=== PATIENT | male | born 1940 | race Caucasian/White ===

== ENCOUNTER → 2017-01-30 | Outpatient (CLI) | payer MEDICARE ==
--- NOTE | 2017-01-30 09:54 | RAD ---
EXAM: Renal/retroperitonal ultrasound HISTORY: Hematuria. COMPARISON: None. FINDINGS: Ultrasound of the kidneys, bladder and retroperitoneum was performed. The right kidney measures 10.9 cm. Cortical thickness and echogenicity are preserved. There is no hydronephrosis. The left kidney measures 10.5 cm. Cortical thickness and echogenicity are preserved. There is no hydronephrosis. The prostate is enlarged with a prominent median lobe that impresses on the bladder base. Separate from this, there is another solid mass more posteriorly that measures 3.2 x 2.8 x 3.0 cm. No clear internal flow is demonstrated. Diffuse hepatic steatosis is suspected. IMPRESSION: 1. A 3.2 cm mass in the bladder appears separate from a prominent prostatic medial lobe that also impresses on the bladder base. No internal flow is demonstrated, and this may be a urothelial malignancy or a clot/fungus ball. Cystoscopy could further evaluate. 2. Unremarkable examination of the kidneys. 3. Suspect diffuse hepatic steatosis.
== END | disposition home or self-care (01) ==
LOC: US 09:00
PROVIDERS: ATTEND Family Medicine
DX: R31.9 Hematuria, unspecified (principal)
CPT/HCPCS: 76770

== ENCOUNTER → 2017-03-09 | Outpatient (CLI) | payer MEDICARE ==
[~2017-03-09] MED LIST: ASPI-482 PO; IOHEXOL 300 MG/ML 75 ML VIAL IV ONE; LEVO125T5 PO; SIMV80TA3 PO
[2017-03-09 11:31] LABS: CALCIUM 9.7 mg/dL (8.5-10.1); GFR 72.8; POTASSIUM 4.5 mmol/L (3.5-5.1)
--- NOTE | 2017-03-09 17:01 | RAD ---
CT scan of the abdomen and pelvis without and with contrast (CT urogram protocol) 03/09/2017 Clinical history: Hematuria. Mass seen in urinary bladder on renal ultrasound. Technique: Unenhanced, contiguous, 2 mm axial sections were obtained through the abdomen and pelvis. After the intravenous administration of 75 cc of Omnipaque 300, contiguous, 2 mm axial sections were obtained through the abdomen. Delayed 2 mm axial sections were obtained through the abdomen and pelvis at 10 minutes. Findings: Comparison is made to patient's renal ultrasound dated 01/26/2017. Images through the lung bases demonstrate minimal dependent subsegmental atelectasis bilaterally. There is mild cardiomegaly. The unenhanced images through the abdomen and pelvis demonstrate no renal or ureteral calculus. A 1.3 cm low-attenuation lesion is seen involving the superior aspect of the right lobe of the liver. This likely represents a hepatic cyst. The spleen, pancreas and right adrenal gland are within normal limits. Slight nodularity the left adrenal gland is noted. No significant abnormality of either kidney is seen. There is no evidence of obstruction or dislocation of either collecting system. The majority of the ureters are opacified with contrast, left greater than right. No abnormality of either ureter is seen. Moderate atherosclerotic calcification of the abdominal aorta is seen. The abdominal aorta tapers normally. The gallbladder is well-distended. No free fluid or free air is seen within the abdomen. There is no evidence of bowel obstruction. No retroperitoneal lymphadenopathy is seen. The appendix is well visualized and is within normal limits. Images through the pelvis demonstrate the urinary bladder distended with contrast and urine. An exophytic mass is seen within the inferior posterior aspect of the urinary bladder which measures 3.7 cm in greatest diameter. A separate mass is seen extending anteriorly and superiorly from the left posterior aspect of the urinary bladder. This measures 4 cm in greatest diameter.. These correspond to the abnormalities seen on the patient's ultrasound. They are consistent most likely with bladder neoplasms (transitional cell carcinoma). No pelvic or inguinal lymphadenopathy is seen. No free fluid is noted. Degenerative changes are seen involving the lower thoracic and throughout the lumbar spine. Impression: Mass lesions consistent most likely with bladder neoplasms are seen within the urinary bladder as outlined above.
== END | disposition home or self-care (01) ==
LOC: CT 11:29
PROVIDERS: ATTEND Urology
DX: Z12.5 Encounter for screening for malignant neoplasm of prostate (principal); N32.9 Bladder disorder, unspecified; I25.10 Atherosclerotic heart disease of native coronary artery without angina pectoris; I51.7 Cardiomegaly; R31.9 Hematuria, unspecified
CPT/HCPCS: 36415; 74178; 80048; G0103; Q9967

== ENCOUNTER 2017-05-19 09:56 | Inpatient (IN) | payer BC, MEDICARE ==
[~2017-05-19] VITALS: Ht 172.7 cm; Wt 69.9 kg
[~2017-05-19 09:56] MED LIST changes: -IOHEXOL 300 MG/ML 75 ML VIAL IV ONE
--- NOTE | 2017-05-19 10:24 | PHYS DOC ---
Past Medical History Past Medical History: Cancer, Glaucoma, Hypothyroid, Other Additional Past Medical Histor: MS Past Surgical History: Cancer Surgery, Other Additional Past Surgical Histo: tumors removed from bladder Alcohol Use: None Drug Use: None Adult General Chief Complaint Chief Complaint: ALTERED MENTAL STATUS HPI HPI 76-year-old male whose son is here with him today presents the emergency department with generalized weakness over the past 3 or 4 days. The son has discussed with his mom which she has been noticing and is able to communicate her findings here today as well. Their report that he had bladder tumors removed about 2 weeks ago and recently had a Tineo taken out. Over the past 2 days she is generally weak in all extremities. No alleviating or exacerbating factors present. No associated fever present. Location generalized. Duration constant. No specific timing. The son also reports intermittent confusion as well. Review of systems is negative for cough chest pain abdominal pain nausea vomiting fevers or chills. Negative for neck stiffness. All other review of systems is negative unless otherwise noted in history of present illness. ED course: 76-year-old male presenting to the emergency department today with generalized fatigue and malaise. Patient had low-grade temperature here in the emergency department. Leukocytosis present on blood work. Suspicious for infection. Urine analysis moderately suggestive of urinary tract infection. Head CT negative. Otherwise workup showed CT the abdomen pelvis showed an acute compression fracture with retropulsion. my neuro exam showed 4 out of 5 strength in all extremities from generalized weakness without a focal neurologic deficit. I gave the patient IV antibiotics broad-spectrum and discussed the case with Dr. Blount and Dr. jorge MILLAN. The patient was then admitted to our hospital for further evaluation workup and care. Spinal precautions order placed along with head of bed flat. Review of Systems Review of Systems SEE ABOVE. Current Medications Current Medications Current Medications Medications (Trade) Dose Ordered Sig/Josi Start Time Stop Time Status Last Admin Dose Admin Sodium Chloride 500 ml @ 500 mls/hr 1X ONCE 05/19/17 10:30 05/19/17 11:29 DC 05/19/17 10:24 500 MLS/HR Allergies Allergies Allergies Coded Allergies Type Severity Reaction Last Updated Verified No Known Drug Allergies 03/09/17 No Physical Exam Physical Exam Constitutional: Well developed, well nourished, no acute distress, non-toxic appearance. [] HENT: Normocephalic, atraumatic, bilateral external ears normal, oropharynx moist, no oral exudates, nose normal. [] Eyes: PERRLA, EOMI, conjunctiva normal, no discharge. [] Neck: Normal range of motion, no tenderness, supple, no stridor. [] Cardiovascular:Heart rate regular rhythm, no murmur [] Lungs & Thorax: Bilateral breath sounds clear to auscultation [] Abdomen: Bowel sounds normal, soft, no tenderness, no masses, no pulsatile masses. [] Skin: Warm, dry, no erythema, no rash. [] Back: No tenderness, no CVA tenderness. [] Extremities: No tenderness, no cyanosis, no clubbing, ROM intact, no edema. [] Neurologic: Alert and oriented to person and year, but not location. Cranial nerves: Extraocular movements intact, eyebrows noah bilaterally smile symmetric, uvula elevation, shoulder shrug intact, tongue protrusion normal DTRs: 2+ Sensation: equal and normal in all extremities Strength: 5/5 in upper and lower extremities bilaterally Psychologic: Affect normal, judgement normal, mood normal. [] Current Patient Data Vital Signs Vital Signs Date Time Temp Pulse Resp B/P (MAP) Pulse Ox O2 Delivery O2 Flow Rate FiO2 05/19/17 12:30 88 19 91/57 (68) 94 05/19/17 09:56 100.1 Room Air 100.1 Lab Values Laboratory Tests Test 05/19/17 10:30 05/19/17 10:45 White Blood Count 15.7 x10^3/uL (4.0-11.0) H Red Blood Count 3.59 x10^6/uL (4.30-5.70) L Hemoglobin 10.8 g/dL (13.0-17.5) L Hematocrit 32.9 % (39.0-53.0) L Mean Corpuscular Volume 92 fL (79-100) Mean Corpuscular Hemoglobin 30 pg (25-35) Mean Corpuscular Hemoglobin Concent 33 g/dL (31-37) Red Cell Distribution Width 14.5 % (11.5-14.5) Platelet Count 275 x10^3/uL (140-400) Neutrophils (%) (Auto) 83 % (31-73) H Lymphocytes (%) (Auto) 6 % (24-48) L Monocytes (%) (Auto) 9 % (0-9) Eosinophils (%) (Auto) 0 % (0-3) Basophils (%) (Auto) 1 % (0-3) Neutrophils # (Auto) 13.0 x10^3uL (1.8-7.7) H Lymphocytes # (Auto) 1.0 x10^3/uL (1.0-4.8) Monocytes # (Auto) 1.5 x10^3/uL (0.0-1.1) H Eosinophils # (Auto) 0.0 x10^3/uL (0.0-0.7) Basophils # (Auto) 0.2 x10^3/uL (0.0-0.2) Segmented Neutrophils % 82 % (35-66) H Band Neutrophils % 2 % (0-9) Lymphocytes % 8 % (24-48) L Atypical Lymphocytes % (Manual) 1 % (0-0) H Monocytes % 5 % (0-10) Eosinophils % 2 % (0-5) Platelet Estimate Adequate (ADEQUATE) Sodium Level 140 mmol/L (136-145) Potassium Level 3.7 mmol/L (3.5-5.1) Chloride Level 104 mmol/L (98-107) Carbon Dioxide Level 29 mmol/L (21-32) Anion Gap 7 (6-14) Blood Urea Nitrogen 49 mg/dL (8-26) H Creatinine 1.7 mg/dL (0.7-1.3) H Estimated GFR (Cockcroft-Gault) 39.5 Glucose Level 168 mg/dL (70-99) H Lactic Acid Level 1.5 mmol/L (0.4-2.0) Calcium Level 8.9 mg/dL (8.5-10.1) Total Bilirubin 0.3 mg/dL (0.2-1.0) Direct Bilirubin 0.1 mg/dL (0.0-0.2) Aspartate Amino Transferase (AST) 126 U/L (15-37) H Alanine Aminotransferase (ALT) 100 U/L (16-63) H Alkaline Phosphatase 99 U/L (46-116) Troponin I Quantitative < 0.017 ng/mL (0.000-0.055) ZS-Xuo-M-Type Natriuretic Peptide 548 pg/mL (0-449) H Total Protein 6.6 g/dL (6.4-8.2) Albumin 1.9 g/dL (3.4-5.0) L Lipase 85 U/L (73-393) Urine Collection Type Unknown Urine Color Yellow Urine Clarity Cloudy Urine pH 6.0 Urine Specific [place] 1.015 Urine Protein 100 mg/dL (NEG-TRACE) Urine Glucose (UA) Negative mg/dL (NEG) Urine Ketones (Stick) Negative mg/dL (NEG) Urine Blood Moderate (NEG) Urine Nitrite Negative (NEG) Urine Bilirubin Negative (NEG) Urine Urobilinogen Dipstick 0.2 mg/dL (0.2 mg/dL) Urine Leukocyte Esterase Large (NEG) Urine RBC 3-5 /HPF (0-2) Urine WBC >40 /HPF (0-4) Urine Amorphous Sediment Present /HPF Urine Bacteria 0 /HPF (0-FEW) Laboratory Tests 05/19/17 10:30 Laboratory Tests 05/19/17 10:30 EKG EKG [] Radiology/Procedures Radiology/Procedures [] Course & Med Decision Making Course & Med Decision Making Pertinent Labs and Imaging studies reviewed. (See chart for details) [] Dragon Disclaimer Dragon Disclaimer This electronic medical record was generated, in whole or in part, using a voice recognition dictation system. Departure Departure Impression: Primary Impression: Confusion Additional Impressions: Weakness generalized Malaise and fatigue Lumbar compression fracture Disposition: 09 ADMITTED INPATIENT Admitting Physician: Deuce Ghotra Condition: GUARDED Referrals: BELLA KERR MD (PCP) Problem Qualifiers KIM FIELD MD May 19, 2017 10:24
[2017-05-19] MEDS ORDERED: IV NORMAL SALINE 500ML BAG 500 ML IV ONE (10:30)
[2017-05-19 10:48] LABS: BASO # 0.2 x10^3/uL (0.0-0.2); BASO % 1 % (0-3); EOS % 0 % (0-3); HEMATOCRIT 32.9 % (39.0-53.0); HEMOGLOBIN 10.8 g/dL (13.0-17.5); LYMPH % 6 % (24-48); MEAN CORPUSCULAR HEMOGLOBIN 30 pg (25-35); MEAN CORPUSCULAR HGB CONC 33 g/dL (31-37); MEAN CORPUSCULAR VOLUME 92 fL (79-100); MONO % 9 % (0-9); NEUT % 83 % (31-73); PLATELET COUNT 275 x10^3/uL (140-400); RED BLOOD COUNT 3.59 x10^6/uL (4.30-5.70); RED CELL DISTRIBUTION WIDTH 14.5 % (11.5-14.5); WHITE BLOOD COUNT 15.7 x10^3/uL (4.0-11.0)
--- NOTE | 2017-05-19 10:51 | RAD ---
AP PORTABLE CHEST Clinical Indication: fatigue. Altered mental status. Comparison: None. Findings: The cardiomediastinal silhouette is normal. Lungs are clear. There is no pneumothorax. No pleural effusion is appreciated. There is no acute bone abnormality. IMPRESSION: No acute cardiopulmonary process.
[2017-05-19 10:55] LABS: CALCIUM 8.9 mg/dL (8.5-10.1); CREATININE 1.7 mg/dL (0.7-1.3); GFR 39.5; POTASSIUM 3.7 mmol/L (3.5-5.1)
--- NOTE | 2017-05-19 10:55 | EKG ---
[facility] [address] [place] [address] Test Date: 2017-05-19 Test Time: 10:34:31 Pat Name: EVAN AMES Department: Room: Gender: M [employer] Faculty Liaison: : 1940 Requested By: KIM FILED Order Number: [id number] Reading MD: Measurements Intervals [place] Rate: 94 P: 47 [place]: 136 QRS: -57 QRSD: 116 T: 69 QT: 338 QTc: 428 Interpretive Statements SINUS RHYTHM ABNORMAL LEFT AXIS DEVIATION LEFT ANTERIOR FASCICULAR BLOCK QRS(T) CONTOUR ABNORMALITY CANNOT RULE OUT ANTEROSEPTAL MYOCARDIAL DAMAGE T ABNORMALITY IN HIGH LATERAL LEADS RI6.01 Unconfirmed report No previous ECG available for comparison
[2017-05-19 11:01] LABS: ALBUMIN 1.9 g/dL (3.4-5.0); DIRECT BILIRUBIN 0.1 mg/dL (0.0-0.2); TOTAL BILIRUBIN 0.3 mg/dL (0.2-1.0); TOTAL PROTEIN 6.6 g/dL (6.4-8.2)
--- NOTE | 2017-05-19 11:02 | RAD ---
PQRS Compliance Statement: One or more of the following individualized dose reduction techniques were utilized for this examination: 1. Automated exposure control 2. Adjustment of the mA and/or kV according to patient size 3. Use of iterative reconstruction technique CT HEAD WITHOUT CONTRAST History: generalized weakness . Comparison: None. Technique: Axial images are obtained of the head from the skull base through the vertex without IV contrast. Findings: No mass-effect, midline shift, hemorrhage or obvious acute infarction is identified. Basilar cisterns are patent. The ventricles and sulci are prominent, consistent with age-related cerebral atrophy. There is periventricular white matter hypoattenuation. This is a nonspecific finding but is commonly due to chronic small vessel ischemic disease in a patient of this age. Bone windows demonstrate no acute calvarial abnormality. Atherosclerotic calcification distal right vertebral artery. The visualized paranasal sinuses appear clear. Maxillary sinuses syncopal image. Mastoid air cells are well aerated. IMPRESSION: 1. No acute intracranial abnormality. 2. Age-related cerebral atrophy and periventricular white matter changes of chronic small vessel ischemic disease.
[2017-05-19 11:16] LABS: BILIRUBIN,URINE NEGATIVE (NEG); GLUCOSE,URINE NEGATIVE (NEG); NITRITE,URINE NEGATIVE (NEG); PROTEIN,URINE 100 mg/dL (NEG-TRACE); UROBILINOGEN,URINE 0.2 mg/dL (0.2 mg/dL)
[2017-05-19 11:37] LABS: BACTERIA,URINE 0 /HPF (0-FEW); WBC,URINE >40 /HPF (0-4)
--- NOTE | 2017-05-19 12:00 | ACF ---
Admission Forms Criteria MENTAL STATUS CHANGE Clinical Indications for Inpatient Care (Place 'X' for any and all applicable criteria): Ongoing inpatient care may be needed for 1 or more of the following(1)(2)(3)(5)( 6): [X]I. Suspected serious etiology (eg, medical disorder, [employer] event) of altered mental status [ ]II. Danger to self or others not manageable at lower level of care [ ]III. Grave disability (eg, inability to perform self care necessary at lower level of care) [ ]IV. Agitation or inappropriate behavior interfering with care for primary condition (eg, attempting to discontinue lines or drains prematurely, unable to cooperate with respiratory care) [ ]V. Delirium [A] [D][E] as described by 1 or more of the following(26): [ ]a) Delirium due to alcohol or sedative [F] withdrawal [ ]b) Delirium of uncertain etiology that has not responded to appropriate empiric treatment [ ]c) Delirium that prevents performance of a life-sustaining function (eg, feeding or hydrating oneself) [ ]. General contraindications and/or Inappropriate clinical situations for Observational Care in patients with Mental Status Change, when ANY ONE of the following is required: [ ]a) Prediction of prolongation of LOS based on ANY ONE of the following may be considered as a contraindication for observational care 2, 3, 4, 5, 6, 7, 8, 9, 10, 11 [ ]i) Age > 65 yrs. [ ]ii) Patient arriving by ambulance [ ]iii) Patient with high acuity [ ]iv) Patient requiring vital sign monitoring [ ]v) Patient on IV medication [ ]b) Systolic blood pressures greater than or equal to 180mmHg 3, 12 [ ]c) Patient with altered mental status including delirium and other alteration of consciousness, (3) [ ]d) Patient whose discharge disposition will be to a jail home or rehabilitation home should not be managed in Emergency Department Observation Unit. CMS rule requires 3 days hospital stay before such placement.3,13 [ ]e) Patient with failure to thrive due to broad array of etiologies 3,16,17 [ ]f) Inability to ambulate 3,14 Extended stay beyond goal length of stay for the primary condition may be needed until ALL of the following are present(3)(5): [ ]a) Underlying medical etiology of mental status change is absent, or has been established and adequately treated [ ]b) Danger to self or others is absent or manageable at lower level of care. [ ]c) Behavior crisis management, including physical or chemical restraints, is not required or available at lower level of car [ ]d) Substance or alcohol withdrawal is absent or manageable at lower level of care. [ ]e) Behavioral symptoms (eg, agitation, somnolence, inappropriate behavior) are absent, or are manageable at lower level of care. The original [facility] [employer] content created by [facility] has been revised. The portions of the content which have been revised are identified through the use of italic text or in bold, and [facility] has neither reviewed nor approved the modified material. All other unmodified content is copyright [facility]. Please see references footnoted in the original [facility] edition 2016 Admission Criteria Met?: Pending CALI TOMPKINS May 19, 2017 12:00
[2017-05-19 12:55] LABS: % EOS 2 % (0-5); PLT ESTIMATE ADEQUATE (ADEQUATE)
[2017-05-19] MEDS ORDERED: CONTRAST GIVEN MC PRN (13:00)
[2017-05-19] MEDS ORDERED: PIPERACILLIN/TAZOBACTAM 3.375 GM in IV NORMAL SALINE 50ML 50 ML IV ONE (13:00)
[2017-05-19] MEDS ORDERED: IOHEXOL 300 MG/ML 75 ML VIAL IV ONE (13:00)
[2017-05-19] MEDS ORDERED: PIP/TAZO PER PHARMACY MC PRN (13:00)
[2017-05-19] MEDS ORDERED: VANCOMYCIN 1.75 GM in IV NORMAL SALINE 500ML BAG 500 ML IV ONE (13:00)
[2017-05-19] MEDS ORDERED: ONDANSETRON PF 4 MG/2 ML VIAL. IV PRN (13:00)
[2017-05-19] MEDS: IV NORMAL SALINE 1000ML BAG 1,000 ML IV SCH ×2 (13:05→20:49)
--- NOTE | 2017-05-19 14:19 | RAD ---
PQRS Compliance Statement: One or more of the following individualized dose reduction techniques were utilized for this examination: 1. Automated exposure control 2. Adjustment of the mA and/or kV according to patient size 3. Use of iterative reconstruction technique CT CHEST ABDOMEN PELVIS WO Clinical Indication: leukocytosis and fatigue with pyuria Comparison: CT abdomen and pelvis with and without contrast, 03/09/2017. Technique: Helical CT imaging of the chest abdomen and pelvis is performed without IV or oral contrast. Findings: Evaluation of vascular structures, solid organs, and bowel is limited without oral and IV contrast. No adenopathy in the chest. Great vessels normal caliber. Coronary artery disease. Cardiac size normal, no pericardial effusion. No pleural effusion. Central airways are patent. There is mild atelectasis or scarring dependently in the bilateral lower lobes. No suspicious pulmonary nodule. No pleural abnormality. The liver, gallbladder, spleen, and pancreas are normal. Abdominal aorta is normal caliber. Adrenal glands normal. Right kidney is normal. There is left ureteral stent. There is moderate left perinephric fluid. No left hydronephrosis. No ureteral calculus is identified. Stomach unremarkable. There is no colon wall thickening. No dilated small bowel. Appendix is normal. No abdominal adenopathy or free fluid. No urinary bladder wall thickening. Bladder masses are no longer seen, correlate to interval history. Prostate size normal. No pelvic free fluid. There is acute compression fracture of the L4 vertebral body. There is retropulsion and there appears to be severe central canal stenosis. There is mild loss of height. L4 posterior elements are intact. There is old compression fracture of the L1 vertebral body. No compression fracture in the thoracic spine is identified. IMPRESSION: 1. Acute compression fracture of the L4 vertebral body, mild loss of height. There is retropulsion and severe central canal stenosis posterior to L4. 2. There is left ureteral stent. Moderate left perinephric fluid. Left pyelitis cannot be excluded. * Critical results called to Dr. Pedraza in the ED at 2:15 PM.
[2017-05-19 14:20] VITALS: BP 109/65
[2017-05-19 14:22] VITALS: BP 109/65
[2017-05-19] MEDS: VANCOMYCIN PER PHARMACY MC PRN (14:29)
[2017-05-19] MEDS: VANCOMYCIN 1.25 GM in IV NORMAL SALINE 250ML 250 ML IV SCH (15:31)
[2017-05-19 19:46] VITALS: BP 119/75
[2017-05-19 22:38] VITALS: BP 120/72
[2017-05-19] MEDS: MORPHINE SULFATE 2 MG/ML DISP.SYRIN. IV PRN (23:23)
[2017-05-19] MEDS: PIPERACILLIN/TAZOBACTAM 3.375 GM in IV NORMAL SALINE 50ML 50 ML IV SCH (23:26)
[2017-05-20 03:36] VITALS: BP 103/62
[2017-05-20] MEDS: ACETAMINOPHEN 325 MG TABLET. PO PRN ×2 (03:55→20:59)
[2017-05-20] MEDS: MORPHINE SULFATE 2 MG/ML DISP.SYRIN. IV PRN ×4 (04:09→14:29)
[2017-05-20 05:29] LABS: BASO # 0.1 x10^3/uL (0.0-0.2); BASO % 1 % (0-3); EOS % 0 % (0-3); HEMOGLOBIN 10.4 g/dL (13.0-17.5); LYMPH # 0.8 x10^3/uL (1.0-4.8); LYMPH % 7 % (24-48); MEAN CORPUSCULAR HEMOGLOBIN 30 pg (25-35); MEAN CORPUSCULAR HGB CONC 33 g/dL (31-37); MEAN CORPUSCULAR VOLUME 93 fL (79-100); MONO % 9 % (0-9); NEUT % 83 % (31-73); PLATELET COUNT 258 x10^3/uL (140-400); RED BLOOD COUNT 3.45 x10^6/uL (4.30-5.70); RED CELL DISTRIBUTION WIDTH 14.8 % (11.5-14.5); WHITE BLOOD COUNT 11.4 x10^3/uL (4.0-11.0)
[2017-05-20 05:51] LABS: CALCIUM 8.5 mg/dL (8.5-10.1); CREATININE 1.4 mg/dL (0.7-1.3); GFR 49.4; POTASSIUM 3.8 mmol/L (3.5-5.1)
[2017-05-20] MEDS: PIPERACILLIN/TAZOBACTAM 3.375 GM in IV NORMAL SALINE 50ML 50 ML IV SCH ×3 (06:27→17:44)
[2017-05-20] MEDS: IV NORMAL SALINE 1000ML BAG 1,000 ML IV SCH ×2 (06:29→15:00)
[2017-05-20 07:00] VITALS: BP 92/53
[2017-05-20] MEDS: LEVOTHYROXINE 125 MCG TABLET PO SCH (08:18)
--- NOTE | 2017-05-20 08:38 | HP ---
ADMIT DATE: 05/19/2017 CHIEF COMPLAINT: Weakness and mental status changes. HISTORY OF PRESENT ILLNESS AND HOSPITAL COURSE: This patient is a 76-year-old male with a known history of MS, came in to the hospital with what appeared to be acute delirium, but was in fact acute delirium on top of progressive dementia. He was found to have evidence of infection with leukocytosis as well as large leukocytes in urine. Therefore, he was started on IV antibiotics and admitted to the hospital. During evaluation, it was discovered that the patient had been having leg weakness and had several falls. We did CAT scan, confirmed a new L4 compression fracture with significant retropulsion. Therefore, Neurosurgery was consulted. The patient is unable to give adequate history due to delirium and apparently progressive dementia. Most of the information is obtained from chart and daughter is available in the room on my interview. She states that for several months he has been following and has had difficulty with his memory. He has gotten significantly worse since recent diagnosis of bladder tumor and bladder tumor procedure. The patient does have a stent in place verified by x-ray in the Emergency Room. The stent was present in the left ureter. The patient also has perinephric fluid and Urology will consult to evaluate for abscess as well as Infectious Disease. Due to significant changes and multiple medical issues, he was admitted to the medical bed for continued evaluation and IV antibiotics. PAST MEDICAL HISTORY: Significant for: 1. Recently diagnosed bladder tumor with procedure and stent placement. 2. Underlying multiple sclerosis with progressive weakness. 3. Newly diagnosed early-onset dementia, Alzheimer's type. 4. Hypothyroidism. 5. High cholesterol. FAMILY HISTORY: Noncontributory. SOCIAL HISTORY: The patient continues to smoke approximately a pack per day. He has used alcohol in the past, but is not drinking heavily at present. The patient is and has social support from his and daughter. ALLERGIES: The patient denies drug allergies. CURRENT MEDICATIONS: Listed on MRAD. In addition to current medications, the patient has recently been given Percocet for postsurgical pain. REVIEW OF SYSTEMS: Unable to be obtained from the patient, but during her hospitalization, the patient has had fever and according to daughter he has had significant pain from recent stent placement and urologic procedures. ASSESSMENT: 1. Metabolic encephalopathy. 2. Acute L4 compression fracture. 3. Multiple sclerosis. 4. Urinary tract infection. 5. Sepsis. 6. Underlying dementia. 7. Hypothyroidism. 8. Hyperlipidemia. PLAN: To proceed with Infectious Disease consultation, neurosurgical consultation as well as urologic consultation. Continue supportive care and IV antibiotics. KELLEN KEENE MD DR: CORY/jeanne JOB#: [id number] / [id number]
--- NOTE | 2017-05-20 09:27 | PDOC ---
PROGRESS NOTES Subjective Subjective Pt. with bladder tumors, s/p TURBT and left J-J stent by Dr. Griffin last month Objective Objective Vital Signs Date Time Temp Pulse Resp B/P (MAP) Pulse Ox O2 Delivery O2 Flow Rate FiO2 05/20/17 08:18 16 96 Room Air 05/20/17 07:00 98.3 62 92/53 (66) 98.3 Intake and Output 05/20/17 07:00 Intake Total 650 ml Output Total 0 ml Balance 650 ml Intake Oral 150 ml IV Total 500 ml Output Urine Total 0 ml # Voids 6 # Bowel Movements 2 Physical Exam Physical Exam Left nima-nephric fluid on CT Plan Plan of Care Recommend steinberg to obtain maximum drainage. Consider left PCN drainage neurology and med-onc consults F/U with Dr. Griffin in next 2-3 days Problems Medical Problems: (1) Confusion Status: Acute (2) Lumbar compression fracture Status: Acute (3) Malaise and fatigue Status: Acute (4) Weakness generalized Status: Acute Comment Review of Relevant I have reviewed the following items betsy (where applicable) has been applied. Labs Laboratory Tests Test 05/19/17 10:30 05/19/17 10:45 05/20/17 04:30 White Blood Count 15.7 x10^3/uL (4.0-11.0) 11.4 x10^3/uL (4.0-11.0) Red Blood Count 3.59 x10^6/uL (4.30-5.70) 3.45 x10^6/uL (4.30-5.70) Hemoglobin 10.8 g/dL (13.0-17.5) 10.4 g/dL (13.0-17.5) Hematocrit 32.9 % (39.0-53.0) 32.0 % (39.0-53.0) Mean Corpuscular Volume 92 fL (79-100) 93 fL (79-100) Mean Corpuscular Hemoglobin 30 pg (25-35) 30 pg (25-35) Mean Corpuscular Hemoglobin Concent 33 g/dL (31-37) 33 g/dL (31-37) Red Cell Distribution Width 14.5 % (11.5-14.5) 14.8 % (11.5-14.5) Platelet Count 275 x10^3/uL (140-400) 258 x10^3/uL (140-400) Neutrophils (%) (Auto) 83 % (31-73) 83 % (31-73) Lymphocytes (%) (Auto) 6 % (24-48) 7 % (24-48) Monocytes (%) (Auto) 9 % (0-9) 9 % (0-9) Eosinophils (%) (Auto) 0 % (0-3) 0 % (0-3) Basophils (%) (Auto) 1 % (0-3) 1 % (0-3) Neutrophils # (Auto) 13.0 x10^3uL (1.8-7.7) 9.5 x10^3uL (1.8-7.7) Lymphocytes # (Auto) 1.0 x10^3/uL (1.0-4.8) 0.8 x10^3/uL (1.0-4.8) Monocytes # (Auto) 1.5 x10^3/uL (0.0-1.1) 1.0 x10^3/uL (0.0-1.1) Eosinophils # (Auto) 0.0 x10^3/uL (0.0-0.7) 0.0 x10^3/uL (0.0-0.7) Basophils # (Auto) 0.2 x10^3/uL (0.0-0.2) 0.1 x10^3/uL (0.0-0.2) Segmented Neutrophils % 82 % (35-66) Band Neutrophils % 2 % (0-9) Lymphocytes % 8 % (24-48) Atypical Lymphocytes % (Manual) 1 % (0-0) Monocytes % 5 % (0-10) Eosinophils % 2 % (0-5) Platelet Estimate Adequate (ADEQUATE) Sodium Level 140 mmol/L (136-145) 144 mmol/L (136-145) Potassium Level 3.7 mmol/L (3.5-5.1) 3.8 mmol/L (3.5-5.1) Chloride Level 104 mmol/L (98-107) 106 mmol/L (98-107) Carbon Dioxide Level 29 mmol/L (21-32) 29 mmol/L (21-32) Anion Gap 7 (6-14) 9 (6-14) Blood Urea Nitrogen 49 mg/dL (8-26) 36 mg/dL (8-26) Creatinine 1.7 mg/dL (0.7-1.3) 1.4 mg/dL (0.7-1.3) Estimated GFR (Cockcroft-Gault) 39.5 49.4 Glucose Level 168 mg/dL (70-99) 77 mg/dL (70-99) Lactic Acid Level 1.5 mmol/L (0.4-2.0) Calcium Level 8.9 mg/dL (8.5-10.1) 8.5 mg/dL (8.5-10.1) Total Bilirubin 0.3 mg/dL (0.2-1.0) Direct Bilirubin 0.1 mg/dL (0.0-0.2) Aspartate Amino Transf (AST/SGOT) 126 U/L (15-37) Alanine Aminotransferase (ALT/SGPT) 100 U/L (16-63) Alkaline Phosphatase 99 U/L (46-116) Troponin I Quantitative < 0.017 ng/mL (0.000-0.055) GZ-Ona-L-Type Natriuretic Peptide 548 pg/mL (0-449) Total Protein 6.6 g/dL (6.4-8.2) Albumin 1.9 g/dL (3.4-5.0) Lipase 85 U/L (73-393) Urine Collection Type Unknown Urine Color Yellow Urine Clarity Cloudy Urine pH 6.0 Urine Specific [place] 1.015 Urine Protein 100 mg/dL (NEG-TRACE) Urine Glucose (UA) Negative mg/dL (NEG) Urine Ketones (Stick) Negative mg/dL (NEG) Urine Blood Moderate (NEG) Urine Nitrite Negative (NEG) Urine Bilirubin Negative (NEG) Urine Urobilinogen Dipstick 0.2 mg/dL (0.2 mg/dL) Urine Leukocyte Esterase Large (NEG) Urine RBC 3-5 /HPF (0-2) Urine WBC >40 /HPF (0-4) Urine Amorphous Sediment Present /HPF Urine Bacteria 0 /HPF (0-FEW) Laboratory Tests Test 05/19/17 10:30 05/19/17 10:45 05/20/17 04:30 White Blood Count 15.7 x10^3/uL (4.0-11.0) 11.4 x10^3/uL (4.0-11.0) Red Blood Count 3.59 x10^6/uL (4.30-5.70) 3.45 x10^6/uL (4.30-5.70) Hemoglobin 10.8 g/dL (13.0-17.5) 10.4 g/dL (13.0-17.5) Hematocrit 32.9 % (39.0-53.0) 32.0 % (39.0-53.0) Mean Corpuscular Volume 92 fL (79-100) 93 fL (79-100) Mean Corpuscular Hemoglobin 30 pg (25-35) 30 pg (25-35) Mean Corpuscular Hemoglobin Concent 33 g/dL (31-37) 33 g/dL (31-37) Red Cell Distribution Width 14.5 % (11.5-14.5) 14.8 % (11.5-14.5) Platelet Count 275 x10^3/uL (140-400) 258 x10^3/uL (140-400) Neutrophils (%) (Auto) 83 % (31-73) 83 % (31-73) Lymphocytes (%) (Auto) 6 % (24-48) 7 % (24-48) Monocytes (%) (Auto) 9 % (0-9) 9 % (0-9) Eosinophils (%) (Auto) 0 % (0-3) 0 % (0-3) Basophils (%) (Auto) 1 % (0-3) 1 % (0-3) Neutrophils # (Auto) 13.0 x10^3uL (1.8-7.7) 9.5 x10^3uL (1.8-7.7) Lymphocytes # (Auto) 1.0 x10^3/uL (1.0-4.8) 0.8 x10^3/uL (1.0-4.8) Monocytes # (Auto) 1.5 x10^3/uL (0.0-1.1) 1.0 x10^3/uL (0.0-1.1) Eosinophils # (Auto) 0.0 x10^3/uL (0.0-0.7) 0.0 x10^3/uL (0.0-0.7) Basophils # (Auto) 0.2 x10^3/uL (0.0-0.2) 0.1 x10^3/uL (0.0-0.2) Segmented Neutrophils % 82 % (35-66) Band Neutrophils % 2 % (0-9) Lymphocytes % 8 % (24-48) Atypical Lymphocytes % (Manual) 1 % (0-0) Monocytes % 5 % (0-10) Eosinophils % 2 % (0-5) Platelet Estimate Adequate (ADEQUATE) Sodium Level 140 mmol/L (136-145) 144 mmol/L (136-145) Potassium Level 3.7 mmol/L (3.5-5.1) 3.8 mmol/L (3.5-5.1) Chloride Level 104 mmol/L (98-107) 106 mmol/L (98-107) Carbon Dioxide Level 29 mmol/L (21-32) 29 mmol/L (21-32) Anion Gap 7 (6-14) 9 (6-14) Blood Urea Nitrogen 49 mg/dL (8-26) 36 mg/dL (8-26) Creatinine 1.7 mg/dL (0.7-1.3) 1.4 mg/dL (0.7-1.3) Estimated GFR (Cockcroft-Gault) 39.5 49.4 Glucose Level 168 mg/dL (70-99) 77 mg/dL (70-99) Lactic Acid Level 1.5 mmol/L (0.4-2.0) Calcium Level 8.9 mg/dL (8.5-10.1) 8.5 mg/dL (8.5-10.1) Total Bilirubin 0.3 mg/dL (0.2-1.0) Direct Bilirubin 0.1 mg/dL (0.0-0.2) Aspartate Amino Transf (AST/SGOT) 126 U/L (15-37) Alanine Aminotransferase (ALT/SGPT) 100 U/L (16-63) Alkaline Phosphatase 99 U/L (46-116) Troponin I Quantitative < 0.017 ng/mL (0.000-0.055) TK-Ubs-I-Type Natriuretic Peptide 548 pg/mL (0-449) Total Protein 6.6 g/dL (6.4-8.2) Albumin 1.9 g/dL (3.4-5.0) Lipase 85 U/L (73-393) Urine Collection Type Unknown Urine Color Yellow Urine Clarity Cloudy Urine pH 6.0 Urine Specific [place] 1.015 Urine Protein 100 mg/dL (NEG-TRACE) Urine Glucose (UA) Negative mg/dL (NEG) Urine Ketones (Stick) Negative mg/dL (NEG) Urine Blood Moderate (NEG) Urine Nitrite Negative (NEG) Urine Bilirubin Negative (NEG) Urine Urobilinogen Dipstick 0.2 mg/dL (0.2 mg/dL) Urine Leukocyte Esterase Large (NEG) Urine RBC 3-5 /HPF (0-2) Urine WBC >40 /HPF (0-4) Urine Amorphous Sediment Present /HPF Urine Bacteria 0 /HPF (0-FEW) Medications Current Medications Sodium Chloride 500 ml @ 500 mls/hr 1X ONCE IV Last administered on 10:24; Start 05/19/17 at 10:30; Stop 05/19/17 at 11:29; Status DC Iohexol (Omnipaque 300 Mg/ml) 50 ml 1X ONCE IV ; Start 05/19/17 at 13:00; Stop 05/19/17 at 13:01; Status DC Info (Do NOT chart on this entry -- for MONITORING) 1 each PRN DAILY PRN MC SEE COMMENTS; Start 05/19/17 at 13:00; Stop 05/21/17 at 12:59 Ondansetron HCl (Zofran) 4 mg PRN Q8HRS PRN IV NAUSEA/VOMITING; Start 05/19/17 at 13:00; Stop 05/20/17 at 12:59 Morphine Sulfate 2 mg PRN Q2HR PRN IV PAIN Last administered on 05/20/17 08:18 ; Start 05/19/17 at 13:00; Stop 05/20/17 at 12:59 Sodium Chloride 1,000 ml @ 125 mls/hr Q8H IV Last administered on 05/20/17 06 :29; Start 05/19/17 at 12:49; Stop 05/20/17 at 12:48 Vancomycin HCl (Vanco Per Pharmacy) 1 each PRN DAILY PRN MC SEE COMMENTS Last administered on 05/19/17 14:29; Start 05/19/17 at 13:00 Piperacillin Sod/ Tazobactam Sod (Zosyn Per Pharmacy) 1 each PRN DAILY PRN MC SEE COMMENTS; Start 05/19/17 at 13:00 Piperacillin Sod/ Tazobactam Sod 3.375 gm/Sodium Chloride 50 ml @ 100 mls/hr 1X ONCE IV Last administered on 05/19/17 16:13; Start 05/19/17 at 13:00; Stop 05/19/17 at 13:29; Status DC Vancomycin HCl 1.75 gm/Sodium Chloride 500 ml @ 250 mls/hr 1X ONCE IV Last administered on 05/19/17 13:06; Start 05/19/17 at 13:00; Stop 05/19/17 at 14:59 ; Status DC Vancomycin HCl 1.25 gm/Sodium Chloride 250 ml @ 167 mls/hr Q24H IV Last administered on 05/19/17 15:31; Start 05/20/17 at 13:00 Vancomycin HCl 1 each 1X ONCE MC ; Start 05/21/17 at 12:30; Stop 05/21/17 at 12 :31 Piperacillin Sod/ Tazobactam Sod 3.375 gm/Sodium Chloride 50 ml @ 100 mls/hr Q6HRS IV Last administered on 05/20/17 06:27; Start 05/19/17 at 23:00 Acetaminophen (Tylenol) 650 mg PRN Q6HRS PRN PO fever/MILD pain Last administered on 05/20/17 03:55; Start 05/20/17 at 04:00 Levothyroxine Sodium (Synthroid) 125 mcg DAILY07 PO Last administered on 08:18; Start 05/20/17 at 07:30 Simvastatin (Zocor) 80 mg QHS PO ; Start 05/20/17 at 21:00 Active Scripts Active Reported Aspir 81 (Aspirin) 81 Mg Tablet.dr 81 Mg PO Simvastatin 80 Mg Tablet 80 Mg PO DAILY Levothyroxine Sodium 125 Mcg Tablet 125 Mcg PO DAILYAC Vitals/I & O Vital Sign - Last 24 Hours 05/19/17 05/19/17 05/19/17 05/19/17 09:56 10:30 11:00 11:30 Temp 100.1 100.1 Pulse 98 96 94 86 Resp B/P (MAP) 106/61 (76) 101/63 (76) 103/56 (72) 107/56 (73) Pulse Ox 96 94 96 94 O2 Delivery Room Air 05/19/17 05/19/17 05/19/17 05/19/17 12:00 12:30 13:00 14:20 Temp 98.2 98.2 Pulse 92 88 88 81 Resp 21 19 23 24 B/P (MAP) 97/61 (73) 91/57 (68) 98/60 (73) 109/65 (80) Pulse Ox 94 94 95 97 O2 Delivery Room Air 05/19/17 05/19/17 05/19/17 05/19/17 14:22 15:44 19:46 20:00 Temp 98.2 99.6 98.2 99.6 Pulse 81 86 Resp 24 18 B/P (MAP) 109/65 (80) 119/75 (90) Pulse Ox 97 95 O2 Delivery Room Air Room Air Room Air Room Air 05/19/17 05/19/17 05/19/17 05/20/17 22:38 23:23 23:53 03:36 Temp 98.3 101.1 98.3 101.1 Pulse 84 97 Resp 18 18 20 18 B/P (MAP) 120/72 (88) 103/62 (76) Pulse Ox 95 95 94 O2 Delivery Room Air Room Air Room Air 05/20/17 05/20/17 05/20/17 05/20/17 04:09 04:39 07:00 08:00 Temp 98.3 98.3 Pulse 62 Resp 20 17 B/P (MAP) 92/53 (66) Pulse Ox 95 95 96 O2 Delivery Room Air Room Air Room Air Room Air 05/20/17 08:18 Resp 16 Pulse Ox 96 O2 Delivery Room Air Intake and Output 05/19/17 05/19/17 05/20/17 15:00 23:00 07:00 Intake Total 500 ml 150 ml Output Total 0 ml Balance 500 ml 0 ml 150 ml JOHN NAGY MD May 20, 2017 09:27
--- NOTE | 2017-05-20 10:05 | RAD ---
BILATERAL LOWER EXTREMITY VENOUS DOPPLER ULTRASOUND Clinical indication: Bilateral leg pain and immobility. Comparison: None. Technique: Real-time grayscale, color-flow, and Doppler spectral waveform analysis of the deep vein system of the lower extremities is performed. Findings: All visualized vein segments compress, augment, and demonstrate color flow normally. There is no evidence of thrombus. IMPRESSION: No evidence of deep vein thrombosis in the right or left lower extremity.
[2017-05-20 11:04] VITALS: BP 96/59
--- NOTE | 2017-05-20 11:35 | PDOC ---
Infectious Disease Note Vital Sign Vital Signs Vital Signs Date Time Temp Pulse Resp B/P (MAP) Pulse Ox O2 Delivery O2 Flow Rate FiO2 05/20/17 08:18 16 96 Room Air 05/20/17 07:00 98.3 62 92/53 (66) 98.3 Labs Lab Laboratory Tests Test 05/20/17 04:30 White Blood Count 11.4 x10^3/uL (4.0-11.0) Red Blood Count 3.45 x10^6/uL (4.30-5.70) Hemoglobin 10.4 g/dL (13.0-17.5) Hematocrit 32.0 % (39.0-53.0) Mean Corpuscular Volume 93 fL (79-100) Mean Corpuscular Hemoglobin 30 pg (25-35) Mean Corpuscular Hemoglobin Concent 33 g/dL (31-37) Red Cell Distribution Width 14.8 % (11.5-14.5) Platelet Count 258 x10^3/uL (140-400) Neutrophils (%) (Auto) 83 % (31-73) Lymphocytes (%) (Auto) 7 % (24-48) Monocytes (%) (Auto) 9 % (0-9) Eosinophils (%) (Auto) 0 % (0-3) Basophils (%) (Auto) 1 % (0-3) Neutrophils # (Auto) 9.5 x10^3uL (1.8-7.7) Lymphocytes # (Auto) 0.8 x10^3/uL (1.0-4.8) Monocytes # (Auto) 1.0 x10^3/uL (0.0-1.1) Eosinophils # (Auto) 0.0 x10^3/uL (0.0-0.7) Basophils # (Auto) 0.1 x10^3/uL (0.0-0.2) Sodium Level 144 mmol/L (136-145) Potassium Level 3.8 mmol/L (3.5-5.1) Chloride Level 106 mmol/L (98-107) Carbon Dioxide Level 29 mmol/L (21-32) Anion Gap 9 (6-14) Blood Urea Nitrogen 36 mg/dL (8-26) Creatinine 1.4 mg/dL (0.7-1.3) Estimated GFR (Cockcroft-Gault) 49.4 Glucose Level 77 mg/dL (70-99) Calcium Level 8.5 mg/dL (8.5-10.1) Objective Assessment Sepsis POA, 05/19 Left perinephritic fluid, ? pyelitis h/o bladder tumors s/p TURBT and J-J stent placement at [facility] a month ago. - 3 days of antibiotics post removal of Tineo about 2 weeks later. Acute encephalopathy - better already per CARLIE -better Transaminitis Acute compression fracture, L4 MS, 47 year history Plan Plan of Care vanc and Zosyn Monitor labs f/u cultures D/w Dr. Underwood D/w Thank you [id number] Attending Co-Sign Attending Co-Sign The patient was seen and interviewed as well as examined at the bedside. The chart was reviewed. The case was discussed. Agree with the plan of care. CLYDE MEZA APRN May 20, 2017 11:35 JESSICA HYMAN MD May 20, 2017 16:07
[2017-05-20] MEDS: VANCOMYCIN 1.25 GM in IV NORMAL SALINE 250ML 250 ML IV SCH (13:48)
--- NOTE | 2017-05-20 13:55 | PDOC ---
Provider Note Provider Note Med ONc noninvasive urothelial carcinoma Pt prefers observation see dictation [id number] LULU ZAYAS MD May 20, 2017 13:55
--- NOTE | 2017-05-20 13:59 | PDOC2 ---
NEUROLOGY CONSULT Date of Admission Date of Admission DATE: 05/20/17 TIME: 13:44 Reason for Consult Reason for Consult: IMPRESSION: Metabolic encephalopathy. Fever, 101.1 degree. Leukocytosis. Sepsis. Renal failure. Bladder tumor removal with left ureteral stent. Hypothyroidism Generalized weakness Elevated hepatic enzymes. MS? Acute L-4 compression fracture. Hypoalbuminemia. Dementia. RECOMMENDATIONS/PLAN: Brain MRI, no contrast due to renal failure. Suggest watch the dose of Statin due to elevated hepatic enzymes. Lab: see orders. Treat medical diseases. HISTORY OF THE PRESENT ILLNESS: 76-y-old male patient with multiple diseases had bladder mass that was surgically removed in about 2 weeks with left ureteral stent. He was admitted this time and has been having mental status changes, so neurology was called for consultation. PAST MEDICAL HISTORY: Please see above. PAST SURGERY HISTORY: Bladder mass removal about 2 weeks ago with left ureteral stent. ALLERGY: Reviewed. MEDICATIONS: Refer to [facility] FAMILY HISTORY: Non contributory. SOCIAL HISTORY: Denies current smoking, drinking, and illicit drug use. He drank alcohol in the past then quit. REVIEW OF SYSTEMS: Constitutional: No cachexia. Head: No traumatic brain or head injury. Skin: No edema, or rash. Ear: No infection. Eyes: No vision loss or color blindness. Nose: No bleeding or purulent discharges. Hearing: Hearing decrease. Neck: No injury. Cardiac: HLD. Pulmonary: No COPD. GI: No GI ulcer. Urinary/genital: Bladder mass. UTI. Endocrinologic: No cousin face, craniofacial dysmorphism, polydactyly. Skeletomuscular: Generalized weakness. Neurological: see HP. Psychiatric: Denies drug use/abuse. Otherwise, not [id number] review of systems. PHYSICAL EXAMINATION: General appearance is in subacute distress. HEENT: Normocephalic and nontraumatic. Eyes, nose, ears, and throat are unremarkable. Neck is supple. No lymphadenopathy. No crepitus. Cardiovascular: S1, S2, regular rate and rhythm. Pulmonary: Clear to auscultation bilaterally. Abdomen: Bowel sounds are positive. Extremities: No rash, lesions, or edema. No restriction of range of motion NEUROLOGICAL EXAMINATION: Awake. Not oriented to time, place but knows person. PERRL. EOMI. CN: no focal findings. Muscle tone: within normal. Muscle strength: 4 DTR: 1-2 Plantar reflex: Flexor response bilaterally Gait: not examined in bed. Sensory exam: no abnormal findings. No acute cerebellar signs elicited. F-T-N test not performed due to not follow commands. Current Medications Current Medications Current Medications Sodium Chloride 500 ml @ 500 mls/hr 1X ONCE IV Last administered on 10:24; Start 05/19/17 at 10:30; Stop 05/19/17 at 11:29; Status DC Iohexol (Omnipaque 300 Mg/ml) 50 ml 1X ONCE IV ; Start 05/19/17 at 13:00; Stop 05/19/17 at 13:01; Status DC Info (Do NOT chart on this entry -- for MONITORING) 1 each PRN DAILY PRN MC SEE COMMENTS; Start 05/19/17 at 13:00; Stop 05/21/17 at 12:59 Ondansetron HCl (Zofran) 4 mg PRN Q8HRS PRN IV NAUSEA/VOMITING; Start 05/19/17 at 13:00; Stop 05/20/17 at 12:59; Status DC Morphine Sulfate 2 mg PRN Q2HR PRN IV PAIN Last administered on 05/20/17 08:18 ; Start 05/19/17 at 13:00; Stop 05/20/17 at 12:59; Status DC Sodium Chloride 1,000 ml @ 125 mls/hr Q8H IV Last administered on 05/20/17 06 :29; Start 05/19/17 at 12:49; Stop 05/20/17 at 12:48; Status DC Vancomycin HCl (Vanco Per Pharmacy) 1 each PRN DAILY PRN MC SEE COMMENTS Last administered on 05/19/17 14:29; Start 05/19/17 at 13:00 Piperacillin Sod/ Tazobactam Sod (Zosyn Per Pharmacy) 1 each PRN DAILY PRN MC SEE COMMENTS; Start 05/19/17 at 13:00 Piperacillin Sod/ Tazobactam Sod 3.375 gm/Sodium Chloride 50 ml @ 100 mls/hr 1X ONCE IV Last administered on 05/19/17 16:13; Start 05/19/17 at 13:00; Stop 05/19/17 at 13:29; Status DC Vancomycin HCl 1.75 gm/Sodium Chloride 500 ml @ 250 mls/hr 1X ONCE IV Last administered on 05/19/17 13:06; Start 05/19/17 at 13:00; Stop 05/19/17 at 14:59 ; Status DC Vancomycin HCl 1.25 gm/Sodium Chloride 250 ml @ 167 mls/hr Q24H IV ; Start at 13:00 Vancomycin HCl 1 each 1X ONCE MC ; Start 05/21/17 at 12:30; Stop 05/21/17 at 12 :31 Piperacillin Sod/ Tazobactam Sod 3.375 gm/Sodium Chloride 50 ml @ 100 mls/hr Q6HRS IV Last administered on 05/20/17 11:31; Start 05/19/17 at 23:00 Acetaminophen (Tylenol) 650 mg PRN Q6HRS PRN PO fever/MILD pain Last administered on 05/20/17 03:55; Start 05/20/17 at 04:00 Levothyroxine Sodium (Synthroid) 125 mcg DAILY07 PO Last administered on 08:18; Start 05/20/17 at 07:30 Simvastatin (Zocor) 80 mg QHS PO ; Start 05/20/17 at 21:00 Active Scripts Active Reported Aspir 81 (Aspirin) 81 Mg Tablet. 81 Mg PO Simvastatin 80 Mg Tablet 80 Mg PO DAILY Levothyroxine Sodium 125 Mcg Tablet 125 Mcg PO DAILYAC Allergies Allergies: Coded Allergies: No Known Drug Allergies (Unverified , 03/09/17) UNKNOWN Vitals VITALS Vital Signs Date Time Temp Pulse Resp B/P (MAP) Pulse Ox O2 Delivery O2 Flow Rate FiO2 05/20/17 11:04 98.4 77 17 96/59 (71) 96 Room Air 98.4 Labs Labs Laboratory Tests Test 05/19/17 10:30 05/19/17 10:45 05/20/17 04:30 05/20/17 11:30 White Blood Count 15.7 x10^3/uL (4.0-11.0) 11.4 x10^3/uL (4.0-11.0) Red Blood Count 3.59 x10^6/uL (4.30-5.70) 3.45 x10^6/uL (4.30-5.70) Hemoglobin 10.8 g/dL (13.0-17.5) 10.4 g/dL (13.0-17.5) Hematocrit 32.9 % (39.0-53.0) 32.0 % (39.0-53.0) Mean Corpuscular Volume 92 fL (79-100) 93 fL (79-100) Mean Corpuscular Hemoglobin 30 pg (25-35) 30 pg (25-35) Mean Corpuscular Hemoglobin Concent 33 g/dL (31-37) 33 g/dL (31-37) Red Cell Distribution Width 14.5 % (11.5-14.5) 14.8 % (11.5-14.5) Platelet Count 275 x10^3/uL (140-400) 258 x10^3/uL (140-400) Neutrophils (%) (Auto) 83 % (31-73) 83 % (31-73) Lymphocytes (%) (Auto) 6 % (24-48) 7 % (24-48) Monocytes (%) (Auto) 9 % (0-9) 9 % (0-9) Eosinophils (%) (Auto) 0 % (0-3) 0 % (0-3) Basophils (%) (Auto) 1 % (0-3) 1 % (0-3) Neutrophils # (Auto) 13.0 x10^3uL (1.8-7.7) 9.5 x10^3uL (1.8-7.7) Lymphocytes # (Auto) 1.0 x10^3/uL (1.0-4.8) 0.8 x10^3/uL (1.0-4.8) Monocytes # (Auto) 1.5 x10^3/uL (0.0-1.1) 1.0 x10^3/uL (0.0-1.1) Eosinophils # (Auto) 0.0 x10^3/uL (0.0-0.7) 0.0 x10^3/uL (0.0-0.7) Basophils # (Auto) 0.2 x10^3/uL (0.0-0.2) 0.1 x10^3/uL (0.0-0.2) Segmented Neutrophils % 82 % (35-66) Band Neutrophils % 2 % (0-9) Lymphocytes % 8 % (24-48) Atypical Lymphocytes % (Manual) 1 % (0-0) Monocytes % 5 % (0-10) Eosinophils % 2 % (0-5) Platelet Estimate Adequate (ADEQUATE) Sodium Level 140 mmol/L (136-145) 144 mmol/L (136-145) Potassium Level 3.7 mmol/L (3.5-5.1) 3.8 mmol/L (3.5-5.1) Chloride Level 104 mmol/L (98-107) 106 mmol/L (98-107) Carbon Dioxide Level 29 mmol/L (21-32) 29 mmol/L (21-32) Anion Gap 7 (6-14) 9 (6-14) Blood Urea Nitrogen 49 mg/dL (8-26) 36 mg/dL (8-26) Creatinine 1.7 mg/dL (0.7-1.3) 1.4 mg/dL (0.7-1.3) Estimated GFR (Cockcroft-Gault) 39.5 49.4 Glucose Level 168 mg/dL (70-99) 77 mg/dL (70-99) Lactic Acid Level 1.5 mmol/L (0.4-2.0) Calcium Level 8.9 mg/dL (8.5-10.1) 8.5 mg/dL (8.5-10.1) Total Bilirubin 0.3 mg/dL (0.2-1.0) Direct Bilirubin 0.1 mg/dL (0.0-0.2) Aspartate Amino Transf (AST/SGOT) 126 U/L (15-37) Alanine Aminotransferase (ALT/SGPT) 100 U/L (16-63) Alkaline Phosphatase 99 U/L (46-116) Troponin I Quantitative < 0.017 ng/mL (0.000-0.055) NF-[id number]-Type Natriuretic Peptide 548 pg/mL (0-449) Total Protein 6.6 g/dL (6.4-8.2) Albumin 1.9 g/dL (3.4-5.0) Lipase 85 U/L (73-393) Urine Collection Type Unknown Urine Color Yellow Urine Clarity Cloudy Urine pH 6.0 Urine Specific [place] 1.015 Urine Protein 100 mg/dL (NEG-TRACE) Urine Glucose (UA) Negative mg/dL (NEG) Urine Ketones (Stick) Negative mg/dL (NEG) Urine Blood Moderate (NEG) Urine Nitrite Negative (NEG) Urine Bilirubin Negative (NEG) Urine Urobilinogen Dipstick 0.2 mg/dL (0.2 mg/dL) Urine Leukocyte Esterase Large (NEG) Urine RBC 3-5 /HPF (0-2) Urine WBC >40 /HPF (0-4) Urine Amorphous Sediment Present /HPF Urine Bacteria 0 /HPF (0-FEW) Creatine Kinase 74 U/L (39-308) Thyroid Stimulating Hormone (TSH) 6.348 uIU/mL (0.358-3.74) Laboratory Tests Test 05/20/17 04:30 05/20/17 11:30 White Blood Count 11.4 x10^3/uL (4.0-11.0) Red Blood Count 3.45 x10^6/uL (4.30-5.70) Hemoglobin 10.4 g/dL (13.0-17.5) Hematocrit 32.0 % (39.0-53.0) Mean Corpuscular Volume 93 fL (79-100) Mean Corpuscular Hemoglobin 30 pg (25-35) Mean Corpuscular Hemoglobin Concent 33 g/dL (31-37) Red Cell Distribution Width 14.8 % (11.5-14.5) Platelet Count 258 x10^3/uL (140-400) Neutrophils (%) (Auto) 83 % (31-73) Lymphocytes (%) (Auto) 7 % (24-48) Monocytes (%) (Auto) 9 % (0-9) Eosinophils (%) (Auto) 0 % (0-3) Basophils (%) (Auto) 1 % (0-3) Neutrophils # (Auto) 9.5 x10^3uL (1.8-7.7) Lymphocytes # (Auto) 0.8 x10^3/uL (1.0-4.8) Monocytes # (Auto) 1.0 x10^3/uL (0.0-1.1) Eosinophils # (Auto) 0.0 x10^3/uL (0.0-0.7) Basophils # (Auto) 0.1 x10^3/uL (0.0-0.2) Sodium Level 144 mmol/L (136-145) Potassium Level 3.8 mmol/L (3.5-5.1) Chloride Level 106 mmol/L (98-107) Carbon Dioxide Level 29 mmol/L (21-32) Anion Gap 9 (6-14) Blood Urea Nitrogen 36 mg/dL (8-26) Creatinine 1.4 mg/dL (0.7-1.3) Estimated GFR (Cockcroft-Gault) 49.4 Glucose Level 77 mg/dL (70-99) Calcium Level 8.5 mg/dL (8.5-10.1) Creatine Kinase 74 U/L (39-308) Thyroid Stimulating Hormone (TSH) 6.348 uIU/mL (0.358-3.74) JERILYN ADDISON MD May 20, 2017 13:59
[2017-05-20] MEDS: VANCOMYCIN PER PHARMACY MC PRN (14:42)
--- NOTE | 2017-05-20 15:05 | RAD ---
MRI BRAIN WITHOUT CONTRAST History: Mental status changes, weakness, right greater than left. Multiple sclerosis diagnosed age 29. Comparison: CT head without contrast, prior day Technique: Multiplanar multiples sequence images of the brain were obtained without contrast. Findings: There are moderate periventricular white matter foci of increased T2 FLAIR signal. Finding is compatible with patient's diagnosis of MS. There is no restricted diffusion. There is global cerebral atrophy. There is no mass effect, midline shift, or evidence of intraparenchymal hemorrhage. Normal vascular flow voids are maintained. The right vertebral artery is dominant. The orbital structures appear intact. The mastoid air cells appear clear. Mucosal thickening inferior right maxillary sinus. Minimal mucosal thickening in the anterior ethmoid sinuses. No air-fluid level is seen. IMPRESSION: 1. There is no acute intracranial abnormality. 2. Moderate periventricular white matter changes may be secondary to multiple sclerosis. Chronic small vessel ischemic disease may also contribute. 3. Global cerebral atrophy.
[2017-05-20 15:25] VITALS: BP 104/61
--- NOTE | 2017-05-20 15:33 | RAD ---
LUMBAR SPINE WO CONTRAST Clinical Indication: compression fx/ BACK PAIN - CHRONIC WORSENING Comparison: CT chest abdomen and pelvis, prior day. Technique: Routine multiplanar multiple pulse sequence images of the lumbar spine are obtained without IV contrast. Findings: There is motion artifact that significant degrades the axial T1 images. There is patchy marrow edema of the L4 vertebral body compatible with acute/subacute compression fracture. Fracture line is partially seen by MR. There is mild loss of height. No other acute compression fracture is seen. There is old compression fracture that is mild of the L1 vertebral body. There is mild marrow edema associated with small Schmorl's nodes at the superior endplate of L3 and inferior endplate of L1. Except of the L4 vertebral body there is normal T1 marrow signal. There are multiple small foci of presumed focal fatty marrow. Marrow signal of the posterior L4 vertebral body and posterior elements is normal. Mild disc desiccation in the lumbar spine. Disc spaces are relatively preserved. Conus medullaris is normal in signal intensity and appearance, terminates at the level of T12. T11/T12: Central canal is widely patent. Mild bilateral neural foraminal narrowing. T12/L1: Minimal posterior disc bulge. Moderate facet hypertrophy. Central canal is patent. No significant neural foraminal narrowing. L1/L2: No significant posterior disc bulge. Moderate facet hypertrophy and ligamentum flavum redundancy. No significant central canal stenosis. Neural foramina are patent. L2/L3: Broad-based posterior disc bulge and moderate facet upper at 50. Mild ligamentum flavum redundancy. Narrowing of right lateral recess. Minimal central canal stenosis. Mild bilateral neural foraminal narrowing. L3/L4: There is broad-based posterior disc bulge. Severe facet hypertrophy. Moderate ligamentum flavum redundancy. There is motion artifact on the axial images. Central canal stenosis is likely severe. No significant left and moderate right neural foraminal narrowing. L4: Central canal stenosis posterior to the L4 vertebral body appears to be moderate. There is minimal retropulsion. L4/L5: Broad-based posterior disc bulge. Severe facet hypertrophy and ligamentum flavum redundancy. Central canal stenosis is severe. No significant neural foraminal narrowing. L5/S1: Broad-based posterior disc bulge. Prominent epidural fat narrows the transverse diameter of the canal. Probably moderate stenosis. No high-grade neural foraminal narrowing. IMPRESSION: 1. Acute/subacute compression fracture of the L4 vertebral body. Mild loss of height. There is minimal retropulsion of the vertebral body, moderate central canal stenosis at L4. 2. Degenerative spondylosis is most advanced at L3/L4 and L4/L5 where there is severe central canal stenosis.
[2017-05-20 19:28] VITALS: BP 119/79
[2017-05-20] MEDS: SIMVASTATIN 40 MG TABLET. PO SCH (20:59)
[2017-05-20 22:43] VITALS: BP 95/57
[2017-05-21] MEDS: PIPERACILLIN/TAZOBACTAM 3.375 GM in IV NORMAL SALINE 50ML 50 ML IV SCH ×2 (00:10→05:29)
--- NOTE | 2017-05-21 01:20 | CONS ---
DATE OF CONSULTATION: 05/20/2017 LOCATION: The patient is in room 632. HISTORY OF PRESENT ILLNESS: The patient is a very pleasant 76-year-old white male with history of bladder tumor, status post TURBT and left ureteral stent placement by Dr. Griffin at Urology 1 month ago. The patient had a Tineo catheter approximately 2 weeks postoperatively and it was removed. The patient has been having problems at home with falling and debilitation. He had a CT scan on this admission, which shows a stent placed with no hydronephrosis, but there is some left perinephric fluid and/or inflammation. The patient's urine shows 3-5 red cells, greater than 40 white cells, 0 bacteria. Creatinine is 1.4. White count is 11.4. The patient's T-max was 101.1. The patient is currently afebrile. The patient voids into the Depends. He does have problems with altered mental status. PHYSICAL EXAMINATION: ABDOMEN: Soft and nontender. BACK: The patient has some back pain. Neurosurgery is consulted for back pain. GENITOURINARY: Testes are descended bilaterally. Phallus within normal limits. RECTAL: In the office of Urology by myself back in 02/2017 showed just some slight firmness in the right side as compared to the left side, but no discrete nodules, overall size 30 grams. ASSESSMENT: Bladder tumor, status post transurethral resection of bladder tumor, left ureteral stent placed with some left perinephric fluid and/or stranding. PLAN: I talked with the patient and his family concerning his situation and recommended that a Tineo catheter be placed to gravity drainage to allow maximum urinary drainage and then also consult Interventional Radiology to consider possible left percutaneous nephrostomy placement if the left perinephric fluid does not resolve with just Tineo catheter drainage. ID has already been consulted regarding antibiotic coverage as has Neurosurgery and also we will consult Neurology for the patient's altered mental status and Medical Oncology regarding his records from regarding his bladder tumors, and we will also recommend that the patient see Dr. Griffin or one of his Urology and Oncology partners at in the next several days, most likely in the hospital-hospital transfer. I certainly appreciate being allowed to participate in this patient's care. JOHN NAGY MD DR: MAT/jeanne JOB#: [id number] / [id number]
[2017-05-21 03:49] LABS: BASO # 0.1 x10^3/uL (0.0-0.2); BASO % 1 % (0-3); EOS % 3 % (0-3); HEMATOCRIT 28.7 % (39.0-53.0); HEMOGLOBIN 9.5 g/dL (13.0-17.5); LYMPH % 11 % (24-48); MEAN CORPUSCULAR HEMOGLOBIN 30 pg (25-35); MEAN CORPUSCULAR HGB CONC 33 g/dL (31-37); MEAN CORPUSCULAR VOLUME 91 fL (79-100); MONO % 9 % (0-9); NEUT % 77 % (31-73); PLATELET COUNT 232 x10^3/uL (140-400); RED BLOOD COUNT 3.16 x10^6/uL (4.30-5.70); RED CELL DISTRIBUTION WIDTH 14.7 % (11.5-14.5); WHITE BLOOD COUNT 9.4 x10^3/uL (4.0-11.0)
[2017-05-21 04:08] LABS: % SAT IRON 18 % (15-34); IRON,SERUM 26 ug/dL (65-175)
[2017-05-21] MEDS: LEVOTHYROXINE 125 MCG TABLET PO SCH (05:28)
[2017-05-21] MEDS: IV NORMAL SALINE 1000ML BAG 1,000 ML IV SCH (05:28)
[2017-05-21 07:49] VITALS: BP 108/62
[2017-05-21 08:06] LABS: ALBUMIN 1.6 g/dL (3.4-5.0); ALBUMIN/GLOBULIN RATIO 0.4 (1.0-1.7); CALCIUM 8.4 mg/dL (8.5-10.1); CREATININE 1.3 mg/dL (0.7-1.3); GFR 53.8; POTASSIUM 3.7 mmol/L (3.5-5.1); TOTAL BILIRUBIN 0.4 mg/dL (0.2-1.0); TOTAL PROTEIN 5.7 g/dL (6.4-8.2)
--- NOTE | 2017-05-21 08:11 | CONS ---
DATE OF CONSULTATION: 05/20/2017 CHIEF COMPLAINTS AT THE TIME OF ADMISSION: Weakness and mental status changes. HISTORY OF PRESENT ILLNESS: The patient is a pleasant 76-year-old man who has a long history of multiple sclerosis and was recently operated upon at [facility] for bladder tumors. He was in home and recovering and suffered a number of falls and then from that time forward became more confused and developed acute delirium. He has known dementia, which has been progressive. He was seen in the Emergency Room and found to have evidence of infection with leukocytosis as well as leukocytes in the urine and he was started on IV antibiotics. During his evaluation, on a CT of the abdomen and pelvis, an L4 compression fracture was seen. This was associated with significant stenosis on that study. Because of this, we were consulted. In speaking with his , he has been ambulatory with significant assistance using a walker for the last several days. PAST MEDICAL HISTORY: Includes: 1. Recently diagnosed bladder cancer, status post surgery and stent placement. 2. History of multiple sclerosis. 3. Newly diagnosed dementia. 4. Hypothyroidism. 5. Hypercholesterolemia. PERSONAL HISTORY: The patient smokes about 1 pack per day. He is and has excellent support from his and daughter. CURRENT MEDICATIONS: Reviewed the MRAD, they are noncontributory. ALLERGIES: There are no known allergies to drugs. REVIEW OF SYSTEMS: Twelve points was reviewed from speaking with the patient's , the chart and other than outlined above, noncontributory. PHYSICAL EXAMINATION: GENERAL: He is supine in bed, awake, answers d questions slowly, but appropriately. NEUROLOGIC: He will follow commands. On turning him to a side, he experienced excruciating pain in his lower back region. Motor testing in his lower extremities, I felt that hip flexors, quadriceps, lower extremity dorsi and plantar flexion were normal. He was intact to light touch in both of his lower extremities. There appeared to be normal range of motion of his lower extremities. HEENT: Normocephalic, atraumatic. NECK: Supple. CHEST: Respirations symmetric. HEART: Regular rate and rhythm. LABORATORY DATA: I reviewed the CT scan of the abdomen and pelvis and also compared this to his scan done about 3 months ago. The abdomen and pelvis on newer scan, there is a fracture of L4 with some retropulsion. There appeared to be on this scan, fairly severe stenosis associated with this. IMPRESSION: Compression fracture of L4 with retropulsion. The patient has severe lumbar spinal stenosis in this region on a CT scan. RECOMMENDATIONS: He should have an MRI of the lumbar spine to evaluate the fracture more fully. When I did compare these images to one done 3 months ago, I did not see the fracture therefore it is fairly acute. I have obtained for him a lumbar support brace. We will consulted Rehab Medicine. I appreciate asking us to see him. ANABELA ROCK MD DR: DOMO/jeanne JOB#: [id number] / [id number] CHRISTOPHER
--- NOTE | 2017-05-21 08:21 | PDOC ---
Provider Note Provider Note IR Note: Asked to consider drainage of small left perinephric fluid collection, identified at CT---thank you 76 YO male with bladder cancer, s/p left internal ureteral stent placement done at about [address] CAP done 05/19/17 revealed satisfactory position of the internal stent, no hydronephrosis, and a small left perinephric fluid collection. The perinephric fluid collection is of uncertain sterility, however patient is now afebrile with VSS and normal WBC. Patient now has urethral Tineo to gravity drainage. Case discussed with Dr Underwood. He plans repeat CT Wed 05/23. If fluid collection persists, then he may request IR drainage at that time. No indication for urgent intervention now. Thanks again. Call for questions. SARAN WILLIS MD May 21, 2017 08:21
--- NOTE | 2017-05-21 08:27 | PDOC ---
Infectious Disease Note Subjective Subjective Doing well. Hungry ROS ROS GEN: Denies fevers, chills, sweats HEENT: Denies blurred vision, sore throat CV: Denies chest pain RESP: Denies shortness of air, cough GI: Denies n/v/d NEURO: Denies confusion, dizziness MSK: Denies weakness Vital Sign Vital Signs Vital Signs Date Time Temp Pulse Resp B/P (MAP) Pulse Ox O2 Delivery O2 Flow Rate FiO2 05/21/17 07:49 98.3 83 17 108/62 (77) 95 Room Air 98.3 Physical Exam PHYSICAL EXAM GENERAL: NAD, Alert HEENT: PERRL, OC/OP -clear NECK: Supple, no JVD, no LN LUNGS: Clear HEART: S1S2, no gallop, no murmur ABD: Soft, NT, no organomegaly, no rebound. 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 x 3 SKIN: No rash IV: ok Labs Lab Laboratory Tests Test 05/20/17 11:30 05/21/17 03:02 05/21/17 07:05 Creatine Kinase 74 U/L (39-308) Thyroid Stimulating Hormone (TSH) 6.348 uIU/mL (0.358-3.74) White Blood Count 9.4 x10^3/uL (4.0-11.0) Red Blood Count 3.16 x10^6/uL (4.30-5.70) Hemoglobin 9.5 g/dL (13.0-17.5) Hematocrit 28.7 % (39.0-53.0) Mean Corpuscular Volume 91 fL (79-100) Mean Corpuscular Hemoglobin 30 pg (25-35) Mean Corpuscular Hemoglobin Concent 33 g/dL (31-37) Red Cell Distribution Width 14.7 % (11.5-14.5) Platelet Count 232 x10^3/uL (140-400) Neutrophils (%) (Auto) 77 % (31-73) Lymphocytes (%) (Auto) 11 % (24-48) Monocytes (%) (Auto) 9 % (0-9) Eosinophils (%) (Auto) 3 % (0-3) Basophils (%) (Auto) 1 % (0-3) Neutrophils # (Auto) 7.2 x10^3uL (1.8-7.7) Lymphocytes # (Auto) 1.0 x10^3/uL (1.0-4.8) Monocytes # (Auto) 0.8 x10^3/uL (0.0-1.1) Eosinophils # (Auto) 0.3 x10^3/uL (0.0-0.7) Basophils # (Auto) 0.1 x10^3/uL (0.0-0.2) Iron Level 26 ug/dL (65-175) Total Iron Binding Capacity 141 ug/dL (250-450) Iron Saturation 18 % (15-34) Ferritin 2399 ng/mL (26-388) Sodium Level 144 mmol/L (136-145) Potassium Level 3.7 mmol/L (3.5-5.1) Chloride Level 109 mmol/L (98-107) Carbon Dioxide Level 28 mmol/L (21-32) Anion Gap 7 (6-14) Blood Urea Nitrogen 23 mg/dL (8-26) Creatinine 1.3 mg/dL (0.7-1.3) Estimated GFR (Cockcroft-Gault) 53.8 BUN/Creatinine Ratio 18 (6-20) Glucose Level 86 mg/dL (70-99) Calcium Level 8.4 mg/dL (8.5-10.1) Total Bilirubin 0.4 mg/dL (0.2-1.0) Aspartate Amino Transf (AST/SGOT) 165 U/L (15-37) Alanine Aminotransferase (ALT/SGPT) 198 U/L (16-63) Alkaline Phosphatase 94 U/L (46-116) Total Protein 5.7 g/dL (6.4-8.2) Albumin 1.6 g/dL (3.4-5.0) Albumin/Globulin Ratio 0.4 (1.0-1.7) Objective Assessment Sepsis POA, 05/19 Left perinephritic fluid, ? pyelitis 05/19 + Staph aureus h/o bladder tumors s/p TURBT and J-J stent placement at [facility] a month ago. - 3 days of antibiotics post removal of Tineo about 2 weeks later. Acute encephalopathy - better already per CARLIE -better Transaminitis Acute compression fracture, L4 MS, 47 year history Plan Plan of Care Cont vanc D/c Zosyn Monitor labs f/u cultures - if MSSA will tailor abx Await IR procedure Likely needs Left stent removed D/w JESSICA HYMAN MD May 21, 2017 08:27
[2017-05-21] MEDS ORDERED: SENNOSIDES/DOCUSATE 8.6/50MG TABLET. PO PRN (09:00)
[2017-05-21] MEDS ORDERED: BISACODYL 5 MG TABLET.DR. PO PRN (09:00)
[2017-05-21] MEDS ORDERED: BISACODYL 10 MG SUPP.RECT. PR PRN (09:00)
--- NOTE | 2017-05-21 09:18 | PDOC ---
PROGRESS NOTES Assessment Problems Medical Problems: (1) Confusion Status: Acute (2) Lumbar compression fracture Status: Acute (3) Malaise and fatigue Status: Acute (4) Weakness generalized Status: Acute Metabolic encephalopathy. Acute L-4 compression fracture. Dementia. Plan Continue supportive care Medical treatment, compression fracture Discussed with Subjective No complaints, agrees that he is back to baseline. Objective Vital Signs Date Time Temp Pulse Resp B/P (MAP) Pulse Ox O2 Delivery O2 Flow Rate FiO2 05/21/17 08:00 Room Air 05/21/17 07:49 98.3 83 17 108/62 (77) 95 98.3 Intake and Output 05/21/17 07:00 Intake Total 2480 ml Balance 2480 ml Intake Oral 380 ml IV Total 1050 ml Other 1050 ml PHYSICAL EXAM Alert. Oriented to place and person, does not know date but says that he never keeps track of the date anyway. PERRL. EOMI. CN: no focal findings. Muscle tone: normal. Muscle strength: 4/5 DTR: 1+ Plantar reflex: Flexor Gait: not examined in bed. Sensory exam: no abnormal findings. No cerebellar signs elicited. Review of Relevant I have reviewed the following items betsy (where applicable) has been applied. Labs Laboratory Tests Test 05/19/17 10:30 05/19/17 10:45 05/20/17 04:30 05/20/17 11:30 White Blood Count 15.7 x10^3/uL (4.0-11.0) 11.4 x10^3/uL (4.0-11.0) Red Blood Count 3.59 x10^6/uL (4.30-5.70) 3.45 x10^6/uL (4.30-5.70) Hemoglobin 10.8 g/dL (13.0-17.5) 10.4 g/dL (13.0-17.5) Hematocrit 32.9 % (39.0-53.0) 32.0 % (39.0-53.0) Mean Corpuscular Volume 92 fL (79-100) 93 fL (79-100) Mean Corpuscular Hemoglobin 30 pg (25-35) 30 pg (25-35) Mean Corpuscular Hemoglobin Concent 33 g/dL (31-37) 33 g/dL (31-37) Red Cell Distribution Width 14.5 % (11.5-14.5) 14.8 % (11.5-14.5) Platelet Count 275 x10^3/uL (140-400) 258 x10^3/uL (140-400) Neutrophils (%) (Auto) 83 % (31-73) 83 % (31-73) Lymphocytes (%) (Auto) 6 % (24-48) 7 % (24-48) Monocytes (%) (Auto) 9 % (0-9) 9 % (0-9) Eosinophils (%) (Auto) 0 % (0-3) 0 % (0-3) Basophils (%) (Auto) 1 % (0-3) 1 % (0-3) Neutrophils # (Auto) 13.0 x10^3uL (1.8-7.7) 9.5 x10^3uL (1.8-7.7) Lymphocytes # (Auto) 1.0 x10^3/uL (1.0-4.8) 0.8 x10^3/uL (1.0-4.8) Monocytes # (Auto) 1.5 x10^3/uL (0.0-1.1) 1.0 x10^3/uL (0.0-1.1) Eosinophils # (Auto) 0.0 x10^3/uL (0.0-0.7) 0.0 x10^3/uL (0.0-0.7) Basophils # (Auto) 0.2 x10^3/uL (0.0-0.2) 0.1 x10^3/uL (0.0-0.2) Segmented Neutrophils % 82 % (35-66) Band Neutrophils % 2 % (0-9) Lymphocytes % 8 % (24-48) Atypical Lymphocytes % (Manual) 1 % (0-0) Monocytes % 5 % (0-10) Eosinophils % 2 % (0-5) Platelet Estimate Adequate (ADEQUATE) Sodium Level 140 mmol/L (136-145) 144 mmol/L (136-145) Potassium Level 3.7 mmol/L (3.5-5.1) 3.8 mmol/L (3.5-5.1) Chloride Level 104 mmol/L (98-107) 106 mmol/L (98-107) Carbon Dioxide Level 29 mmol/L (21-32) 29 mmol/L (21-32) Anion Gap 7 (6-14) 9 (6-14) Blood Urea Nitrogen 49 mg/dL (8-26) 36 mg/dL (8-26) Creatinine 1.7 mg/dL (0.7-1.3) 1.4 mg/dL (0.7-1.3) Estimated GFR (Cockcroft-Gault) 39.5 49.4 Glucose Level 168 mg/dL (70-99) 77 mg/dL (70-99) Lactic Acid Level 1.5 mmol/L (0.4-2.0) Calcium Level 8.9 mg/dL (8.5-10.1) 8.5 mg/dL (8.5-10.1) Total Bilirubin 0.3 mg/dL (0.2-1.0) Direct Bilirubin 0.1 mg/dL (0.0-0.2) Aspartate Amino Transf (AST/SGOT) 126 U/L (15-37) Alanine Aminotransferase (ALT/SGPT) 100 U/L (16-63) Alkaline Phosphatase 99 U/L (46-116) Troponin I Quantitative < 0.017 ng/mL (0.000-0.055) FJ-Eqz-D-Type Natriuretic Peptide 548 pg/mL (0-449) Total Protein 6.6 g/dL (6.4-8.2) Albumin 1.9 g/dL (3.4-5.0) Lipase 85 U/L (73-393) Urine Collection Type Unknown Urine Color Yellow Urine Clarity Cloudy Urine pH 6.0 Urine Specific [place] 1.015 Urine Protein 100 mg/dL (NEG-TRACE) Urine Glucose (UA) Negative mg/dL (NEG) Urine Ketones (Stick) Negative mg/dL (NEG) Urine Blood Moderate (NEG) Urine Nitrite Negative (NEG) Urine Bilirubin Negative (NEG) Urine Urobilinogen Dipstick 0.2 mg/dL (0.2 mg/dL) Urine Leukocyte Esterase Large (NEG) Urine RBC 3-5 /HPF (0-2) Urine WBC >40 /HPF (0-4) Urine Amorphous Sediment Present /HPF Urine Bacteria 0 /HPF (0-FEW) Creatine Kinase 74 U/L (39-308) Thyroid Stimulating Hormone (TSH) 6.348 uIU/mL (0.358-3.74) Test 05/21/17 03:02 05/21/17 07:05 White Blood Count 9.4 x10^3/uL (4.0-11.0) Red Blood Count 3.16 x10^6/uL (4.30-5.70) Hemoglobin 9.5 g/dL (13.0-17.5) Hematocrit 28.7 % (39.0-53.0) Mean Corpuscular Volume 91 fL (79-100) Mean Corpuscular Hemoglobin 30 pg (25-35) Mean Corpuscular Hemoglobin Concent 33 g/dL (31-37) Red Cell Distribution Width 14.7 % (11.5-14.5) Platelet Count 232 x10^3/uL (140-400) Neutrophils (%) (Auto) 77 % (31-73) Lymphocytes (%) (Auto) 11 % (24-48) Monocytes (%) (Auto) 9 % (0-9) Eosinophils (%) (Auto) 3 % (0-3) Basophils (%) (Auto) 1 % (0-3) Neutrophils # (Auto) 7.2 x10^3uL (1.8-7.7) Lymphocytes # (Auto) 1.0 x10^3/uL (1.0-4.8) Monocytes # (Auto) 0.8 x10^3/uL (0.0-1.1) Eosinophils # (Auto) 0.3 x10^3/uL (0.0-0.7) Basophils # (Auto) 0.1 x10^3/uL (0.0-0.2) Iron Level 26 ug/dL (65-175) Total Iron Binding Capacity 141 ug/dL (250-450) Iron Saturation 18 % (15-34) Ferritin 2399 ng/mL (26-388) Sodium Level 144 mmol/L (136-145) Potassium Level 3.7 mmol/L (3.5-5.1) Chloride Level 109 mmol/L (98-107) Carbon Dioxide Level 28 mmol/L (21-32) Anion Gap 7 (6-14) Blood Urea Nitrogen 23 mg/dL (8-26) Creatinine 1.3 mg/dL (0.7-1.3) Estimated GFR (Cockcroft-Gault) 53.8 BUN/Creatinine Ratio 18 (6-20) Glucose Level 86 mg/dL (70-99) Calcium Level 8.4 mg/dL (8.5-10.1) Total Bilirubin 0.4 mg/dL (0.2-1.0) Aspartate Amino Transf (AST/SGOT) 165 U/L (15-37) Alanine Aminotransferase (ALT/SGPT) 198 U/L (16-63) Alkaline Phosphatase 94 U/L (46-116) Total Protein 5.7 g/dL (6.4-8.2) Albumin 1.6 g/dL (3.4-5.0) Albumin/Globulin Ratio 0.4 (1.0-1.7) Laboratory Tests Test 05/20/17 11:30 05/21/17 03:02 05/21/17 07:05 Creatine Kinase 74 U/L (39-308) Thyroid Stimulating Hormone (TSH) 6.348 uIU/mL (0.358-3.74) White Blood Count 9.4 x10^3/uL (4.0-11.0) Red Blood Count 3.16 x10^6/uL (4.30-5.70) Hemoglobin 9.5 g/dL (13.0-17.5) Hematocrit 28.7 % (39.0-53.0) Mean Corpuscular Volume 91 fL (79-100) Mean Corpuscular Hemoglobin 30 pg (25-35) Mean Corpuscular Hemoglobin Concent 33 g/dL (31-37) Red Cell Distribution Width 14.7 % (11.5-14.5) Platelet Count 232 x10^3/uL (140-400) Neutrophils (%) (Auto) 77 % (31-73) Lymphocytes (%) (Auto) 11 % (24-48) Monocytes (%) (Auto) 9 % (0-9) Eosinophils (%) (Auto) 3 % (0-3) Basophils (%) (Auto) 1 % (0-3) Neutrophils # (Auto) 7.2 x10^3uL (1.8-7.7) Lymphocytes # (Auto) 1.0 x10^3/uL (1.0-4.8) Monocytes # (Auto) 0.8 x10^3/uL (0.0-1.1) Eosinophils # (Auto) 0.3 x10^3/uL (0.0-0.7) Basophils # (Auto) 0.1 x10^3/uL (0.0-0.2) Iron Level 26 ug/dL (65-175) Total Iron Binding Capacity 141 ug/dL (250-450) Iron Saturation 18 % (15-34) Ferritin 2399 ng/mL (26-388) Sodium Level 144 mmol/L (136-145) Potassium Level 3.7 mmol/L (3.5-5.1) Chloride Level 109 mmol/L (98-107) Carbon Dioxide Level 28 mmol/L (21-32) Anion Gap 7 (6-14) Blood Urea Nitrogen 23 mg/dL (8-26) Creatinine 1.3 mg/dL (0.7-1.3) Estimated GFR (Cockcroft-Gault) 53.8 BUN/Creatinine Ratio 18 (6-20) Glucose Level 86 mg/dL (70-99) Calcium Level 8.4 mg/dL (8.5-10.1) Total Bilirubin 0.4 mg/dL (0.2-1.0) Aspartate Amino Transf (AST/SGOT) 165 U/L (15-37) Alanine Aminotransferase (ALT/SGPT) 198 U/L (16-63) Alkaline Phosphatase 94 U/L (46-116) Total Protein 5.7 g/dL (6.4-8.2) Albumin 1.6 g/dL (3.4-5.0) Albumin/Globulin Ratio 0.4 (1.0-1.7) Microbiology 05/19/17 Blood Culture - Preliminary, Resulted NO GROWTH AFTER 1 DAY 05/19/17 Urine Culture - Preliminary, Resulted 05/19/17 Urine Culture Result 1 (BIENVENIDO) - Preliminary, Resulted Medications Current Medications Sodium Chloride 500 ml @ 500 mls/hr 1X ONCE IV Last administered on t 10:24; Start 05/19/17 at 10:30; Stop 05/19/17 at 11:29; Status DC Iohexol (Omnipaque 300 Mg/ml) 50 ml 1X ONCE IV ; Start 05/19/17 at 13:00; Stop 05/19/17 at 13:01; Status DC Info (Do NOT chart on this entry -- for MONITORING) 1 each PRN DAILY PRN MC SEE COMMENTS; Start 05/19/17 at 13:00; Stop 05/21/17 at 12:59 Ondansetron HCl (Zofran) 4 mg PRN Q8HRS PRN IV NAUSEA/VOMITING; Start 05/19/17 at 13:00; Stop 05/20/17 at 12:59; Status DC Morphine Sulfate 2 mg PRN Q2HR PRN IV PAIN Last administered on 05/20/17 08:18 ; Start 05/19/17 at 13:00; Stop 05/20/17 at 12:59; Status DC Sodium Chloride 1,000 ml @ 125 mls/hr Q8H IV Last administered on 05/20/17 06 :29; Start 05/19/17 at 12:49; Stop 05/20/17 at 12:48; Status DC Vancomycin HCl (Vanco Per Pharmacy) 1 each PRN DAILY PRN MC SEE COMMENTS Last administered on 05/20/17 14:42; Start 05/19/17 at 13:00 Piperacillin Sod/ Tazobactam Sod (Zosyn Per Pharmacy) 1 each PRN DAILY PRN MC SEE COMMENTS; Start 05/19/17 at 13:00; Stop 05/21/17 at 08:27; Status DC Piperacillin Sod/ Tazobactam Sod 3.375 gm/Sodium Chloride 50 ml @ 100 mls/hr 1X ONCE IV Last administered on 05/19/17 16:13; Start 05/19/17 at 13:00; Stop 05/19/17 at 13:29; Status DC Vancomycin HCl 1.75 gm/Sodium Chloride 500 ml @ 250 mls/hr 1X ONCE IV Last administered on 05/19/17 13:06; Start 05/19/17 at 13:00; Stop 05/19/17 at 14:59 ; Status DC Vancomycin HCl 1.25 gm/Sodium Chloride 250 ml @ 167 mls/hr Q24H IV Last administered on 05/20/17 13:48; Start 05/20/17 at 13:00 Vancomycin HCl 1 each 1X ONCE MC ; Start 05/21/17 at 12:30; Stop 05/21/17 at 12 :31 Piperacillin Sod/ Tazobactam Sod 3.375 gm/Sodium Chloride 50 ml @ 100 mls/hr Q6HRS IV Last administered on 05/21/17 05:29; Start 05/19/17 at 23:00; Stop at 08:27; Status DC Acetaminophen (Tylenol) 650 mg PRN Q6HRS PRN PO fever/MILD pain Last administered on 05/20/17 20:59; Start 05/20/17 at 04:00 Levothyroxine Sodium (Synthroid) 125 mcg DAILY07 PO Last administered on 05:28; Start 05/20/17 at 07:30 Simvastatin (Zocor) 80 mg QHS PO Last administered on 05/20/17 20:59; Start at 21:00 Morphine Sulfate 2 mg PRN Q2HR PRN IV PAIN Last administered on 05/20/17 14:29 ; Start 05/20/17 at 14:15 Sodium Chloride 1,000 ml @ 75 mls/hr [id number] IV Last administered on 05:28; Start 05/20/17 at 15:00 Bisacodyl (Dulcolax Tab) 10 mg PRN DAILY PRN PO CONSTIPATION; Start 05/21/17 at 09:00 Bisacodyl (Dulcolax Supp) 10 mg PRN DAILY PRN [place] CONSTIPATION; Start 05/21/17 at 09:00 Senna/Docusate Sodium (Senna Plus) 1 tab PRN BID PRN PO CONSTIPATION; Start at 09:00 Active Scripts Active Reported Aspir 81 (Aspirin) 81 Mg Tablet.dr 81 Mg PO Simvastatin 80 Mg Tablet 80 Mg PO DAILY Levothyroxine Sodium 125 Mcg Tablet 125 Mcg PO DAILYAC Vitals/I & O Vital Sign - Last 24 Hours 05/20/17 05/20/17 05/20/17 05/20/17 11:04 14:29 14:59 15:25 Temp 98.4 98.8 98.4 98.8 Pulse 77 78 Resp 17 16 16 17 B/P (MAP) 96/59 (71) 104/61 (75) Pulse Ox 96 96 95 95 O2 Delivery Room Air Room Air Room Air Room Air 05/20/17 05/20/17 05/20/17 05/21/17 19:28 20:00 22:43 07:49 Temp 101.3 98.3 98.3 101.3 98.3 98.3 Pulse 100 83 83 Resp 18 17 B/P (MAP) 119/79 (92) 95/57 (70) 108/62 (77) Pulse Ox 94 95 O2 Delivery Room Air Room Air Room Air 05/21/17 08:00 O2 Delivery Room Air Intake and Output 05/20/17 05/20/17 05/21/17 15:00 23:00 07:00 Intake Total 1050 ml 1430 ml Balance 1050 ml 1430 ml Images Brain MRI: Findings: There are moderate periventricular white matter foci of increased T2 FLAIR signal. Finding is compatible with patient's diagnosis of MS. There is no restricted diffusion. There is global cerebral atrophy. There is no mass effect, midline shift, or evidence of intraparenchymal hemorrhage. Normal vascular flow voids are maintained. The right vertebral artery is dominant. The orbital structures appear intact. The mastoid air cells appear clear. Mucosal thickening inferior right maxillary sinus. Minimal mucosal thickening in the anterior ethmoid sinuses. No air-fluid level is seen. IMPRESSION: 1. There is no acute intracranial abnormality. 2. Moderate periventricular white matter changes may be secondary to multiple sclerosis. Chronic small vessel ischemic disease may also contribute. 3. Global cerebral atrophy. Findings: There is motion artifact that significant degrades the axial T1 images. There is patchy marrow edema of the L4 vertebral body compatible with acute/subacute compression fracture. Fracture line is partially seen by MR. There is mild loss of height. No other acute compression fracture is seen. There is old compression fracture that is mild of the L1 vertebral body. There is mild marrow edema associated with small Schmorl's nodes at the superior endplate of L3 and inferior endplate of L1. Except of the L4 vertebral body there is normal T1 marrow signal. There are multiple small foci of presumed focal fatty marrow. Marrow signal of the posterior L4 vertebral body and posterior elements is normal. Mild disc desiccation in the lumbar spine. Disc spaces are relatively preserved. Conus medullaris is normal in signal intensity and appearance, terminates at the level of T12. T11/T12: Central canal is widely patent. Mild bilateral neural foraminal narrowing. T12/L1: Minimal posterior disc bulge. Moderate facet hypertrophy. Central canal is patent. No significant neural foraminal narrowing. L1/L2: No significant posterior disc bulge. Moderate facet hypertrophy and ligamentum flavum redundancy. No significant central canal stenosis. Neural foramina are patent. L2/L3: Broad-based posterior disc bulge and moderate facet upper at 50. Mild ligamentum flavum redundancy. Narrowing of right lateral recess. Minimal central canal stenosis. Mild bilateral neural foraminal narrowing. L3/L4: There is broad-based posterior disc bulge. Severe facet hypertrophy. Moderate ligamentum flavum redundancy. There is motion artifact on the axial images. Central canal stenosis is likely severe. No significant left and moderate right neural foraminal narrowing. L4: Central canal stenosis posterior to the L4 vertebral body appears to be moderate. There is minimal retropulsion. L4/L5: Broad-based posterior disc bulge. Severe facet hypertrophy and ligamentum flavum redundancy. Central canal stenosis is severe. No significant neural foraminal narrowing. L5/S1: Broad-based posterior disc bulge. Prominent epidural fat narrows the transverse diameter of the canal. Probably moderate stenosis. No high-grade neural foraminal narrowing. IMPRESSION: 1. Acute/subacute compression fracture of the L4 vertebral body. Mild loss of height. There is minimal retropulsion of the vertebral body, moderate central canal stenosis at L4. 2. Degenerative spondylosis is most advanced at L3/L4 and L4/L5 where there is severe central canal stenosis. JERARDO BUCKLEY MD May 21, 2017 09:18
[2017-05-21 09:28] LABS: FOLATE 5.67 ng/ml (3.2-20.0)
--- NOTE | 2017-05-21 10:34 | PDOC ---
PROGRESS NOTES Subjective Subjective Pt. feeling ok Objective Objective Vital Signs Date Time Temp Pulse Resp B/P (MAP) Pulse Ox O2 Delivery O2 Flow Rate FiO2 05/21/17 08:00 Room Air 05/21/17 07:49 98.3 83 17 108/62 (77) 95 98.3 Intake and Output 05/21/17 07:00 Intake Total 2480 ml Balance 2480 ml Intake Oral 380 ml IV Total 1050 ml Other 1050 ml Physical Exam Physical Exam steinberg in place urine yellow Plan Plan of Care F/U imaging of left kidney on 05/23 Problems Medical Problems: (1) Confusion Status: Acute (2) Lumbar compression fracture Status: Acute (3) Malaise and fatigue Status: Acute (4) Weakness generalized Status: Acute Comment Review of Relevant I have reviewed the following items betsy (where applicable) has been applied. Labs Laboratory Tests Test 05/19/17 10:45 05/20/17 04:30 05/20/17 11:30 05/21/17 03:02 Urine Collection Type Unknown Urine Color Yellow Urine Clarity Cloudy Urine pH 6.0 Urine Specific [place] 1.015 Urine Protein 100 mg/dL (NEG-TRACE) Urine Glucose (UA) Negative mg/dL (NEG) Urine Ketones (Stick) Negative mg/dL (NEG) Urine Blood Moderate (NEG) Urine Nitrite Negative (NEG) Urine Bilirubin Negative (NEG) Urine Urobilinogen Dipstick 0.2 mg/dL (0.2 mg/dL) Urine Leukocyte Esterase Large (NEG) Urine RBC 3-5 /HPF (0-2) Urine WBC >40 /HPF (0-4) Urine Amorphous Sediment Present /HPF Urine Bacteria 0 /HPF (0-FEW) White Blood Count 11.4 x10^3/uL (4.0-11.0) 9.4 x10^3/uL (4.0-11.0) Red Blood Count 3.45 x10^6/uL (4.30-5.70) 3.16 x10^6/uL (4.30-5.70) Hemoglobin 10.4 g/dL (13.0-17.5) 9.5 g/dL (13.0-17.5) Hematocrit 32.0 % (39.0-53.0) 28.7 % (39.0-53.0) Mean Corpuscular Volume 93 fL (79-100) 91 fL (79-100) Mean Corpuscular Hemoglobin 30 pg (25-35) 30 pg (25-35) Mean Corpuscular Hemoglobin Concent 33 g/dL (31-37) 33 g/dL (31-37) Red Cell Distribution Width 14.8 % (11.5-14.5) 14.7 % (11.5-14.5) Platelet Count 258 x10^3/uL (140-400) 232 x10^3/uL (140-400) Neutrophils (%) (Auto) 83 % (31-73) 77 % (31-73) Lymphocytes (%) (Auto) 7 % (24-48) 11 % (24-48) Monocytes (%) (Auto) 9 % (0-9) 9 % (0-9) Eosinophils (%) (Auto) 0 % (0-3) 3 % (0-3) Basophils (%) (Auto) 1 % (0-3) 1 % (0-3) Neutrophils # (Auto) 9.5 x10^3uL (1.8-7.7) 7.2 x10^3uL (1.8-7.7) Lymphocytes # (Auto) 0.8 x10^3/uL (1.0-4.8) 1.0 x10^3/uL (1.0-4.8) Monocytes # (Auto) 1.0 x10^3/uL (0.0-1.1) 0.8 x10^3/uL (0.0-1.1) Eosinophils # (Auto) 0.0 x10^3/uL (0.0-0.7) 0.3 x10^3/uL (0.0-0.7) Basophils # (Auto) 0.1 x10^3/uL (0.0-0.2) 0.1 x10^3/uL (0.0-0.2) Sodium Level 144 mmol/L (136-145) Potassium Level 3.8 mmol/L (3.5-5.1) Chloride Level 106 mmol/L (98-107) Carbon Dioxide Level 29 mmol/L (21-32) Anion Gap 9 (6-14) Blood Urea Nitrogen 36 mg/dL (8-26) Creatinine 1.4 mg/dL (0.7-1.3) Estimated GFR (Cockcroft-Gault) 49.4 Glucose Level 77 mg/dL (70-99) Calcium Level 8.5 mg/dL (8.5-10.1) Creatine Kinase 74 U/L (39-308) Vitamin B12 Level 473 pg/mL (247-911) 492 pg/mL (247-911) Thyroid Stimulating Hormone (TSH) 6.348 uIU/mL (0.358-3.74) Iron Level 26 ug/dL (65-175) Total Iron Binding Capacity 141 ug/dL (250-450) Iron Saturation 18 % (15-34) Ferritin 2399 ng/mL (26-388) Serum Folate 5.67 ng/ml (3.2-20.0) Test 05/21/17 07:05 Sodium Level 144 mmol/L (136-145) Potassium Level 3.7 mmol/L (3.5-5.1) Chloride Level 109 mmol/L (98-107) Carbon Dioxide Level 28 mmol/L (21-32) Anion Gap 7 (6-14) Blood Urea Nitrogen 23 mg/dL (8-26) Creatinine 1.3 mg/dL (0.7-1.3) Estimated GFR (Cockcroft-Gault) 53.8 BUN/Creatinine Ratio 18 (6-20) Glucose Level 86 mg/dL (70-99) Calcium Level 8.4 mg/dL (8.5-10.1) Total Bilirubin 0.4 mg/dL (0.2-1.0) Aspartate Amino Transf (AST/SGOT) 165 U/L (15-37) Alanine Aminotransferase (ALT/SGPT) 198 U/L (16-63) Alkaline Phosphatase 94 U/L (46-116) Total Protein 5.7 g/dL (6.4-8.2) Albumin 1.6 g/dL (3.4-5.0) Albumin/Globulin Ratio 0.4 (1.0-1.7) Laboratory Tests Test 05/20/17 11:30 05/21/17 03:02 05/21/17 07:05 Creatine Kinase 74 U/L (39-308) Vitamin B12 Level 473 pg/mL (247-911) 492 pg/mL (247-911) Thyroid Stimulating Hormone (TSH) 6.348 uIU/mL (0.358-3.74) White Blood Count 9.4 x10^3/uL (4.0-11.0) Red Blood Count 3.16 x10^6/uL (4.30-5.70) Hemoglobin 9.5 g/dL (13.0-17.5) Hematocrit 28.7 % (39.0-53.0) Mean Corpuscular Volume 91 fL (79-100) Mean Corpuscular Hemoglobin 30 pg (25-35) Mean Corpuscular Hemoglobin Concent 33 g/dL (31-37) Red Cell Distribution Width 14.7 % (11.5-14.5) Platelet Count 232 x10^3/uL (140-400) Neutrophils (%) (Auto) 77 % (31-73) Lymphocytes (%) (Auto) 11 % (24-48) Monocytes (%) (Auto) 9 % (0-9) Eosinophils (%) (Auto) 3 % (0-3) Basophils (%) (Auto) 1 % (0-3) Neutrophils # (Auto) 7.2 x10^3uL (1.8-7.7) Lymphocytes # (Auto) 1.0 x10^3/uL (1.0-4.8) Monocytes # (Auto) 0.8 x10^3/uL (0.0-1.1) Eosinophils # (Auto) 0.3 x10^3/uL (0.0-0.7) Basophils # (Auto) 0.1 x10^3/uL (0.0-0.2) Iron Level 26 ug/dL (65-175) Total Iron Binding Capacity 141 ug/dL (250-450) Iron Saturation 18 % (15-34) Ferritin 2399 ng/mL (26-388) Serum Folate 5.67 ng/ml (3.2-20.0) Sodium Level 144 mmol/L (136-145) Potassium Level 3.7 mmol/L (3.5-5.1) Chloride Level 109 mmol/L (98-107) Carbon Dioxide Level 28 mmol/L (21-32) Anion Gap 7 (6-14) Blood Urea Nitrogen 23 mg/dL (8-26) Creatinine 1.3 mg/dL (0.7-1.3) Estimated GFR (Cockcroft-Gault) 53.8 BUN/Creatinine Ratio 18 (6-20) Glucose Level 86 mg/dL (70-99) Calcium Level 8.4 mg/dL (8.5-10.1) Total Bilirubin 0.4 mg/dL (0.2-1.0) Aspartate Amino Transf (AST/SGOT) 165 U/L (15-37) Alanine Aminotransferase (ALT/SGPT) 198 U/L (16-63) Alkaline Phosphatase 94 U/L (46-116) Total Protein 5.7 g/dL (6.4-8.2) Albumin 1.6 g/dL (3.4-5.0) Albumin/Globulin Ratio 0.4 (1.0-1.7) Microbiology 05/19/17 Blood Culture - Preliminary, Resulted NO GROWTH AFTER 1 DAY 05/19/17 Urine Culture - Preliminary, Resulted 05/19/17 Urine Culture Result 1 (BIENVENIDO) - Preliminary, Resulted Medications Current Medications Sodium Chloride 500 ml @ 500 mls/hr 1X ONCE IV Last administered on 10:24; Start 05/19/17 at 10:30; Stop 05/19/17 at 11:29; Status DC Iohexol (Omnipaque 300 Mg/ml) 50 ml 1X ONCE IV ; Start 05/19/17 at 13:00; Stop 05/19/17 at 13:01; Status DC Info (Do NOT chart on this entry -- for MONITORING) 1 each PRN DAILY PRN MC SEE COMMENTS; Start 05/19/17 at 13:00; Stop 05/21/17 at 12:59 Ondansetron HCl (Zofran) 4 mg PRN Q8HRS PRN IV NAUSEA/VOMITING; Start 05/19/17 at 13:00; Stop 05/20/17 at 12:59; Status DC Morphine Sulfate 2 mg PRN Q2HR PRN IV PAIN Last administered on 05/20/17 08:18 ; Start 05/19/17 at 13:00; Stop 05/20/17 at 12:59; Status DC Sodium Chloride 1,000 ml @ 125 mls/hr Q8H IV Last administered on 05/20/17 06 :29; Start 05/19/17 at 12:49; Stop 05/20/17 at 12:48; Status DC Vancomycin HCl (Vanco Per Pharmacy) 1 each PRN DAILY PRN MC SEE COMMENTS Last administered on 05/20/17 14:42; Start 05/19/17 at 13:00 Piperacillin Sod/ Tazobactam Sod (Zosyn Per Pharmacy) 1 each PRN DAILY PRN MC SEE COMMENTS; Start 05/19/17 at 13:00; Stop 05/21/17 at 08:27; Status DC Piperacillin Sod/ Tazobactam Sod 3.375 gm/Sodium Chloride 50 ml @ 100 mls/hr 1X ONCE IV Last administered on 05/19/17 16:13; Start 05/19/17 at 13:00; Stop 05/19/17 at 13:29; Status DC Vancomycin HCl 1.75 gm/Sodium Chloride 500 ml @ 250 mls/hr 1X ONCE IV Last administered on 05/19/17 13:06; Start 05/19/17 at 13:00; Stop 05/19/17 at 14:59 ; Status DC Vancomycin HCl 1.25 gm/Sodium Chloride 250 ml @ 167 mls/hr Q24H IV Last administered on 05/20/17 13:48; Start 05/20/17 at 13:00 Vancomycin HCl 1 each 1X ONCE MC ; Start 05/21/17 at 12:30; Stop 05/21/17 at 12 :31 Piperacillin Sod/ Tazobactam Sod 3.375 gm/Sodium Chloride 50 ml @ 100 mls/hr Q6HRS IV Last administered on 05/21/17 05:29; Start 05/19/17 at 23:00; Stop at 08:27; Status DC Acetaminophen (Tylenol) 650 mg PRN Q6HRS PRN PO fever/MILD pain Last administered on 05/20/17 20:59; Start 05/20/17 at 04:00 Levothyroxine Sodium (Synthroid) 125 mcg DAILY07 PO Last administered on 05:28; Start 05/20/17 at 07:30 Simvastatin (Zocor) 80 mg QHS PO Last administered on 05/20/17 20:59; Start at 21:00 Morphine Sulfate 2 mg PRN Q2HR PRN IV PAIN Last administered on 05/20/17 14:29 ; Start 05/20/17 at 14:15 Sodium Chloride 1,000 ml @ 75 mls/hr [id number] IV Last administered on t 05:28; Start 05/20/17 at 15:00 Bisacodyl (Dulcolax Tab) 10 mg PRN DAILY PRN PO CONSTIPATION; Start 05/21/17 at 09:00 Bisacodyl (Dulcolax Supp) 10 mg PRN DAILY PRN [place] CONSTIPATION; Start 05/21/17 at 09:00 Senna/Docusate Sodium (Senna Plus) 1 tab PRN BID PRN PO CONSTIPATION; Start at 09:00 Active Scripts Active Reported Aspir 81 (Aspirin) 81 Mg Tablet.dr 81 Mg PO Simvastatin 80 Mg Tablet 80 Mg PO DAILY Levothyroxine Sodium 125 Mcg Tablet 125 Mcg PO DAILYAC Vitals/I & O Vital Sign - Last 24 Hours 05/20/17 05/20/17 05/20/17 05/20/17 11:04 14:29 14:59 15:25 Temp 98.4 98.8 98.4 98.8 Pulse 77 78 Resp 17 16 16 17 B/P (MAP) 96/59 (71) 104/61 (75) Pulse Ox 96 96 95 95 O2 Delivery Room Air Room Air Room Air Room Air 05/20/17 05/20/17 05/20/17 05/21/17 19:28 20:00 22:43 07:49 Temp 101.3 98.3 98.3 101.3 98.3 98.3 Pulse 100 83 83 Resp 18 17 B/P (MAP) 119/79 (92) 95/57 (70) 108/62 (77) Pulse Ox 94 95 O2 Delivery Room Air Room Air Room Air 05/21/17 08:00 O2 Delivery Room Air Intake and Output 05/20/17 05/20/17 05/21/17 15:00 23:00 07:00 Intake Total 1050 ml 1430 ml Balance 1050 ml 1430 ml JOHN NAGY MD May 21, 2017 10:34
[2017-05-21 10:45] VITALS: BP 100/58
--- NOTE | 2017-05-21 10:55 | PDOC ---
SUBJECTIVE Subjective Pt is accompanied by his this morning. States that he is feeling okay; not having any pain unless he tries to move around in the bed. Requesting if he can start eating now, currently on CLD. OBJECTIVE Vital Signs Vital Signs Date Time Temp Pulse Resp B/P (MAP) Pulse Ox O2 Delivery O2 Flow Rate FiO2 05/21/17 10:45 98.1 70 17 100/58 (72) 94 Room Air 98.1 05/21/17 08:00 Room Air 05/21/17 07:49 98.3 83 17 108/62 (77) 95 Room Air 98.3 05/20/17 22:43 98.3 83 95/57 (70) 98.3 05/20/17 20:00 Room Air 05/20/17 19:28 101.3 100 18 119/79 (92) 94 Room Air 101.3 05/20/17 15:25 98.8 78 17 104/61 (75) 95 Room Air 98.8 05/20/17 14:59 16 95 Room Air 05/20/17 14:29 16 96 Room Air 05/20/17 11:04 98.4 77 17 96/59 (71) 96 Room Air 98.4 I & O Intake and Output 05/21/17 06:59 Intake Total 2480 ml Balance 2480 ml Intake Oral 380 ml IV Total 1050 ml Other 1050 ml PHYSICAL EXAM Physical Exam GEN: NAD, AOx3, slower to speak HEENT: MMM, EOMI, no scleral icterus/injection Cardiac: RRR, no M/R/G Lungs: CTAB, regular breathing rate and effort Abd: non distended, NTTP Ext: no erythema/edema LE bilaterally ASSESSMENT/PLAN Assessment/Plan Pt is a 76yo CM admitted with weakness in LE and altered mental status found to be 2/2 UTI and L4 compression fracture 1)UTI- ID following. Was receiving Vancomycin and Zosyn, appears to only be getting Vancomycin currently. Urine cx +s saureus. WBC improved as has fevers. Tineo in place 2)Noninvasive urothelial carcinoma- s/p recent procedure, also with stent placement. Will need f/u with Dr. Griffin on discharge 3)L4 compression fracture- Nuerosurgery following, possible procedure this hospitalization 4)Acute on chronic anemia- likely worsened with frequent blood draws. No active bleeding. CTM 5)Transaminitis 6)PEM- severe. 7)Hypothyroidism- continue levothyroxine 125mcg. TSH mildly elevated this admission 8)HLD- continue Simvastatin 80mg Problems: COMMENT Lab Laboratory Tests Test 05/20/17 11:30 05/21/17 03:02 05/21/17 07:05 Creatine Kinase 74 U/L (39-308) Vitamin B12 Level 473 pg/mL (247-911) 492 pg/mL (247-911) Thyroid Stimulating Hormone (TSH) 6.348 uIU/mL (0.358-3.74) White Blood Count 9.4 x10^3/uL (4.0-11.0) Red Blood Count 3.16 x10^6/uL (4.30-5.70) Hemoglobin 9.5 g/dL (13.0-17.5) Hematocrit 28.7 % (39.0-53.0) Mean Corpuscular Volume 91 fL (79-100) Mean Corpuscular Hemoglobin 30 pg (25-35) Mean Corpuscular Hemoglobin Concent 33 g/dL (31-37) Red Cell Distribution Width 14.7 % (11.5-14.5) Platelet Count 232 x10^3/uL (140-400) Neutrophils (%) (Auto) 77 % (31-73) Lymphocytes (%) (Auto) 11 % (24-48) Monocytes (%) (Auto) 9 % (0-9) Eosinophils (%) (Auto) 3 % (0-3) Basophils (%) (Auto) 1 % (0-3) Neutrophils # (Auto) 7.2 x10^3uL (1.8-7.7) Lymphocytes # (Auto) 1.0 x10^3/uL (1.0-4.8) Monocytes # (Auto) 0.8 x10^3/uL (0.0-1.1) Eosinophils # (Auto) 0.3 x10^3/uL (0.0-0.7) Basophils # (Auto) 0.1 x10^3/uL (0.0-0.2) Iron Level 26 ug/dL (65-175) Total Iron Binding Capacity 141 ug/dL (250-450) Iron Saturation 18 % (15-34) Ferritin 2399 ng/mL (26-388) Serum Folate 5.67 ng/ml (3.2-20.0) Sodium Level 144 mmol/L (136-145) Potassium Level 3.7 mmol/L (3.5-5.1) Chloride Level 109 mmol/L (98-107) Carbon Dioxide Level 28 mmol/L (21-32) Anion Gap 7 (6-14) Blood Urea Nitrogen 23 mg/dL (8-26) Creatinine 1.3 mg/dL (0.7-1.3) Estimated GFR (Cockcroft-Gault) 53.8 BUN/Creatinine Ratio 18 (6-20) Glucose Level 86 mg/dL (70-99) Calcium Level 8.4 mg/dL (8.5-10.1) Total Bilirubin 0.4 mg/dL (0.2-1.0) Aspartate Amino Transf (AST/SGOT) 165 U/L (15-37) Alanine Aminotransferase (ALT/SGPT) 198 U/L (16-63) Alkaline Phosphatase 94 U/L (46-116) Total Protein 5.7 g/dL (6.4-8.2) Albumin 1.6 g/dL (3.4-5.0) Albumin/Globulin Ratio 0.4 (1.0-1.7) JEFFRY BACA MD May 21, 2017 10:55
--- NOTE | 2017-05-21 10:57 | PDOC ---
Provider Note Provider Note IR Note: IR asked to consider L4 vertebral augmentation---thank you. Mr friedman is 76 YO male with intractable LBP with movement, resulting from recent L4 compression fracture. MRI L-spine yesterday afternoon confirmed recent L4 fracture, with only mild retropulsion of fracture fragments, superimposed upon underlying congenital/ degenerative spinal stenosis. Case discussed with Dr Magaña----Despite underlying spinal stenosis, due to severe pain with movement, Dr Magaña and I both agree that L4 vertebral augmentation is indicated. This has been tentatively scheduled for tomorrow in IR, with MAC by anesthesia. SARAN WILLIS MD May 21, 2017 10:57
--- NOTE | 2017-05-21 12:30 | PDOC ---
PROGRESS NOTES Subjective Subjective c/c - f/u of Bladder Ca - noninvasive urothelial carcinoma ROS - no hematuria Objective Objective Vital Signs Date Time Temp Pulse Resp B/P (MAP) Pulse Ox O2 Delivery O2 Flow Rate FiO2 05/21/17 10:45 98.1 70 17 100/58 (72) 94 Room Air 98.1 Intake and Output 05/21/17 07:00 Intake Total 2480 ml Balance 2480 ml Intake Oral 380 ml IV Total 1050 ml Other 1050 ml Physical Exam Heart: Normal S1, Normal S2 General: Alert, Oriented X3 Lungs: Clear to auscultation Assessment Assessment Problems Medical Problems: (1) Confusion Status: Acute (2) Lumbar compression fracture Status: Acute (3) Malaise and fatigue Status: Acute (4) Weakness generalized Status: Acute 1. Bladder Ca - noninvasive urothelial carcinoma. Plan observation. 2. )UTI- ID following. 3.L4 compression fracture- Nuerosurgery following 4)Acute on chronic anemia- likely worsened with frequent blood draws. No active bleeding. Iron studies, B12, folate suggest anemia of chronic disease. Comment Review of Relevant I have reviewed the following items betsy (where applicable) has been applied. Labs Laboratory Tests Test 05/20/17 04:30 05/20/17 11:30 05/21/17 03:02 05/21/17 07:05 White Blood Count 11.4 x10^3/uL (4.0-11.0) 9.4 x10^3/uL (4.0-11.0) Red Blood Count 3.45 x10^6/uL (4.30-5.70) 3.16 x10^6/uL (4.30-5.70) Hemoglobin 10.4 g/dL (13.0-17.5) 9.5 g/dL (13.0-17.5) Hematocrit 32.0 % (39.0-53.0) 28.7 % (39.0-53.0) Mean Corpuscular Volume 93 fL (79-100) 91 fL (79-100) Mean Corpuscular Hemoglobin 30 pg (25-35) 30 pg (25-35) Mean Corpuscular Hemoglobin Concent 33 g/dL (31-37) 33 g/dL (31-37) Red Cell Distribution Width 14.8 % (11.5-14.5) 14.7 % (11.5-14.5) Platelet Count 258 x10^3/uL (140-400) 232 x10^3/uL (140-400) Neutrophils (%) (Auto) 83 % (31-73) 77 % (31-73) Lymphocytes (%) (Auto) 7 % (24-48) 11 % (24-48) Monocytes (%) (Auto) 9 % (0-9) 9 % (0-9) Eosinophils (%) (Auto) 0 % (0-3) 3 % (0-3) Basophils (%) (Auto) 1 % (0-3) 1 % (0-3) Neutrophils # (Auto) 9.5 x10^3uL (1.8-7.7) 7.2 x10^3uL (1.8-7.7) Lymphocytes # (Auto) 0.8 x10^3/uL (1.0-4.8) 1.0 x10^3/uL (1.0-4.8) Monocytes # (Auto) 1.0 x10^3/uL (0.0-1.1) 0.8 x10^3/uL (0.0-1.1) Eosinophils # (Auto) 0.0 x10^3/uL (0.0-0.7) 0.3 x10^3/uL (0.0-0.7) Basophils # (Auto) 0.1 x10^3/uL (0.0-0.2) 0.1 x10^3/uL (0.0-0.2) Sodium Level 144 mmol/L (136-145) 144 mmol/L (136-145) Potassium Level 3.8 mmol/L (3.5-5.1) 3.7 mmol/L (3.5-5.1) Chloride Level 106 mmol/L (98-107) 109 mmol/L (98-107) Carbon Dioxide Level 29 mmol/L (21-32) 28 mmol/L (21-32) Anion Gap 9 (6-14) 7 (6-14) Blood Urea Nitrogen 36 mg/dL (8-26) 23 mg/dL (8-26) Creatinine 1.4 mg/dL (0.7-1.3) 1.3 mg/dL (0.7-1.3) Estimated GFR (Cockcroft-Gault) 49.4 53.8 Glucose Level 77 mg/dL (70-99) 86 mg/dL (70-99) Calcium Level 8.5 mg/dL (8.5-10.1) 8.4 mg/dL (8.5-10.1) Creatine Kinase 74 U/L (39-308) Vitamin B12 Level 473 pg/mL (247-911) 492 pg/mL (247-911) Thyroid Stimulating Hormone (TSH) 6.348 uIU/mL (0.358-3.74) Iron Level 26 ug/dL (65-175) Total Iron Binding Capacity 141 ug/dL (250-450) Iron Saturation 18 % (15-34) Ferritin 2399 ng/mL (26-388) Serum Folate 5.67 ng/ml (3.2-20.0) BUN/Creatinine Ratio 18 (6-20) Total Bilirubin 0.4 mg/dL (0.2-1.0) Aspartate Amino Transf (AST/SGOT) 165 U/L (15-37) Alanine Aminotransferase (ALT/SGPT) 198 U/L (16-63) Alkaline Phosphatase 94 U/L (46-116) Total Protein 5.7 g/dL (6.4-8.2) Albumin 1.6 g/dL (3.4-5.0) Albumin/Globulin Ratio 0.4 (1.0-1.7) Laboratory Tests Test 05/21/17 03:02 05/21/17 07:05 White Blood Count 9.4 x10^3/uL (4.0-11.0) Red Blood Count 3.16 x10^6/uL (4.30-5.70) Hemoglobin 9.5 g/dL (13.0-17.5) Hematocrit 28.7 % (39.0-53.0) Mean Corpuscular Volume 91 fL (79-100) Mean Corpuscular Hemoglobin 30 pg (25-35) Mean Corpuscular Hemoglobin Concent 33 g/dL (31-37) Red Cell Distribution Width 14.7 % (11.5-14.5) Platelet Count 232 x10^3/uL (140-400) Neutrophils (%) (Auto) 77 % (31-73) Lymphocytes (%) (Auto) 11 % (24-48) Monocytes (%) (Auto) 9 % (0-9) Eosinophils (%) (Auto) 3 % (0-3) Basophils (%) (Auto) 1 % (0-3) Neutrophils # (Auto) 7.2 x10^3uL (1.8-7.7) Lymphocytes # (Auto) 1.0 x10^3/uL (1.0-4.8) Monocytes # (Auto) 0.8 x10^3/uL (0.0-1.1) Eosinophils # (Auto) 0.3 x10^3/uL (0.0-0.7) Basophils # (Auto) 0.1 x10^3/uL (0.0-0.2) Iron Level 26 ug/dL (65-175) Total Iron Binding Capacity 141 ug/dL (250-450) Iron Saturation 18 % (15-34) Ferritin 2399 ng/mL (26-388) Vitamin B12 Level 492 pg/mL (247-911) Serum Folate 5.67 ng/ml (3.2-20.0) Sodium Level 144 mmol/L (136-145) Potassium Level 3.7 mmol/L (3.5-5.1) Chloride Level 109 mmol/L (98-107) Carbon Dioxide Level 28 mmol/L (21-32) Anion Gap 7 (6-14) Blood Urea Nitrogen 23 mg/dL (8-26) Creatinine 1.3 mg/dL (0.7-1.3) Estimated GFR (Cockcroft-Gault) 53.8 BUN/Creatinine Ratio 18 (6-20) Glucose Level 86 mg/dL (70-99) Calcium Level 8.4 mg/dL (8.5-10.1) Total Bilirubin 0.4 mg/dL (0.2-1.0) Aspartate Amino Transf (AST/SGOT) 165 U/L (15-37) Alanine Aminotransferase (ALT/SGPT) 198 U/L (16-63) Alkaline Phosphatase 94 U/L (46-116) Total Protein 5.7 g/dL (6.4-8.2) Albumin 1.6 g/dL (3.4-5.0) Albumin/Globulin Ratio 0.4 (1.0-1.7) Microbiology 05/19/17 Blood Culture - Final, Complete 05/19/17 Urine Culture - Preliminary, Resulted 05/19/17 Urine Culture Result 1 (BIENVENIDO) - Preliminary, Resulted Medications Current Medications Sodium Chloride 500 ml @ 500 mls/hr 1X ONCE IV Last administered on 10:24; Start 05/19/17 at 10:30; Stop 05/19/17 at 11:29; Status DC Iohexol (Omnipaque 300 Mg/ml) 50 ml 1X ONCE IV ; Start 05/19/17 at 13:00; Stop 05/19/17 at 13:01; Status DC Info (Do NOT chart on this entry -- for MONITORING) 1 each PRN DAILY PRN MC SEE COMMENTS; Start 05/19/17 at 13:00; Stop 05/21/17 at 12:59 Ondansetron HCl (Zofran) 4 mg PRN Q8HRS PRN IV NAUSEA/VOMITING; Start 05/19/17 at 13:00; Stop 05/20/17 at 12:59; Status DC Morphine Sulfate 2 mg PRN Q2HR PRN IV PAIN Last administered on 05/20/17 08:18 ; Start 05/19/17 at 13:00; Stop 05/20/17 at 12:59; Status DC Sodium Chloride 1,000 ml @ 125 mls/hr Q8H IV Last administered on 05/20/17 06 :29; Start 05/19/17 at 12:49; Stop 05/20/17 at 12:48; Status DC Vancomycin HCl (Vanco Per Pharmacy) 1 each PRN DAILY PRN MC SEE COMMENTS Last administered on 05/20/17 14:42; Start 05/19/17 at 13:00 Piperacillin Sod/ Tazobactam Sod (Zosyn Per Pharmacy) 1 each PRN DAILY PRN MC SEE COMMENTS; Start 05/19/17 at 13:00; Stop 05/21/17 at 08:27; Status DC Piperacillin Sod/ Tazobactam Sod 3.375 gm/Sodium Chloride 50 ml @ 100 mls/hr 1X ONCE IV Last administered on 05/19/17 16:13; Start 05/19/17 at 13:00; Stop 05/19/17 at 13:29; Status DC Vancomycin HCl 1.75 gm/Sodium Chloride 500 ml @ 250 mls/hr 1X ONCE IV Last administered on 05/19/17 13:06; Start 05/19/17 at 13:00; Stop 05/19/17 at 14:59 ; Status DC Vancomycin HCl 1.25 gm/Sodium Chloride 250 ml @ 167 mls/hr Q24H IV Last administered on 05/20/17 13:48; Start 05/20/17 at 13:00 Vancomycin HCl 1 each 1X ONCE MC ; Start 05/21/17 at 12:30; Stop 05/21/17 at 12 :31 Piperacillin Sod/ Tazobactam Sod 3.375 gm/Sodium Chloride 50 ml @ 100 mls/hr Q6HRS IV Last administered on 05/21/17 05:29; Start 05/19/17 at 23:00; Stop at 08:27; Status DC Acetaminophen (Tylenol) 650 mg PRN Q6HRS PRN PO fever/MILD pain Last administered on 05/20/17 20:59; Start 05/20/17 at 04:00 Levothyroxine Sodium (Synthroid) 125 mcg DAILY07 PO Last administered on 05:28; Start 05/20/17 at 07:30 Simvastatin (Zocor) 80 mg QHS PO Last administered on 05/20/17 20:59; Start at 21:00 Morphine Sulfate 2 mg PRN Q2HR PRN IV PAIN Last administered on 05/20/17 14:29 ; Start 05/20/17 at 14:15 Sodium Chloride 1,000 ml @ 75 mls/hr [id number] IV Last administered on 05:28; Start 05/20/17 at 15:00; Stop 05/21/17 at 10:54; Status DC Bisacodyl (Dulcolax Tab) 10 mg PRN DAILY PRN PO CONSTIPATION; Start 05/21/17 at 09:00 Bisacodyl (Dulcolax Supp) 10 mg PRN DAILY PRN MO CONSTIPATION; Start 05/21/17 at 09:00 Senna/Docusate Sodium (Senna Plus) 1 tab PRN BID PRN PO CONSTIPATION; Start at 09:00 Active Scripts Active Reported Aspir 81 (Aspirin) 81 Mg Tablet.dr 81 Mg PO Simvastatin 80 Mg Tablet 80 Mg PO DAILY Levothyroxine Sodium 125 Mcg Tablet 125 Mcg PO DAILYAC Vitals/I & O Vital Sign - Last 24 Hours 05/20/17 05/20/17 05/20/17 05/20/17 14:29 14:59 15:25 19:28 Temp 98.8 101.3 98.8 101.3 Pulse 78 100 Resp 16 16 17 18 B/P (MAP) 104/61 (75) 119/79 (92) Pulse Ox 96 95 95 94 O2 Delivery Room Air Room Air Room Air Room Air 05/20/17 05/20/17 05/21/17 05/21/17 20:00 22:43 07:49 08:00 Temp 98.3 98.3 98.3 98.3 Pulse 83 83 Resp 17 B/P (MAP) 95/57 (70) 108/62 (77) Pulse Ox 95 O2 Delivery Room Air Room Air Room Air 05/21/17 10:45 Temp 98.1 98.1 Pulse 70 Resp 17 B/P (MAP) 100/58 (72) Pulse Ox 94 O2 Delivery Room Air Intake and Output 05/20/17 05/20/17 05/21/17 15:00 23:00 07:00 Intake Total 1050 ml 1430 ml Balance 1050 ml 1430 ml LULU ZAYAS MD May 21, 2017 12:30
[2017-05-21] MEDS: VANCOMYCIN PER PHARMACY MC PRN (13:20)
[2017-05-21] MEDS: VANCOMYCIN 1.5 GM in IV NORMAL SALINE 500ML BAG 500 ML IV SCH (14:36)
[2017-05-21 15:16] VITALS: BP 102/56
[2017-05-21 18:18] LABS: INR 1.2 (0.8-1.1); PROTHROMBIN TIME PATIENT 14.5 SEC (11.7-14.0)
[2017-05-21] MEDS: MORPHINE SULFATE 2 MG/ML DISP.SYRIN. IV PRN (18:20)
--- NOTE | 2017-05-21 18:39 | CONS ---
DATE OF CONSULTATION: 05/20/2017 REFERRING PHYSICIAN: Dr. Pedraza. REASON FOR CONSULTATION: Leukocytosis. HISTORY OF PRESENT ILLNESS: This patient is a 76-year-old male with a history of hematuria. Workup revealed mass/lesion in the bladder status post transurethral resection and left J-J stent placement by Dr. Griffin at [facility] last month. About 2 weeks later, the indwelling Tineo was removed and he completed a 3-day course of antibiotics. According to the patient's , he was doing fairly well until about 4-5 days ago, he stated to her he did not feel well. He has a 47-year history of multiple sclerosis and normally uses a cane with ambulation. However, he has been increasingly weak, had difficulty walking, has fallen several times or found on the floor. He has not been eating well. He has been increasingly confused and searching for words. His is not aware of fevers, chills or upset stomach though he had been complaining of back pain. On arrival to the ER, he had a fever and elevated white blood cell count of 15,700 and a lactic acid of 1.5. A chest/abdomen/pelvic CT scan revealed acute compression fracture at the L4 vertebral body as well as moderate left perinephric fluid, pyelitis not excluded and left ureter stent. No urinary bladder wall thickening or bladder mass is no longer seen. Urinalysis was positive for wbc's, leukocyte esterase and blood. Urine and blood cultures are pending. The patient was started on vancomycin and Zosyn in ER. ID has been asked to consult for further evaluation and antibiotic management. PAST MEDICAL HISTORY: Recent diagnosis of presumed bladder cancer, status post transurethral resection of bladder tumors last month. Multiple sclerosis diagnosed at the age of 29. Hyperlipidemia, hyperthyroidism, glaucoma, cataracts and newly diagnosed early onset dementia. SOCIAL HISTORY: The patient has been for 52 years. He lives at home. He is a smoker. No history of heavy alcohol use. ALLERGIES: No known drug allergies. MEDICATIONS: Vancomycin and Zosyn. Other medications are available and have been reviewed on the JAN. FAMILY HISTORY: Noncontributory. REVIEW OF SYSTEMS: Unobtainable as the patient does not engage in conversation. PHYSICAL EXAMINATION: GENERAL: male lying in bed in no apparent distress. VITAL SIGNS: Temperature is 98.3, T-max 101.1, blood pressure 92/53, heart rate 62, respiratory rate 16, pulse oximetry 96% on room air. Weight is 154 pounds. BMI 23. HEENT: Pupils equally round, normal conjunctivae. Oral cavity pink and dry. LUNGS: Clear to auscultation. HEART: Normal S1, S2. ABDOMEN: Mildly distended. Bowel sounds active, soft. No grimace or guarding to palpation. GENITOURINARY: He has Tineo in place. EXTREMITIES: No gross edema or cyanosis. SKIN: Without rash. Warm to touch. NEUROLOGIC: Alert. Recognizes his , follows simple commands. LABORATORY DATA: Today's WBC 11.4 from 15.7 on admission, hemoglobin 10.4, platelet count 258,000. Electrolytes unremarkable. Creatinine 1.4 from 1.7 on admission, BUN 36, glucose 77, lactic acid 1.5, total bilirubin 0.3, AST 126, ALT 100. Troponin less than 0.017. BNP 548, albumin 1.9. Urinalysis per HPI. Urine and blood cultures pending. Head CT shows no acute intracranial abnormalities; age-related cerebral atrophy and periventricular white matter changes of chronic small vessel ischemic disease. Chest x-ray, clear. Chest/abdomen/pelvis CT, per HPI. Lower extremity ultrasound, negative DVT. IMPRESSION: 1. Sepsis present on admission 05/19/2017. 2. Left perinephric fluid. Infectious process cannot be excluded. History of TURBT and J-J stent placement at [facility] one month ago. 3. Acute encephalopathy. 4. Acute kidney injury. 5. Acute compression fracture of L4. 6. Transaminitis. 7. Multiple sclerosis. PLAN: Continue the vancomycin and Zosyn. Monitor laboratory values. Await results of cultures. Supportive care. Case discussed with Dr. Underwood, Urology and patient's . Thank you, Dr. Pedraza for asking us to participate in this patient's care. Should you have further questions or concerns, please call. JESSICA HYMAN MD DR: GIULIANA/jeanne JOB#: [id number] / [id number]
[2017-05-21 19:00] VITALS: BP 113/63
--- NOTE | 2017-05-21 19:01 | CONS ---
DATE OF CONSULTATION: 05/20/2017 REQUESTING PHYSICIAN: Dr. Johnny Garcia. REASON FOR CONSULTATION: Superficial bladder cancer. HISTORY OF PRESENTING ILLNESS: The patient is a 76-year-old gentleman who has a history of multiple sclerosis, hypertension, hyperlipidemia, tobacco dependence and nephrolithiasis who presented to Urology in 01/2017 with complaints of hematuria. He had an ultrasound on 01/30/2017 that revealed a 3.2-cm mass in the bladder. He was evaluated by Dr. Underwood on 02/27/[address] scan of the abdomen and pelvis was performed on 03/09/2017. The CT scan revealed an exophytic mass seen within the inferior posterior aspect of the urinary bladder measuring 3.7 cm in greatest diameter. A separate mass is seen extending anteriorly and superiorly from the left posterior aspect of the urinary bladder measuring 4 cm in greatest diameter. He underwent a cystoscopy by Dr. Underwood on 03/12/2017 and two large papillary bladder tumors were seen involving the left posterolateral wall and the right hemitrigone. Cytology revealed atypical cells. The patient was then referred to Urology. The patient underwent transurethral resection of the bladder tumor on 04/19/[address] Griffin. This revealed noninvasive low-grade papillary urothelial carcinoma. Muscularis propria was present, but there was no evidence of muscle invasion. He was diagnosed with a TA low-grade urothelial carcinoma of the bladder. Dr. Griffin discussed with the patient regarding the options of observation versus intravesical immunotherapy with BCG. The patient and family decided to proceed with observation considering his comorbid conditions. He will follow up with Dr. Griffin once in 3 months. The patient was admitted to [facility] on 05/19/2017 for generalized weakness and mental status changes. He was started on IV antibiotics for urinary tract infection. The patient also had several falls and leg weakness. CT scan of the chest, abdomen and pelvis on 05/19/2017 revealed acute compression fracture of the L4 vertebral body and severe central canal stenosis posterior to L4. Left urinary stent was noted. He underwent ultrasound of the lower extremities that is negative for DVT. Neurosurgery was also consulted for acute compression fracture. PAST MEDICAL HISTORY: Multiple sclerosis, hypothyroidism, hypercholesterolemia, dementia, superficial bladder cancer as described above. FAMILY HISTORY: Multiple family members with malignancy in the family including leukemia. SOCIAL HISTORY: He has history of smoking [id number] at least. REVIEW OF SYSTEMS: A 12-point review of system was performed. Pertinent positives are mentioned in the history of presenting illness. Rest of the system review is negative. PHYSICAL EXAMINATION: GENERAL APPEARANCE: The patient is a 76-year-old gentleman who is in no acute cardiorespiratory distress. VITAL SIGNS: Blood pressure 96/59, temperature 98.4. HEENT: Atraumatic, normocephalic. Eyes: No icterus. NECK: Supple. CHEST: Bilaterally symmetrical. HEART: S1, S2 normal. ABDOMEN: Soft, distended. No hepatosplenomegaly. CENTRAL NERVOUS SYSTEM: He is alert, awake and oriented. LYMPHATICS: No lymphadenopathy. SKIN: No rashes. PSYCHOLOGIC: Mood and affect are appropriate. MUSCULOSKELETAL: No joint effusions. LABORATORY DATA: On 05/20/2017, WBC 11.4, hemoglobin 10.4, platelet count 258, creatinine 1.4. IMPRESSION AND PLAN: 1. Low-grade urothelial carcinoma of the urinary bladder Ta with no evidence of invasion to the muscularis propria diagnosed by transurethral resection of the bladder tumor on 04/19/2017. I appreciate consultation and evaluation and recommendations by Dr. Griffin. Observation versus intravesical immunotherapy with BCG was discussed with the patient. Family was also present. The patient and family chose to proceed with observation only considering the patient's overall poor general health status and multiple comorbidities. He will follow up with Dr. Griffin in 06/2017 for continued surveillance. I discussed in detail with the patient and family. There is no role for chemotherapy and radiation therapy. I agreed to proceed with continued observation. 2. Anemia. I suspect this is due to chronic disease. I will obtain iron studies, B12 and folic acid levels. 3. Leukocytosis due to urinary tract infection, improving. 4. Urinary tract infection, management per Dr. Johnny Garcia and Dr. Ghotra. LULU ZAYAS MD DR: TABATHA/jeanne JOB#: [id number] / [id number] Deuce Spence MD [facility]
[2017-05-21] MEDS ORDERED: IV RINGERS,LACTATED 1000ML 1,000 ML IV SCH (19:35)
[2017-05-21] MEDS ORDERED: MORPHINE SULFATE 4 MG/ML DISP.SYRIN. IV PRN (19:45)
[2017-05-21] MEDS ORDERED: PROCHLORPERAZINE 10 MG/2 ML VIAL. IV PRN (19:45)
[2017-05-21] MEDS ORDERED: diphenhydrAMINE 50 MG/ML VIAL IV PRN (19:45)
[2017-05-21] MEDS ORDERED: HYDROmorphone 2 MG/ML VIAL IV PRN (19:45)
[2017-05-21] MEDS ORDERED: fentaNYL PF VIAL 100 MCG/2 ML VIAL IV PRN (19:45)
[2017-05-21] MEDS ORDERED: MEPERIDINE PF 25 MG/ML VIAL. IV PRN (19:45)
[2017-05-21] MEDS: SIMVASTATIN 40 MG TABLET. PO SCH (20:05)
[2017-05-21 23:05] VITALS: BP 121/75
[2017-05-22] MEDS: MORPHINE SULFATE 2 MG/ML DISP.SYRIN. IV PRN ×2 (01:27→03:28)
[2017-05-22 03:05] VITALS: BP 113/65
--- NOTE | 2017-05-22 03:12 | CONS ---
DATE OF CONSULTATION: 05/21/2017 I saw him at the request of Dr. Magaña for rehab evaluation. 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 The patient with history of multiple sclerosis, also dementia, recently had surgery done at [facility] for bladder tumor including stenting. He was home recovering and suffered a number of falls and then from the time forward became more confused and developed acute delirium. The patient with known dementia, which has been progressive. In the Emergency Room, he was found with evidence of infection with leukocytosis as well as leukocytes in the urine and he was receiving IV antibiotics. During evaluation, CT of the abdomen and pelvis, L4 vertebral body compression fracture was detected with associated significant stenosis. The patient has been walking until about a month ago. Since then, he has been requiring more assistance. He lives with his in [place], [place] home, had 5 steps with railing to enter the house, no steps inside. He still smokes a pack of cigarettes per day. PAST MEDICAL HISTORY: Includes hypothyroidism and hypercholesterolemia. ALLERGIES: He is not known allergic to any medication. PHYSICAL EXAMINATION: Today revealed an elderly male. He is alert, oriented to place and person, follows commands appropriately, moves all 4 extremities voluntarily where he had 4+/5 grade muscle strength. Deep tendon reflexes are 1 to 2+ and symmetrical with absent ankle jerks and he had equal perception of touch and pinprick sensation bilaterally. He had some stiffness of both hips, especially left side. He had tenderness to palpation over lumbar spine area. Straight leg raising test is negative bilaterally. He requires help with trying to roll from side to side and he is having significant back pain with this effort. He had an indwelling Tineo catheter in place. His skin is intact. ASSESSMENT: Mobility and self-care limitation in a patient with a recent onset L4 vertebral body compression fracture, in a patient with known bladder carcinoma, status post transurethral resection of the bladder tumor, left ureteral stent placement with some left perinephric fluid and/or stranding, clinical evidence of peripheral neuropathy. The patient with progressive dementia and also history of hyperlipidemia, hypothyroidism, hypoalbuminemia, history of multiple sclerosis, dementia, recent metabolic encephalopathy, sepsis and renal failure. RECOMMENDATIONS: To ask physical therapy, occupational therapy, and Speech Pathology to see him and to ask Interventional Radiology to consider L4 kyphoplasty to get him up as tolerated, to start him on a bowel training program and to consider transfer to rehab unit at or [facility] or to a assisted care unit depending upon his participation in the therapy in the next few days. Right now, his back pain is too significant for him to participate in therapy. Dr. Magaña, I appreciate asking me to participate in the care of this interesting patient. I will be glad to follow him with you as needed for the rehabilitation. WILNER DUMONT MD DR: CHIQUITA/jeanne JOB#: [id number] / [id number]
[2017-05-22 05:46] LABS: CALCIUM 8.2 mg/dL (8.5-10.1); CREATININE 1.1 mg/dL (0.7-1.3); GFR 65.3; POTASSIUM 3.5 mmol/L (3.5-5.1)
[2017-05-22] MEDS: LEVOTHYROXINE 125 MCG TABLET PO SCH (06:23)
[2017-05-22 07:15] VITALS: BP 112/60
--- NOTE | 2017-05-22 07:32 | PDOC ---
SUBJECTIVE Subjective Per pt's , pt did not have much of an appetite yesterday. Comfortable as long as he is staying still; excruciating pain with movement. OBJECTIVE Vital Signs Vital Signs Date Time Temp Pulse Resp B/P (MAP) Pulse Ox O2 Delivery O2 Flow Rate FiO2 05/22/17 03:05 99.3 80 20 113/65 (81) 90 Room Air 99.3 05/21/17 23:05 99.7 84 20 121/75 (90) 93 Room Air 99.7 05/21/17 20:00 Room Air 05/21/17 19:00 99.0 84 20 113/63 (80) 94 Room Air 99.0 05/21/17 18:20 97 Room Air 05/21/17 15:16 98.1 71 17 102/56 (71) 97 Room Air 98.1 05/21/17 10:45 98.1 70 17 100/58 (72) 94 Room Air 98.1 05/21/17 08:00 Room Air 05/21/17 07:49 98.3 83 17 108/62 (77) 95 Room Air 98.3 I & O Intake and Output 05/22/17 07:00 Intake Total 2130 ml Output Total 1600 ml Balance 530 ml Intake Oral 600 ml IV Total 1530 ml Output Urine Total 1600 ml PHYSICAL EXAM Physical Exam GEN: NAD, AOx3, slower to speak HEENT: MMM, EOMI, no scleral icterus/injection Cardiac: RRR, no M/R/G Lungs: CTAB, regular breathing rate and effort Abd: non distended, NTTP Ext: no erythema/edema LE bilaterally ASSESSMENT/PLAN Assessment/Plan Pt is a 76yo CM admitted with weakness in LE and altered mental status found to be 2/2 UTI and L4 compression fracture 1)UTI- ID following. Was receiving Vancomycin and Zosyn, now deescalated to Vancomycin. Urine cx +s saureus, only resistant to PCN. WBC improved, mild low grade fevers. Tineo in place 2)Noninvasive urothelial carcinoma- s/p recent procedure, also with stent placement. Will need f/u with Dr. Griffin on discharge 3)L4 compression fracture- Nuerosurgery following, going for L4 vertebral augmentation later today. Dr. Meyers also following 4)Acute on chronic anemia- likely worsened with frequent blood draws. No active bleeding. CTM 5)Transaminitis 6)PEM- severe. 7)Hypothyroidism- continue levothyroxine 125mcg. TSH mildly elevated this admission 8)HLD- continue Simvastatin 80mg Problems: COMMENT Lab Laboratory Tests Test 05/21/17 12:30 05/21/17 18:00 05/22/17 03:18 Vancomycin Level Trough 9.9 mcg/mL (10.0-20.0) Vancomycin Last Dose Date 05/20/17 Vancomycin Last Dose Time 1300 Prothrombin Time 14.5 SEC (11.7-14.0) Prothromb Time International Ratio 1.2 (0.8-1.1) Sodium Level 144 mmol/L (136-145) Potassium Level 3.5 mmol/L (3.5-5.1) Chloride Level 108 mmol/L (98-107) Carbon Dioxide Level 29 mmol/L (21-32) Anion Gap 7 (6-14) Blood Urea Nitrogen 17 mg/dL (8-26) Creatinine 1.1 mg/dL (0.7-1.3) Estimated GFR (Cockcroft-Gault) 65.3 Glucose Level 86 mg/dL (70-99) Calcium Level 8.2 mg/dL (8.5-10.1) JEFFRY BACA MD May 22, 2017 07:32
[2017-05-22] MEDS: VANCOMYCIN 1.5 GM in IV NORMAL SALINE 500ML BAG 500 ML IV SCH (07:57)
--- NOTE | 2017-05-22 08:45 | PDOC ---
Infectious Disease Note Subjective Subjective Doing well. Hungry ROS ROS GEN: Denies fevers, chills, sweats HEENT: Denies blurred vision, sore throat CV: Denies chest pain RESP: Denies shortness of air, cough GI: Denies n/v/d NEURO: Denies confusion, dizziness MSK: Denies weakness, joint pain/swelling Vital Sign Vital Signs Vital Signs Date Time Temp Pulse Resp B/P (MAP) Pulse Ox O2 Delivery O2 Flow Rate FiO2 05/22/17 07:15 99.3 73 20 112/60 (77) 91 Room Air 99.3 Physical Exam PHYSICAL EXAM GENERAL: NAD, Alert HEENT: PERRL, OC/OP -clear NECK: Supple, no JVD, no LN LUNGS: Clear HEART: S1S2, no gallop, no murmur ABD: Soft, NT, no organomegaly, no rebound. 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 x 3 SKIN: No rash IV: ok Labs Lab Laboratory Tests Test 05/21/17 12:30 05/21/17 18:00 05/22/17 03:18 Vancomycin Level Trough 9.9 mcg/mL (10.0-20.0) Vancomycin Last Dose Date 05/20/17 Vancomycin Last Dose Time 1300 Prothrombin Time 14.5 SEC (11.7-14.0) Prothromb Time International Ratio 1.2 (0.8-1.1) Sodium Level 144 mmol/L (136-145) Potassium Level 3.5 mmol/L (3.5-5.1) Chloride Level 108 mmol/L (98-107) Carbon Dioxide Level 29 mmol/L (21-32) Anion Gap 7 (6-14) Blood Urea Nitrogen 17 mg/dL (8-26) Creatinine 1.1 mg/dL (0.7-1.3) Estimated GFR (Cockcroft-Gault) 65.3 Glucose Level 86 mg/dL (70-99) Calcium Level 8.2 mg/dL (8.5-10.1) Objective Assessment Sepsis POA, 05/19 Left perinephritic fluid, ? pyelitis 05/19 + MSSA h/o bladder tumors s/p TURBT and J-J stent placement at [facility] a month ago. - 3 days of antibiotics post removal of Tineo about 2 weeks later. Acute encephalopathy - better already per CARLIE -better Transaminitis Acute compression fracture, L4 MS, 47 year history Plan Plan of Care D/cont vanc Begin Cefazolin Monitor labs Await IR procedure to today for kyphoplasty CT repeat 05/23 Likely needs Left stent removed D/w JESSICA HYMAN MD May 22, 2017 08:45
--- NOTE | 2017-05-22 08:46 | PDOC ---
PROGRESS NOTES Subjective Subjective Pt. feeling well Objective Objective Vital Signs Date Time Temp Pulse Resp B/P (MAP) Pulse Ox O2 Delivery O2 Flow Rate FiO2 05/22/17 07:15 99.3 73 20 112/60 (77) 91 Room Air 99.3 Intake and Output 05/22/17 07:00 Intake Total 2130 ml Output Total 1600 ml Balance 530 ml Intake Oral 600 ml IV Total 1530 ml Output Urine Total 1600 ml Physical Exam Physical Exam steinberg in place urine yellow Plan Plan of Care Back procedure today reimage kidneys tomorrow and proceed accordingly Problems Medical Problems: (1) Confusion Status: Acute (2) Lumbar compression fracture Status: Acute (3) Malaise and fatigue Status: Acute (4) Weakness generalized Status: Acute Comment Review of Relevant I have reviewed the following items betsy (where applicable) has been applied. Labs Laboratory Tests Test 05/20/17 11:30 05/21/17 03:02 05/21/17 07:05 05/21/17 12:30 Creatine Kinase 74 U/L (39-308) Vitamin B12 Level 473 pg/mL (247-911) 492 pg/mL (247-911) Thyroid Stimulating Hormone (TSH) 6.348 uIU/mL (0.358-3.74) White Blood Count 9.4 x10^3/uL (4.0-11.0) Red Blood Count 3.16 x10^6/uL (4.30-5.70) Hemoglobin 9.5 g/dL (13.0-17.5) Hematocrit 28.7 % (39.0-53.0) Mean Corpuscular Volume 91 fL (79-100) Mean Corpuscular Hemoglobin 30 pg (25-35) Mean Corpuscular Hemoglobin Concent 33 g/dL (31-37) Red Cell Distribution Width 14.7 % (11.5-14.5) Platelet Count 232 x10^3/uL (140-400) Neutrophils (%) (Auto) 77 % (31-73) Lymphocytes (%) (Auto) 11 % (24-48) Monocytes (%) (Auto) 9 % (0-9) Eosinophils (%) (Auto) 3 % (0-3) Basophils (%) (Auto) 1 % (0-3) Neutrophils # (Auto) 7.2 x10^3uL (1.8-7.7) Lymphocytes # (Auto) 1.0 x10^3/uL (1.0-4.8) Monocytes # (Auto) 0.8 x10^3/uL (0.0-1.1) Eosinophils # (Auto) 0.3 x10^3/uL (0.0-0.7) Basophils # (Auto) 0.1 x10^3/uL (0.0-0.2) Iron Level 26 ug/dL (65-175) Total Iron Binding Capacity 141 ug/dL (250-450) Iron Saturation 18 % (15-34) Ferritin 2399 ng/mL (26-388) Serum Folate 5.67 ng/ml (3.2-20.0) Sodium Level 144 mmol/L (136-145) Potassium Level 3.7 mmol/L (3.5-5.1) Chloride Level 109 mmol/L (98-107) Carbon Dioxide Level 28 mmol/L (21-32) Anion Gap 7 (6-14) Blood Urea Nitrogen 23 mg/dL (8-26) Creatinine 1.3 mg/dL (0.7-1.3) Estimated GFR (Cockcroft-Gault) 53.8 BUN/Creatinine Ratio 18 (6-20) Glucose Level 86 mg/dL (70-99) Calcium Level 8.4 mg/dL (8.5-10.1) Total Bilirubin 0.4 mg/dL (0.2-1.0) Aspartate Amino Transf (AST/SGOT) 165 U/L (15-37) Alanine Aminotransferase (ALT/SGPT) 198 U/L (16-63) Alkaline Phosphatase 94 U/L (46-116) Total Protein 5.7 g/dL (6.4-8.2) Albumin 1.6 g/dL (3.4-5.0) Albumin/Globulin Ratio 0.4 (1.0-1.7) Vancomycin Level Trough 9.9 mcg/mL (10.0-20.0) Vancomycin Last Dose Date 05/20/17 Vancomycin Last Dose Time 1300 Test 05/21/17 18:00 05/22/17 03:18 Prothrombin Time 14.5 SEC (11.7-14.0) Prothromb Time International Ratio 1.2 (0.8-1.1) Sodium Level 144 mmol/L (136-145) Potassium Level 3.5 mmol/L (3.5-5.1) Chloride Level 108 mmol/L (98-107) Carbon Dioxide Level 29 mmol/L (21-32) Anion Gap 7 (6-14) Blood Urea Nitrogen 17 mg/dL (8-26) Creatinine 1.1 mg/dL (0.7-1.3) Estimated GFR (Cockcroft-Gault) 65.3 Glucose Level 86 mg/dL (70-99) Calcium Level 8.2 mg/dL (8.5-10.1) Laboratory Tests Test 05/21/17 12:30 05/21/17 18:00 05/22/17 03:18 Vancomycin Level Trough 9.9 mcg/mL (10.0-20.0) Vancomycin Last Dose Date 05/20/17 Vancomycin Last Dose Time 1300 Prothrombin Time 14.5 SEC (11.7-14.0) Prothromb Time International Ratio 1.2 (0.8-1.1) Sodium Level 144 mmol/L (136-145) Potassium Level 3.5 mmol/L (3.5-5.1) Chloride Level 108 mmol/L (98-107) Carbon Dioxide Level 29 mmol/L (21-32) Anion Gap 7 (6-14) Blood Urea Nitrogen 17 mg/dL (8-26) Creatinine 1.1 mg/dL (0.7-1.3) Estimated GFR (Cockcroft-Gault) 65.3 Glucose Level 86 mg/dL (70-99) Calcium Level 8.2 mg/dL (8.5-10.1) Microbiology 05/19/17 Blood Culture - Final, Complete 05/19/17 Urine Culture - Final, Complete 05/19/17 Urine Culture Result 1 (BIENVENIDO) - Final, Complete 05/19/17 Antimicrobic Susceptibility - Final, Complete Medications Current Medications Sodium Chloride 500 ml @ 500 mls/hr 1X ONCE IV Last administered on t 10:24; Start 05/19/17 at 10:30; Stop 05/19/17 at 11:29; Status DC Iohexol (Omnipaque 300 Mg/ml) 50 ml 1X ONCE IV ; Start 05/19/17 at 13:00; Stop 05/19/17 at 13:01; Status DC Info (Do NOT chart on this entry -- for MONITORING) 1 each PRN DAILY PRN MC SEE COMMENTS; Start 05/19/17 at 13:00; Stop 05/21/17 at 12:59; Status DC Ondansetron HCl (Zofran) 4 mg PRN Q8HRS PRN IV NAUSEA/VOMITING; Start 05/19/17 at 13:00; Stop 05/20/17 at 12:59; Status DC Morphine Sulfate 2 mg PRN Q2HR PRN IV PAIN Last administered on 05/20/17 08:18 ; Start 05/19/17 at 13:00; Stop 05/20/17 at 12:59; Status DC Sodium Chloride 1,000 ml @ 125 mls/hr Q8H IV Last administered on 05/20/17 06 :29; Start 05/19/17 at 12:49; Stop 05/20/17 at 12:48; Status DC Vancomycin HCl (Vanco Per Pharmacy) 1 each PRN DAILY PRN MC SEE COMMENTS Last administered on 05/21/17 13:20; Start 05/19/17 at 13:00; Stop 05/22/17 at 08:43 ; Status DC Piperacillin Sod/ Tazobactam Sod (Zosyn Per Pharmacy) 1 each PRN DAILY PRN MC SEE COMMENTS; Start 05/19/17 at 13:00; Stop 05/21/17 at 08:27; Status DC Piperacillin Sod/ Tazobactam Sod 3.375 gm/Sodium Chloride 50 ml @ 100 mls/hr 1X ONCE IV Last administered on 05/19/17 16:13; Start 05/19/17 at 13:00; Stop 05/19/17 at 13:29; Status DC Vancomycin HCl 1.75 gm/Sodium Chloride 500 ml @ 250 mls/hr 1X ONCE IV Last administered on 05/19/17 13:06; Start 05/19/17 at 13:00; Stop 05/19/17 at 14:59 ; Status DC Vancomycin HCl 1.25 gm/Sodium Chloride 250 ml @ 167 mls/hr Q24H IV Last administered on 05/20/17 13:48; Start 05/20/17 at 13:00; Stop 05/21/17 at 13:05 ; Status DC Vancomycin HCl 1 each 1X ONCE MC Last administered on 05/21/17 19:01; Start 05/21/17 at 12:30; Stop 05/21/17 at 12:31; Status DC Piperacillin Sod/ Tazobactam Sod 3.375 gm/Sodium Chloride 50 ml @ 100 mls/hr Q6HRS IV Last administered on 05/21/17 05:29; Start 05/19/17 at 23:00; Stop at 08:27; Status DC Acetaminophen (Tylenol) 650 mg PRN Q6HRS PRN PO fever/MILD pain Last administered on 05/20/17 20:59; Start 05/20/17 at 04:00 Levothyroxine Sodium (Synthroid) 125 mcg DAILY07 PO Last administered on 06:23; Start 05/20/17 at 07:30 Simvastatin (Zocor) 80 mg QHS PO Last administered on 05/21/17 20:05; Start at 21:00 Morphine Sulfate 2 mg PRN Q2HR PRN IV PAIN Last administered on 05/22/17 03:28 ; Start 05/20/17 at 14:15 Sodium Chloride 1,000 ml @ 75 mls/hr [id number] IV Last administered on 05:28; Start 05/20/17 at 15:00; Stop 05/21/17 at 10:54; Status DC Bisacodyl (Dulcolax Tab) 10 mg PRN DAILY PRN PO CONSTIPATION; Start 05/21/17 at 09:00 Bisacodyl (Dulcolax Supp) 10 mg PRN DAILY PRN VA CONSTIPATION; Start 05/21/17 at 09:00 Senna/Docusate Sodium (Senna Plus) 1 tab PRN BID PRN PO CONSTIPATION Last administered on 05/21/17 18:19; Start 05/21/17 at 09:00 Vancomycin HCl 1.5 gm/Sodium Chloride 500 ml @ 250 mls/hr Q18H IV Last administered on 05/22/17 07:57; Start 05/21/17 at 13:30; Stop 05/22/17 at 08:43 ; Status DC Vancomycin HCl 1 each 1X ONCE MC ; Start 05/23/17 at 01:00; Stop 05/23/17 at 01 :01 Ringer's Solution 1,000 ml @ 50 mls/hr Q20H IV ; Start 05/21/17 at 19:35; Stop 05/22/17 at 07:34; Status DC Fentanyl Citrate (Fentanyl 2ml Vial) 50 mcg PRN Q5MIN PRN IV Acute Pain; Start 05/21/17 at 19:45; Stop 05/22/17 at 19:44 Morphine Sulfate 4 mg PRN Q10MIN PRN IV Moderate Pain; Start 05/21/17 at 19:45 ; Stop 05/22/17 at 19:44 Hydromorphone HCl (Dilaudid) 0.4 mg PRN Q10MIN PRN IV Moderate to severe pain; Start 05/21/17 at 19:45; Stop 05/22/17 at 19:44 Meperidine HCl (Demerol) 12.5 mg PRN Q5MIN PRN IV SHIVERING; Start 05/21/17 at 19:45; Stop 05/22/17 at 19:44 Prochlorperazine Edisylate (Compazine) 5 mg PRN Q6HRS PRN IV Nausea/Vomiting, 1st Choice; Start 05/21/17 at 19:45; Stop 05/22/17 at 19:44 Diphenhydramine HCl (Benadryl) 12.5 mg PRN Q2HR PRN IV ITCHING; Start 05/21/17 at 19:45; Stop 05/22/17 at 19:44 Cefazolin Sodium 2 gm/Sodium Chloride 50 ml @ 100 mls/hr Q8HRS IV ; Start 05/22 at 08:45; Status UNV Active Scripts Active Reported Aspir 81 (Aspirin) 81 Mg Tablet.dr 81 Mg PO Simvastatin 80 Mg Tablet 80 Mg PO DAILY Levothyroxine Sodium 125 Mcg Tablet 125 Mcg PO DAILYAC Vitals/I & O Vital Sign - Last 24 Hours 05/21/17 05/21/17 05/21/17 05/21/17 10:45 15:16 18:20 19:00 Temp 98.1 98.1 99.0 98.1 98.1 99.0 Pulse 70 71 84 Resp 17 17 20 B/P (MAP) 100/58 (72) 102/56 (71) 113/63 (80) Pulse Ox 94 97 97 94 O2 Delivery Room Air Room Air Room Air Room Air 05/21/17 05/21/17 05/22/17 05/22/17 20:00 23:05 03:05 07:15 Temp 99.7 99.3 99.3 99.7 99.3 99.3 Pulse 84 80 73 Resp 20 20 20 B/P (MAP) 121/75 (90) 113/65 (81) 112/60 (77) Pulse Ox 93 90 91 O2 Delivery Room Air Room Air Room Air Room Air Intake and Output 05/21/17 05/21/17 05/22/17 15:00 23:00 07:00 Intake Total 50 ml 1780 ml 300 ml Output Total 850 ml 750 ml Balance 50 ml 930 ml -450 ml JOHN NAGY MD May 22, 2017 08:46
--- NOTE | 2017-05-22 10:01 | PDOC ---
PROGRESS NOTES Subjective Subjective He admits continued back pain with mobility. Objective Objective Vital Signs Date Time Temp Pulse Resp B/P (MAP) Pulse Ox O2 Delivery O2 Flow Rate FiO2 05/22/17 08:00 Room Air 05/22/17 07:15 99.3 73 20 112/60 (77) 91 99.3 Intake and Output 05/22/17 06:59 Intake Total 2130 ml Output Total 1600 ml Balance 530 ml Intake Oral 600 ml IV Total 1530 ml Output Urine Total 1600 ml Physical Exam Physical Exam He is supine in bed and is awake and talking and moves all 4 extremities to commands.He continues with tenderness to palpation over lumbar paraspinal muscles and sacroiliac joints and painfully limited lumbar spine ROM> Assessment Assessment Problems Medical Problems: (1) Confusion Status: Acute (2) Lumbar compression fracture Status: Acute (3) Malaise and fatigue Status: Acute (4) Weakness generalized Status: Acute Plan Plan of Care To see how he does move after kyphoplasty and then decide on transfer to rehab or SNF. Comment Review of Relevant I have reviewed the following items betsy (where applicable) has been applied. Labs Laboratory Tests Test 05/20/17 11:30 05/21/17 03:02 05/21/17 07:05 05/21/17 12:30 Creatine Kinase 74 U/L (39-308) Vitamin B12 Level 473 pg/mL (247-911) 492 pg/mL (247-911) Thyroid Stimulating Hormone (TSH) 6.348 uIU/mL (0.358-3.74) White Blood Count 9.4 x10^3/uL (4.0-11.0) Red Blood Count 3.16 x10^6/uL (4.30-5.70) Hemoglobin 9.5 g/dL (13.0-17.5) Hematocrit 28.7 % (39.0-53.0) Mean Corpuscular Volume 91 fL (79-100) Mean Corpuscular Hemoglobin 30 pg (25-35) Mean Corpuscular Hemoglobin Concent 33 g/dL (31-37) Red Cell Distribution Width 14.7 % (11.5-14.5) Platelet Count 232 x10^3/uL (140-400) Neutrophils (%) (Auto) 77 % (31-73) Lymphocytes (%) (Auto) 11 % (24-48) Monocytes (%) (Auto) 9 % (0-9) Eosinophils (%) (Auto) 3 % (0-3) Basophils (%) (Auto) 1 % (0-3) Neutrophils # (Auto) 7.2 x10^3uL (1.8-7.7) Lymphocytes # (Auto) 1.0 x10^3/uL (1.0-4.8) Monocytes # (Auto) 0.8 x10^3/uL (0.0-1.1) Eosinophils # (Auto) 0.3 x10^3/uL (0.0-0.7) Basophils # (Auto) 0.1 x10^3/uL (0.0-0.2) Iron Level 26 ug/dL (65-175) Total Iron Binding Capacity 141 ug/dL (250-450) Iron Saturation 18 % (15-34) Ferritin 2399 ng/mL (26-388) Serum Folate 5.67 ng/ml (3.2-20.0) Sodium Level 144 mmol/L (136-145) Potassium Level 3.7 mmol/L (3.5-5.1) Chloride Level 109 mmol/L (98-107) Carbon Dioxide Level 28 mmol/L (21-32) Anion Gap 7 (6-14) Blood Urea Nitrogen 23 mg/dL (8-26) Creatinine 1.3 mg/dL (0.7-1.3) Estimated GFR (Cockcroft-Gault) 53.8 BUN/Creatinine Ratio 18 (6-20) Glucose Level 86 mg/dL (70-99) Calcium Level 8.4 mg/dL (8.5-10.1) Total Bilirubin 0.4 mg/dL (0.2-1.0) Aspartate Amino Transf (AST/SGOT) 165 U/L (15-37) Alanine Aminotransferase (ALT/SGPT) 198 U/L (16-63) Alkaline Phosphatase 94 U/L (46-116) Total Protein 5.7 g/dL (6.4-8.2) Albumin 1.6 g/dL (3.4-5.0) Albumin/Globulin Ratio 0.4 (1.0-1.7) Vancomycin Level Trough 9.9 mcg/mL (10.0-20.0) Vancomycin Last Dose Date 05/20/17 Vancomycin Last Dose Time 1300 Test 05/21/17 18:00 05/22/17 03:18 Prothrombin Time 14.5 SEC (11.7-14.0) Prothromb Time International Ratio 1.2 (0.8-1.1) Sodium Level 144 mmol/L (136-145) Potassium Level 3.5 mmol/L (3.5-5.1) Chloride Level 108 mmol/L (98-107) Carbon Dioxide Level 29 mmol/L (21-32) Anion Gap 7 (6-14) Blood Urea Nitrogen 17 mg/dL (8-26) Creatinine 1.1 mg/dL (0.7-1.3) Estimated GFR (Cockcroft-Gault) 65.3 Glucose Level 86 mg/dL (70-99) Calcium Level 8.2 mg/dL (8.5-10.1) Laboratory Tests Test 05/21/17 12:30 05/21/17 18:00 05/22/17 03:18 Vancomycin Level Trough 9.9 mcg/mL (10.0-20.0) Vancomycin Last Dose Date 05/20/17 Vancomycin Last Dose Time 1300 Prothrombin Time 14.5 SEC (11.7-14.0) Prothromb Time International Ratio 1.2 (0.8-1.1) Sodium Level 144 mmol/L (136-145) Potassium Level 3.5 mmol/L (3.5-5.1) Chloride Level 108 mmol/L (98-107) Carbon Dioxide Level 29 mmol/L (21-32) Anion Gap 7 (6-14) Blood Urea Nitrogen 17 mg/dL (8-26) Creatinine 1.1 mg/dL (0.7-1.3) Estimated GFR (Cockcroft-Gault) 65.3 Glucose Level 86 mg/dL (70-99) Calcium Level 8.2 mg/dL (8.5-10.1) Microbiology 05/19/17 Blood Culture - Preliminary, Resulted 05/19/17 Blood Culture Result 1 (BIENVENIDO) - Preliminary, Resulted 05/19/17 Urine Culture - Final, Complete 05/19/17 Urine Culture Result 1 (BIENVENIDO) - Final, Complete 05/19/17 Antimicrobic Susceptibility - Final, Complete Medications Current Medications Sodium Chloride 500 ml @ 500 mls/hr 1X ONCE IV Last administered on t 10:24; Start 05/19/17 at 10:30; Stop 05/19/17 at 11:29; Status DC Iohexol (Omnipaque 300 Mg/ml) 50 ml 1X ONCE IV ; Start 05/19/17 at 13:00; Stop 05/19/17 at 13:01; Status DC Info (Do NOT chart on this entry -- for MONITORING) 1 each PRN DAILY PRN MC SEE COMMENTS; Start 05/19/17 at 13:00; Stop 05/21/17 at 12:59; Status DC Ondansetron HCl (Zofran) 4 mg PRN Q8HRS PRN IV NAUSEA/VOMITING; Start 05/19/17 at 13:00; Stop 05/20/17 at 12:59; Status DC Morphine Sulfate 2 mg PRN Q2HR PRN IV PAIN Last administered on 05/20/17 08:18 ; Start 05/19/17 at 13:00; Stop 05/20/17 at 12:59; Status DC Sodium Chloride 1,000 ml @ 125 mls/hr Q8H IV Last administered on 05/20/17 06 :29; Start 05/19/17 at 12:49; Stop 05/20/17 at 12:48; Status DC Vancomycin HCl (Vanco Per Pharmacy) 1 each PRN DAILY PRN MC SEE COMMENTS Last administered on 05/21/17 13:20; Start 05/19/17 at 13:00; Stop 05/22/17 at 08:43 ; Status DC Piperacillin Sod/ Tazobactam Sod (Zosyn Per Pharmacy) 1 each PRN DAILY PRN MC SEE COMMENTS; Start 05/19/17 at 13:00; Stop 05/21/17 at 08:27; Status DC Piperacillin Sod/ Tazobactam Sod 3.375 gm/Sodium Chloride 50 ml @ 100 mls/hr 1X ONCE IV Last administered on 05/19/17 16:13; Start 05/19/17 at 13:00; Stop 05/19/17 at 13:29; Status DC Vancomycin HCl 1.75 gm/Sodium Chloride 500 ml @ 250 mls/hr 1X ONCE IV Last administered on 05/19/17 13:06; Start 05/19/17 at 13:00; Stop 05/19/17 at 14:59 ; Status DC Vancomycin HCl 1.25 gm/Sodium Chloride 250 ml @ 167 mls/hr Q24H IV Last administered on 05/20/17 13:48; Start 05/20/17 at 13:00; Stop 05/21/17 at 13:05 ; Status DC Vancomycin HCl 1 each 1X ONCE MC Last administered on 05/21/17 19:01; Start 05/21/17 at 12:30; Stop 05/21/17 at 12:31; Status DC Piperacillin Sod/ Tazobactam Sod 3.375 gm/Sodium Chloride 50 ml @ 100 mls/hr Q6HRS IV Last administered on 05/21/17 05:29; Start 05/19/17 at 23:00; Stop at 08:27; Status DC Acetaminophen (Tylenol) 650 mg PRN Q6HRS PRN PO fever/MILD pain Last administered on 05/20/17 20:59; Start 05/20/17 at 04:00 Levothyroxine Sodium (Synthroid) 125 mcg DAILY07 PO Last administered on 06:23; Start 05/20/17 at 07:30 Simvastatin (Zocor) 80 mg QHS PO Last administered on 05/21/17 20:05; Start at 21:00 Morphine Sulfate 2 mg PRN Q2HR PRN IV PAIN Last administered on 05/22/17 03:28 ; Start 05/20/17 at 14:15 Sodium Chloride 1,000 ml @ 75 mls/hr [id number] IV Last administered on 05:28; Start 05/20/17 at 15:00; Stop 05/21/17 at 10:54; Status DC Bisacodyl (Dulcolax Tab) 10 mg PRN DAILY PRN PO CONSTIPATION; Start 05/21/17 at 09:00 Bisacodyl (Dulcolax Supp) 10 mg PRN DAILY PRN [place] CONSTIPATION; Start 05/21/17 at 09:00 Senna/Docusate Sodium (Senna Plus) 1 tab PRN BID PRN PO CONSTIPATION Last administered on 05/21/17 18:19; Start 05/21/17 at 09:00 Vancomycin HCl 1.5 gm/Sodium Chloride 500 ml @ 250 mls/hr Q18H IV Last administered on 6/27/17at 07:57; Start 05/21/17 at 13:30; Stop 05/22/17 at 08:43 ; Status DC Vancomycin HCl 1 each 1X ONCE MC ; Start 05/23/17 at 01:00; Stop 05/23/17 at 01 :01 Ringer's Solution 1,000 ml @ 50 mls/hr Q20H IV ; Start 05/21/17 at 19:35; Stop 05/22/17 at 07:34; Status DC Fentanyl Citrate (Fentanyl 2ml Vial) 50 mcg PRN Q5MIN PRN IV Acute Pain; Start 05/21/17 at 19:45; Stop 05/22/17 at 19:44 Morphine Sulfate 4 mg PRN Q10MIN PRN IV Moderate Pain; Start 05/21/17 at 19:45 ; Stop 05/22/17 at 19:44 Hydromorphone HCl (Dilaudid) 0.4 mg PRN Q10MIN PRN IV Moderate to severe pain; Start 05/21/17 at 19:45; Stop 05/22/17 at 19:44 Meperidine HCl (Demerol) 12.5 mg PRN Q5MIN PRN IV SHIVERING; Start 05/21/17 at 19:45; Stop 05/22/17 at 19:44 Prochlorperazine Edisylate (Compazine) 5 mg PRN Q6HRS PRN IV Nausea/Vomiting, 1st Choice; Start 05/21/17 at 19:45; Stop 05/22/17 at 19:44 Diphenhydramine HCl (Benadryl) 12.5 mg PRN Q2HR PRN IV ITCHING; Start 05/21/17 at 19:45; Stop 05/22/17 at 19:44 Cefazolin Sodium 2 gm/Sodium Chloride 50 ml @ 100 mls/hr Q8HRS IV ; Start 05/22 at 09:00; Stop 05/22/17 at 09:08; Status DC Cefazolin Sodium/ Dextrose 50 ml @ 100 mls/hr Q8HRS IV ; Start 05/22/17 at 09: 15 Cefazolin Sodium/ Dextrose 50 ml @ 100 mls/hr Q8HRS IV Last administered on 09:50; Start 05/22/17 at 09:45 Active Scripts Active Reported Aspir 81 (Aspirin) 81 Mg Tablet.dr 81 Mg PO Simvastatin 80 Mg Tablet 80 Mg PO DAILY Levothyroxine Sodium 125 Mcg Tablet 125 Mcg PO DAILYAC Vitals/I & O Vital Sign - Last 24 Hours 05/21/17 05/21/17 05/21/17 05/21/17 10:45 15:16 18:20 19:00 Temp 98.1 98.1 99.0 98.1 98.1 99.0 Pulse 70 71 84 Resp 17 17 20 B/P (MAP) 100/58 (72) 102/56 (71) 113/63 (80) Pulse Ox 94 97 97 94 O2 Delivery Room Air Room Air Room Air Room Air 05/21/17 05/21/17 05/22/17 05/22/17 20:00 23:05 03:05 07:15 Temp 99.7 99.3 99.3 99.7 99.3 99.3 Pulse 84 80 73 Resp 20 20 20 B/P (MAP) 121/75 (90) 113/65 (81) 112/60 (77) Pulse Ox 93 90 91 O2 Delivery Room Air Room Air Room Air Room Air 05/22/17 08:00 O2 Delivery Room Air Intake and Output 05/21/17 05/21/17 05/22/17 14:59 22:59 06:59 Intake Total 50 ml 800 ml 1280 ml Output Total 850 ml 750 ml Balance 50 ml -50 ml 530 ml WILNER DUMONT MD May 22, 2017 10:01
--- NOTE | 2017-05-22 10:33 | PDOC ---
PROGRESS NOTES Assessment Problems Medical Problems: (1) Confusion Status: Acute (2) Lumbar compression fracture Status: Acute (3) Malaise and fatigue Status: Acute (4) Weakness generalized Status: Acute Metabolic encephalopathy. Acute L-4 compression fracture. Dementia. Plan Continue supportive care Note plans for kyphoplasty Discussed with Subjective Complaints of back pain Objective Vital Signs Date Time Temp Pulse Resp B/P (MAP) Pulse Ox O2 Delivery O2 Flow Rate FiO2 05/22/17 08:00 Room Air 05/22/17 07:15 99.3 73 20 112/60 (77) 91 99.3 Intake and Output 05/22/17 07:00 Intake Total 2130 ml Output Total 1600 ml Balance 530 ml Intake Oral 600 ml IV Total 1530 ml Output Urine Total 1600 ml PHYSICAL EXAM Alert. Oriented to person, does not know location or date PERRL. EOMI. CN: no focal findings. Muscle tone: normal. Muscle strength: 4/5 DTR: 1+ Plantar reflex: Flexor Gait: not examined in bed. Sensory exam: no abnormal findings. No cerebellar signs elicited. Review of Relevant I have reviewed the following items betsy (where applicable) has been applied. Labs Laboratory Tests Test 05/20/17 11:30 05/21/17 03:02 05/21/17 07:05 05/21/17 12:30 Creatine Kinase 74 U/L (39-308) Vitamin B12 Level 473 pg/mL (247-911) 492 pg/mL (247-911) Thyroid Stimulating Hormone (TSH) 6.348 uIU/mL (0.358-3.74) White Blood Count 9.4 x10^3/uL (4.0-11.0) Red Blood Count 3.16 x10^6/uL (4.30-5.70) Hemoglobin 9.5 g/dL (13.0-17.5) Hematocrit 28.7 % (39.0-53.0) Mean Corpuscular Volume 91 fL (79-100) Mean Corpuscular Hemoglobin 30 pg (25-35) Mean Corpuscular Hemoglobin Concent 33 g/dL (31-37) Red Cell Distribution Width 14.7 % (11.5-14.5) Platelet Count 232 x10^3/uL (140-400) Neutrophils (%) (Auto) 77 % (31-73) Lymphocytes (%) (Auto) 11 % (24-48) Monocytes (%) (Auto) 9 % (0-9) Eosinophils (%) (Auto) 3 % (0-3) Basophils (%) (Auto) 1 % (0-3) Neutrophils # (Auto) 7.2 x10^3uL (1.8-7.7) Lymphocytes # (Auto) 1.0 x10^3/uL (1.0-4.8) Monocytes # (Auto) 0.8 x10^3/uL (0.0-1.1) Eosinophils # (Auto) 0.3 x10^3/uL (0.0-0.7) Basophils # (Auto) 0.1 x10^3/uL (0.0-0.2) Iron Level 26 ug/dL (65-175) Total Iron Binding Capacity 141 ug/dL (250-450) Iron Saturation 18 % (15-34) Ferritin 2399 ng/mL (26-388) Serum Folate 5.67 ng/ml (3.2-20.0) Sodium Level 144 mmol/L (136-145) Potassium Level 3.7 mmol/L (3.5-5.1) Chloride Level 109 mmol/L (98-107) Carbon Dioxide Level 28 mmol/L (21-32) Anion Gap 7 (6-14) Blood Urea Nitrogen 23 mg/dL (8-26) Creatinine 1.3 mg/dL (0.7-1.3) Estimated GFR (Cockcroft-Gault) 53.8 BUN/Creatinine Ratio 18 (6-20) Glucose Level 86 mg/dL (70-99) Calcium Level 8.4 mg/dL (8.5-10.1) Total Bilirubin 0.4 mg/dL (0.2-1.0) Aspartate Amino Transf (AST/SGOT) 165 U/L (15-37) Alanine Aminotransferase (ALT/SGPT) 198 U/L (16-63) Alkaline Phosphatase 94 U/L (46-116) Total Protein 5.7 g/dL (6.4-8.2) Albumin 1.6 g/dL (3.4-5.0) Albumin/Globulin Ratio 0.4 (1.0-1.7) Vancomycin Level Trough 9.9 mcg/mL (10.0-20.0) Vancomycin Last Dose Date 05/20/17 Vancomycin Last Dose Time 1300 Test 05/21/17 18:00 05/22/17 03:18 Prothrombin Time 14.5 SEC (11.7-14.0) Prothromb Time International Ratio 1.2 (0.8-1.1) Sodium Level 144 mmol/L (136-145) Potassium Level 3.5 mmol/L (3.5-5.1) Chloride Level 108 mmol/L (98-107) Carbon Dioxide Level 29 mmol/L (21-32) Anion Gap 7 (6-14) Blood Urea Nitrogen 17 mg/dL (8-26) Creatinine 1.1 mg/dL (0.7-1.3) Estimated GFR (Cockcroft-Gault) 65.3 Glucose Level 86 mg/dL (70-99) Calcium Level 8.2 mg/dL (8.5-10.1) Laboratory Tests Test 05/21/17 12:30 05/21/17 18:00 05/22/17 03:18 Vancomycin Level Trough 9.9 mcg/mL (10.0-20.0) Vancomycin Last Dose Date 05/20/17 Vancomycin Last Dose Time 1300 Prothrombin Time 14.5 SEC (11.7-14.0) Prothromb Time International Ratio 1.2 (0.8-1.1) Sodium Level 144 mmol/L (136-145) Potassium Level 3.5 mmol/L (3.5-5.1) Chloride Level 108 mmol/L (98-107) Carbon Dioxide Level 29 mmol/L (21-32) Anion Gap 7 (6-14) Blood Urea Nitrogen 17 mg/dL (8-26) Creatinine 1.1 mg/dL (0.7-1.3) Estimated GFR (Cockcroft-Gault) 65.3 Glucose Level 86 mg/dL (70-99) Calcium Level 8.2 mg/dL (8.5-10.1) Microbiology 05/19/17 Blood Culture - Preliminary, Resulted 05/19/17 Blood Culture Result 1 (BIENVENIDO) - Preliminary, Resulted 05/19/17 Urine Culture - Final, Complete 05/19/17 Urine Culture Result 1 (BIENVENIDO) - Final, Complete 05/19/17 Antimicrobic Susceptibility - Final, Complete Medications Current Medications Sodium Chloride 500 ml @ 500 mls/hr 1X ONCE IV Last administered on 10:24; Start 05/19/17 at 10:30; Stop 05/19/17 at 11:29; Status DC Iohexol (Omnipaque 300 Mg/ml) 50 ml 1X ONCE IV ; Start 05/19/17 at 13:00; Stop 05/19/17 at 13:01; Status DC Info (Do NOT chart on this entry -- for MONITORING) 1 each PRN DAILY PRN MC SEE COMMENTS; Start 05/19/17 at 13:00; Stop 05/21/17 at 12:59; Status DC Ondansetron HCl (Zofran) 4 mg PRN Q8HRS PRN IV NAUSEA/VOMITING; Start 05/19/17 at 13:00; Stop 05/20/17 at 12:59; Status DC Morphine Sulfate 2 mg PRN Q2HR PRN IV PAIN Last administered on 05/20/17 08:18 ; Start 05/19/17 at 13:00; Stop 05/20/17 at 12:59; Status DC Sodium Chloride 1,000 ml @ 125 mls/hr Q8H IV Last administered on 05/20/17 06 :29; Start 05/19/17 at 12:49; Stop 05/20/17 at 12:48; Status DC Vancomycin HCl (Vanco Per Pharmacy) 1 each PRN DAILY PRN MC SEE COMMENTS Last administered on 05/21/17 13:20; Start 05/19/17 at 13:00; Stop 05/22/17 at 08:43 ; Status DC Piperacillin Sod/ Tazobactam Sod (Zosyn Per Pharmacy) 1 each PRN DAILY PRN MC SEE COMMENTS; Start 05/19/17 at 13:00; Stop 05/21/17 at 08:27; Status DC Piperacillin Sod/ Tazobactam Sod 3.375 gm/Sodium Chloride 50 ml @ 100 mls/hr 1X ONCE IV Last administered on 05/19/17 16:13; Start 05/19/17 at 13:00; Stop 05/19/17 at 13:29; Status DC Vancomycin HCl 1.75 gm/Sodium Chloride 500 ml @ 250 mls/hr 1X ONCE IV Last administered on 05/19/17 13:06; Start 05/19/17 at 13:00; Stop 05/19/17 at 14:59 ; Status DC Vancomycin HCl 1.25 gm/Sodium Chloride 250 ml @ 167 mls/hr Q24H IV Last administered on 05/20/17 13:48; Start 05/20/17 at 13:00; Stop 05/21/17 at 13:05 ; Status DC Vancomycin HCl 1 each 1X ONCE MC Last administered on 05/21/17 19:01; Start 05/21/17 at 12:30; Stop 05/21/17 at 12:31; Status DC Piperacillin Sod/ Tazobactam Sod 3.375 gm/Sodium Chloride 50 ml @ 100 mls/hr Q6HRS IV Last administered on 05/21/17 05:29; Start 05/19/17 at 23:00; Stop at 08:27; Status DC Acetaminophen (Tylenol) 650 mg PRN Q6HRS PRN PO fever/MILD pain Last administered on 05/20/17 20:59; Start 05/20/17 at 04:00 Levothyroxine Sodium (Synthroid) 125 mcg DAILY07 PO Last administered on 06:23; Start 05/20/17 at 07:30 Simvastatin (Zocor) 80 mg QHS PO Last administered on 05/21/17 20:05; Start at 21:00 Morphine Sulfate 2 mg PRN Q2HR PRN IV PAIN Last administered on 05/22/17 03:28 ; Start 05/20/17 at 14:15 Sodium Chloride 1,000 ml @ 75 mls/hr [id number] IV Last administered on 05:28; Start 05/20/17 at 15:00; Stop 05/21/17 at 10:54; Status DC Bisacodyl (Dulcolax Tab) 10 mg PRN DAILY PRN PO CONSTIPATION; Start 05/21/17 at 09:00 Bisacodyl (Dulcolax Supp) 10 mg PRN DAILY PRN [place] CONSTIPATION; Start 05/21/17 at 09:00 Senna/Docusate Sodium (Senna Plus) 1 tab PRN BID PRN PO CONSTIPATION Last administered on 05/21/17 18:19; Start 05/21/17 at 09:00 Vancomycin HCl 1.5 gm/Sodium Chloride 500 ml @ 250 mls/hr Q18H IV Last administered on 05/22/17 07:57; Start 05/21/17 at 13:30; Stop 05/22/17 at 08:43 ; Status DC Vancomycin HCl 1 each 1X ONCE MC ; Start 05/23/17 at 01:00; Stop 05/23/17 at 01 :00; Status DC Ringer's Solution 1,000 ml @ 50 mls/hr Q20H IV ; Start 05/21/17 at 19:35; Stop 05/22/17 at 07:34; Status DC Fentanyl Citrate (Fentanyl 2ml Vial) 50 mcg PRN Q5MIN PRN IV Acute Pain; Start 05/21/17 at 19:45; Stop 05/22/17 at 19:44 Morphine Sulfate 4 mg PRN Q10MIN PRN IV Moderate Pain; Start 05/21/17 at 19:45 ; Stop 05/22/17 at 19:44 Hydromorphone HCl (Dilaudid) 0.4 mg PRN Q10MIN PRN IV Moderate to severe pain; Start 05/21/17 at 19:45; Stop 05/22/17 at 19:44 Meperidine HCl (Demerol) 12.5 mg PRN Q5MIN PRN IV SHIVERING; Start 05/21/17 at 19:45; Stop 05/22/17 at 19:44 Prochlorperazine Edisylate (Compazine) 5 mg PRN Q6HRS PRN IV Nausea/Vomiting, 1st Choice; Start 05/21/17 at 19:45; Stop 05/22/17 at 19:44 Diphenhydramine HCl (Benadryl) 12.5 mg PRN Q2HR PRN IV ITCHING; Start 05/21/17 at 19:45; Stop 05/22/17 at 19:44 Cefazolin Sodium 2 gm/Sodium Chloride 50 ml @ 100 mls/hr Q8HRS IV ; Start 05/22 at 09:00; Stop 05/22/17 at 09:08; Status DC Cefazolin Sodium/ Dextrose 50 ml @ 100 mls/hr Q8HRS IV ; Start 05/22/17 at 09: 15; Stop 05/22/17 at 10:20; Status DC Cefazolin Sodium/ Dextrose 50 ml @ 100 mls/hr Q8HRS IV Last administered on 6/ 27/17at 09:50; Start 05/22/17 at 09:45 Active Scripts Active Reported Aspir 81 (Aspirin) 81 Mg Tablet.dr 81 Mg PO Simvastatin 80 Mg Tablet 80 Mg PO DAILY Levothyroxine Sodium 125 Mcg Tablet 125 Mcg PO DAILYAC Vitals/I & O Vital Sign - Last 24 Hours 05/21/17 05/21/17 05/21/17 05/21/17 10:45 15:16 18:20 19:00 Temp 98.1 98.1 99.0 98.1 98.1 99.0 Pulse 70 71 84 Resp 17 17 20 B/P (MAP) 100/58 (72) 102/56 (71) 113/63 (80) Pulse Ox 94 97 97 94 O2 Delivery Room Air Room Air Room Air Room Air 05/21/17 05/21/17 05/22/17 05/22/17 20:00 23:05 03:05 07:15 Temp 99.7 99.3 99.3 99.7 99.3 99.3 Pulse 84 80 73 Resp 20 20 20 B/P (MAP) 121/75 (90) 113/65 (81) 112/60 (77) Pulse Ox 93 90 91 O2 Delivery Room Air Room Air Room Air Room Air 05/22/17 08:00 O2 Delivery Room Air Intake and Output 05/21/17 05/21/17 05/22/17 15:00 23:00 07:00 Intake Total 50 ml 1780 ml 300 ml Output Total 850 ml 750 ml Balance 50 ml 930 ml -450 ml JERARDO BUCKLEY MD May 22, 2017 10:33
[2017-05-22 11:05] VITALS: BP 103/53
[2017-05-22] MEDS ORDERED: ePHEDrine PF IN SALINE 50 MG/5 ML DISP.SYRIN IV ONE (12:00)
[2017-05-22] MEDS ORDERED: PROPOFOL 20 ML IV ONE (12:14)
[2017-05-22] MEDS ORDERED: PROPOFOL 50 ML IV ONE (12:14)
[2017-05-22] MEDS ORDERED: LIDOCAINE 1% / SOD BICARB 8.4% 20 ML VIAL. IJ ONE ×2 (13:09→14:45)
[2017-05-22] MEDS ORDERED: IOHEXOL 300 MG/ML 50 ML VIAL. ONE (13:09)
[2017-05-22] MEDS ORDERED: KETOROLAC TROMETHAMINE 30 MG/ML INJ. IV PRN (14:30)
--- NOTE | 2017-05-22 14:34 | PDOC ---
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 No apparent complication. Disposition Disposition From IR to PACU, then return to [phone] post recovery, if no problems. F/U with Dr Garcia and Dr Meyers. Full report to follow. SARAN WILLIS MD May 22, 2017 14:34
[2017-05-22] MEDS ORDERED: CONTRAST GIVEN MC PRN (14:45)
[2017-05-22] MEDS ORDERED: IOHEXOL 300 MG/ML 50 ML VIAL. INT CAT ONE (14:45)
[2017-05-22 15:30] VITALS: BP 115/63
[2017-05-22 19:05] VITALS: BP 114/78
[2017-05-22] MEDS: SIMVASTATIN 40 MG TABLET. PO SCH (20:18)
[2017-05-22 23:05] VITALS: BP 122/75
[2017-05-23 03:05] VITALS: BP 127/87
[2017-05-23 06:06] LABS: BASO # 0.1 x10^3/uL (0.0-0.2); BASO % 1 % (0-3); EOS % 3 % (0-3); HEMATOCRIT 26.1 % (39.0-53.0); HEMOGLOBIN 8.8 g/dL (13.0-17.5); LYMPH # 1.4 x10^3/uL (1.0-4.8); LYMPH % 14 % (24-48); MEAN CORPUSCULAR HEMOGLOBIN 30 pg (25-35); MEAN CORPUSCULAR HGB CONC 34 g/dL (31-37); MEAN CORPUSCULAR VOLUME 90 fL (79-100); MONO % 8 % (0-9); NEUT % 74 % (31-73); PLATELET COUNT 272 x10^3/uL (140-400); RED CELL DISTRIBUTION WIDTH 14.8 % (11.5-14.5); WHITE BLOOD COUNT 10.2 x10^3/uL (4.0-11.0)
[2017-05-23] MEDS: LEVOTHYROXINE 125 MCG TABLET PO SCH (06:09)
[2017-05-23 06:27] LABS: CREATININE 1.1 mg/dL (0.7-1.3); GFR 65.3; POTASSIUM 3.6 mmol/L (3.5-5.1)
--- NOTE | 2017-05-23 07:01 | RAD ---
Fluoro guided L4 kyphoplasty Indication: 76-year-old male with severe low back pain precipitated by a fall, resulting in osteoporotic L4 vertebral body compression. Fluoroscopy guided vertebral augmentation has been requested. Fluoro time: 14.1 minutes Kerma-Area Product: 66 Gycm2 Anesthesia: Mac anesthesia was provided by the department of anesthesiology. Antibiotic: A single dose of Ancef was administered within 1 hour of the procedure start time. Consent: The procedure was explained in its entirety to the patient and/or the patient's designated customer success representative by a member of the treatment team. This included a discussion of risks and benefits and commonly accepted alternatives to the procedure, as well as expected consequences of no treatment at all. Discussion of risks included, but was not limited to, those that are most frequent and those that are rare, but possibly severe or life-threatening, as well as the possibility of unforeseen complications. Sterility: All elements of maximal sterile barrier technique, hand hygiene, skin preparation, and, if ultrasound was used, sterile ultrasound technique were followed. Procedure: Informed was obtained from the patient. He was placed prone on the angiography table. Midline low back was prepped and draped in the usual sterile fashion, utilizing all elements of maximal sterile barrier technique, as described above. Mac anesthesia was provided by the department of anesthesiology. 1 gram Ancef was given IV, prophylactically. Using aseptic technique, local anesthesia, and direct fluoroscopic guidance a 10 gauge vertebral augmentation needle was successfully introduced into anterior midline of the L4 vertebral body, via unilateral right transpedicular approach. A 15 mm vertebral augmentation balloon was then coaxially introduced through the needle, and was gently inflated under fluoroscopic control, creating a pocket suitable to accept vertebral augmentation cement. The balloon was then deflated and removed. Contrast opacified polymethylmethacrylate was then very slowly and carefully introduced through the vertebral augmentation needle, using strict fluoroscopic control. There was resulting good filling of the L4 vertebral body, without significant extraosseous extravasation of opacified cement. The needle was then removed and a sterile dressing was applied. Patient tolerated the procedure well, without apparent complication. He was transported from the angiography suite to the postanesthesia care unit in stable condition. Impression: Successful, uneventful fluoro guided L4 kyphoplasty , performed via unilateral right transpedicular approach, as described.
[2017-05-23 07:30] VITALS: BP 124/70
--- NOTE | 2017-05-23 08:10 | PDOC ---
SUBJECTIVE Subjective Pt's not accompanying him this morning. He states that he is feeling a little better than yesterday and his pain has improved. OBJECTIVE Vital Signs Vital Signs Date Time Temp Pulse Resp B/P (MAP) Pulse Ox O2 Delivery O2 Flow Rate FiO2 05/23/17 07:30 98.2 66 18 124/70 (88) 95 Room Air 98.2 05/23/17 03:05 98.2 82 18 127/87 (100) 96 Room Air 98.2 05/23/17 00:02 Room Air 05/22/17 23:05 98.2 65 18 122/75 (91) 96 Room Air 98.2 05/22/17 20:00 Room Air 05/22/17 19:05 98.1 68 18 114/78 (90) 93 Room Air 98.1 05/22/17 15:30 97.5 67 18 115/63 (80) 94 Room Air 97.5 05/22/17 15:09 72 16 108/72 96 Room Air 05/22/17 14:55 60 16 114/65 92 Room Air 05/22/17 14:40 64 16 102/61 97 Nasal Cannula 2 05/22/17 14:25 98.3 61 16 111/68 93 Room Air 98.3 05/22/17 11:05 99.1 66 20 103/53 (70) 93 Room Air 99.1 I & O Intake and Output 05/23/17 07:00 Intake Total 1550 ml Output Total 1850 ml Balance -300 ml Intake Oral 1050 ml IV Total 500 ml Output Urine Total 1850 ml PHYSICAL EXAM Physical Exam GEN: NAD, AOx3, slower to speak HEENT: MMM, EOMI, no scleral icterus/injection Cardiac: RRR, no M/R/G Lungs: CTAB, regular breathing rate and effort Abd: non distended, NTTP Ext: no erythema/edema LE bilaterally ASSESSMENT/PLAN Assessment/Plan Pt is a 76yo CM admitted with weakness in LE and altered mental status found to be 2/2 UTI and L4 compression fracture 1)UTI- ID following. Was receiving Vancomycin and Zosyn, now currently on Cefazolin. Urine cx +s saureus, one blood culture +s. aureus, only resistant to PCN. WBC and fevers improved. Tineo in place 2)Noninvasive urothelial carcinoma- s/p recent procedure, also with stent placement. Will need f/u with Dr. Griffin on discharge 3)L4 compression fracture- Nuerosurgery following, s/p L4 kyphoplasty. Dr. Meyers also following 4)Acute on chronic anemia- decreased from yesterday, possibly from surgery. FOBT pending. CTM 5)Transaminitis 6)PEM- severe. 7)Hypothyroidism- continue levothyroxine 125mcg. TSH mildly elevated this admission 8)HLD- continue Simvastatin 80mg Problems: COMMENT Lab Laboratory Tests Test 05/23/17 05:05 White Blood Count 10.2 x10^3/uL (4.0-11.0) Red Blood Count 2.90 x10^6/uL (4.30-5.70) Hemoglobin 8.8 g/dL (13.0-17.5) Hematocrit 26.1 % (39.0-53.0) Mean Corpuscular Volume 90 fL (79-100) Mean Corpuscular Hemoglobin 30 pg (25-35) Mean Corpuscular Hemoglobin Concent 34 g/dL (31-37) Red Cell Distribution Width 14.8 % (11.5-14.5) Platelet Count 272 x10^3/uL (140-400) Neutrophils (%) (Auto) 74 % (31-73) Lymphocytes (%) (Auto) 14 % (24-48) Monocytes (%) (Auto) 8 % (0-9) Eosinophils (%) (Auto) 3 % (0-3) Basophils (%) (Auto) 1 % (0-3) Neutrophils # (Auto) 7.6 x10^3uL (1.8-7.7) Lymphocytes # (Auto) 1.4 x10^3/uL (1.0-4.8) Monocytes # (Auto) 0.8 x10^3/uL (0.0-1.1) Eosinophils # (Auto) 0.3 x10^3/uL (0.0-0.7) Basophils # (Auto) 0.1 x10^3/uL (0.0-0.2) Sodium Level 145 mmol/L (136-145) Potassium Level 3.6 mmol/L (3.5-5.1) Chloride Level 108 mmol/L (98-107) Carbon Dioxide Level 29 mmol/L (21-32) Anion Gap 8 (6-14) Blood Urea Nitrogen 24 mg/dL (8-26) Creatinine 1.1 mg/dL (0.7-1.3) Estimated GFR (Cockcroft-Gault) 65.3 Glucose Level 85 mg/dL (70-99) Calcium Level 8.0 mg/dL (8.5-10.1) JEFFRY BACA MD May 23, 2017 08:10
--- NOTE | 2017-05-23 08:28 | RAD ---
Indication: Follow-up kidney stent. Axial imaging through the abdomen and pelvis was performed without intravenous contrast. Comparison is made with recent CT from 05/19/2017. There has been some increase in bilateral pleural effusions, slightly larger on the left when compared with exam from 4 days earlier. There is some associated bibasilar atelectasis as well. The liver and gallbladder are unremarkable. The pancreas and spleen are unremarkable. No adrenal mass is detected. The right kidney is unremarkable. Left kidney again contains a nephroureteral stent. There is left renal enlargement and perinephric inflammatory stranding, similar to prior study. No definite intrarenal calculi or calculi along the course of the stent are seen. The bladder is decompressed. The aorta is calcified but nonaneurysmal. The small and large bowel loops are normal caliber. There is no ascites. There is a treated compression fracture with kyphoplasty at the L4 level. Impression: 1. Increase in bilateral pleural effusions with bibasilar infiltrates or atelectasis since exam 4 days earlier. 2. Status post L4 kyphoplasty. 3. Otherwise stable CT of the abdomen and pelvis when compared with exam 4 days earlier. PQRS Compliance Statement: One or more of the following individualized dose reduction techniques were utilized for this examination: 1. Automated exposure control 2. Adjustment of the mA and/or kV according to patient size 3. Use of iterative reconstruction technique
--- NOTE | 2017-05-23 09:28 | PDOC ---
PROGRESS NOTES Subjective Subjective No new complaints. Objective Objective Vital Signs Date Time Temp Pulse Resp B/P (MAP) Pulse Ox O2 Delivery O2 Flow Rate FiO2 05/23/17 07:30 98.2 66 18 124/70 (88) 95 Room Air 98.2 05/22/17 14:40 2 Intake and Output 05/23/17 07:00 Intake Total 1550 ml Output Total 1850 ml Balance -300 ml Intake Oral 1050 ml IV Total 500 ml Output Urine Total 1850 ml Physical Exam Physical Exam He requires maximal help with bed mobility,transfers and he walked slowly with wide based gait using roller walker with significant help and he leans backwards while transferring and coming to a standing position. Assessment Assessment Problems Medical Problems: (1) Confusion Status: Acute (2) Lumbar compression fracture Status: Acute (3) Malaise and fatigue Status: Acute (4) Weakness generalized Status: Acute Plan Plan of Care To SNF or rehab unit when medically stable. Comment Review of Relevant I have reviewed the following items betsy (where applicable) has been applied. Labs Laboratory Tests Test 05/21/17 12:30 05/21/17 18:00 05/22/17 03:18 05/23/17 05:05 Vancomycin Level Trough 9.9 mcg/mL (10.0-20.0) Vancomycin Last Dose Date 05/20/17 Vancomycin Last Dose Time 1300 Prothrombin Time 14.5 SEC (11.7-14.0) Prothromb Time International Ratio 1.2 (0.8-1.1) Sodium Level 144 mmol/L (136-145) 145 mmol/L (136-145) Potassium Level 3.5 mmol/L (3.5-5.1) 3.6 mmol/L (3.5-5.1) Chloride Level 108 mmol/L (98-107) 108 mmol/L (98-107) Carbon Dioxide Level 29 mmol/L (21-32) 29 mmol/L (21-32) Anion Gap 7 (6-14) 8 (6-14) Blood Urea Nitrogen 17 mg/dL (8-26) 24 mg/dL (8-26) Creatinine 1.1 mg/dL (0.7-1.3) 1.1 mg/dL (0.7-1.3) Estimated GFR (Cockcroft-Gault) 65.3 65.3 Glucose Level 86 mg/dL (70-99) 85 mg/dL (70-99) Calcium Level 8.2 mg/dL (8.5-10.1) 8.0 mg/dL (8.5-10.1) White Blood Count 10.2 x10^3/uL (4.0-11.0) Red Blood Count 2.90 x10^6/uL (4.30-5.70) Hemoglobin 8.8 g/dL (13.0-17.5) Hematocrit 26.1 % (39.0-53.0) Mean Corpuscular Volume 90 fL (79-100) Mean Corpuscular Hemoglobin 30 pg (25-35) Mean Corpuscular Hemoglobin Concent 34 g/dL (31-37) Red Cell Distribution Width 14.8 % (11.5-14.5) Platelet Count 272 x10^3/uL (140-400) Neutrophils (%) (Auto) 74 % (31-73) Lymphocytes (%) (Auto) 14 % (24-48) Monocytes (%) (Auto) 8 % (0-9) Eosinophils (%) (Auto) 3 % (0-3) Basophils (%) (Auto) 1 % (0-3) Neutrophils # (Auto) 7.6 x10^3uL (1.8-7.7) Lymphocytes # (Auto) 1.4 x10^3/uL (1.0-4.8) Monocytes # (Auto) 0.8 x10^3/uL (0.0-1.1) Eosinophils # (Auto) 0.3 x10^3/uL (0.0-0.7) Basophils # (Auto) 0.1 x10^3/uL (0.0-0.2) Laboratory Tests Test 05/23/17 05:05 White Blood Count 10.2 x10^3/uL (4.0-11.0) Red Blood Count 2.90 x10^6/uL (4.30-5.70) Hemoglobin 8.8 g/dL (13.0-17.5) Hematocrit 26.1 % (39.0-53.0) Mean Corpuscular Volume 90 fL (79-100) Mean Corpuscular Hemoglobin 30 pg (25-35) Mean Corpuscular Hemoglobin Concent 34 g/dL (31-37) Red Cell Distribution Width 14.8 % (11.5-14.5) Platelet Count 272 x10^3/uL (140-400) Neutrophils (%) (Auto) 74 % (31-73) Lymphocytes (%) (Auto) 14 % (24-48) Monocytes (%) (Auto) 8 % (0-9) Eosinophils (%) (Auto) 3 % (0-3) Basophils (%) (Auto) 1 % (0-3) Neutrophils # (Auto) 7.6 x10^3uL (1.8-7.7) Lymphocytes # (Auto) 1.4 x10^3/uL (1.0-4.8) Monocytes # (Auto) 0.8 x10^3/uL (0.0-1.1) Eosinophils # (Auto) 0.3 x10^3/uL (0.0-0.7) Basophils # (Auto) 0.1 x10^3/uL (0.0-0.2) Sodium Level 145 mmol/L (136-145) Potassium Level 3.6 mmol/L (3.5-5.1) Chloride Level 108 mmol/L (98-107) Carbon Dioxide Level 29 mmol/L (21-32) Anion Gap 8 (6-14) Blood Urea Nitrogen 24 mg/dL (8-26) Creatinine 1.1 mg/dL (0.7-1.3) Estimated GFR (Cockcroft-Gault) 65.3 Glucose Level 85 mg/dL (70-99) Calcium Level 8.0 mg/dL (8.5-10.1) Microbiology 05/19/17 Blood Culture - Final, Complete 05/19/17 Blood Culture Result 1 (BIENVENIDO) - Final, Complete 05/19/17 Antimicrobic Susceptibility - Final, Complete 05/19/17 Urine Culture - Final, Complete 05/19/17 Urine Culture Result 1 (BIENVENIDO) - Final, Complete 05/19/17 Antimicrobic Susceptibility - Final, Complete Medications Current Medications Sodium Chloride 500 ml @ 500 mls/hr 1X ONCE IV Last administered on t 10:24; Start 05/19/17 at 10:30; Stop 05/19/17 at 11:29; Status DC Iohexol (Omnipaque 300 Mg/ml) 50 ml 1X ONCE IV ; Start 05/19/17 at 13:00; Stop 05/19/17 at 13:01; Status DC Info (Do NOT chart on this entry -- for MONITORING) 1 each PRN DAILY PRN MC SEE COMMENTS; Start 05/19/17 at 13:00; Stop 05/21/17 at 12:59; Status DC Ondansetron HCl (Zofran) 4 mg PRN Q8HRS PRN IV NAUSEA/VOMITING; Start 05/19/17 at 13:00; Stop 05/20/17 at 12:59; Status DC Morphine Sulfate 2 mg PRN Q2HR PRN IV PAIN Last administered on 05/20/17 08:18 ; Start 05/19/17 at 13:00; Stop 05/20/17 at 12:59; Status DC Sodium Chloride 1,000 ml @ 125 mls/hr Q8H IV Last administered on 05/20/17 06 :29; Start 05/19/17 at 12:49; Stop 05/20/17 at 12:48; Status DC Vancomycin HCl (Vanco Per Pharmacy) 1 each PRN DAILY PRN MC SEE COMMENTS Last administered on 05/21/17 13:20; Start 05/19/17 at 13:00; Stop 05/22/17 at 08:43 ; Status DC Piperacillin Sod/ Tazobactam Sod (Zosyn Per Pharmacy) 1 each PRN DAILY PRN MC SEE COMMENTS; Start 05/19/17 at 13:00; Stop 05/21/17 at 08:27; Status DC Piperacillin Sod/ Tazobactam Sod 3.375 gm/Sodium Chloride 50 ml @ 100 mls/hr 1X ONCE IV Last administered on 05/19/17 16:13; Start 05/19/17 at 13:00; Stop 05/19/17 at 13:29; Status DC Vancomycin HCl 1.75 gm/Sodium Chloride 500 ml @ 250 mls/hr 1X ONCE IV Last administered on 05/19/17 13:06; Start 05/19/17 at 13:00; Stop 05/19/17 at 14:59 ; Status DC Vancomycin HCl 1.25 gm/Sodium Chloride 250 ml @ 167 mls/hr Q24H IV Last administered on 05/20/17 13:48; Start 05/20/17 at 13:00; Stop 05/21/17 at 13:05 ; Status DC Vancomycin HCl 1 each 1X ONCE MC Last administered on 05/21/17 19:01; Start 05/21/17 at 12:30; Stop 05/21/17 at 12:31; Status DC Piperacillin Sod/ Tazobactam Sod 3.375 gm/Sodium Chloride 50 ml @ 100 mls/hr Q6HRS IV Last administered on 05/21/17 05:29; Start 05/19/17 at 23:00; Stop at 08:27; Status DC Acetaminophen (Tylenol) 650 mg PRN Q6HRS PRN PO fever/MILD pain Last administered on 05/20/17 20:59; Start 05/20/17 at 04:00 Levothyroxine Sodium (Synthroid) 125 mcg DAILY07 PO Last administered on 06:09; Start 05/20/17 at 07:30 Simvastatin (Zocor) 80 mg QHS PO Last administered on 05/22/17 20:18; Start at 21:00 Morphine Sulfate 2 mg PRN Q2HR PRN IV PAIN Last administered on 05/22/17 03:28 ; Start 05/20/17 at 14:15 Sodium Chloride 1,000 ml @ 75 mls/hr [id number] IV Last administered on 05:28; Start 05/20/17 at 15:00; Stop 05/21/17 at 10:54; Status DC Bisacodyl (Dulcolax Tab) 10 mg PRN DAILY PRN PO CONSTIPATION; Start 05/21/17 at 09:00 Bisacodyl (Dulcolax Supp) 10 mg PRN DAILY PRN [place] CONSTIPATION; Start 05/21/17 at 09:00 Senna/Docusate Sodium (Senna Plus) 1 tab PRN BID PRN PO CONSTIPATION Last administered on 05/21/17 18:19; Start 05/21/17 at 09:00 Vancomycin HCl 1.5 gm/Sodium Chloride 500 ml @ 250 mls/hr Q18H IV Last administered on 05/22/17 07:57; Start 05/21/17 at 13:30; Stop 05/22/17 at 08:43 ; Status DC Vancomycin HCl 1 each 1X ONCE MC ; Start 05/23/17 at 01:00; Stop 05/23/17 at 01 :00; Status DC Ringer's Solution 1,000 ml @ 50 mls/hr Q20H IV ; Start 05/21/17 at 19:35; Stop 05/22/17 at 07:34; Status DC Fentanyl Citrate (Fentanyl 2ml Vial) 50 mcg PRN Q5MIN PRN IV Acute Pain; Start 05/21/17 at 19:45; Stop 05/22/17 at 19:44; Status DC Morphine Sulfate 4 mg PRN Q10MIN PRN IV Moderate Pain; Start 05/21/17 at 19:45 ; Stop 05/22/17 at 19:44; Status DC Hydromorphone HCl (Dilaudid) 0.4 mg PRN Q10MIN PRN IV Moderate to severe pain; Start 05/21/17 at 19:45; Stop 05/22/17 at 19:44; Status DC Meperidine HCl (Demerol) 12.5 mg PRN Q5MIN PRN IV SHIVERING; Start 05/21/17 at 19:45; Stop 05/22/17 at 19:44; Status DC Prochlorperazine Edisylate (Compazine) 5 mg PRN Q6HRS PRN IV Nausea/Vomiting, 1st Choice; Start 05/21/17 at 19:45; Stop 05/22/17 at 19:44; Status DC Diphenhydramine HCl (Benadryl) 12.5 mg PRN Q2HR PRN IV ITCHING; Start 05/21/17 at 19:45; Stop 05/22/17 at 19:44; Status DC Cefazolin Sodium 2 gm/Sodium Chloride 50 ml @ 100 mls/hr Q8HRS IV ; Start 05/22 at 09:00; Stop 05/22/17 at 09:08; Status DC Cefazolin Sodium/ Dextrose 50 ml @ 100 mls/hr Q8HRS IV ; Start 05/22/17 at 09: 15; Stop 05/22/17 at 10:20; Status DC Cefazolin Sodium/ Dextrose 50 ml @ 100 mls/hr Q8HRS IV Last administered on t 05:32; Start 05/22/17 at 09:45 Propofol 50 ml @ As Directed STK-MED ONCE IV ; Start 05/22/17 at 12:14; Stop at 12:15; Status DC Propofol 20 ml @ As Directed STK-MED ONCE IV ; Start 05/22/17 at 12:14; Stop at 12:15; Status DC Lidocaine/Sodium Bicarbonate (Buffered Lidocaine 1%) 20 ml STK-MED ONCE IJ ; Start 05/22/17 at 13:09; Stop 05/22/17 at 13:10; Status DC Iohexol (Omnipaque 300 Mg/ml) 50 ml STK-MED ONCE .ROUTE ; Start 05/22/17 at 13: 09; Stop 05/22/17 at 13:10; Status DC Cefazolin Sodium 50 ml @ As Directed STK-MED ONCE IV ; Start 05/22/17 at 13:29; Stop 05/22/17 at 13:30; Status DC Ketorolac Tromethamine (Toradol) 30 mg 1X PRN PRN IV MODERATE PAIN Last administered on 05/22/17 14:54; Start 05/22/17 at 14:30; Stop 05/27/17 at 14:29 Lidocaine/Sodium Bicarbonate (Buffered Lidocaine 1%) 3 ml 1X ONCE IJ Last administered on 05/22/17 14:33; Start 05/22/17 at 14:45; Stop 05/22/17 at 14:46 ; Status DC Iohexol (Omnipaque 300 Mg/ml) 10 ml 1X ONCE INT CAT Last administered on 14:33; Start 05/22/17 at 14:45; Stop 05/22/17 at 14:46; Status DC Info (Do NOT chart on this entry -- for MONITORING) 1 each PRN DAILY PRN MC SEE COMMENTS; Start 05/22/17 at 14:45; Stop 05/24/17 at 14:44 Active Scripts Active Reported Aspir 81 (Aspirin) 81 Mg Tablet.dr 81 Mg PO Simvastatin 80 Mg Tablet 80 Mg PO DAILY Levothyroxine Sodium 125 Mcg Tablet 125 Mcg PO DAILYAC Vitals/I & O Vital Sign - Last 24 Hours 05/22/17 05/22/17 05/22/17 05/22/17 11:05 14:25 14:40 14:55 Temp 99.1 98.3 99.1 98.3 Pulse 66 61 64 60 Resp 20 16 16 16 B/P (MAP) 103/53 (70) 111/68 102/61 114/65 Pulse Ox 93 93 97 92 O2 Delivery Room Air Room Air Nasal Cannula Room Air O2 Flow Rate 2 05/22/17 05/22/17 05/22/17 05/22/17 15:09 15:30 19:05 20:00 Temp 97.5 98.1 97.5 98.1 Pulse 72 67 68 Resp 18 18 B/P (MAP) 108/72 115/63 (80) 114/78 (90) Pulse Ox 96 94 93 O2 Delivery Room Air Room Air Room Air Room Air 05/22/17 05/23/17 05/23/17 05/23/17 23:05 00:02 03:05 07:30 Temp 98.2 98.2 98.2 98.2 98.2 98.2 Pulse 65 82 66 Resp 18 18 18 B/P (MAP) 122/75 (91) 127/87 (100) 124/70 (88) Pulse Ox 96 96 95 O2 Delivery Room Air Room Air Room Air Room Air Intake and Output 05/22/17 05/22/17 05/23/17 15:00 23:00 07:00 Intake Total 0 ml 1100 ml 450 ml Output Total 1000 ml 400 ml 450 ml Balance -1000 ml 700 ml 0 ml WILNER DUMONT MD May 23, 2017 09:28
--- NOTE | 2017-05-23 09:29 | PDOC ---
Infectious Disease Note Subjective Subjective Doing well. Hungry ROS ROS GEN: Denies fevers, chills, sweats HEENT: Denies blurred vision, sore throat CV: Denies chest pain RESP: Denies shortness of air, cough GI: Denies n/v/d NEURO: Denies confusion, dizziness MSK: Denies weakness, joint pain/swelling Vital Sign Vital Signs Vital Signs Date Time Temp Pulse Resp B/P (MAP) Pulse Ox O2 Delivery O2 Flow Rate FiO2 05/23/17 07:30 98.2 66 18 124/70 (88) 95 Room Air 98.2 05/22/17 14:40 2 Physical Exam PHYSICAL EXAM GENERAL: NAD, Alert, Ambulated to chair with help HEENT: PERRL, nml conj, OC/OP -cry NECK: Supple, no JVD, no LN LUNGS: Clear HEART: S1S2, no gallop, no murmur ABD: Soft, NT, no organomegaly, no rebound steinberg EXT: No edema, no cyanosis RE DYE HAND: Alert, oriented x 3, no focal neurologic deficit SKIN: No rash IV: ok Labs Lab Laboratory Tests Test 05/23/17 05:05 White Blood Count 10.2 x10^3/uL (4.0-11.0) Red Blood Count 2.90 x10^6/uL (4.30-5.70) Hemoglobin 8.8 g/dL (13.0-17.5) Hematocrit 26.1 % (39.0-53.0) Mean Corpuscular Volume 90 fL (79-100) Mean Corpuscular Hemoglobin 30 pg (25-35) Mean Corpuscular Hemoglobin Concent 34 g/dL (31-37) Red Cell Distribution Width 14.8 % (11.5-14.5) Platelet Count 272 x10^3/uL (140-400) Neutrophils (%) (Auto) 74 % (31-73) Lymphocytes (%) (Auto) 14 % (24-48) Monocytes (%) (Auto) 8 % (0-9) Eosinophils (%) (Auto) 3 % (0-3) Basophils (%) (Auto) 1 % (0-3) Neutrophils # (Auto) 7.6 x10^3uL (1.8-7.7) Lymphocytes # (Auto) 1.4 x10^3/uL (1.0-4.8) Monocytes # (Auto) 0.8 x10^3/uL (0.0-1.1) Eosinophils # (Auto) 0.3 x10^3/uL (0.0-0.7) Basophils # (Auto) 0.1 x10^3/uL (0.0-0.2) Sodium Level 145 mmol/L (136-145) Potassium Level 3.6 mmol/L (3.5-5.1) Chloride Level 108 mmol/L (98-107) Carbon Dioxide Level 29 mmol/L (21-32) Anion Gap 8 (6-14) Blood Urea Nitrogen 24 mg/dL (8-26) Creatinine 1.1 mg/dL (0.7-1.3) Estimated GFR (Cockcroft-Gault) 65.3 Glucose Level 85 mg/dL (70-99) Calcium Level 8.0 mg/dL (8.5-10.1) Objective Assessment MSSA Sepsis POA, 05/19 Left perinephritic fluid, ? pyelitis 05/[address] reviewed and stable h/o bladder tumors s/p TURBT and J-J stent placement at [facility] a month ago. - 3 days of antibiotics post removal of Steinberg about 2 weeks later. Acute encephalopathy - better already per CARLIE -better Transaminitis Acute compression fracture, L4 s/p Kyphoplasty 05/22 MS, 47 year history Plan Plan of Care Cont Cefazolin Repeat blood cults ECHO No PICC line until repeat cults from today neg for min 48 hours Monitor labs Likely needs Left stent removed D/w Dr. Meyers and [facility] JESSICA HYMAN MD May 23, 2017 09:29
[2017-05-23 10:50] VITALS: BP 194/115
--- NOTE | 2017-05-23 11:30 | PDOC ---
PROGRESS NOTES Subjective Subjective Pt. feeling better Objective Objective Vital Signs Date Time Temp Pulse Resp B/P (MAP) Pulse Ox O2 Delivery O2 Flow Rate FiO2 05/23/17 10:50 97.8 81 18 194/115 (141) 94 Room Air 97.8 05/23/17 08:00 2.0 Intake and Output 05/23/17 07:00 Intake Total 1550 ml Output Total 1850 ml Balance -300 ml Intake Oral 1050 ml IV Total 500 ml Output Urine Total 1850 ml Physical Exam Physical Exam steinberg in place urine clear yellow Less inflammation around left kidney now Plan Plan of Care Continue to treat staph infection in blood and urine Keep steinberg in place Follow up with Dr. Griffin in 7-10 days at urology Problems Medical Problems: (1) Confusion Status: Acute (2) Lumbar compression fracture Status: Acute (3) Malaise and fatigue Status: Acute (4) Weakness generalized Status: Acute Comment Review of Relevant I have reviewed the following items betsy (where applicable) has been applied. Labs Laboratory Tests Test 05/21/17 12:30 05/21/17 18:00 05/22/17 03:18 05/23/17 05:05 Vancomycin Level Trough 9.9 mcg/mL (10.0-20.0) Vancomycin Last Dose Date 05/20/17 Vancomycin Last Dose Time 1300 Prothrombin Time 14.5 SEC (11.7-14.0) Prothromb Time International Ratio 1.2 (0.8-1.1) Sodium Level 144 mmol/L (136-145) 145 mmol/L (136-145) Potassium Level 3.5 mmol/L (3.5-5.1) 3.6 mmol/L (3.5-5.1) Chloride Level 108 mmol/L (98-107) 108 mmol/L (98-107) Carbon Dioxide Level 29 mmol/L (21-32) 29 mmol/L (21-32) Anion Gap 7 (6-14) 8 (6-14) Blood Urea Nitrogen 17 mg/dL (8-26) 24 mg/dL (8-26) Creatinine 1.1 mg/dL (0.7-1.3) 1.1 mg/dL (0.7-1.3) Estimated GFR (Cockcroft-Gault) 65.3 65.3 Glucose Level 86 mg/dL (70-99) 85 mg/dL (70-99) Calcium Level 8.2 mg/dL (8.5-10.1) 8.0 mg/dL (8.5-10.1) White Blood Count 10.2 x10^3/uL (4.0-11.0) Red Blood Count 2.90 x10^6/uL (4.30-5.70) Hemoglobin 8.8 g/dL (13.0-17.5) Hematocrit 26.1 % (39.0-53.0) Mean Corpuscular Volume 90 fL (79-100) Mean Corpuscular Hemoglobin 30 pg (25-35) Mean Corpuscular Hemoglobin Concent 34 g/dL (31-37) Red Cell Distribution Width 14.8 % (11.5-14.5) Platelet Count 272 x10^3/uL (140-400) Neutrophils (%) (Auto) 74 % (31-73) Lymphocytes (%) (Auto) 14 % (24-48) Monocytes (%) (Auto) 8 % (0-9) Eosinophils (%) (Auto) 3 % (0-3) Basophils (%) (Auto) 1 % (0-3) Neutrophils # (Auto) 7.6 x10^3uL (1.8-7.7) Lymphocytes # (Auto) 1.4 x10^3/uL (1.0-4.8) Monocytes # (Auto) 0.8 x10^3/uL (0.0-1.1) Eosinophils # (Auto) 0.3 x10^3/uL (0.0-0.7) Basophils # (Auto) 0.1 x10^3/uL (0.0-0.2) Laboratory Tests Test 05/23/17 05:05 White Blood Count 10.2 x10^3/uL (4.0-11.0) Red Blood Count 2.90 x10^6/uL (4.30-5.70) Hemoglobin 8.8 g/dL (13.0-17.5) Hematocrit 26.1 % (39.0-53.0) Mean Corpuscular Volume 90 fL (79-100) Mean Corpuscular Hemoglobin 30 pg (25-35) Mean Corpuscular Hemoglobin Concent 34 g/dL (31-37) Red Cell Distribution Width 14.8 % (11.5-14.5) Platelet Count 272 x10^3/uL (140-400) Neutrophils (%) (Auto) 74 % (31-73) Lymphocytes (%) (Auto) 14 % (24-48) Monocytes (%) (Auto) 8 % (0-9) Eosinophils (%) (Auto) 3 % (0-3) Basophils (%) (Auto) 1 % (0-3) Neutrophils # (Auto) 7.6 x10^3uL (1.8-7.7) Lymphocytes # (Auto) 1.4 x10^3/uL (1.0-4.8) Monocytes # (Auto) 0.8 x10^3/uL (0.0-1.1) Eosinophils # (Auto) 0.3 x10^3/uL (0.0-0.7) Basophils # (Auto) 0.1 x10^3/uL (0.0-0.2) Sodium Level 145 mmol/L (136-145) Potassium Level 3.6 mmol/L (3.5-5.1) Chloride Level 108 mmol/L (98-107) Carbon Dioxide Level 29 mmol/L (21-32) Anion Gap 8 (6-14) Blood Urea Nitrogen 24 mg/dL (8-26) Creatinine 1.1 mg/dL (0.7-1.3) Estimated GFR (Cockcroft-Gault) 65.3 Glucose Level 85 mg/dL (70-99) Calcium Level 8.0 mg/dL (8.5-10.1) Microbiology 05/19/17 Blood Culture - Final, Complete 05/19/17 Blood Culture Result 1 (BIENVENIDO) - Final, Complete 05/19/17 Antimicrobic Susceptibility - Final, Complete 05/19/17 Urine Culture - Final, Complete 05/19/17 Urine Culture Result 1 (BIENVENIDO) - Final, Complete 05/19/17 Antimicrobic Susceptibility - Final, Complete Medications Current Medications Sodium Chloride 500 ml @ 500 mls/hr 1X ONCE IV Last administered on t 10:24; Start 05/19/17 at 10:30; Stop 05/19/17 at 11:29; Status DC Iohexol (Omnipaque 300 Mg/ml) 50 ml 1X ONCE IV ; Start 05/19/17 at 13:00; Stop 05/19/17 at 13:01; Status DC Info (Do NOT chart on this entry -- for MONITORING) 1 each PRN DAILY PRN MC SEE COMMENTS; Start 05/19/17 at 13:00; Stop 05/21/17 at 12:59; Status DC Ondansetron HCl (Zofran) 4 mg PRN Q8HRS PRN IV NAUSEA/VOMITING; Start 05/19/17 at 13:00; Stop 05/20/17 at 12:59; Status DC Morphine Sulfate 2 mg PRN Q2HR PRN IV PAIN Last administered on 05/20/17 08:18 ; Start 05/19/17 at 13:00; Stop 05/20/17 at 12:59; Status DC Sodium Chloride 1,000 ml @ 125 mls/hr Q8H IV Last administered on 05/20/17 06 :29; Start 05/19/17 at 12:49; Stop 05/20/17 at 12:48; Status DC Vancomycin HCl (Vanco Per Pharmacy) 1 each PRN DAILY PRN MC SEE COMMENTS Last administered on 05/21/17 13:20; Start 05/19/17 at 13:00; Stop 05/22/17 at 08:43 ; Status DC Piperacillin Sod/ Tazobactam Sod (Zosyn Per Pharmacy) 1 each PRN DAILY PRN MC SEE COMMENTS; Start 05/19/17 at 13:00; Stop 05/21/17 at 08:27; Status DC Piperacillin Sod/ Tazobactam Sod 3.375 gm/Sodium Chloride 50 ml @ 100 mls/hr 1X ONCE IV Last administered on 05/19/17 16:13; Start 05/19/17 at 13:00; Stop 05/19/17 at 13:29; Status DC Vancomycin HCl 1.75 gm/Sodium Chloride 500 ml @ 250 mls/hr 1X ONCE IV Last administered on 05/19/17 13:06; Start 05/19/17 at 13:00; Stop 05/19/17 at 14:59 ; Status DC Vancomycin HCl 1.25 gm/Sodium Chloride 250 ml @ 167 mls/hr Q24H IV Last administered on 05/20/17 13:48; Start 05/20/17 at 13:00; Stop 05/21/17 at 13:05 ; Status DC Vancomycin HCl 1 each 1X ONCE MC Last administered on 05/21/17 19:01; Start 05/21/17 at 12:30; Stop 05/21/17 at 12:31; Status DC Piperacillin Sod/ Tazobactam Sod 3.375 gm/Sodium Chloride 50 ml @ 100 mls/hr Q6HRS IV Last administered on 05/21/17 05:29; Start 05/19/17 at 23:00; Stop at 08:27; Status DC Acetaminophen (Tylenol) 650 mg PRN Q6HRS PRN PO fever/MILD pain Last administered on 05/20/17 20:59; Start 05/20/17 at 04:00 Levothyroxine Sodium (Synthroid) 125 mcg DAILY07 PO Last administered on 06:09; Start 05/20/17 at 07:30 Simvastatin (Zocor) 80 mg QHS PO Last administered on 05/22/17 20:18; Start at 21:00 Morphine Sulfate 2 mg PRN Q2HR PRN IV PAIN Last administered on 05/22/17 03:28 ; Start 05/20/17 at 14:15 Sodium Chloride 1,000 ml @ 75 mls/hr [id number] IV Last administered on 05:28; Start 05/20/17 at 15:00; Stop 05/21/17 at 10:54; Status DC Bisacodyl (Dulcolax Tab) 10 mg PRN DAILY PRN PO CONSTIPATION; Start 05/21/17 at 09:00 Bisacodyl (Dulcolax Supp) 10 mg PRN DAILY PRN [place] CONSTIPATION; Start 05/21/17 at 09:00 Senna/Docusate Sodium (Senna Plus) 1 tab PRN BID PRN PO CONSTIPATION Last administered on 05/21/17 18:19; Start 05/21/17 at 09:00 Vancomycin HCl 1.5 gm/Sodium Chloride 500 ml @ 250 mls/hr Q18H IV Last administered on 05/22/17 07:57; Start 05/21/17 at 13:30; Stop 05/22/17 at 08:43 ; Status DC Vancomycin HCl 1 each 1X ONCE MC ; Start 05/23/17 at 01:00; Stop 05/23/17 at 01 :00; Status DC Ringer's Solution 1,000 ml @ 50 mls/hr Q20H IV ; Start 05/21/17 at 19:35; Stop 05/22/17 at 07:34; Status DC Fentanyl Citrate (Fentanyl 2ml Vial) 50 mcg PRN Q5MIN PRN IV Acute Pain; Start 05/21/17 at 19:45; Stop 05/22/17 at 19:44; Status DC Morphine Sulfate 4 mg PRN Q10MIN PRN IV Moderate Pain; Start 05/21/17 at 19:45 ; Stop 05/22/17 at 19:44; Status DC Hydromorphone HCl (Dilaudid) 0.4 mg PRN Q10MIN PRN IV Moderate to severe pain; Start 05/21/17 at 19:45; Stop 05/22/17 at 19:44; Status DC Meperidine HCl (Demerol) 12.5 mg PRN Q5MIN PRN IV SHIVERING; Start 05/21/17 at 19:45; Stop 05/22/17 at 19:44; Status DC Prochlorperazine Edisylate (Compazine) 5 mg PRN Q6HRS PRN IV Nausea/Vomiting, 1st Choice; Start 05/21/17 at 19:45; Stop 05/22/17 at 19:44; Status DC Diphenhydramine HCl (Benadryl) 12.5 mg PRN Q2HR PRN IV ITCHING; Start 05/21/17 at 19:45; Stop 05/22/17 at 19:44; Status DC Cefazolin Sodium 2 gm/Sodium Chloride 50 ml @ 100 mls/hr Q8HRS IV ; Start 05/22 at 09:00; Stop 05/22/17 at 09:08; Status DC Cefazolin Sodium/ Dextrose 50 ml @ 100 mls/hr Q8HRS IV ; Start 05/22/17 at 09: 15; Stop 05/22/17 at 10:20; Status DC Cefazolin Sodium/ Dextrose 50 ml @ 100 mls/hr Q8HRS IV Last administered on t 05:32; Start 05/22/17 at 09:45 Propofol 50 ml @ As Directed STK-MED ONCE IV ; Start 05/22/17 at 12:14; Stop at 12:15; Status DC Propofol 20 ml @ As Directed STK-MED ONCE IV ; Start 05/22/17 at 12:14; Stop at 12:15; Status DC Lidocaine/Sodium Bicarbonate (Buffered Lidocaine 1%) 20 ml STK-MED ONCE IJ ; Start 05/22/17 at 13:09; Stop 05/22/17 at 13:10; Status DC Iohexol (Omnipaque 300 Mg/ml) 50 ml STK-MED ONCE .ROUTE ; Start 05/22/17 at 13: 09; Stop 05/22/17 at 13:10; Status DC Cefazolin Sodium 50 ml @ As Directed STK-MED ONCE IV ; Start 05/22/17 at 13:29; Stop 05/22/17 at 13:30; Status DC Ketorolac Tromethamine (Toradol) 30 mg 1X PRN PRN IV MODERATE PAIN Last administered on 05/22/17 14:54; Start 05/22/17 at 14:30; Stop 05/27/17 at 14:29 Lidocaine/Sodium Bicarbonate (Buffered Lidocaine 1%) 3 ml 1X ONCE IJ Last administered on 05/22/17 14:33; Start 05/22/17 at 14:45; Stop 05/22/17 at 14:46 ; Status DC Iohexol (Omnipaque 300 Mg/ml) 10 ml 1X ONCE INT CAT Last administered on 14:33; Start 05/22/17 at 14:45; Stop 05/22/17 at 14:46; Status DC Info (Do NOT chart on this entry -- for MONITORING) 1 each PRN DAILY PRN MC SEE COMMENTS; Start 05/22/17 at 14:45; Stop 05/24/17 at 14:44 Active Scripts Active Reported Aspir 81 (Aspirin) 81 Mg Tablet.dr 81 Mg PO Simvastatin 80 Mg Tablet 80 Mg PO DAILY Levothyroxine Sodium 125 Mcg Tablet 125 Mcg PO DAILYAC Vitals/I & O Vital Sign - Last 24 Hours 05/22/17 05/22/17 05/22/17 05/22/17 14:25 14:40 14:55 15:09 Temp 98.3 98.3 Pulse 61 64 60 72 Resp 16 16 16 16 B/P (MAP) 111/68 102/61 114/65 108/72 Pulse Ox 93 97 92 96 O2 Delivery Room Air Nasal Cannula Room Air Room Air O2 Flow Rate 2 05/22/17 05/22/17 05/22/17 05/22/17 15:30 19:05 20:00 23:05 Temp 97.5 98.1 98.2 97.5 98.1 98.2 Pulse 67 68 65 Resp 18 18 18 B/P (MAP) 115/63 (80) 114/78 (90) 122/75 (91) Pulse Ox 94 93 96 O2 Delivery Room Air Room Air Room Air Room Air 05/23/17 05/23/17 05/23/17 05/23/17 00:02 03:05 07:30 08:00 Temp 98.2 98.2 98.2 98.2 Pulse 82 66 Resp 18 18 B/P (MAP) 127/87 (100) 124/70 (88) Pulse Ox 96 95 O2 Delivery Room Air Room Air Room Air Room Air O2 Flow Rate 2.0 05/23/17 10:50 Temp 97.8 97.8 Pulse 81 Resp 18 B/P (MAP) 194/115 (141) Pulse Ox 94 O2 Delivery Room Air Intake and Output 05/22/17 05/22/17 05/23/17 15:00 23:00 07:00 Intake Total 0 ml 1100 ml 450 ml Output Total 1000 ml 400 ml 450 ml Balance -1000 ml 700 ml 0 ml JOHN NAGY MD May 23, 2017 11:30
--- NOTE | 2017-05-23 11:41 | PDOC ---
PROGRESS NOTES Assessment Problems Medical Problems: (1) Confusion Status: Acute (2) Lumbar compression fracture Status: Acute (3) Malaise and fatigue Status: Acute (4) Weakness generalized Status: Acute Metabolic encephalopathy. Acute L-4 compression fracture, S/P kyphoplasty. Plan SNU Subjective Back pain is better Objective Vital Signs Date Time Temp Pulse Resp B/P (MAP) Pulse Ox O2 Delivery O2 Flow Rate FiO2 05/23/17 10:50 97.8 81 18 194/115 (141) 94 Room Air 97.8 05/23/17 08:00 2.0 Intake and Output 05/23/17 07:00 Intake Total 1550 ml Output Total 1850 ml Balance -300 ml Intake Oral 1050 ml IV Total 500 ml Output Urine Total 1850 ml PHYSICAL EXAM Alert. Oriented to person, does not know location or date PERRL. EOMI. CN: no focal findings. Muscle tone: normal. Muscle strength: 4/5 DTR: 1+ Plantar reflex: Flexor Gait: not examined in bed. Sensory exam: no abnormal findings. No cerebellar signs elicited. Review of Relevant I have reviewed the following items betsy (where applicable) has been applied. Labs Laboratory Tests Test 05/21/17 12:30 05/21/17 18:00 05/22/17 03:18 05/23/17 05:05 Vancomycin Level Trough 9.9 mcg/mL (10.0-20.0) Vancomycin Last Dose Date 05/20/17 Vancomycin Last Dose Time 1300 Prothrombin Time 14.5 SEC (11.7-14.0) Prothromb Time International Ratio 1.2 (0.8-1.1) Sodium Level 144 mmol/L (136-145) 145 mmol/L (136-145) Potassium Level 3.5 mmol/L (3.5-5.1) 3.6 mmol/L (3.5-5.1) Chloride Level 108 mmol/L (98-107) 108 mmol/L (98-107) Carbon Dioxide Level 29 mmol/L (21-32) 29 mmol/L (21-32) Anion Gap 7 (6-14) 8 (6-14) Blood Urea Nitrogen 17 mg/dL (8-26) 24 mg/dL (8-26) Creatinine 1.1 mg/dL (0.7-1.3) 1.1 mg/dL (0.7-1.3) Estimated GFR (Cockcroft-Gault) 65.3 65.3 Glucose Level 86 mg/dL (70-99) 85 mg/dL (70-99) Calcium Level 8.2 mg/dL (8.5-10.1) 8.0 mg/dL (8.5-10.1) White Blood Count 10.2 x10^3/uL (4.0-11.0) Red Blood Count 2.90 x10^6/uL (4.30-5.70) Hemoglobin 8.8 g/dL (13.0-17.5) Hematocrit 26.1 % (39.0-53.0) Mean Corpuscular Volume 90 fL (79-100) Mean Corpuscular Hemoglobin 30 pg (25-35) Mean Corpuscular Hemoglobin Concent 34 g/dL (31-37) Red Cell Distribution Width 14.8 % (11.5-14.5) Platelet Count 272 x10^3/uL (140-400) Neutrophils (%) (Auto) 74 % (31-73) Lymphocytes (%) (Auto) 14 % (24-48) Monocytes (%) (Auto) 8 % (0-9) Eosinophils (%) (Auto) 3 % (0-3) Basophils (%) (Auto) 1 % (0-3) Neutrophils # (Auto) 7.6 x10^3uL (1.8-7.7) Lymphocytes # (Auto) 1.4 x10^3/uL (1.0-4.8) Monocytes # (Auto) 0.8 x10^3/uL (0.0-1.1) Eosinophils # (Auto) 0.3 x10^3/uL (0.0-0.7) Basophils # (Auto) 0.1 x10^3/uL (0.0-0.2) Laboratory Tests Test 05/23/17 05:05 White Blood Count 10.2 x10^3/uL (4.0-11.0) Red Blood Count 2.90 x10^6/uL (4.30-5.70) Hemoglobin 8.8 g/dL (13.0-17.5) Hematocrit 26.1 % (39.0-53.0) Mean Corpuscular Volume 90 fL (79-100) Mean Corpuscular Hemoglobin 30 pg (25-35) Mean Corpuscular Hemoglobin Concent 34 g/dL (31-37) Red Cell Distribution Width 14.8 % (11.5-14.5) Platelet Count 272 x10^3/uL (140-400) Neutrophils (%) (Auto) 74 % (31-73) Lymphocytes (%) (Auto) 14 % (24-48) Monocytes (%) (Auto) 8 % (0-9) Eosinophils (%) (Auto) 3 % (0-3) Basophils (%) (Auto) 1 % (0-3) Neutrophils # (Auto) 7.6 x10^3uL (1.8-7.7) Lymphocytes # (Auto) 1.4 x10^3/uL (1.0-4.8) Monocytes # (Auto) 0.8 x10^3/uL (0.0-1.1) Eosinophils # (Auto) 0.3 x10^3/uL (0.0-0.7) Basophils # (Auto) 0.1 x10^3/uL (0.0-0.2) Sodium Level 145 mmol/L (136-145) Potassium Level 3.6 mmol/L (3.5-5.1) Chloride Level 108 mmol/L (98-107) Carbon Dioxide Level 29 mmol/L (21-32) Anion Gap 8 (6-14) Blood Urea Nitrogen 24 mg/dL (8-26) Creatinine 1.1 mg/dL (0.7-1.3) Estimated GFR (Cockcroft-Gault) 65.3 Glucose Level 85 mg/dL (70-99) Calcium Level 8.0 mg/dL (8.5-10.1) Microbiology 05/19/17 Blood Culture - Final, Complete 05/19/17 Blood Culture Result 1 (BIENVENIDO) - Final, Complete 05/19/17 Antimicrobic Susceptibility - Final, Complete 05/19/17 Urine Culture - Final, Complete 05/19/17 Urine Culture Result 1 (BIENVENIDO) - Final, Complete 05/19/17 Antimicrobic Susceptibility - Final, Complete Medications Current Medications Sodium Chloride 500 ml @ 500 mls/hr 1X ONCE IV Last administered on t 10:24; Start 05/19/17 at 10:30; Stop 05/19/17 at 11:29; Status DC Iohexol (Omnipaque 300 Mg/ml) 50 ml 1X ONCE IV ; Start 05/19/17 at 13:00; Stop 05/19/17 at 13:01; Status DC Info (Do NOT chart on this entry -- for MONITORING) 1 each PRN DAILY PRN MC SEE COMMENTS; Start 05/19/17 at 13:00; Stop 05/21/17 at 12:59; Status DC Ondansetron HCl (Zofran) 4 mg PRN Q8HRS PRN IV NAUSEA/VOMITING; Start 05/19/17 at 13:00; Stop 05/20/17 at 12:59; Status DC Morphine Sulfate 2 mg PRN Q2HR PRN IV PAIN Last administered on 05/20/17 08:18 ; Start 05/19/17 at 13:00; Stop 05/20/17 at 12:59; Status DC Sodium Chloride 1,000 ml @ 125 mls/hr Q8H IV Last administered on 05/20/17 06 :29; Start 05/19/17 at 12:49; Stop 05/20/17 at 12:48; Status DC Vancomycin HCl (Vanco Per Pharmacy) 1 each PRN DAILY PRN MC SEE COMMENTS Last administered on 05/21/17 13:20; Start 05/19/17 at 13:00; Stop 05/22/17 at 08:43 ; Status DC Piperacillin Sod/ Tazobactam Sod (Zosyn Per Pharmacy) 1 each PRN DAILY PRN MC SEE COMMENTS; Start 05/19/17 at 13:00; Stop 05/21/17 at 08:27; Status DC Piperacillin Sod/ Tazobactam Sod 3.375 gm/Sodium Chloride 50 ml @ 100 mls/hr 1X ONCE IV Last administered on 05/19/17 16:13; Start 05/19/17 at 13:00; Stop 05/19/17 at 13:29; Status DC Vancomycin HCl 1.75 gm/Sodium Chloride 500 ml @ 250 mls/hr 1X ONCE IV Last administered on 05/19/17 13:06; Start 05/19/17 at 13:00; Stop 05/19/17 at 14:59 ; Status DC Vancomycin HCl 1.25 gm/Sodium Chloride 250 ml @ 167 mls/hr Q24H IV Last administered on 05/20/17 13:48; Start 05/20/17 at 13:00; Stop 05/21/17 at 13:05 ; Status DC Vancomycin HCl 1 each 1X ONCE MC Last administered on 05/21/17 19:01; Start 05/21/17 at 12:30; Stop 05/21/17 at 12:31; Status DC Piperacillin Sod/ Tazobactam Sod 3.375 gm/Sodium Chloride 50 ml @ 100 mls/hr Q6HRS IV Last administered on 05/21/17 05:29; Start 05/19/17 at 23:00; Stop at 08:27; Status DC Acetaminophen (Tylenol) 650 mg PRN Q6HRS PRN PO fever/MILD pain Last administered on 05/20/17 20:59; Start 05/20/17 at 04:00 Levothyroxine Sodium (Synthroid) 125 mcg DAILY07 PO Last administered on 06:09; Start 05/20/17 at 07:30 Simvastatin (Zocor) 80 mg QHS PO Last administered on 05/22/17 20:18; Start at 21:00 Morphine Sulfate 2 mg PRN Q2HR PRN IV PAIN Last administered on 05/22/17 03:28 ; Start 05/20/17 at 14:15 Sodium Chloride 1,000 ml @ 75 mls/hr [id number] IV Last administered on 05:28; Start 05/20/17 at 15:00; Stop 05/21/17 at 10:54; Status DC Bisacodyl (Dulcolax Tab) 10 mg PRN DAILY PRN PO CONSTIPATION; Start 05/21/17 at 09:00 Bisacodyl (Dulcolax Supp) 10 mg PRN DAILY PRN [place] CONSTIPATION; Start 05/21/17 at 09:00 Senna/Docusate Sodium (Senna Plus) 1 tab PRN BID PRN PO CONSTIPATION Last administered on 05/21/17 18:19; Start 05/21/17 at 09:00 Vancomycin HCl 1.5 gm/Sodium Chloride 500 ml @ 250 mls/hr Q18H IV Last administered on 05/22/17 07:57; Start 05/21/17 at 13:30; Stop 05/22/17 at 08:43 ; Status DC Vancomycin HCl 1 each 1X ONCE MC ; Start 05/23/17 at 01:00; Stop 05/23/17 at 01 :00; Status DC Ringer's Solution 1,000 ml @ 50 mls/hr Q20H IV ; Start 05/21/17 at 19:35; Stop 05/22/17 at 07:34; Status DC Fentanyl Citrate (Fentanyl 2ml Vial) 50 mcg PRN Q5MIN PRN IV Acute Pain; Start 05/21/17 at 19:45; Stop 05/22/17 at 19:44; Status DC Morphine Sulfate 4 mg PRN Q10MIN PRN IV Moderate Pain; Start 05/21/17 at 19:45 ; Stop 05/22/17 at 19:44; Status DC Hydromorphone HCl (Dilaudid) 0.4 mg PRN Q10MIN PRN IV Moderate to severe pain; Start 05/21/17 at 19:45; Stop 05/22/17 at 19:44; Status DC Meperidine HCl (Demerol) 12.5 mg PRN Q5MIN PRN IV SHIVERING; Start 05/21/17 at 19:45; Stop 05/22/17 at 19:44; Status DC Prochlorperazine Edisylate (Compazine) 5 mg PRN Q6HRS PRN IV Nausea/Vomiting, 1st Choice; Start 05/21/17 at 19:45; Stop 05/22/17 at 19:44; Status DC Diphenhydramine HCl (Benadryl) 12.5 mg PRN Q2HR PRN IV ITCHING; Start 05/21/17 at 19:45; Stop 05/22/17 at 19:44; Status DC Cefazolin Sodium 2 gm/Sodium Chloride 50 ml @ 100 mls/hr Q8HRS IV ; Start 05/22 at 09:00; Stop 05/22/17 at 09:08; Status DC Cefazolin Sodium/ Dextrose 50 ml @ 100 mls/hr Q8HRS IV ; Start 05/22/17 at 09: 15; Stop 05/22/17 at 10:20; Status DC Cefazolin Sodium/ Dextrose 50 ml @ 100 mls/hr Q8HRS IV Last administered on t 05:32; Start 05/22/17 at 09:45 Propofol 50 ml @ As Directed STK-MED ONCE IV ; Start 05/22/17 at 12:14; Stop at 12:15; Status DC Propofol 20 ml @ As Directed STK-MED ONCE IV ; Start 05/22/17 at 12:14; Stop at 12:15; Status DC Lidocaine/Sodium Bicarbonate (Buffered Lidocaine 1%) 20 ml STK-MED ONCE IJ ; Start 05/22/17 at 13:09; Stop 05/22/17 at 13:10; Status DC Iohexol (Omnipaque 300 Mg/ml) 50 ml STK-MED ONCE .ROUTE ; Start 05/22/17 at 13: 09; Stop 05/22/17 at 13:10; Status DC Cefazolin Sodium 50 ml @ As Directed STK-MED ONCE IV ; Start 05/22/17 at 13:29; Stop 05/22/17 at 13:30; Status DC Ketorolac Tromethamine (Toradol) 30 mg 1X PRN PRN IV MODERATE PAIN Last administered on 05/22/17 14:54; Start 05/22/17 at 14:30; Stop 05/27/17 at 14:29 Lidocaine/Sodium Bicarbonate (Buffered Lidocaine 1%) 3 ml 1X ONCE IJ Last administered on 05/22/17 14:33; Start 05/22/17 at 14:45; Stop 05/22/17 at 14:46 ; Status DC Iohexol (Omnipaque 300 Mg/ml) 10 ml 1X ONCE INT CAT Last administered on 14:33; Start 05/22/17 at 14:45; Stop 05/22/17 at 14:46; Status DC Info (Do NOT chart on this entry -- for MONITORING) 1 each PRN DAILY PRN MC SEE COMMENTS; Start 05/22/17 at 14:45; Stop 05/24/17 at 14:44 Active Scripts Active Reported Aspir 81 (Aspirin) 81 Mg Tablet.dr 81 Mg PO Simvastatin 80 Mg Tablet 80 Mg PO DAILY Levothyroxine Sodium 125 Mcg Tablet 125 Mcg PO DAILYAC Vitals/I & O Vital Sign - Last 24 Hours 05/22/17 05/22/17 05/22/17 05/22/17 14:25 14:40 14:55 15:09 Temp 98.3 98.3 Pulse 61 64 60 72 Resp 16 16 16 16 B/P (MAP) 111/68 102/61 114/65 108/72 Pulse Ox 93 97 92 96 O2 Delivery Room Air Nasal Cannula Room Air Room Air O2 Flow Rate 2 05/22/17 05/22/17 05/22/17 05/22/17 15:30 19:05 20:00 23:05 Temp 97.5 98.1 98.2 97.5 98.1 98.2 Pulse 67 68 65 Resp 18 18 18 B/P (MAP) 115/63 (80) 114/78 (90) 122/75 (91) Pulse Ox 94 93 96 O2 Delivery Room Air Room Air Room Air Room Air 05/23/17 05/23/17 05/23/17 05/23/17 00:02 03:05 07:30 08:00 Temp 98.2 98.2 98.2 98.2 Pulse 82 66 Resp 18 18 B/P (MAP) 127/87 (100) 124/70 (88) Pulse Ox 96 95 O2 Delivery Room Air Room Air Room Air Room Air O2 Flow Rate 2.0 05/23/17 10:50 Temp 97.8 97.8 Pulse 81 Resp 18 B/P (MAP) 194/115 (141) Pulse Ox 94 O2 Delivery Room Air Intake and Output 05/22/17 05/22/17 05/23/17 15:00 23:00 07:00 Intake Total 0 ml 1100 ml 450 ml Output Total 1000 ml 400 ml 450 ml Balance -1000 ml 700 ml 0 ml JERARDO BUCKLEY MD May 23, 2017 11:41
[2017-05-23 14:57] VITALS: BP 141/95
[2017-05-23 19:35] VITALS: BP 116/67
[2017-05-23] MEDS: SIMVASTATIN 40 MG TABLET. PO SCH (21:10)
--- NOTE | 2017-05-23 21:59 | CARD ---
APPROVED REPORT EXAM: Two-dimensional and M-mode echocardiogram with Doppler and color Doppler. Other Information Quality : GoodHR: 72bpm Rhythm : NSR INDICATION Sepsis 2D DIMENSIONS RVDd3.5 (2.9-3.5cm)Left Atrium(2D)2.8 (1.6-4.0cm) IVSd1.0 (0.7-1.1cm)Aortic Root(2D)3.6 (2.0-3.7cm) LVDd4.0 (3.9-5.9cm)LVOT Diameter2.4 (1.8-2.4cm) PWd0.8 (0.7-1.1cm)LVDs2.7 (2.5-4.0cm) FS (%) 30.9 %SV40.3 ml LVEF(%)59.1 (>50%) Aortic Valve AoV Peak Gerry.130.3cm/sAoV VTI26.1cm AO Peak GR.6.8mmHgLVOT Peak Gerry.115.9cm/s AO Mean GR.4mmHgAVA (VMAX)4.19cm2 Mitral Valve MV E Hmihmrex86.3cm/sMV E Peak Gr.3mmHg MV DECEL [id number] A Dhzcdtlx00.6cm/s MV E Mean Gr.1mmHgE/A Ratio1.2 MV A [id number] Tricuspid Valve TR P. Caaldorl645cf/sTR Peak Gr.25mmHg Pulmonary Vein S1 Wyicopos05.9cm/sD2 Xajkubnm86.9cm/s PVa [id number] LEFT VENTRICLE The left ventricle is normal size. There is normal left ventricular wall thickness. The left ventricu lar systolic function is normal. The Ejection Fraction is 55-60%. There is normal LV segmental wall m otion. The left ventricular diastolic function and filling is normal . RIGHT VENTRICLE The right ventricle is normal size. There is normal right ventricular wall thickness. The right ventr icular systolic function is normal. ATRIA The left atrium size is normal. The right atrium size is normal. The interatrial septum is intact wit h no evidence for an atrial septal defect or patent foramen ovale as noted on 2-D or Doppler imaging. AORTIC VALVE The aortic valve is mildly sclerotic. The aortic valve is trileaflet. Doppler and Color Flow revealed no significant aortic regurgitation. There is no significant aortic valvular stenosis. MITRAL VALVE The mitral valve leaflets are thickened. There is no evidence of mitral valve prolapse. There is no m itral valve stenosis. Doppler and Color Flow revealed no mitral valve regurgitation noted. TRICUSPID VALVE Doppler and Color Flow revealed no tricuspid valve regurgitation noted. The pulmonary artery systolic pressure is estimated at 28 mmHg. There is no pulmonary hypertension. PULMONIC VALVE The pulmonic valve is not well visualized. GREAT VESSELS The aortic root is mildly enlarged. The ascending aorta is normal in size. The pulmonary artery is no rmal. The IVC is normal in size and collapses >50% with inspiration. PERICARDIAL EFFUSION There is no evidence of significant pericardial effusion. Critical Notification Critical Value: No <Conclusion> The left ventricle is normal size. There is normal left ventricular wall thickness. The left ventricular systolic function is normal. The Ejection Fraction is 55-60%. The left ventricular diastolic function and filling is normal . There is no evidence of significant pericardial effusion. There is no mitral stenosis or regurgitation. The left atrium is of a normal size. There is no aortic stenosis or regurgitation. The right ventricle is of a normal size with normal systoloic function Doppler and Color Flow revealed no tricuspid valve regurgitation noted. The pulmonary artery systolic pressure is estimated at 28 mmHg. There is no pulmonary hypertension. The pulmonic valve is not well visualized. The pulmonic valve is not well visualized. No vegetations are seen on the valve leaflets
[2017-05-23 22:53] VITALS: BP 117/70
[2017-05-24 03:36] VITALS: BP 126/75
[2017-05-24] MEDS: LEVOTHYROXINE 125 MCG TABLET PO SCH (06:03)
[2017-05-24 06:41] LABS: HEMATOCRIT 24.9 % (39.0-53.0); HEMOGLOBIN 8.5 g/dL (13.0-17.5); RED BLOOD COUNT 2.84 x10^6/uL (4.30-5.70); RED CELL DISTRIBUTION WIDTH 14.7 % (11.5-14.5); WHITE BLOOD COUNT 11.6 x10^3/uL (4.0-11.0)
[2017-05-24 07:00] VITALS: BP 97/54
--- NOTE | 2017-05-24 08:16 | PDOC ---
SUBJECTIVE Subjective Pt slow to talk this morning; seems slightly more confused than yesterday. is not accompanying him this morning. Denies any pain. Doesn't have much of an appetite but would like to try and eat. OBJECTIVE Vital Signs Vital Signs Date Time Temp Pulse Resp B/P (MAP) Pulse Ox O2 Delivery O2 Flow Rate FiO2 05/24/17 07:00 98.3 73 20 97/54 (68) 96 Room Air 98.3 05/24/17 03:36 98.3 78 18 126/75 (92) 92 Room Air 98.3 05/23/17 22:53 98.4 63 18 117/70 (86) 94 Room Air 98.4 05/23/17 19:39 Room Air 05/23/17 19:35 98.4 65 18 116/67 (83) 96 Room Air 98.4 05/23/17 14:57 98.4 67 18 141/95 (110) 95 Room Air 98.4 05/23/17 10:50 97.8 81 18 194/115 (141) 94 Room Air 97.8 I & O Intake and Output 05/24/17 07:00 Intake Total 590 ml Output Total 1400 ml Balance -810 ml Intake Oral 540 ml IV Total 50 ml Output Urine Total 1400 ml PHYSICAL EXAM Physical Exam GEN: NAD, AOx3, slower to speak HEENT: MMM, EOMI, no scleral icterus/injection Cardiac: RRR, no M/R/G Lungs: CTAB, regular breathing rate and effort Abd: non distended, NTTP Ext: no erythema/edema LE bilaterally ASSESSMENT/PLAN Assessment/Plan Pt is a 76yo CM admitted with weakness in LE and altered mental status found to be 2/2 UTI and L4 compression fracture 1)Bacteremia 2/2 UTI- ID following. Blood cultures and urine cultures positive for S. aureus. Pt currently on Cefazolin. Fevers improved, WBC minimally elevated this morning. 2)Noninvasive urothelial carcinoma- s/p recent procedure, also with stent placement. Will need f/u with Dr. Griffin on discharge 3)L4 compression fracture- Nuerosurgery following, s/p L4 kyphoplasty. Dr. Meyers also following 4)Acute on chronic anemia- decreased from yesterday, possibly from surgery. FOBT pending, still worsening. CTM 5)Transaminitis 6)PEM- severe. 7)Hypothyroidism- continue levothyroxine 125mcg. TSH mildly elevated this admission 8)HLD- continue Simvastatin 80mg Problems: COMMENT Lab Laboratory Tests Test 05/24/17 05:25 White Blood Count 11.6 x10^3/uL (4.0-11.0) Red Blood Count 2.84 x10^6/uL (4.30-5.70) Hemoglobin 8.5 g/dL (13.0-17.5) Hematocrit 24.9 % (39.0-53.0) Mean Corpuscular Volume 88 fL (79-100) Mean Corpuscular Hemoglobin 30 pg (25-35) Mean Corpuscular Hemoglobin Concent 34 g/dL (31-37) Red Cell Distribution Width 14.7 % (11.5-14.5) Platelet Count 342 x10^3/uL (140-400) JEFFRY BACA MD May 24, 2017 08:16
--- NOTE | 2017-05-24 09:35 | PDOC ---
Infectious Disease Note Subjective Subjective Doing well. Hungry ROS ROS GEN: Denies fevers, chills, sweats HEENT: Denies blurred vision, sore throat CV: Denies chest pain RESP: Denies shortness of air, cough GI: Denies n/v/d NEURO: Denies confusion, dizziness MSK: Denies weakness, joint pain/swelling Vital Sign Vital Signs Vital Signs Date Time Temp Pulse Resp B/P (MAP) Pulse Ox O2 Delivery O2 Flow Rate FiO2 05/24/17 07:00 98.3 73 20 97/54 (68) 96 Room Air 98.3 05/23/17 08:00 2.0 Physical Exam PHYSICAL EXAM GENERAL: NAD, Alert, in bed HEENT: PERRL, OC/OP- clear NECK: Supple, no JVD, no LN LUNGS: Clear HEART: S1S2, no gallop, no murmur ABD: Soft, NT, no organomegaly, no rebound Tineo EXT: No edema, no cyanosis SHROUD LINE TIER: Alert, oriented x 3, no focal neurologic deficit SKIN: No rash IV: ok Labs Lab Laboratory Tests Test 05/24/17 05:25 White Blood Count 11.6 x10^3/uL (4.0-11.0) Red Blood Count 2.84 x10^6/uL (4.30-5.70) Hemoglobin 8.5 g/dL (13.0-17.5) Hematocrit 24.9 % (39.0-53.0) Mean Corpuscular Volume 88 fL (79-100) Mean Corpuscular Hemoglobin 30 pg (25-35) Mean Corpuscular Hemoglobin Concent 34 g/dL (31-37) Red Cell Distribution Width 14.7 % (11.5-14.5) Platelet Count 342 x10^3/uL (140-400) Objective Assessment MSSA Sepsis POA, 05/19. Repeat cults pending Left perinephritic fluid, ? pyelitis 05/19 + MSSA in urine. CT reviewed 05/23 and stable h/o bladder tumors s/p TURBT and J-J stent placement at [facility] a month ago. - 3 days of antibiotics post removal of Tineo about 2 weeks later. Acute encephalopathy - better already per CARLIE -better Transaminitis Acute compression fracture, L4 s/p Kyphoplasty 05/22 MS, 47 year history Plan Plan of Care Cont Cefazolin F/u Repeat blood cults F/u ECHO No PICC line until repeat cults from 05/23 neg for min 48 hours Monitor labs Likely needs Left stent removed. Reviewed Dr. Underwood's note - needs to go to JESSICA BARROS MD May 24, 2017 09:35
--- NOTE | 2017-05-24 09:36 | PDOC ---
PROGRESS NOTES Subjective Subjective He does not feel good. Objective Objective Vital Signs Date Time Temp Pulse Resp B/P (MAP) Pulse Ox O2 Delivery O2 Flow Rate FiO2 05/24/17 07:00 98.3 73 20 97/54 (68) 96 Room Air 98.3 05/23/17 08:00 2.0 Intake and Output 05/24/17 06:59 Intake Total 590 ml Output Total 1400 ml Balance -810 ml Intake Oral 540 ml IV Total 50 ml Output Urine Total 1400 ml Physical Exam Physical Exam He is awake and talking and denies any back pain and he did walk for 50' with physical therapy using roller walker yesterday. Assessment Assessment Problems Medical Problems: (1) Confusion Status: Acute (2) Lumbar compression fracture Status: Acute (3) Malaise and fatigue Status: Acute (4) Weakness generalized Status: Acute Plan Plan of Care Agree with plans for transfer to SNF when medically stable. Comment Review of Relevant I have reviewed the following items betsy (where applicable) has been applied. Labs Laboratory Tests Test 05/23/17 05:05 05/24/17 05:25 White Blood Count 10.2 x10^3/uL (4.0-11.0) 11.6 x10^3/uL (4.0-11.0) Red Blood Count 2.90 x10^6/uL (4.30-5.70) 2.84 x10^6/uL (4.30-5.70) Hemoglobin 8.8 g/dL (13.0-17.5) 8.5 g/dL (13.0-17.5) Hematocrit 26.1 % (39.0-53.0) 24.9 % (39.0-53.0) Mean Corpuscular Volume 90 fL (79-100) 88 fL (79-100) Mean Corpuscular Hemoglobin 30 pg (25-35) 30 pg (25-35) Mean Corpuscular Hemoglobin Concent 34 g/dL (31-37) 34 g/dL (31-37) Red Cell Distribution Width 14.8 % (11.5-14.5) 14.7 % (11.5-14.5) Platelet Count 272 x10^3/uL (140-400) 342 x10^3/uL (140-400) Neutrophils (%) (Auto) 74 % (31-73) Lymphocytes (%) (Auto) 14 % (24-48) Monocytes (%) (Auto) 8 % (0-9) Eosinophils (%) (Auto) 3 % (0-3) Basophils (%) (Auto) 1 % (0-3) Neutrophils # (Auto) 7.6 x10^3uL (1.8-7.7) Lymphocytes # (Auto) 1.4 x10^3/uL (1.0-4.8) Monocytes # (Auto) 0.8 x10^3/uL (0.0-1.1) Eosinophils # (Auto) 0.3 x10^3/uL (0.0-0.7) Basophils # (Auto) 0.1 x10^3/uL (0.0-0.2) Sodium Level 145 mmol/L (136-145) Potassium Level 3.6 mmol/L (3.5-5.1) Chloride Level 108 mmol/L (98-107) Carbon Dioxide Level 29 mmol/L (21-32) Anion Gap 8 (6-14) Blood Urea Nitrogen 24 mg/dL (8-26) Creatinine 1.1 mg/dL (0.7-1.3) Estimated GFR (Cockcroft-Gault) 65.3 Glucose Level 85 mg/dL (70-99) Calcium Level 8.0 mg/dL (8.5-10.1) Laboratory Tests Test 05/24/17 05:25 White Blood Count 11.6 x10^3/uL (4.0-11.0) Red Blood Count 2.84 x10^6/uL (4.30-5.70) Hemoglobin 8.5 g/dL (13.0-17.5) Hematocrit 24.9 % (39.0-53.0) Mean Corpuscular Volume 88 fL (79-100) Mean Corpuscular Hemoglobin 30 pg (25-35) Mean Corpuscular Hemoglobin Concent 34 g/dL (31-37) Red Cell Distribution Width 14.7 % (11.5-14.5) Platelet Count 342 x10^3/uL (140-400) Microbiology 05/19/17 Blood Culture - Final, Complete 05/19/17 Blood Culture Result 1 (BIENVENIDO) - Final, Complete 05/19/17 Antimicrobic Susceptibility - Final, Complete 05/19/17 Urine Culture - Final, Complete 05/19/17 Urine Culture Result 1 (BIENVENIDO) - Final, Complete 05/19/17 Antimicrobic Susceptibility - Final, Complete Medications Current Medications Sodium Chloride 500 ml @ 500 mls/hr 1X ONCE IV Last administered on 10:24; Start 05/19/17 at 10:30; Stop 05/19/17 at 11:29; Status DC Iohexol (Omnipaque 300 Mg/ml) 50 ml 1X ONCE IV ; Start 05/19/17 at 13:00; Stop 05/19/17 at 13:01; Status DC Info (Do NOT chart on this entry -- for MONITORING) 1 each PRN DAILY PRN MC SEE COMMENTS; Start 05/19/17 at 13:00; Stop 05/21/17 at 12:59; Status DC Ondansetron HCl (Zofran) 4 mg PRN Q8HRS PRN IV NAUSEA/VOMITING; Start 05/19/17 at 13:00; Stop 05/20/17 at 12:59; Status DC Morphine Sulfate 2 mg PRN Q2HR PRN IV PAIN Last administered on 05/20/17 08:18 ; Start 05/19/17 at 13:00; Stop 05/20/17 at 12:59; Status DC Sodium Chloride 1,000 ml @ 125 mls/hr Q8H IV Last administered on 05/20/17 06 :29; Start 05/19/17 at 12:49; Stop 05/20/17 at 12:48; Status DC Vancomycin HCl (Vanco Per Pharmacy) 1 each PRN DAILY PRN MC SEE COMMENTS Last administered on 05/21/17 13:20; Start 05/19/17 at 13:00; Stop 05/22/17 at 08:43 ; Status DC Piperacillin Sod/ Tazobactam Sod (Zosyn Per Pharmacy) 1 each PRN DAILY PRN MC SEE COMMENTS; Start 05/19/17 at 13:00; Stop 05/21/17 at 08:27; Status DC Piperacillin Sod/ Tazobactam Sod 3.375 gm/Sodium Chloride 50 ml @ 100 mls/hr 1X ONCE IV Last administered on 05/19/17 16:13; Start 05/19/17 at 13:00; Stop 05/19/17 at 13:29; Status DC Vancomycin HCl 1.75 gm/Sodium Chloride 500 ml @ 250 mls/hr 1X ONCE IV Last administered on 05/19/17 13:06; Start 05/19/17 at 13:00; Stop 05/19/17 at 14:59 ; Status DC Vancomycin HCl 1.25 gm/Sodium Chloride 250 ml @ 167 mls/hr Q24H IV Last administered on 05/20/17 13:48; Start 05/20/17 at 13:00; Stop 05/21/17 at 13:05 ; Status DC Vancomycin HCl 1 each 1X ONCE MC Last administered on 05/21/17 19:01; Start 05/21/17 at 12:30; Stop 05/21/17 at 12:31; Status DC Piperacillin Sod/ Tazobactam Sod 3.375 gm/Sodium Chloride 50 ml @ 100 mls/hr Q6HRS IV Last administered on 05/21/17 05:29; Start 05/19/17 at 23:00; Stop at 08:27; Status DC Acetaminophen (Tylenol) 650 mg PRN Q6HRS PRN PO fever/MILD pain Last administered on 05/20/17 20:59; Start 05/20/17 at 04:00 Levothyroxine Sodium (Synthroid) 125 mcg DAILY07 PO Last administered on 06:03; Start 05/20/17 at 07:30 Simvastatin (Zocor) 80 mg QHS PO Last administered on 05/23/17 21:10; Start at 21:00 Morphine Sulfate 2 mg PRN Q2HR PRN IV PAIN Last administered on 05/22/17 03:28 ; Start 05/20/17 at 14:15 Sodium Chloride 1,000 ml @ 75 mls/hr [id number] IV Last administered on 05:28; Start 05/20/17 at 15:00; Stop 05/21/17 at 10:54; Status DC Bisacodyl (Dulcolax Tab) 10 mg PRN DAILY PRN PO CONSTIPATION; Start 05/21/17 at 09:00 Bisacodyl (Dulcolax Supp) 10 mg PRN DAILY PRN PA CONSTIPATION; Start 05/21/17 at 09:00 Senna/Docusate Sodium (Senna Plus) 1 tab PRN BID PRN PO CONSTIPATION Last administered on 05/21/17 18:19; Start 05/21/17 at 09:00 Vancomycin HCl 1.5 gm/Sodium Chloride 500 ml @ 250 mls/hr Q18H IV Last administered on 05/22/17 07:57; Start 05/21/17 at 13:30; Stop 05/22/17 at 08:43 ; Status DC Vancomycin HCl 1 each 1X ONCE MC ; Start 05/23/17 at 01:00; Stop 05/23/17 at 01 :00; Status DC Ringer's Solution 1,000 ml @ 50 mls/hr Q20H IV ; Start 05/21/17 at 19:35; Stop 05/22/17 at 07:34; Status DC Fentanyl Citrate (Fentanyl 2ml Vial) 50 mcg PRN Q5MIN PRN IV Acute Pain; Start 05/21/17 at 19:45; Stop 05/22/17 at 19:44; Status DC Morphine Sulfate 4 mg PRN Q10MIN PRN IV Moderate Pain; Start 05/21/17 at 19:45 ; Stop 05/22/17 at 19:44; Status DC Hydromorphone HCl (Dilaudid) 0.4 mg PRN Q10MIN PRN IV Moderate to severe pain; Start 05/21/17 at 19:45; Stop 05/22/17 at 19:44; Status DC Meperidine HCl (Demerol) 12.5 mg PRN Q5MIN PRN IV SHIVERING; Start 05/21/17 at 19:45; Stop 05/22/17 at 19:44; Status DC Prochlorperazine Edisylate (Compazine) 5 mg PRN Q6HRS PRN IV Nausea/Vomiting, 1st Choice; Start 05/21/17 at 19:45; Stop 05/22/17 at 19:44; Status DC Diphenhydramine HCl (Benadryl) 12.5 mg PRN Q2HR PRN IV ITCHING; Start 05/21/17 at 19:45; Stop 05/22/17 at 19:44; Status DC Cefazolin Sodium 2 gm/Sodium Chloride 50 ml @ 100 mls/hr Q8HRS IV ; Start 05/22 at 09:00; Stop 05/22/17 at 09:08; Status DC Cefazolin Sodium/ Dextrose 50 ml @ 100 mls/hr Q8HRS IV ; Start 05/22/17 at 09: 15; Stop 05/22/17 at 10:20; Status DC Cefazolin Sodium/ Dextrose 50 ml @ 100 mls/hr Q8HRS IV Last administered on 06:03; Start 05/22/17 at 09:45 Propofol 50 ml @ As Directed STK-MED ONCE IV ; Start 05/22/17 at 12:14; Stop at 12:15; Status DC Propofol 20 ml @ As Directed STK-MED ONCE IV ; Start 05/22/17 at 12:14; Stop at 12:15; Status DC Lidocaine/Sodium Bicarbonate (Buffered Lidocaine 1%) 20 ml STK-MED ONCE IJ ; Start 05/22/17 at 13:09; Stop 05/22/17 at 13:10; Status DC Iohexol (Omnipaque 300 Mg/ml) 50 ml STK-MED ONCE .ROUTE ; Start 05/22/17 at 13: 09; Stop 05/22/17 at 13:10; Status DC Cefazolin Sodium 50 ml @ As Directed STK-MED ONCE IV ; Start 05/22/17 at 13:29; Stop 05/22/17 at 13:30; Status DC Ketorolac Tromethamine (Toradol) 30 mg 1X PRN PRN IV MODERATE PAIN Last administered on 05/22/17 14:54; Start 05/22/17 at 14:30; Stop 05/27/17 at 14:29 Lidocaine/Sodium Bicarbonate (Buffered Lidocaine 1%) 3 ml 1X ONCE IJ Last administered on 05/22/17 14:33; Start 05/22/17 at 14:45; Stop 05/22/17 at 14:46 ; Status DC Iohexol (Omnipaque 300 Mg/ml) 10 ml 1X ONCE INT CAT Last administered on 14:33; Start 05/22/17 at 14:45; Stop 05/22/17 at 14:46; Status DC Info (Do NOT chart on this entry -- for MONITORING) 1 each PRN DAILY PRN MC SEE COMMENTS; Start 05/22/17 at 14:45; Stop 05/24/17 at 14:44 Ephedrine Sulfate 50 mg STK-MED ONCE IV ; Start 05/22/17 at 12:00; Stop at 12:46; Status DC Active Scripts Active Reported Aspir 81 (Aspirin) 81 Mg Tablet. 81 Mg PO Simvastatin 80 Mg Tablet 80 Mg PO DAILY Levothyroxine Sodium 125 Mcg Tablet 125 Mcg PO DAILYAC Vitals/I & O Vital Sign - Last 24 Hours 05/23/17 05/23/17 05/23/17 05/23/17 10:50 14:57 19:35 19:39 Temp 97.8 98.4 98.4 97.8 98.4 98.4 Pulse 81 67 65 Resp 18 18 18 B/P (MAP) 194/115 (141) 141/95 (110) 116/67 (83) Pulse Ox 94 95 96 O2 Delivery Room Air Room Air Room Air Room Air 05/23/17 05/24/17 05/24/17 22:53 03:36 07:00 Temp 98.4 98.3 98.3 98.4 98.3 98.3 Pulse 63 78 73 Resp 18 18 20 B/P (MAP) 117/70 (86) 126/75 (92) 97/54 (68) Pulse Ox 94 92 96 O2 Delivery Room Air Room Air Room Air Intake and Output 05/23/17 05/23/17 05/24/17 14:59 22:59 06:59 Intake Total 50 ml 40 ml 500 ml Output Total 600 ml 800 ml Balance 50 ml -560 ml -300 ml WILNER DUMONT MD May 24, 2017 09:36
[2017-05-24 11:00] VITALS: BP 95/65
--- NOTE | 2017-05-24 14:35 | PDOC ---
PROGRESS NOTES Assessment Problems Medical Problems: (1) Confusion Status: Acute (2) Lumbar compression fracture Status: Acute (3) Malaise and fatigue Status: Acute (4) Weakness generalized Status: Acute Metabolic encephalopathy. Acute L-4 compression fracture, S/P kyphoplasty. Plan SNU Discussed with family F/U c neurology PRN Subjective back pain is better Objective Vital Signs Date Time Temp Pulse Resp B/P (MAP) Pulse Ox O2 Delivery O2 Flow Rate FiO2 05/24/17 11:00 98.3 62 18 95/65 (75) 96 Room Air 98.3 05/24/17 08:00 2.0 Intake and Output 05/24/17 07:00 Intake Total 590 ml Output Total 1400 ml Balance -810 ml Intake Oral 540 ml IV Total 50 ml Output Urine Total 1400 ml PHYSICAL EXAM Alert. Oriented to person, does not know location or date PERRL. EOMI. CN: no focal findings. Muscle tone: normal. Muscle strength: 4/5 DTR: 1+ Plantar reflex: Flexor Gait: not examined in bed. Sensory exam: no abnormal findings. No cerebellar signs elicited. Review of Relevant I have reviewed the following items betsy (where applicable) has been applied. Labs Laboratory Tests Test 05/23/17 05:05 05/24/17 05:25 White Blood Count 10.2 x10^3/uL (4.0-11.0) 11.6 x10^3/uL (4.0-11.0) Red Blood Count 2.90 x10^6/uL (4.30-5.70) 2.84 x10^6/uL (4.30-5.70) Hemoglobin 8.8 g/dL (13.0-17.5) 8.5 g/dL (13.0-17.5) Hematocrit 26.1 % (39.0-53.0) 24.9 % (39.0-53.0) Mean Corpuscular Volume 90 fL (79-100) 88 fL (79-100) Mean Corpuscular Hemoglobin 30 pg (25-35) 30 pg (25-35) Mean Corpuscular Hemoglobin Concent 34 g/dL (31-37) 34 g/dL (31-37) Red Cell Distribution Width 14.8 % (11.5-14.5) 14.7 % (11.5-14.5) Platelet Count 272 x10^3/uL (140-400) 342 x10^3/uL (140-400) Neutrophils (%) (Auto) 74 % (31-73) Lymphocytes (%) (Auto) 14 % (24-48) Monocytes (%) (Auto) 8 % (0-9) Eosinophils (%) (Auto) 3 % (0-3) Basophils (%) (Auto) 1 % (0-3) Neutrophils # (Auto) 7.6 x10^3uL (1.8-7.7) Lymphocytes # (Auto) 1.4 x10^3/uL (1.0-4.8) Monocytes # (Auto) 0.8 x10^3/uL (0.0-1.1) Eosinophils # (Auto) 0.3 x10^3/uL (0.0-0.7) Basophils # (Auto) 0.1 x10^3/uL (0.0-0.2) Sodium Level 145 mmol/L (136-145) Potassium Level 3.6 mmol/L (3.5-5.1) Chloride Level 108 mmol/L (98-107) Carbon Dioxide Level 29 mmol/L (21-32) Anion Gap 8 (6-14) Blood Urea Nitrogen 24 mg/dL (8-26) Creatinine 1.1 mg/dL (0.7-1.3) Estimated GFR (Cockcroft-Gault) 65.3 Glucose Level 85 mg/dL (70-99) Calcium Level 8.0 mg/dL (8.5-10.1) Laboratory Tests Test 05/24/17 05:25 White Blood Count 11.6 x10^3/uL (4.0-11.0) Red Blood Count 2.84 x10^6/uL (4.30-5.70) Hemoglobin 8.5 g/dL (13.0-17.5) Hematocrit 24.9 % (39.0-53.0) Mean Corpuscular Volume 88 fL (79-100) Mean Corpuscular Hemoglobin 30 pg (25-35) Mean Corpuscular Hemoglobin Concent 34 g/dL (31-37) Red Cell Distribution Width 14.7 % (11.5-14.5) Platelet Count 342 x10^3/uL (140-400) Microbiology 05/23/17 Blood Culture - Preliminary, Resulted NO GROWTH AFTER 1 DAY 05/19/17 Urine Culture - Final, Complete 05/19/17 Urine Culture Result 1 (BIENVENIDO) - Final, Complete 05/19/17 Antimicrobic Susceptibility - Final, Complete Medications Current Medications Sodium Chloride 500 ml @ 500 mls/hr 1X ONCE IV Last administered on 10:24; Start 05/19/17 at 10:30; Stop 05/19/17 at 11:29; Status DC Iohexol (Omnipaque 300 Mg/ml) 50 ml 1X ONCE IV ; Start 05/19/17 at 13:00; Stop 05/19/17 at 13:01; Status DC Info (Do NOT chart on this entry -- for MONITORING) 1 each PRN DAILY PRN MC SEE COMMENTS; Start 05/19/17 at 13:00; Stop 05/21/17 at 12:59; Status DC Ondansetron HCl (Zofran) 4 mg PRN Q8HRS PRN IV NAUSEA/VOMITING; Start 05/19/17 at 13:00; Stop 05/20/17 at 12:59; Status DC Morphine Sulfate 2 mg PRN Q2HR PRN IV PAIN Last administered on 05/20/17 08:18 ; Start 05/19/17 at 13:00; Stop 05/20/17 at 12:59; Status DC Sodium Chloride 1,000 ml @ 125 mls/hr Q8H IV Last administered on 05/20/17 06 :29; Start 05/19/17 at 12:49; Stop 05/20/17 at 12:48; Status DC Vancomycin HCl (Vanco Per Pharmacy) 1 each PRN DAILY PRN MC SEE COMMENTS Last administered on 05/21/17 13:20; Start 05/19/17 at 13:00; Stop 05/22/17 at 08:43 ; Status DC Piperacillin Sod/ Tazobactam Sod (Zosyn Per Pharmacy) 1 each PRN DAILY PRN MC SEE COMMENTS; Start 05/19/17 at 13:00; Stop 05/21/17 at 08:27; Status DC Piperacillin Sod/ Tazobactam Sod 3.375 gm/Sodium Chloride 50 ml @ 100 mls/hr 1X ONCE IV Last administered on 05/19/17 16:13; Start 05/19/17 at 13:00; Stop 05/19/17 at 13:29; Status DC Vancomycin HCl 1.75 gm/Sodium Chloride 500 ml @ 250 mls/hr 1X ONCE IV Last administered on 05/19/17 13:06; Start 05/19/17 at 13:00; Stop 05/19/17 at 14:59 ; Status DC Vancomycin HCl 1.25 gm/Sodium Chloride 250 ml @ 167 mls/hr Q24H IV Last administered on 05/20/17 13:48; Start 05/20/17 at 13:00; Stop 05/21/17 at 13:05 ; Status DC Vancomycin HCl 1 each 1X ONCE MC Last administered on 05/21/17 19:01; Start 05/21/17 at 12:30; Stop 05/21/17 at 12:31; Status DC Piperacillin Sod/ Tazobactam Sod 3.375 gm/Sodium Chloride 50 ml @ 100 mls/hr Q6HRS IV Last administered on 05/21/17 05:29; Start 05/19/17 at 23:00; Stop at 08:27; Status DC Acetaminophen (Tylenol) 650 mg PRN Q6HRS PRN PO fever/MILD pain Last administered on 05/20/17 20:59; Start 05/20/17 at 04:00 Levothyroxine Sodium (Synthroid) 125 mcg DAILY07 PO Last administered on 06:03; Start 05/20/17 at 07:30 Simvastatin (Zocor) 80 mg QHS PO Last administered on 05/23/17 21:10; Start at 21:00 Morphine Sulfate 2 mg PRN Q2HR PRN IV PAIN Last administered on 05/22/17 03:28 ; Start 05/20/17 at 14:15 Sodium Chloride 1,000 ml @ 75 mls/hr [id number] IV Last administered on 05:28; Start 05/20/17 at 15:00; Stop 05/21/17 at 10:54; Status DC Bisacodyl (Dulcolax Tab) 10 mg PRN DAILY PRN PO CONSTIPATION; Start 05/21/17 at 09:00 Bisacodyl (Dulcolax Supp) 10 mg PRN DAILY PRN [place] CONSTIPATION; Start 05/21/17 at 09:00 Senna/Docusate Sodium (Senna Plus) 1 tab PRN BID PRN PO CONSTIPATION Last administered on 05/21/17 18:19; Start 05/21/17 at 09:00 Vancomycin HCl 1.5 gm/Sodium Chloride 500 ml @ 250 mls/hr Q18H IV Last administered on 05/22/17 07:57; Start 05/21/17 at 13:30; Stop 05/22/17 at 08:43 ; Status DC Vancomycin HCl 1 each 1X ONCE MC ; Start 05/23/17 at 01:00; Stop 05/23/17 at 01 :00; Status DC Ringer's Solution 1,000 ml @ 50 mls/hr Q20H IV ; Start 05/21/17 at 19:35; Stop 05/22/17 at 07:34; Status DC Fentanyl Citrate (Fentanyl 2ml Vial) 50 mcg PRN Q5MIN PRN IV Acute Pain; Start 05/21/17 at 19:45; Stop 05/22/17 at 19:44; Status DC Morphine Sulfate 4 mg PRN Q10MIN PRN IV Moderate Pain; Start 05/21/17 at 19:45 ; Stop 05/22/17 at 19:44; Status DC Hydromorphone HCl (Dilaudid) 0.4 mg PRN Q10MIN PRN IV Moderate to severe pain; Start 05/21/17 at 19:45; Stop 05/22/17 at 19:44; Status DC Meperidine HCl (Demerol) 12.5 mg PRN Q5MIN PRN IV SHIVERING; Start 05/21/17 at 19:45; Stop 05/22/17 at 19:44; Status DC Prochlorperazine Edisylate (Compazine) 5 mg PRN Q6HRS PRN IV Nausea/Vomiting, 1st Choice; Start 05/21/17 at 19:45; Stop 05/22/17 at 19:44; Status DC Diphenhydramine HCl (Benadryl) 12.5 mg PRN Q2HR PRN IV ITCHING; Start 05/21/17 at 19:45; Stop 05/22/17 at 19:44; Status DC Cefazolin Sodium 2 gm/Sodium Chloride 50 ml @ 100 mls/hr Q8HRS IV ; Start 05/22 at 09:00; Stop 05/22/17 at 09:08; Status DC Cefazolin Sodium/ Dextrose 50 ml @ 100 mls/hr Q8HRS IV ; Start 05/22/17 at 09: 15; Stop 05/22/17 at 10:20; Status DC Cefazolin Sodium/ Dextrose 50 ml @ 100 mls/hr Q8HRS IV Last administered on 14:08; Start 05/22/17 at 09:45 Propofol 50 ml @ As Directed STK-MED ONCE IV ; Start 05/22/17 at 12:14; Stop at 12:15; Status DC Propofol 20 ml @ As Directed STK-MED ONCE IV ; Start 05/22/17 at 12:14; Stop at 12:15; Status DC Lidocaine/Sodium Bicarbonate (Buffered Lidocaine 1%) 20 ml STK-MED ONCE IJ ; Start 05/22/17 at 13:09; Stop 05/22/17 at 13:10; Status DC Iohexol (Omnipaque 300 Mg/ml) 50 ml STK-MED ONCE .ROUTE ; Start 05/22/17 at 13: 09; Stop 05/22/17 at 13:10; Status DC Cefazolin Sodium 50 ml @ As Directed STK-MED ONCE IV ; Start 05/22/17 at 13:29; Stop 05/22/17 at 13:30; Status DC Ketorolac Tromethamine (Toradol) 30 mg 1X PRN PRN IV MODERATE PAIN Last administered on 05/22/17 14:54; Start 05/22/17 at 14:30; Stop 05/27/17 at 14:29 Lidocaine/Sodium Bicarbonate (Buffered Lidocaine 1%) 3 ml 1X ONCE IJ Last administered on 05/22/17 14:33; Start 05/22/17 at 14:45; Stop 05/22/17 at 14:46 ; Status DC Iohexol (Omnipaque 300 Mg/ml) 10 ml 1X ONCE INT CAT Last administered on 14:33; Start 05/22/17 at 14:45; Stop 05/22/17 at 14:46; Status DC Info (Do NOT chart on this entry -- for MONITORING) 1 each PRN DAILY PRN MC SEE COMMENTS; Start 05/22/17 at 14:45; Stop 05/24/17 at 14:44 Ephedrine Sulfate 50 mg STK-MED ONCE IV ; Start 05/22/17 at 12:00; Stop at 12:46; Status DC Active Scripts Active Reported Aspir 81 (Aspirin) 81 Mg Tablet. 81 Mg PO Simvastatin 80 Mg Tablet 80 Mg PO DAILY Levothyroxine Sodium 125 Mcg Tablet 125 Mcg PO DAILYAC Vitals/I & O Vital Sign - Last 24 Hours 05/23/17 05/23/17 05/23/17 05/23/17 14:57 19:35 19:39 22:53 Temp 98.4 98.4 98.4 98.4 98.4 98.4 Pulse 67 65 63 Resp 18 18 18 B/P (MAP) 141/95 (110) 116/67 (83) 117/70 (86) Pulse Ox 95 96 94 O2 Delivery Room Air Room Air Room Air Room Air 05/24/17 05/24/17 05/24/17 05/24/17 03:36 07:00 08:00 11:00 Temp 98.3 98.3 98.3 98.3 98.3 98.3 Pulse 78 73 62 Resp 18 20 18 B/P (MAP) 126/75 (92) 97/54 (68) 95/65 (75) Pulse Ox 92 96 96 O2 Delivery Room Air Room Air Room Air Room Air O2 Flow Rate 2.0 Intake and Output 05/23/17 05/23/17 05/24/17 15:00 23:00 07:00 Intake Total 50 ml 40 ml 500 ml Output Total 600 ml 800 ml Balance 50 ml -560 ml -300 ml JERARDO BUCKLEY MD May 24, 2017 14:35
[2017-05-24 15:00] VITALS: BP 94/56
[2017-05-24 19:05] VITALS: BP 108/63
[2017-05-24] MEDS: SIMVASTATIN 40 MG TABLET. PO SCH (21:37)
[2017-05-24 23:05] VITALS: BP 116/57
[2017-05-25] VITALS (7 sets, daily range): BP systolic 91–109; BP diastolic 52–68
[2017-05-25 04:47] LABS: HEMATOCRIT 24.3 % (39.0-53.0); HEMOGLOBIN 8.2 g/dL (13.0-17.5); RED BLOOD COUNT 2.7 x10^6/uL (4.30-5.70); RED CELL DISTRIBUTION WIDTH 14.9 % (11.5-14.5); WHITE BLOOD COUNT 11.4 x10^3/uL (4.0-11.0)
[2017-05-25 05:12] LABS: ALBUMIN 1.7 g/dL (3.4-5.0); ALBUMIN/GLOBULIN RATIO 0.4 (1.0-1.7); CALCIUM 7.9 mg/dL (8.5-10.1); GFR 72.8; TOTAL BILIRUBIN 0.2 mg/dL (0.2-1.0)
[2017-05-25 05:14] LABS: POTASSIUM 2.7 mmol/L (3.5-5.1)
[2017-05-25] MEDS: LEVOTHYROXINE 125 MCG TABLET PO SCH (06:08)
--- NOTE | 2017-05-25 07:54 | PDOC ---
SUBJECTIVE Subjective Pt a little more communicative today. Still confused at times; still slow to talk. Will clarify if pt will be transferred to SNU or if we are going to try and transfer to [facility]. OBJECTIVE Vital Signs Vital Signs Date Time Temp Pulse Resp B/P (MAP) Pulse Ox O2 Delivery O2 Flow Rate FiO2 05/25/17 07:00 98.9 67 18 106/55 (72) 94 Room Air 98.9 05/25/17 02:33 97.7 75 16 109/59 (76) 94 Room Air 97.7 05/24/17 23:05 97.9 60 16 116/57 (76) 96 Room Air 97.9 05/24/17 20:00 Room Air 05/24/17 19:05 98.4 74 16 108/63 (78) 96 Room Air 98.4 05/24/17 15:00 98.1 90 18 94/56 (69) 95 Room Air 98.1 05/24/17 11:00 98.3 62 18 95/65 (75) 96 Room Air 98.3 05/24/17 08:00 Room Air 2.0 I & O Intake and Output 05/25/17 07:00 Intake Total 600 ml Output Total 200 ml Balance 400 ml Intake Oral 600 ml Output Urine Total 200 ml PHYSICAL EXAM Physical Exam GEN: NAD, AOx3, slower to speak HEENT: MMM, EOMI, no scleral icterus/injection Cardiac: RRR, no M/R/G Lungs: CTAB, regular breathing rate and effort Abd: non distended, NTTP Ext: no erythema/edema LE bilaterally ASSESSMENT/PLAN Assessment/Plan Pt is a 76yo CM admitted with weakness in LE and altered mental status found to be 2/2 UTI and L4 compression fracture 1)Bacteremia 2/2 UTI- ID following. Blood cultures and urine cultures positive for S. aureus. Pt currently on Cefazolin. Fevers improved, WBC minimally elevated this morning. Waiting for repeat blood cultures to be negative for 48 hours to get PICC placement 2)Noninvasive urothelial carcinoma- s/p recent procedure, also with stent placement. Will need f/u with Dr. Griffin on discharge 3)L4 compression fracture- Nuerosurgery following, s/p L4 kyphoplasty. Dr. Meyers also following 4)Acute on chronic anemia- decreased from yesterday, possibly from surgery. FOBT pending, still worsening. CTM 5)Transaminitis- improving 6)PEM- severe. 7)Hypothyroidism- continue levothyroxine 125mcg. TSH mildly elevated this admission 8)HLD- continue Simvastatin 80mg 9)Hypokalemia- K being replaced Problems: COMMENT Lab Laboratory Tests Test 05/25/17 03:26 White Blood Count 11.4 x10^3/uL (4.0-11.0) Red Blood Count 2.70 x10^6/uL (4.30-5.70) Hemoglobin 8.2 g/dL (13.0-17.5) Hematocrit 24.3 % (39.0-53.0) Mean Corpuscular Volume 90 fL (79-100) Mean Corpuscular Hemoglobin 31 pg (25-35) Mean Corpuscular Hemoglobin Concent 34 g/dL (31-37) Red Cell Distribution Width 14.9 % (11.5-14.5) Platelet Count 413 x10^3/uL (140-400) Sodium Level 145 mmol/L (136-145) Potassium Level 2.7 mmol/L (3.5-5.1) Chloride Level 107 mmol/L (98-107) Carbon Dioxide Level 30 mmol/L (21-32) Anion Gap 8 (6-14) Blood Urea Nitrogen 19 mg/dL (8-26) Creatinine 1.0 mg/dL (0.7-1.3) Estimated GFR (Cockcroft-Gault) 72.8 BUN/Creatinine Ratio 19 (6-20) Glucose Level 85 mg/dL (70-99) Calcium Level 7.9 mg/dL (8.5-10.1) Total Bilirubin 0.2 mg/dL (0.2-1.0) Aspartate Amino Transf (AST/SGOT) 65 U/L (15-37) Alanine Aminotransferase (ALT/SGPT) 77 U/L (16-63) Alkaline Phosphatase 114 U/L (46-116) Total Protein 6.0 g/dL (6.4-8.2) Albumin 1.7 g/dL (3.4-5.0) Albumin/Globulin Ratio 0.4 (1.0-1.7) JEFFRY BACA MD May 25, 2017 07:54
[2017-05-25] MEDS ORDERED: POTASSIUM CHLORIDE 20 MEQ TABLET.ER. PO ONE ×2 (08:00→17:00)
[2017-05-25] MEDS: POLYETHYLENE GLYCOL 3350 17 GM PACKET. PO SCH (08:39)
--- NOTE | 2017-05-25 09:21 | PDOC ---
PROGRESS NOTES Subjective Subjective he feels better. Objective Objective Vital Signs Date Time Temp Pulse Resp B/P (MAP) Pulse Ox O2 Delivery O2 Flow Rate FiO2 05/25/17 07:00 98.9 67 18 106/55 (72) 94 Room Air 98.9 05/24/17 08:00 2.0 Intake and Output 05/25/17 07:00 Intake Total 600 ml Output Total 200 ml Balance 400 ml Intake Oral 600 ml Output Urine Total 200 ml Physical Exam Physical Exam He is supine in bed and seems to be in no acute distress and he continues to require help with tranfers but walked for 80' with physical therapy with roller walker. Assessment Assessment Problems Medical Problems: (1) Confusion Status: Acute (2) Lumbar compression fracture Status: Acute (3) Malaise and fatigue Status: Acute (4) Weakness generalized Status: Acute Plan Plan of Care Agree with plans for transfer to [facility] or to SNF when medically stable. Comment Review of Relevant I have reviewed the following items betsy (where applicable) has been applied. Labs Laboratory Tests Test 05/24/17 05:25 05/25/17 03:26 White Blood Count 11.6 x10^3/uL (4.0-11.0) 11.4 x10^3/uL (4.0-11.0) Red Blood Count 2.84 x10^6/uL (4.30-5.70) 2.70 x10^6/uL (4.30-5.70) Hemoglobin 8.5 g/dL (13.0-17.5) 8.2 g/dL (13.0-17.5) Hematocrit 24.9 % (39.0-53.0) 24.3 % (39.0-53.0) Mean Corpuscular Volume 88 fL (79-100) 90 fL (79-100) Mean Corpuscular Hemoglobin 30 pg (25-35) 31 pg (25-35) Mean Corpuscular Hemoglobin Concent 34 g/dL (31-37) 34 g/dL (31-37) Red Cell Distribution Width 14.7 % (11.5-14.5) 14.9 % (11.5-14.5) Platelet Count 342 x10^3/uL (140-400) 413 x10^3/uL (140-400) Sodium Level 145 mmol/L (136-145) Potassium Level 2.7 mmol/L (3.5-5.1) Chloride Level 107 mmol/L (98-107) Carbon Dioxide Level 30 mmol/L (21-32) Anion Gap 8 (6-14) Blood Urea Nitrogen 19 mg/dL (8-26) Creatinine 1.0 mg/dL (0.7-1.3) Estimated GFR (Cockcroft-Gault) 72.8 BUN/Creatinine Ratio 19 (6-20) Glucose Level 85 mg/dL (70-99) Calcium Level 7.9 mg/dL (8.5-10.1) Total Bilirubin 0.2 mg/dL (0.2-1.0) Aspartate Amino Transf (AST/SGOT) 65 U/L (15-37) Alanine Aminotransferase (ALT/SGPT) 77 U/L (16-63) Alkaline Phosphatase 114 U/L (46-116) Total Protein 6.0 g/dL (6.4-8.2) Albumin 1.7 g/dL (3.4-5.0) Albumin/Globulin Ratio 0.4 (1.0-1.7) Laboratory Tests Test 05/25/17 03:26 White Blood Count 11.4 x10^3/uL (4.0-11.0) Red Blood Count 2.70 x10^6/uL (4.30-5.70) Hemoglobin 8.2 g/dL (13.0-17.5) Hematocrit 24.3 % (39.0-53.0) Mean Corpuscular Volume 90 fL (79-100) Mean Corpuscular Hemoglobin 31 pg (25-35) Mean Corpuscular Hemoglobin Concent 34 g/dL (31-37) Red Cell Distribution Width 14.9 % (11.5-14.5) Platelet Count 413 x10^3/uL (140-400) Sodium Level 145 mmol/L (136-145) Potassium Level 2.7 mmol/L (3.5-5.1) Chloride Level 107 mmol/L (98-107) Carbon Dioxide Level 30 mmol/L (21-32) Anion Gap 8 (6-14) Blood Urea Nitrogen 19 mg/dL (8-26) Creatinine 1.0 mg/dL (0.7-1.3) Estimated GFR (Cockcroft-Gault) 72.8 BUN/Creatinine Ratio 19 (6-20) Glucose Level 85 mg/dL (70-99) Calcium Level 7.9 mg/dL (8.5-10.1) Total Bilirubin 0.2 mg/dL (0.2-1.0) Aspartate Amino Transf (AST/SGOT) 65 U/L (15-37) Alanine Aminotransferase (ALT/SGPT) 77 U/L (16-63) Alkaline Phosphatase 114 U/L (46-116) Total Protein 6.0 g/dL (6.4-8.2) Albumin 1.7 g/dL (3.4-5.0) Albumin/Globulin Ratio 0.4 (1.0-1.7) Microbiology 05/23/17 Blood Culture - Preliminary, Resulted NO GROWTH AFTER 1 DAY 05/19/17 Urine Culture - Final, Complete 05/19/17 Urine Culture Result 1 (BIENVENIDO) - Final, Complete 05/19/17 Antimicrobic Susceptibility - Final, Complete Medications Current Medications Sodium Chloride 500 ml @ 500 mls/hr 1X ONCE IV Last administered on 10:24; Start 05/19/17 at 10:30; Stop 05/19/17 at 11:29; Status DC Iohexol (Omnipaque 300 Mg/ml) 50 ml 1X ONCE IV ; Start 05/19/17 at 13:00; Stop 05/19/17 at 13:01; Status DC Info (Do NOT chart on this entry -- for MONITORING) 1 each PRN DAILY PRN MC SEE COMMENTS; Start 05/19/17 at 13:00; Stop 05/21/17 at 12:59; Status DC Ondansetron HCl (Zofran) 4 mg PRN Q8HRS PRN IV NAUSEA/VOMITING; Start 05/19/17 at 13:00; Stop 05/20/17 at 12:59; Status DC Morphine Sulfate 2 mg PRN Q2HR PRN IV PAIN Last administered on 05/20/17 08:18 ; Start 05/19/17 at 13:00; Stop 05/20/17 at 12:59; Status DC Sodium Chloride 1,000 ml @ 125 mls/hr Q8H IV Last administered on 05/20/17 06 :29; Start 05/19/17 at 12:49; Stop 05/20/17 at 12:48; Status DC Vancomycin HCl (Vanco Per Pharmacy) 1 each PRN DAILY PRN MC SEE COMMENTS Last administered on 05/21/17 13:20; Start 05/19/17 at 13:00; Stop 05/22/17 at 08:43 ; Status DC Piperacillin Sod/ Tazobactam Sod (Zosyn Per Pharmacy) 1 each PRN DAILY PRN MC SEE COMMENTS; Start 05/19/17 at 13:00; Stop 05/21/17 at 08:27; Status DC Piperacillin Sod/ Tazobactam Sod 3.375 gm/Sodium Chloride 50 ml @ 100 mls/hr 1X ONCE IV Last administered on 05/19/17 16:13; Start 05/19/17 at 13:00; Stop 05/19/17 at 13:29; Status DC Vancomycin HCl 1.75 gm/Sodium Chloride 500 ml @ 250 mls/hr 1X ONCE IV Last administered on 05/19/17 13:06; Start 05/19/17 at 13:00; Stop 05/19/17 at 14:59 ; Status DC Vancomycin HCl 1.25 gm/Sodium Chloride 250 ml @ 167 mls/hr Q24H IV Last administered on 05/20/17 13:48; Start 05/20/17 at 13:00; Stop 05/21/17 at 13:05 ; Status DC Vancomycin HCl 1 each 1X ONCE MC Last administered on 05/21/17 19:01; Start 05/21/17 at 12:30; Stop 05/21/17 at 12:31; Status DC Piperacillin Sod/ Tazobactam Sod 3.375 gm/Sodium Chloride 50 ml @ 100 mls/hr Q6HRS IV Last administered on 05/21/17 05:29; Start 05/19/17 at 23:00; Stop at 08:27; Status DC Acetaminophen (Tylenol) 650 mg PRN Q6HRS PRN PO fever/MILD pain Last administered on 05/20/17 20:59; Start 05/20/17 at 04:00 Levothyroxine Sodium (Synthroid) 125 mcg DAILY07 PO Last administered on 06:08; Start 05/20/17 at 07:30 Simvastatin (Zocor) 80 mg QHS PO Last administered on 05/24/17 21:37; Start at 21:00 Morphine Sulfate 2 mg PRN Q2HR PRN IV PAIN Last administered on 05/22/17 03:28 ; Start 05/20/17 at 14:15 Sodium Chloride 1,000 ml @ 75 mls/hr [id number] IV Last administered on 05:28; Start 05/20/17 at 15:00; Stop 05/21/17 at 10:54; Status DC Bisacodyl (Dulcolax Tab) 10 mg PRN DAILY PRN PO CONSTIPATION; Start 05/21/17 at 09:00 Bisacodyl (Dulcolax Supp) 10 mg PRN DAILY PRN [place] CONSTIPATION; Start 05/21/17 at 09:00 Senna/Docusate Sodium (Senna Plus) 1 tab PRN BID PRN PO CONSTIPATION Last administered on 05/21/17 18:19; Start 05/21/17 at 09:00 Vancomycin HCl 1.5 gm/Sodium Chloride 500 ml @ 250 mls/hr Q18H IV Last administered on 05/22/17 07:57; Start 05/21/17 at 13:30; Stop 05/22/17 at 08:43 ; Status DC Vancomycin HCl 1 each 1X ONCE MC ; Start 05/23/17 at 01:00; Stop 05/23/17 at 01 :00; Status DC Ringer's Solution 1,000 ml @ 50 mls/hr Q20H IV ; Start 05/21/17 at 19:35; Stop 05/22/17 at 07:34; Status DC Fentanyl Citrate (Fentanyl 2ml Vial) 50 mcg PRN Q5MIN PRN IV Acute Pain; Start 05/21/17 at 19:45; Stop 05/22/17 at 19:44; Status DC Morphine Sulfate 4 mg PRN Q10MIN PRN IV Moderate Pain; Start 05/21/17 at 19:45 ; Stop 05/22/17 at 19:44; Status DC Hydromorphone HCl (Dilaudid) 0.4 mg PRN Q10MIN PRN IV Moderate to severe pain; Start 05/21/17 at 19:45; Stop 05/22/17 at 19:44; Status DC Meperidine HCl (Demerol) 12.5 mg PRN Q5MIN PRN IV SHIVERING; Start 05/21/17 at 19:45; Stop 05/22/17 at 19:44; Status DC Prochlorperazine Edisylate (Compazine) 5 mg PRN Q6HRS PRN IV Nausea/Vomiting, 1st Choice; Start 05/21/17 at 19:45; Stop 05/22/17 at 19:44; Status DC Diphenhydramine HCl (Benadryl) 12.5 mg PRN Q2HR PRN IV ITCHING; Start 05/21/17 at 19:45; Stop 05/22/17 at 19:44; Status DC Cefazolin Sodium 2 gm/Sodium Chloride 50 ml @ 100 mls/hr Q8HRS IV ; Start 05/22 at 09:00; Stop 05/22/17 at 09:08; Status DC Cefazolin Sodium/ Dextrose 50 ml @ 100 mls/hr Q8HRS IV ; Start 05/22/17 at 09: 15; Stop 05/22/17 at 10:20; Status DC Cefazolin Sodium/ Dextrose 50 ml @ 100 mls/hr Q8HRS IV Last administered on 06:12; Start 05/22/17 at 09:45 Propofol 50 ml @ As Directed STK-MED ONCE IV ; Start 05/22/17 at 12:14; Stop at 12:15; Status DC Propofol 20 ml @ As Directed STK-MED ONCE IV ; Start 05/22/17 at 12:14; Stop at 12:15; Status DC Lidocaine/Sodium Bicarbonate (Buffered Lidocaine 1%) 20 ml STK-MED ONCE IJ ; Start 05/22/17 at 13:09; Stop 05/22/17 at 13:10; Status DC Iohexol (Omnipaque 300 Mg/ml) 50 ml STK-MED ONCE .ROUTE ; Start 05/22/17 at 13: 09; Stop 05/22/17 at 13:10; Status DC Cefazolin Sodium 50 ml @ As Directed STK-MED ONCE IV ; Start 05/22/17 at 13:29; Stop 05/22/17 at 13:30; Status DC Ketorolac Tromethamine (Toradol) 30 mg 1X PRN PRN IV MODERATE PAIN Last administered on 05/22/17t 14:54; Start 05/22/17 at 14:30; Stop 05/27/17 at 14:29 Lidocaine/Sodium Bicarbonate (Buffered Lidocaine 1%) 3 ml 1X ONCE IJ Last administered on 05/22/17 14:33; Start 05/22/17 at 14:45; Stop 05/22/17 at 14:46 ; Status DC Iohexol (Omnipaque 300 Mg/ml) 10 ml 1X ONCE INT CAT Last administered on 14:33; Start 05/22/17 at 14:45; Stop 05/22/17 at 14:46; Status DC Info (Do NOT chart on this entry -- for MONITORING) 1 each PRN DAILY PRN MC SEE COMMENTS; Start 05/22/17 at 14:45; Stop 05/24/17 at 14:45; Status DC Ephedrine Sulfate 50 mg STK-MED ONCE IV ; Start 05/22/17 at 12:00; Stop at 12:46; Status DC Potassium Chloride (Klor-Con) 20 meq 1X ONCE PO Last administered on 08:39; Start 05/25/17 at 08:00; Stop 05/25/17 at 08:01; Status DC Potassium Chloride (Klor-Con) 20 meq 1X ONCE PO ; Start 05/25/17 at 17:00; Stop 05/25/17 at 17:01 Polyethylene Glycol (miraLAX PACKET) 17 gm DAILY PO Last administered on 08:39; Start 05/25/17 at 09:00 Active Scripts Active Reported Aspir 81 (Aspirin) 81 Mg Tablet.dr 81 Mg PO Simvastatin 80 Mg Tablet 80 Mg PO DAILY Levothyroxine Sodium 125 Mcg Tablet 125 Mcg PO DAILYAC Vitals/I & O Vital Sign - Last 24 Hours 05/24/17 05/24/17 05/24/17 05/24/17 11:00 15:00 19:05 20:00 Temp 98.3 98.1 98.4 98.3 98.1 98.4 Pulse 62 90 74 Resp 18 18 16 B/P (MAP) 95/65 (75) 94/56 (69) 108/63 (78) Pulse Ox 96 95 96 O2 Delivery Room Air Room Air Room Air Room Air 05/24/17 05/25/17 05/25/17 23:05 02:33 07:00 Temp 97.9 97.7 98.9 97.9 97.7 98.9 Pulse 60 75 67 Resp 16 16 18 B/P (MAP) 116/57 (76) 109/59 (76) 106/55 (72) Pulse Ox 96 94 94 O2 Delivery Room Air Room Air Room Air Intake and Output 05/24/17 05/24/17 05/25/17 15:00 23:00 07:00 Intake Total 200 ml 400 ml Output Total 200 ml Balance 200 ml 200 ml WILNER DUMONT MD May 25, 2017 09:21
--- NOTE | 2017-05-25 11:32 | PDOC ---
PROGRESS NOTES Assessment Problems Medical Problems: (1) Confusion Status: Acute (2) Lumbar compression fracture Status: Acute (3) Malaise and fatigue Status: Acute (4) Weakness generalized Status: Acute Metabolic encephalopathy. Prior dementia Acute L-4 compression fracture, S/P kyphoplasty. Bladder tumor and left ureteral stent, awaiting possible [facility], if he does not need to go to F/U c neurology PRN Subjective No complaints Objective Vital Signs Date Time Temp Pulse Resp B/P (MAP) Pulse Ox O2 Delivery O2 Flow Rate FiO2 05/25/17 11:00 98.4 79 18 91/52 (65) 95 Room Air 98.4 05/24/17 08:00 2.0 Intake and Output 05/25/17 07:00 Intake Total 600 ml Output Total 200 ml Balance 400 ml Intake Oral 600 ml Output Urine Total 200 ml PHYSICAL EXAM Alert. Oriented to person, does not know location or date PERRL. EOMI. CN: no focal findings. Muscle tone: normal. Muscle strength: 4/5 DTR: 1+ Plantar reflex: Flexor Gait: not examined in bed. Sensory exam: no abnormal findings. No cerebellar signs elicited. Review of Relevant I have reviewed the following items betsy (where applicable) has been applied. Labs Laboratory Tests Test 05/24/17 05:25 05/25/17 03:26 White Blood Count 11.6 x10^3/uL (4.0-11.0) 11.4 x10^3/uL (4.0-11.0) Red Blood Count 2.84 x10^6/uL (4.30-5.70) 2.70 x10^6/uL (4.30-5.70) Hemoglobin 8.5 g/dL (13.0-17.5) 8.2 g/dL (13.0-17.5) Hematocrit 24.9 % (39.0-53.0) 24.3 % (39.0-53.0) Mean Corpuscular Volume 88 fL (79-100) 90 fL (79-100) Mean Corpuscular Hemoglobin 30 pg (25-35) 31 pg (25-35) Mean Corpuscular Hemoglobin Concent 34 g/dL (31-37) 34 g/dL (31-37) Red Cell Distribution Width 14.7 % (11.5-14.5) 14.9 % (11.5-14.5) Platelet Count 342 x10^3/uL (140-400) 413 x10^3/uL (140-400) Sodium Level 145 mmol/L (136-145) Potassium Level 2.7 mmol/L (3.5-5.1) Chloride Level 107 mmol/L (98-107) Carbon Dioxide Level 30 mmol/L (21-32) Anion Gap 8 (6-14) Blood Urea Nitrogen 19 mg/dL (8-26) Creatinine 1.0 mg/dL (0.7-1.3) Estimated GFR (Cockcroft-Gault) 72.8 BUN/Creatinine Ratio 19 (6-20) Glucose Level 85 mg/dL (70-99) Calcium Level 7.9 mg/dL (8.5-10.1) Total Bilirubin 0.2 mg/dL (0.2-1.0) Aspartate Amino Transf (AST/SGOT) 65 U/L (15-37) Alanine Aminotransferase (ALT/SGPT) 77 U/L (16-63) Alkaline Phosphatase 114 U/L (46-116) Total Protein 6.0 g/dL (6.4-8.2) Albumin 1.7 g/dL (3.4-5.0) Albumin/Globulin Ratio 0.4 (1.0-1.7) Laboratory Tests Test 05/25/17 03:26 White Blood Count 11.4 x10^3/uL (4.0-11.0) Red Blood Count 2.70 x10^6/uL (4.30-5.70) Hemoglobin 8.2 g/dL (13.0-17.5) Hematocrit 24.3 % (39.0-53.0) Mean Corpuscular Volume 90 fL (79-100) Mean Corpuscular Hemoglobin 31 pg (25-35) Mean Corpuscular Hemoglobin Concent 34 g/dL (31-37) Red Cell Distribution Width 14.9 % (11.5-14.5) Platelet Count 413 x10^3/uL (140-400) Sodium Level 145 mmol/L (136-145) Potassium Level 2.7 mmol/L (3.5-5.1) Chloride Level 107 mmol/L (98-107) Carbon Dioxide Level 30 mmol/L (21-32) Anion Gap 8 (6-14) Blood Urea Nitrogen 19 mg/dL (8-26) Creatinine 1.0 mg/dL (0.7-1.3) Estimated GFR (Cockcroft-Gault) 72.8 BUN/Creatinine Ratio 19 (6-20) Glucose Level 85 mg/dL (70-99) Calcium Level 7.9 mg/dL (8.5-10.1) Total Bilirubin 0.2 mg/dL (0.2-1.0) Aspartate Amino Transf (AST/SGOT) 65 U/L (15-37) Alanine Aminotransferase (ALT/SGPT) 77 U/L (16-63) Alkaline Phosphatase 114 U/L (46-116) Total Protein 6.0 g/dL (6.4-8.2) Albumin 1.7 g/dL (3.4-5.0) Albumin/Globulin Ratio 0.4 (1.0-1.7) Microbiology 05/23/17 Blood Culture - Preliminary, Resulted NO GROWTH AFTER 2 DAYS 05/19/17 Urine Culture - Final, Complete 05/19/17 Urine Culture Result 1 (BIENVENIDO) - Final, Complete 05/19/17 Antimicrobic Susceptibility - Final, Complete Medications Current Medications Sodium Chloride 500 ml @ 500 mls/hr 1X ONCE IV Last administered on 10:24; Start 05/19/17 at 10:30; Stop 05/19/17 at 11:29; Status DC Iohexol (Omnipaque 300 Mg/ml) 50 ml 1X ONCE IV ; Start 05/19/17 at 13:00; Stop 05/19/17 at 13:01; Status DC Info (Do NOT chart on this entry -- for MONITORING) 1 each PRN DAILY PRN MC SEE COMMENTS; Start 05/19/17 at 13:00; Stop 05/21/17 at 12:59; Status DC Ondansetron HCl (Zofran) 4 mg PRN Q8HRS PRN IV NAUSEA/VOMITING; Start 05/19/17 at 13:00; Stop 05/20/17 at 12:59; Status DC Morphine Sulfate 2 mg PRN Q2HR PRN IV PAIN Last administered on 05/20/17 08:18 ; Start 05/19/17 at 13:00; Stop 05/20/17 at 12:59; Status DC Sodium Chloride 1,000 ml @ 125 mls/hr Q8H IV Last administered on 05/20/17 06 :29; Start 05/19/17 at 12:49; Stop 05/20/17 at 12:48; Status DC Vancomycin HCl (Vanco Per Pharmacy) 1 each PRN DAILY PRN MC SEE COMMENTS Last administered on 05/21/17 13:20; Start 05/19/17 at 13:00; Stop 05/22/17 at 08:43 ; Status DC Piperacillin Sod/ Tazobactam Sod (Zosyn Per Pharmacy) 1 each PRN DAILY PRN MC SEE COMMENTS; Start 05/19/17 at 13:00; Stop 05/21/17 at 08:27; Status DC Piperacillin Sod/ Tazobactam Sod 3.375 gm/Sodium Chloride 50 ml @ 100 mls/hr 1X ONCE IV Last administered on 05/19/17 16:13; Start 05/19/17 at 13:00; Stop 05/19/17 at 13:29; Status DC Vancomycin HCl 1.75 gm/Sodium Chloride 500 ml @ 250 mls/hr 1X ONCE IV Last administered on 05/19/17 13:06; Start 05/19/17 at 13:00; Stop 05/19/17 at 14:59 ; Status DC Vancomycin HCl 1.25 gm/Sodium Chloride 250 ml @ 167 mls/hr Q24H IV Last administered on 05/20/17 13:48; Start 05/20/17 at 13:00; Stop 05/21/17 at 13:05 ; Status DC Vancomycin HCl 1 each 1X ONCE MC Last administered on 05/21/17 19:01; Start 05/21/17 at 12:30; Stop 05/21/17 at 12:31; Status DC Piperacillin Sod/ Tazobactam Sod 3.375 gm/Sodium Chloride 50 ml @ 100 mls/hr Q6HRS IV Last administered on 05/21/17 05:29; Start 05/19/17 at 23:00; Stop at 08:27; Status DC Acetaminophen (Tylenol) 650 mg PRN Q6HRS PRN PO fever/MILD pain Last administered on 05/20/17 20:59; Start 05/20/17 at 04:00 Levothyroxine Sodium (Synthroid) 125 mcg DAILY07 PO Last administered on 06:08; Start 05/20/17 at 07:30 Simvastatin (Zocor) 80 mg QHS PO Last administered on 05/24/17 21:37; Start at 21:00 Morphine Sulfate 2 mg PRN Q2HR PRN IV PAIN Last administered on 05/22/17 03:28 ; Start 05/20/17 at 14:15 Sodium Chloride 1,000 ml @ 75 mls/hr [id number] IV Last administered on 05:28; Start 05/20/17 at 15:00; Stop 05/21/17 at 10:54; Status DC Bisacodyl (Dulcolax Tab) 10 mg PRN DAILY PRN PO CONSTIPATION; Start 05/21/17 at 09:00 Bisacodyl (Dulcolax Supp) 10 mg PRN DAILY PRN [place] CONSTIPATION; Start 05/21/17 at 09:00 Senna/Docusate Sodium (Senna Plus) 1 tab PRN BID PRN PO CONSTIPATION Last administered on 05/21/17 18:19; Start 05/21/17 at 09:00 Vancomycin HCl 1.5 gm/Sodium Chloride 500 ml @ 250 mls/hr Q18H IV Last administered on 05/22/17 07:57; Start 05/21/17 at 13:30; Stop 05/22/17 at 08:43 ; Status DC Vancomycin HCl 1 each 1X ONCE MC ; Start 05/23/17 at 01:00; Stop 05/23/17 at 01 :00; Status DC Ringer's Solution 1,000 ml @ 50 mls/hr Q20H IV ; Start 05/21/17 at 19:35; Stop 05/22/17 at 07:34; Status DC Fentanyl Citrate (Fentanyl 2ml Vial) 50 mcg PRN Q5MIN PRN IV Acute Pain; Start 05/21/17 at 19:45; Stop 05/22/17 at 19:44; Status DC Morphine Sulfate 4 mg PRN Q10MIN PRN IV Moderate Pain; Start 05/21/17 at 19:45 ; Stop 05/22/17 at 19:44; Status DC Hydromorphone HCl (Dilaudid) 0.4 mg PRN Q10MIN PRN IV Moderate to severe pain; Start 05/21/17 at 19:45; Stop 05/22/17 at 19:44; Status DC Meperidine HCl (Demerol) 12.5 mg PRN Q5MIN PRN IV SHIVERING; Start 05/21/17 at 19:45; Stop 05/22/17 at 19:44; Status DC Prochlorperazine Edisylate (Compazine) 5 mg PRN Q6HRS PRN IV Nausea/Vomiting, 1st Choice; Start 05/21/17 at 19:45; Stop 05/22/17 at 19:44; Status DC Diphenhydramine HCl (Benadryl) 12.5 mg PRN Q2HR PRN IV ITCHING; Start 05/21/17 at 19:45; Stop 05/22/17 at 19:44; Status DC Cefazolin Sodium 2 gm/Sodium Chloride 50 ml @ 100 mls/hr Q8HRS IV ; Start 05/22 at 09:00; Stop 05/22/17 at 09:08; Status DC Cefazolin Sodium/ Dextrose 50 ml @ 100 mls/hr Q8HRS IV ; Start 05/22/17 at 09: 15; Stop 05/22/17 at 10:20; Status DC Cefazolin Sodium/ Dextrose 50 ml @ 100 mls/hr Q8HRS IV Last administered on t 06:12; Start 05/22/17 at 09:45 Propofol 50 ml @ As Directed STK-MED ONCE IV ; Start 05/22/17 at 12:14; Stop at 12:15; Status DC Propofol 20 ml @ As Directed STK-MED ONCE IV ; Start 05/22/17 at 12:14; Stop at 12:15; Status DC Lidocaine/Sodium Bicarbonate (Buffered Lidocaine 1%) 20 ml STK-MED ONCE IJ ; Start 05/22/17 at 13:09; Stop 05/22/17 at 13:10; Status DC Iohexol (Omnipaque 300 Mg/ml) 50 ml STK-MED ONCE .ROUTE ; Start 05/22/17 at 13: 09; Stop 05/22/17 at 13:10; Status DC Cefazolin Sodium 50 ml @ As Directed STK-MED ONCE IV ; Start 05/22/17 at 13:29; Stop 05/22/17 at 13:30; Status DC Ketorolac Tromethamine (Toradol) 30 mg 1X PRN PRN IV MODERATE PAIN Last administered on 05/22/17 14:54; Start 05/22/17 at 14:30; Stop 05/27/17 at 14:29 Lidocaine/Sodium Bicarbonate (Buffered Lidocaine 1%) 3 ml 1X ONCE IJ Last administered on 05/22/17 14:33; Start 05/22/17 at 14:45; Stop 05/22/17 at 14:46 ; Status DC Iohexol (Omnipaque 300 Mg/ml) 10 ml 1X ONCE INT CAT Last administered on 14:33; Start 05/22/17 at 14:45; Stop 05/22/17 at 14:46; Status DC Info (Do NOT chart on this entry -- for MONITORING) 1 each PRN DAILY PRN MC SEE COMMENTS; Start 05/22/17 at 14:45; Stop 05/24/17 at 14:45; Status DC Ephedrine Sulfate 50 mg STK-MED ONCE IV ; Start 05/22/17 at 12:00; Stop at 12:46; Status DC Potassium Chloride (Klor-Con) 20 meq 1X ONCE PO Last administered on 08:39; Start 05/25/17 at 08:00; Stop 05/25/17 at 08:01; Status DC Potassium Chloride (Klor-Con) 20 meq 1X ONCE PO ; Start 05/25/17 at 17:00; Stop 05/25/17 at 17:01 Polyethylene Glycol (miraLAX PACKET) 17 gm DAILY PO Last administered on 08:39; Start 05/25/17 at 09:00 Active Scripts Active Reported Aspir 81 (Aspirin) 81 Mg Tablet.dr 81 Mg PO Simvastatin 80 Mg Tablet 80 Mg PO DAILY Levothyroxine Sodium 125 Mcg Tablet 125 Mcg PO DAILYAC Vitals/I & O Vital Sign - Last 24 Hours 05/24/17 05/24/17 05/24/17 05/24/17 15:00 19:05 20:00 23:05 Temp 98.1 98.4 97.9 98.1 98.4 97.9 Pulse 90 74 60 Resp 18 16 16 B/P (MAP) 94/56 (69) 108/63 (78) 116/57 (76) Pulse Ox 95 96 96 O2 Delivery Room Air Room Air Room Air Room Air 05/25/17 05/25/17 05/25/17 05/25/17 02:33 07:00 08:00 11:00 Temp 97.7 98.9 98.4 97.7 98.9 98.4 Pulse 75 67 79 Resp 16 18 18 B/P (MAP) 109/59 (76) 106/55 (72) 91/52 (65) Pulse Ox 94 94 95 O2 Delivery Room Air Room Air Room Air Room Air Intake and Output 05/24/17 05/24/17 05/25/17 15:00 23:00 07:00 Intake Total 200 ml 400 ml Output Total 200 ml Balance 200 ml 200 ml JERARDO BUCKLEY MD May 25, 2017 11:32
--- NOTE | 2017-05-25 12:16 | PDOC ---
Infectious Disease Note Subjective Subjective Feeling ok. No BM Denies bloating, cramps or nausea. ROS ROS GEN: Denies fevers, chills, sweats CV: Denies chest pain RESP: Denies shortness of air, cough Vital Sign Vital Signs Vital Signs Date Time Temp Pulse Resp B/P (MAP) Pulse Ox O2 Delivery O2 Flow Rate FiO2 05/25/17 11:00 98.4 79 18 91/52 (65) 95 Room Air 98.4 05/24/17 08:00 2.0 Physical Exam PHYSICAL EXAM GENERAL: Lying down, relaxed appearance, NAD HEENT: OC/OP dry LUNGS: Clear HEART: S1 and S2 ABD: Soft, NT EXT: No edema, no cyanosis SR. 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, slow verbal responds, follows commands SKIN: No rash IV: ok Labs Lab Laboratory Tests Test 05/25/17 03:26 White Blood Count 11.4 x10^3/uL (4.0-11.0) Red Blood Count 2.70 x10^6/uL (4.30-5.70) Hemoglobin 8.2 g/dL (13.0-17.5) Hematocrit 24.3 % (39.0-53.0) Mean Corpuscular Volume 90 fL (79-100) Mean Corpuscular Hemoglobin 31 pg (25-35) Mean Corpuscular Hemoglobin Concent 34 g/dL (31-37) Red Cell Distribution Width 14.9 % (11.5-14.5) Platelet Count 413 x10^3/uL (140-400) Sodium Level 145 mmol/L (136-145) Potassium Level 2.7 mmol/L (3.5-5.1) Chloride Level 107 mmol/L (98-107) Carbon Dioxide Level 30 mmol/L (21-32) Anion Gap 8 (6-14) Blood Urea Nitrogen 19 mg/dL (8-26) Creatinine 1.0 mg/dL (0.7-1.3) Estimated GFR (Cockcroft-Gault) 72.8 BUN/Creatinine Ratio 19 (6-20) Glucose Level 85 mg/dL (70-99) Calcium Level 7.9 mg/dL (8.5-10.1) Total Bilirubin 0.2 mg/dL (0.2-1.0) Aspartate Amino Transf (AST/SGOT) 65 U/L (15-37) Alanine Aminotransferase (ALT/SGPT) 77 U/L (16-63) Alkaline Phosphatase 114 U/L (46-116) Total Protein 6.0 g/dL (6.4-8.2) Albumin 1.7 g/dL (3.4-5.0) Albumin/Globulin Ratio 0.4 (1.0-1.7) Micro 05/23. Repeat BLOOD CULTURE Preliminary NO GROWTH AFTER 2 DAYS Objective Assessment MSSA Sepsis POA, 05/19. Repeat cults NGTD, 05/23 Left perinephritic fluid, ? pyelitis 05/19 + MSSA in urine. CT reviewed 05/23 and stable h/o bladder tumors s/p TURBT and J-J stent placement at [facility] a month ago. - 3 days of antibiotics post removal of Tineo about 2 weeks later. Acute encephalopathy - better already per [facility] -better Transaminitis Acute compression fracture, L4 s/p Kyphoplasty 05/22 MS, 47 year history Plan Plan of Care Continue Cefazolin Repeat blood cults NGTD, 05/23 ECHO pending Will need PICC for long-term antibiotics Monitor labs Likely needs Left stent removed. needs to go to . D/w Attending Co-Sign The patient was seen and interviewed as well as examined at the bedside. The chart was reviewed. The case was discussed. Agree with the plan of care. D/W , need stent removal at some point , does not need to go to for that need picc, then d/c to SNF on cefazolin ok, stent removal by dr Underwood or [facility] with next appointment CLYDE Elise APRN May 25, 2017 12:16 CELINA MIRZA MD May 25, 2017 14:42
[2017-05-25 17:03] LABS: NEG OBC FOB NEG; POS OBC FOB POS
[2017-05-25] MEDS: SIMVASTATIN 40 MG TABLET. PO SCH (21:01)
[2017-05-26 03:00] VITALS: BP 106/63
[2017-05-26 07:00] VITALS: BP 118/63
--- NOTE | 2017-05-26 07:20 | PDOC ---
PROGRESS NOTES Subjective Subjective He had no new complaints. Objective Objective Vital Signs Date Time Temp Pulse Resp B/P (MAP) Pulse Ox O2 Delivery O2 Flow Rate FiO2 05/26/17 03:00 98.3 64 18 106/63 (77) 95 Room Air 98.3 05/24/17 08:00 2.0 Intake and Output 05/26/17 07:00 Intake Total 350 ml Output Total 650 ml Balance -300 ml Intake Oral 350 ml Output Urine Total 650 ml Physical Exam Physical Exam He is supine in bed and seems comfortable.He had problems with hypokalemia and his Hb dropped from 10 to 8.2 in the last few days.Physical therapy did not get him up secondary to his hypokalemia. Assessment Assessment Problems Medical Problems: (1) Confusion Status: Acute (2) Lumbar compression fracture Status: Acute (3) Malaise and fatigue Status: Acute (4) Weakness generalized Status: Acute Plan Plan of Care To SNF when medically stable. Comment Review of Relevant I have reviewed the following items betsy (where applicable) has been applied. Labs Laboratory Tests Test 05/25/17 03:26 05/25/17 14:30 White Blood Count 11.4 x10^3/uL (4.0-11.0) Red Blood Count 2.70 x10^6/uL (4.30-5.70) Hemoglobin 8.2 g/dL (13.0-17.5) Hematocrit 24.3 % (39.0-53.0) Mean Corpuscular Volume 90 fL (79-100) Mean Corpuscular Hemoglobin 31 pg (25-35) Mean Corpuscular Hemoglobin Concent 34 g/dL (31-37) Red Cell Distribution Width 14.9 % (11.5-14.5) Platelet Count 413 x10^3/uL (140-400) Sodium Level 145 mmol/L (136-145) Potassium Level 2.7 mmol/L (3.5-5.1) Chloride Level 107 mmol/L (98-107) Carbon Dioxide Level 30 mmol/L (21-32) Anion Gap 8 (6-14) Blood Urea Nitrogen 19 mg/dL (8-26) Creatinine 1.0 mg/dL (0.7-1.3) Estimated GFR (Cockcroft-Gault) 72.8 BUN/Creatinine Ratio 19 (6-20) Glucose Level 85 mg/dL (70-99) Calcium Level 7.9 mg/dL (8.5-10.1) Total Bilirubin 0.2 mg/dL (0.2-1.0) Aspartate Amino Transf (AST/SGOT) 65 U/L (15-37) Alanine Aminotransferase (ALT/SGPT) 77 U/L (16-63) Alkaline Phosphatase 114 U/L (46-116) Total Protein 6.0 g/dL (6.4-8.2) Albumin 1.7 g/dL (3.4-5.0) Albumin/Globulin Ratio 0.4 (1.0-1.7) Stool Occult Blood Positive (NEG) Laboratory Tests Test 05/25/17 14:30 Stool Occult Blood Positive (NEG) Microbiology 05/23/17 Blood Culture - Preliminary, Resulted NO GROWTH AFTER 2 DAYS 05/19/17 Urine Culture - Final, Complete 05/19/17 Urine Culture Result 1 (BIENVENIDO) - Final, Complete 05/19/17 Antimicrobic Susceptibility - Final, Complete Medications Current Medications Sodium Chloride 500 ml @ 500 mls/hr 1X ONCE IV Last administered on 10:24; Start 05/19/17 at 10:30; Stop 05/19/17 at 11:29; Status DC Iohexol (Omnipaque 300 Mg/ml) 50 ml 1X ONCE IV ; Start 05/19/17 at 13:00; Stop 05/19/17 at 13:01; Status DC Info (Do NOT chart on this entry -- for MONITORING) 1 each PRN DAILY PRN MC SEE COMMENTS; Start 05/19/17 at 13:00; Stop 05/21/17 at 12:59; Status DC Ondansetron HCl (Zofran) 4 mg PRN Q8HRS PRN IV NAUSEA/VOMITING; Start 05/19/17 at 13:00; Stop 05/20/17 at 12:59; Status DC Morphine Sulfate 2 mg PRN Q2HR PRN IV PAIN Last administered on 05/20/17 08:18 ; Start 05/19/17 at 13:00; Stop 05/20/17 at 12:59; Status DC Sodium Chloride 1,000 ml @ 125 mls/hr Q8H IV Last administered on 05/20/17 06 :29; Start 05/19/17 at 12:49; Stop 05/20/17 at 12:48; Status DC Vancomycin HCl (Vanco Per Pharmacy) 1 each PRN DAILY PRN MC SEE COMMENTS Last administered on 05/21/17 13:20; Start 05/19/17 at 13:00; Stop 05/22/17 at 08:43 ; Status DC Piperacillin Sod/ Tazobactam Sod (Zosyn Per Pharmacy) 1 each PRN DAILY PRN MC SEE COMMENTS; Start 05/19/17 at 13:00; Stop 05/21/17 at 08:27; Status DC Piperacillin Sod/ Tazobactam Sod 3.375 gm/Sodium Chloride 50 ml @ 100 mls/hr 1X ONCE IV Last administered on 05/19/17 16:13; Start 05/19/17 at 13:00; Stop 05/19/17 at 13:29; Status DC Vancomycin HCl 1.75 gm/Sodium Chloride 500 ml @ 250 mls/hr 1X ONCE IV Last administered on 05/19/17 13:06; Start 05/19/17 at 13:00; Stop 05/19/17 at 14:59 ; Status DC Vancomycin HCl 1.25 gm/Sodium Chloride 250 ml @ 167 mls/hr Q24H IV Last administered on 05/20/17 13:48; Start 05/20/17 at 13:00; Stop 05/21/17 at 13:05 ; Status DC Vancomycin HCl 1 each 1X ONCE MC Last administered on 05/21/17 19:01; Start 05/21/17 at 12:30; Stop 05/21/17 at 12:31; Status DC Piperacillin Sod/ Tazobactam Sod 3.375 gm/Sodium Chloride 50 ml @ 100 mls/hr Q6HRS IV Last administered on 05/21/17 05:29; Start 05/19/17 at 23:00; Stop at 08:27; Status DC Acetaminophen (Tylenol) 650 mg PRN Q6HRS PRN PO fever/MILD pain Last administered on 05/20/17 20:59; Start 05/20/17 at 04:00 Levothyroxine Sodium (Synthroid) 125 mcg DAILY07 PO Last administered on 06:08; Start 05/20/17 at 07:30 Simvastatin (Zocor) 80 mg QHS PO Last administered on 05/25/17 21:01; Start at 21:00 Morphine Sulfate 2 mg PRN Q2HR PRN IV PAIN Last administered on 05/22/17 03:28 ; Start 05/20/17 at 14:15 Sodium Chloride 1,000 ml @ 75 mls/hr [id number] IV Last administered on 05:28; Start 05/20/17 at 15:00; Stop 05/21/17 at 10:54; Status DC Bisacodyl (Dulcolax Tab) 10 mg PRN DAILY PRN PO CONSTIPATION; Start 05/21/17 at 09:00 Bisacodyl (Dulcolax Supp) 10 mg PRN DAILY PRN [place] CONSTIPATION; Start 05/21/17 at 09:00 Senna/Docusate Sodium (Senna Plus) 1 tab PRN BID PRN PO CONSTIPATION Last administered on 05/21/17 18:19; Start 05/21/17 at 09:00 Vancomycin HCl 1.5 gm/Sodium Chloride 500 ml @ 250 mls/hr Q18H IV Last administered on 05/22/17 07:57; Start 05/21/17 at 13:30; Stop 05/22/17 at 08:43 ; Status DC Vancomycin HCl 1 each 1X ONCE MC ; Start 05/23/17 at 01:00; Stop 05/23/17 at 01 :00; Status DC Ringer's Solution 1,000 ml @ 50 mls/hr Q20H IV ; Start 05/21/17 at 19:35; Stop 05/22/17 at 07:34; Status DC Fentanyl Citrate (Fentanyl 2ml Vial) 50 mcg PRN Q5MIN PRN IV Acute Pain; Start 05/21/17 at 19:45; Stop 05/22/17 at 19:44; Status DC Morphine Sulfate 4 mg PRN Q10MIN PRN IV Moderate Pain; Start 05/21/17 at 19:45 ; Stop 05/22/17 at 19:44; Status DC Hydromorphone HCl (Dilaudid) 0.4 mg PRN Q10MIN PRN IV Moderate to severe pain; Start 05/21/17 at 19:45; Stop 05/22/17 at 19:44; Status DC Meperidine HCl (Demerol) 12.5 mg PRN Q5MIN PRN IV SHIVERING; Start 05/21/17 at 19:45; Stop 05/22/17 at 19:44; Status DC Prochlorperazine Edisylate (Compazine) 5 mg PRN Q6HRS PRN IV Nausea/Vomiting, 1st Choice; Start 05/21/17 at 19:45; Stop 05/22/17 at 19:44; Status DC Diphenhydramine HCl (Benadryl) 12.5 mg PRN Q2HR PRN IV ITCHING; Start 05/21/17 at 19:45; Stop 05/22/17 at 19:44; Status DC Cefazolin Sodium 2 gm/Sodium Chloride 50 ml @ 100 mls/hr Q8HRS IV ; Start 05/22 at 09:00; Stop 05/22/17 at 09:08; Status DC Cefazolin Sodium/ Dextrose 50 ml @ 100 mls/hr Q8HRS IV ; Start 05/22/17 at 09: 15; Stop 05/22/17 at 10:20; Status DC Cefazolin Sodium/ Dextrose 50 ml @ 100 mls/hr Q8HRS IV Last administered on t 21:02; Start 05/22/17 at 09:45 Propofol 50 ml @ As Directed STK-MED ONCE IV ; Start 05/22/17 at 12:14; Stop at 12:15; Status DC Propofol 20 ml @ As Directed STK-MED ONCE IV ; Start 05/22/17 at 12:14; Stop at 12:15; Status DC Lidocaine/Sodium Bicarbonate (Buffered Lidocaine 1%) 20 ml STK-MED ONCE IJ ; Start 05/22/17 at 13:09; Stop 05/22/17 at 13:10; Status DC Iohexol (Omnipaque 300 Mg/ml) 50 ml STK-MED ONCE .ROUTE ; Start 05/22/17 at 13: 09; Stop 05/22/17 at 13:10; Status DC Cefazolin Sodium 50 ml @ As Directed STK-MED ONCE IV ; Start 05/22/17 at 13:29; Stop 05/22/17 at 13:30; Status DC Ketorolac Tromethamine (Toradol) 30 mg 1X PRN PRN IV MODERATE PAIN Last administered on 05/22/17 14:54; Start 05/22/17 at 14:30; Stop 05/27/17 at 14:29 Lidocaine/Sodium Bicarbonate (Buffered Lidocaine 1%) 3 ml 1X ONCE IJ Last administered on 05/22/17 14:33; Start 05/22/17 at 14:45; Stop 05/22/17 at 14:46 ; Status DC Iohexol (Omnipaque 300 Mg/ml) 10 ml 1X ONCE INT CAT Last administered on 14:33; Start 05/22/17 at 14:45; Stop 05/22/17 at 14:46; Status DC Info (Do NOT chart on this entry -- for MONITORING) 1 each PRN DAILY PRN MC SEE COMMENTS; Start 05/22/17 at 14:45; Stop 05/24/17 at 14:45; Status DC Ephedrine Sulfate 50 mg STK-MED ONCE IV ; Start 05/22/17 at 12:00; Stop at 12:46; Status DC Potassium Chloride (Klor-Con) 20 meq 1X ONCE PO Last administered on 08:39; Start 05/25/17 at 08:00; Stop 05/25/17 at 08:01; Status DC Potassium Chloride (Klor-Con) 20 meq 1X ONCE PO Last administered on 17:51; Start 05/25/17 at 17:00; Stop 05/25/17 at 17:01; Status DC Polyethylene Glycol (miraLAX PACKET) 17 gm DAILY PO Last administered on 08:39; Start 05/25/17 at 09:00 Active Scripts Active Reported Aspir 81 (Aspirin) 81 Mg Tablet.dr 81 Mg PO Simvastatin 80 Mg Tablet 80 Mg PO DAILY Levothyroxine Sodium 125 Mcg Tablet 125 Mcg PO DAILYAC Vitals/I & O Vital Sign - Last 24 Hours 05/25/17 05/25/17 05/25/17 05/25/17 08:00 11:00 15:00 19:40 Temp 98.4 98.3 98.2 98.4 98.3 98.2 Pulse 79 55 64 Resp 18 18 18 B/P (MAP) 91/52 (65) 100/56 (71) 108/63 (78) Pulse Ox 95 96 98 O2 Delivery Room Air Room Air Room Air Room Air 05/25/17 05/25/17 05/26/17 20:00 23:09 03:00 Temp 98.4 98.3 98.4 98.3 Pulse 62 64 Resp 18 18 B/P (MAP) 107/59 (75) 106/63 (77) Pulse Ox 97 95 O2 Delivery Room Air Room Air Room Air Intake and Output 05/25/17 05/25/17 05/26/17 15:00 23:00 07:00 Intake Total 350 ml 0 ml Output Total 350 ml 300 ml Balance 0 ml -300 ml WILNER DUMONT MD May 26, 2017 07:20
[2017-05-26] MEDS: ACETAMINOPHEN 325 MG TABLET. PO PRN ×2 (07:57→16:39)
[2017-05-26] MEDS: LEVOTHYROXINE 125 MCG TABLET PO SCH (07:57)
[2017-05-26] MEDS: POLYETHYLENE GLYCOL 3350 17 GM PACKET. PO SCH (07:59)
[2017-05-26 10:18] LABS: HEMATOCRIT 24.8 % (39.0-53.0); HEMOGLOBIN 8.7 g/dL (13.0-17.5); RED BLOOD COUNT 2.8 x10^6/uL (4.30-5.70); RED CELL DISTRIBUTION WIDTH 14.7 % (11.5-14.5); WHITE BLOOD COUNT 10.9 x10^3/uL (4.0-11.0)
[2017-05-26 10:33] LABS: CALCIUM 8.3 mg/dL (8.5-10.1); GFR 72.8; POTASSIUM 3.7 mmol/L (3.5-5.1)
[2017-05-26 10:45] VITALS: BP 108/52
--- NOTE | 2017-05-26 11:17 | PDOC ---
SUBJECTIVE Subjective Pt getting PICC placed today. +FOBT OBJECTIVE Vital Signs Vital Signs Date Time Temp Pulse Resp B/P (MAP) Pulse Ox O2 Delivery O2 Flow Rate FiO2 05/26/17 10:45 98.0 66 18 108/52 (70) 96 Room Air 98.0 05/26/17 08:00 Room Air 05/26/17 07:00 98.0 62 18 118/63 (81) 94 Room Air 98.0 05/26/17 03:00 98.3 64 18 106/63 (77) 95 Room Air 98.3 05/25/17 23:09 98.4 62 18 107/59 (75) 97 Room Air 98.4 05/25/17 20:00 Room Air 05/25/17 19:40 98.2 64 18 108/63 (78) 98 Room Air 98.2 05/25/17 15:00 98.3 55 18 100/56 (71) 96 Room Air 98.3 I & O Intake and Output 05/26/17 06:59 Intake Total 350 ml Output Total 650 ml Balance -300 ml Intake Oral 350 ml Output Urine Total 650 ml PHYSICAL EXAM Physical Exam GEN: NAD, AOx3, slower to speak HEENT: MMM, EOMI, no scleral icterus/injection Cardiac: RRR, no M/R/G Lungs: CTAB, regular breathing rate and effort Abd: non distended, NTTP Ext: no erythema/edema LE bilaterally ASSESSMENT/PLAN Assessment/Plan Pt is a 76yo CM admitted with weakness in LE and altered mental status found to be 2/2 UTI and L4 compression fracture 1)Bacteremia 2/2 UTI- ID following. Blood cultures and urine cultures positive for S. aureus. Pt currently on Cefazolin. Fevers improved, WBC normal today. Repeat blood cultures negative for 48 hours+, PICC being placed today. 2)Noninvasive urothelial carcinoma- s/p recent procedure, also with stent placement. Will need f/u with Dr. Griffin on discharge 3)L4 compression fracture- Nuerosurgery following, s/p L4 kyphoplasty. Dr. Meyers also following 4)Acute on chronic anemia- Pt's Hb decreased from 10.8 on admission to 8.7. Stable since yesterday. +FOBT. Will have GI see prior to discharge. 5)Transaminitis- improving 6)PEM- severe. 7)Hypothyroidism- continue levothyroxine 125mcg. TSH mildly elevated this admission 8)HLD- continue Simvastatin 80mg 9)Hypokalemia- resolved Problems: COMMENT Lab Laboratory Tests Test 05/25/17 14:30 05/26/17 09:55 Stool Occult Blood Positive (NEG) White Blood Count 10.9 x10^3/uL (4.0-11.0) Red Blood Count 2.80 x10^6/uL (4.30-5.70) Hemoglobin 8.7 g/dL (13.0-17.5) Hematocrit 24.8 % (39.0-53.0) Mean Corpuscular Volume 89 fL (79-100) Mean Corpuscular Hemoglobin 31 pg (25-35) Mean Corpuscular Hemoglobin Concent 35 g/dL (31-37) Red Cell Distribution Width 14.7 % (11.5-14.5) Platelet Count 574 x10^3/uL (140-400) Sodium Level 144 mmol/L (136-145) Potassium Level 3.7 mmol/L (3.5-5.1) Chloride Level 108 mmol/L (98-107) Carbon Dioxide Level 31 mmol/L (21-32) Anion Gap 5 (6-14) Blood Urea Nitrogen 15 mg/dL (8-26) Creatinine 1.0 mg/dL (0.7-1.3) Estimated GFR (Cockcroft-Gault) 72.8 Glucose Level 103 mg/dL (70-99) Calcium Level 8.3 mg/dL (8.5-10.1) JEFFRY BACA MD May 26, 2017 11:17
--- NOTE | 2017-05-26 13:56 | PDOC2 ---
CONSULT - DR. NAVARRETE CHIEF COMPLAINT Chief Complaint anemia Problems: HPI HPI the patient is a 76-year-old gentleman who has a history of multiple sclerosis, hypertension, hyperlipidemia, tobacco dependence and nephrolithiasis admitted to [facility] on 2016 for generalized weakness and mental status changes. Hgb was 8.7 and iron studies with low iron and tibc with normal saturation and elevated ferritin. He was started on IV antibiotics for urinary tract infection. The patient also had several falls and leg weakness. CT scan of the chest, abdomen and pelvis on 05/19/2017 revealed acute compression fracture of the L4 vertebral body and severe central canal stenosis posterior to L4. Left urinary stent was noted. He underwent ultrasound of the lower extremities that is negative for DVT. The CT scan revealed an exophytic mass seen within the inferior posterior aspect of the urinary bladder measuring 3.7 cm in greatest diameter. A separate mass is seen extending anteriorly and superiorly from the left posterior aspect of the urinary bladder measuring 4 cm in greatest diameter. He underwent a cystoscopy by Dr. Underwood on 03/12/2017 and two large papillary bladder tumors were seen involving the left posterolateral wall and the right hemitrigone. Cytology revealed atypical cells. The patient was then referred to Urology. The patient underwent transurethral resection of the bladder tumor on 04/19/[address] Griffin. This revealed noninvasive low-grade papillary urothelial carcinoma. Muscularis propria was present, but there was no evidence of muscle invasion. He was diagnosed with a TA low-grade urothelial carcinoma of the bladder. PMH PMH PAST MEDICAL HISTORY: Multiple sclerosis, hypothyroidism, hypercholesterolemia, dementia, superficial bladder cancer as described above. FAMILY HISTORY: Multiple family members with malignancy in the family including leukemia. SOCIAL HISTORY: He has history of smoking [id number] at least. ROS ROS GEN: Denies fever or weight loss HEENT: No blurred vision or sore throat CV: Denies chest pain RESP: No shortness of breath or cough GI: As per HPI : No dysuria or hematuria M/S: No myalgias NEURO: No headache PSYCH: No depression Jay Vital Signs Date Time Temp Pulse Resp B/P (MAP) Pulse Ox O2 Delivery O2 Flow Rate FiO2 05/26/17 10:45 98.0 66 18 108/52 (70) 96 Room Air 98.0 Physical Exam GEN: NAD HEENT: OP clear CV: S1S2 without murmurs, rubs, or gallops RESP: CTAB without wheezing, rhonchi, or crackles ABD: NABS, SNT/ND EXT: No edema NEURO: AAO x 3 LABS Labs Laboratory Tests Test 05/25/17 14:30 05/26/17 09:55 Stool Occult Blood Positive (NEG) White Blood Count 10.9 x10^3/uL (4.0-11.0) Red Blood Count 2.80 x10^6/uL (4.30-5.70) Hemoglobin 8.7 g/dL (13.0-17.5) Hematocrit 24.8 % (39.0-53.0) Mean Corpuscular Volume 89 fL (79-100) Mean Corpuscular Hemoglobin 31 pg (25-35) Mean Corpuscular Hemoglobin Concent 35 g/dL (31-37) Red Cell Distribution Width 14.7 % (11.5-14.5) Platelet Count 574 x10^3/uL (140-400) Sodium Level 144 mmol/L (136-145) Potassium Level 3.7 mmol/L (3.5-5.1) Chloride Level 108 mmol/L (98-107) Carbon Dioxide Level 31 mmol/L (21-32) Anion Gap 5 (6-14) Blood Urea Nitrogen 15 mg/dL (8-26) Creatinine 1.0 mg/dL (0.7-1.3) Estimated GFR (Cockcroft-Gault) 72.8 Glucose Level 103 mg/dL (70-99) Calcium Level 8.3 mg/dL (8.5-10.1) IMAGING Imaging Indication: Follow-up kidney stent. Axial imaging through the abdomen and pelvis was performed without intravenous contrast. Comparison is made with recent CT from 05/19/2017. There has been some increase in bilateral pleural effusions, slightly larger on the left when compared with exam from 4 days earlier. There is some associated bibasilar atelectasis as well. The liver and gallbladder are unremarkable. The pancreas and spleen are unremarkable. No adrenal mass is detected. The right kidney is unremarkable. Left kidney again contains a nephroureteral stent. There is left renal enlargement and perinephric inflammatory stranding, similar to prior study. No definite intrarenal calculi or calculi along the course of the stent are seen. The bladder is decompressed. The aorta is calcified but nonaneurysmal. The small and large bowel loops are normal caliber. There is no ascites. There is a treated compression fracture with kyphoplasty at the L4 level. Impression: 1. Increase in bilateral pleural effusions with bibasilar infiltrates or atelectasis since exam 4 days earlier. 2. Status post L4 kyphoplasty. 3. Otherwise stable CT of the abdomen and pelvis when compared with exam 4 days earlier. ASSESSMENT & PLAN Assessment & Plan Anemia: Indices indicate chronic disease. Favor EGD/Colon given positive FOBT. Per patient and , colonoscopy 10 years ago negative. No FMH CRC and no prior EGD. He has been taking ASA 81 mg at home. Per nursing, patient slated to go to rehab today. I d/w . As long as they will bring him back for outpatient EGD/Colon with sena Bowers to proceed with transfer. agrees and expresses understanding PRIMITIVO NAVARRETE MD May 26, 2017 13:56
[2017-05-26 14:41] VITALS: BP 89/52
--- NOTE | 2017-05-26 14:43 | PDOC ---
Infectious Disease Note Subjective Subjective Feeling good ROS ROS GEN: Denies fevers, chills, sweats HEENT: Denies blurred vision, sore throat CV: Denies chest pain RESP: Denies shortness of air, cough GI: Denies n/v/d NEURO: Denies confusion, dizziness MSK: Denies weakness, joint pain/swelling Vital Sign Vital Signs Vital Signs Date Time Temp Pulse Resp B/P (MAP) Pulse Ox O2 Delivery O2 Flow Rate FiO2 05/26/17 10:45 98.0 66 18 108/52 (70) 96 Room Air 98.0 Physical Exam PHYSICAL EXAM GENERAL: NAD, Alert HEENT: PERRL, OC/OP NECK: Supple, no JVD, no LN LUNGS: Clear HEART: S1S2, no gallop, no murmur ABD: Soft, NT, no organomegaly, no rebound EXT: No edema, no cyanosis HOSPITAL WELLNESS COORDINATOR: Alert, oriented x 3, no focal neurologic deficit SKIN: No rash IV: ok Labs Lab Laboratory Tests Test 05/26/17 09:55 White Blood Count 10.9 x10^3/uL (4.0-11.0) Red Blood Count 2.80 x10^6/uL (4.30-5.70) Hemoglobin 8.7 g/dL (13.0-17.5) Hematocrit 24.8 % (39.0-53.0) Mean Corpuscular Volume 89 fL (79-100) Mean Corpuscular Hemoglobin 31 pg (25-35) Mean Corpuscular Hemoglobin Concent 35 g/dL (31-37) Red Cell Distribution Width 14.7 % (11.5-14.5) Platelet Count 574 x10^3/uL (140-400) Sodium Level 144 mmol/L (136-145) Potassium Level 3.7 mmol/L (3.5-5.1) Chloride Level 108 mmol/L (98-107) Carbon Dioxide Level 31 mmol/L (21-32) Anion Gap 5 (6-14) Blood Urea Nitrogen 15 mg/dL (8-26) Creatinine 1.0 mg/dL (0.7-1.3) Estimated GFR (Cockcroft-Gault) 72.8 Glucose Level 103 mg/dL (70-99) Calcium Level 8.3 mg/dL (8.5-10.1) Objective Assessment MSSA Sepsis POA, 6/24. Repeat cults NGTD, 05/23 Left perinephritic fluid, ? pyelitis 05/19 + MSSA in urine. CT reviewed 05/23 and stable h/o bladder tumors s/p TURBT and J-J stent placement at [facility] a month ago. - 3 days of antibiotics post removal of Tineo about 2 weeks later. Acute encephalopathy - better already per CARLIE -better Transaminitis Acute compression fracture, L4 s/p Kyphoplasty 05/22 MS, 47 year history Plan Plan of Care Continue Cefazolin Repeat blood cults NGTD, 05/23 ECHO pending Will need PICC for long-term antibiotics Monitor labs Likely needs Left stent removed. needs to go to [facility]. D/w f/u with us in 2 wks wkly cbc, bun/cr fax to [phone] CELINA MIRZA MD May 26, 2017 14:43
[2017-05-26 19:00] VITALS: BP 100/60
[2017-05-26] MEDS: SIMVASTATIN 40 MG TABLET. PO SCH (21:42)
[2017-05-26 23:00] VITALS: BP 114/63
[2017-05-27 03:00] VITALS: BP 104/64
[2017-05-27] MEDS: LEVOTHYROXINE 125 MCG TABLET PO SCH (05:55)
[2017-05-27 07:41] VITALS: BP 112/72
[2017-05-27] MEDS: POLYETHYLENE GLYCOL 3350 17 GM PACKET. PO SCH (09:00)
[2017-05-27 11:00] VITALS: BP 130/72
--- NOTE | 2017-05-27 11:10 | PDOC3 ---
Discharge Summary* Date of Admission: May 19, 2017 Date of Discharge: May 27, 2017 Admitting Diagnosis Problems Medical Problems: (1) Confusion Status: Acute (2) Lumbar compression fracture Status: Acute (3) Malaise and fatigue Status: Acute (4) Weakness generalized Status: Acute Problems: Final Diagnosis Altered mental status, Bacteremia 2/2 UTI, Dementia, Multiple Sclerosis, L4 Compression Fracture s/p kyphoplasty, Noninvasive urothelial carcinoma s/p transurethral resection of bladder tumor and stent placement, acute on chronic anemia with +FOBT, Transaminitis, PEM-severe, Hypothyroidism, HLD, Hypokalemia- resolved CONSULTS Urology Oncology Rehab Medicine Infectious Disease Neurosurgery GI Nuerology Procedures CT Head- age related changes CXR- WNL CT Chest/Abdomen/Pelvis- compression fracture of L4, with severe central canal stenosis. Left ureteral stent, moderate left perinephric fluid US LE- no DVTs Brain MRI- moderate periventricular white matter changes may be 2/2 multiple sclerosis MRI lumbar spine- acute/subacute compression fracture of L4 vertebral body. Degenerative spondylosis most advanced L3/L4 and L4/L5 where there is severe central canal stenosis L4 kyphoplasty Brief Hospital Course DISCHARGE PHYSICAL EXAM GEN: NAD, AOx3, slower to speak HEENT: MMM, EOMI, no scleral icterus/injection Cardiac: RRR, no M/R/G Lungs: CTAB, regular breathing rate and effort Abd: non distended, NTTP Ext: no erythema/edema LE bilaterally Pt is a 76yo CM admitted with weakness in LE and altered mental status found to be 2/2 UTI and L4 compression fracture 1)Bacteremia 2/2 UTI- ID following. Blood cultures and urine cultures positive for S. aureus. Pt currently on Cefazolin. Fevers improved, WBC normal today. Repeat blood cultures negative for 48 hours+, PICC placed yesterday. Will verify with ID duration of abx treatment. 2)Noninvasive urothelial carcinoma- s/p transurethral bladder tumor resection, also with stent placement. Will need f/u with Dr. Griffin on discharge 3)L4 compression fracture- Nuerosurgery following, s/p L4 kyphoplasty. Dr. Meyers also following 4)Acute on chronic anemia- Pt's Hb decreased from 10.8 on admission to 8.7. Stable since yesterday. +FOBT. GI has seen and cleared for f/u EGD/ colonoscopy outpatient 5)Transaminitis- improving 6)PEM- severe. 7)Hypothyroidism- continue levothyroxine 125mcg. TSH mildly elevated this admission 8)HLD- continue Simvastatin 80mg 9)Hypokalemia- resolved 10)Multiple Sclerosis 11)Dementia- will start Memantine and Donepezil per conversation with this morning. She is interested in getting patient started on treatment knowing that it won't cure his dementia, but will slow the progression Disposition/Orders: D/C to Another Facility CONDITION AT DISCHARGE: Improved, Stable Diet: Regular Scheduled Levothyroxine Sodium (Levothyroxine Sodium), 125 MCG PO DAILYAC, (Reported) Simvastatin (Simvastatin), 80 MG PO DAILY, (Reported) Miscellaneous Medications Aspirin (Aspir 81), 81 MG PO, (Reported) PCP Pt will need to f/u with Dr. Griffin regarding ureteral stent. Pt will need to f/ u with Infectious Disease in 2 weeks regarding IV antibiotic treatment. Pt will need to f/u with Dr. Velazquez for outpatient EGD/Colonoscopy Time Spent Total time spent with patient [] minutes for coordination of care, counseling, and education. JEFFRY BACA MD May 27, 2017 11:10
--- NOTE | 2017-05-27 11:13 | PDOC ---
Subjective: Subjective: No bleeding Objective: Vital Signs: Vital Signs Date Time Temp Pulse Resp B/P (MAP) Pulse Ox O2 Delivery O2 Flow Rate FiO2 05/27/17 07:51 Room Air 05/27/17 07:41 97.8 63 20 112/72 (85) 97 97.8 Labs: none today Physical Exam: Physical Exam: GEN: NAD HEENT: OP clear CV: S1S2 without murmurs, rubs, or gallops RESP: CTAB without wheezing, rhonchi, or crackles ABD: NABS, SNT/ND EXT: No edema NEURO: AAO x 3 Assessment & Plan: Assessment : Indices indicate chronic disease. Favor EGD/Colon given positive FOBT. Per patient and , colonoscopy 10 years ago negative. No FMH CRC and no prior EGD. He has been taking ASA 81 mg at home. Per nursing, patient slated to go to rehab today. I d/w . As long as they will bring him back for outpatient EGD/Colon with Dr Velazquez, okay to proceed with transfer. agrees and expresses understanding Plan: outpatient egd/colon okay for transfer Problems: PRIMITIVO NAVARRETE MD May 27, 2017 11:13
[2017-05-27] MEDS: MEMANTINE 5 MG TABLET. PO SCH (12:45)
[2017-05-27] MEDS: DONEPEZIL HCL 5 MG TABLET. PO SCH (12:45)
[2017-05-27] MEDS: ACETAMINOPHEN 325 MG TABLET. PO PRN (12:59)
--- NOTE | 2017-05-27 13:34 | PDOC ---
Infectious Disease Note Subjective Subjective Feeling good ROS ROS GEN: Denies fevers, chills, sweats HEENT: Denies blurred vision, sore throat CV: Denies chest pain RESP: Denies shortness of air, cough GI: Denies n/v/d NEURO: Denies confusion, dizziness MSK: Denies weakness, joint pain/swelling Vital Sign Vital Signs Vital Signs Date Time Temp Pulse Resp B/P (MAP) Pulse Ox O2 Delivery O2 Flow Rate FiO2 05/27/17 11:00 98.0 68 22 130/72 (91) 97 98.0 05/27/17 07:51 Room Air Physical Exam PHYSICAL EXAM GENERAL: NAD, Alert HEENT: PERRL, OC/OP NECK: Supple, no JVD, no LN LUNGS: Clear HEART: S1S2, no gallop, no murmur ABD: Soft, NT, no organomegaly, no rebound EXT: No edema, no cyanosis WHEEL PRESSER: Alert, oriented x 3, no focal neurologic deficit SKIN: No rash IV: ok Objective Assessment MSSA Sepsis POA, 05/19. Repeat cults NGTD, 05/23 Left perinephritic fluid, ? pyelitis 05/19 + MSSA in urine. CT reviewed 05/23 and stable h/o bladder tumors s/p TURBT and J-J stent placement at [facility] a month ago. - 3 days of antibiotics post removal of Tineo about 2 weeks later. Acute encephalopathy - better already per CARLIE -better Transaminitis Acute compression fracture, L4 s/p Kyphoplasty 05/22 MS, 47 year history Plan Plan of Care Continue Cefazolin Repeat blood cults NGTD, 05/23 ECHO pending Will need PICC for long-term antibiotics Monitor labs Likely needs Left stent removed. needs to go to [facility]. D/w f/u with us in 2 wks wkly cbc, bun/cr fax to [phone] CELINA MIRZA MD May 27, 2017 13:34
[2017-05-27 15:00] VITALS: BP 114/76
[2017-05-27 19:47] VITALS: BP 102/56
[2017-05-27] MEDS: SIMVASTATIN 40 MG TABLET. PO SCH (21:06)
[2017-05-27 23:49] VITALS: BP 123/72
[2017-05-28] MEDS: MORPHINE SULFATE 2 MG/ML DISP.SYRIN. IV PRN (01:20)
[2017-05-28 03:54] VITALS: BP 124/62
[2017-05-28] MEDS: LEVOTHYROXINE 125 MCG TABLET PO SCH (06:04)
[2017-05-28 07:00] VITALS: BP 114/59
--- NOTE | 2017-05-28 08:27 | PDOC ---
SUBJECTIVE Subjective Pt's discharge was delayed yesterday due to unavailability of space at [facility]. Pt will be discharged today. Pt has no new complaints. PE and assessment and plan unchanged. OBJECTIVE Vital Signs Vital Signs Date Time Temp Pulse Resp B/P (MAP) Pulse Ox O2 Delivery O2 Flow Rate FiO2 05/28/17 07:00 98.6 66 18 114/59 (77) 96 Room Air 98.6 05/28/17 03:54 98.7 65 16 124/62 (82) 95 Room Air 98.7 05/27/17 23:49 98.2 64 16 123/72 (89) 95 Room Air 98.2 05/27/17 20:00 Room Air 05/27/17 19:47 98.2 65 16 102/56 (71) 95 Room Air 98.2 05/27/17 15:00 98.0 68 22 114/76 (89) 98 Room Air 98.0 05/27/17 11:00 98.0 68 22 130/72 (91) 97 98.0 I & O Intake and Output 05/28/17 07:00 Intake Total 1110 ml Output Total 450 ml Balance 660 ml Intake Oral 1110 ml Output Urine Total 450 ml JEFFRY BACA MD May 28, 2017 08:27
[2017-05-28] MEDS: DONEPEZIL HCL 5 MG TABLET. PO SCH (08:45)
[2017-05-28] MEDS: MEMANTINE 5 MG TABLET. PO SCH (08:45)
[2017-05-28] MEDS: POLYETHYLENE GLYCOL 3350 17 GM PACKET. PO SCH (08:45)
--- NOTE | 2017-05-28 09:21 | PDOC ---
PROGRESS NOTES Subjective Subjective He had no new complaints. Objective Objective Vital Signs Date Time Temp Pulse Resp B/P (MAP) Pulse Ox O2 Delivery O2 Flow Rate FiO2 05/28/17 07:00 98.6 66 18 114/59 (77) 96 Room Air 98.6 05/24/17 08:00 2.0 Intake and Output 05/28/17 06:59 Intake Total 1110 ml Output Total 450 ml Balance 660 ml Intake Oral 1110 ml Output Urine Total 450 ml Physical Exam Physical Exam He is awake and talking and his at bedside. Assessment Assessment Problems Medical Problems: (1) Confusion Status: Acute (2) Lumbar compression fracture Status: Acute (3) Malaise and fatigue Status: Acute (4) Weakness generalized Status: Acute Plan Plan of Care To SNF for continued care later on today. Comment Review of Relevant I have reviewed the following items betsy (where applicable) has been applied. Labs Laboratory Tests Test 05/26/17 09:55 White Blood Count 10.9 x10^3/uL (4.0-11.0) Red Blood Count 2.80 x10^6/uL (4.30-5.70) Hemoglobin 8.7 g/dL (13.0-17.5) Hematocrit 24.8 % (39.0-53.0) Mean Corpuscular Volume 89 fL (79-100) Mean Corpuscular Hemoglobin 31 pg (25-35) Mean Corpuscular Hemoglobin Concent 35 g/dL (31-37) Red Cell Distribution Width 14.7 % (11.5-14.5) Platelet Count 574 x10^3/uL (140-400) Sodium Level 144 mmol/L (136-145) Potassium Level 3.7 mmol/L (3.5-5.1) Chloride Level 108 mmol/L (98-107) Carbon Dioxide Level 31 mmol/L (21-32) Anion Gap 5 (6-14) Blood Urea Nitrogen 15 mg/dL (8-26) Creatinine 1.0 mg/dL (0.7-1.3) Estimated GFR (Cockcroft-Gault) 72.8 Glucose Level 103 mg/dL (70-99) Calcium Level 8.3 mg/dL (8.5-10.1) Microbiology 05/23/17 Blood Culture - Preliminary, Resulted NO GROWTH AFTER 4 DAYS 05/19/17 Urine Culture - Final, Complete 05/19/17 Urine Culture Result 1 (BIENVENIDO) - Final, Complete 05/19/17 Antimicrobic Susceptibility - Final, Complete Medications Current Medications Sodium Chloride 500 ml @ 500 mls/hr 1X ONCE IV Last administered on 10:24; Start 05/19/17 at 10:30; Stop 05/19/17 at 11:29; Status DC Iohexol (Omnipaque 300 Mg/ml) 50 ml 1X ONCE IV ; Start 05/19/17 at 13:00; Stop 05/19/17 at 13:01; Status DC Info (Do NOT chart on this entry -- for MONITORING) 1 each PRN DAILY PRN MC SEE COMMENTS; Start 05/19/17 at 13:00; Stop 05/21/17 at 12:59; Status DC Ondansetron HCl (Zofran) 4 mg PRN Q8HRS PRN IV NAUSEA/VOMITING; Start 05/19/17 at 13:00; Stop 05/20/17 at 12:59; Status DC Morphine Sulfate 2 mg PRN Q2HR PRN IV PAIN Last administered on 05/20/17 08:18 ; Start 05/19/17 at 13:00; Stop 05/20/17 at 12:59; Status DC Sodium Chloride 1,000 ml @ 125 mls/hr Q8H IV Last administered on 05/20/17 06 :29; Start 05/19/17 at 12:49; Stop 05/20/17 at 12:48; Status DC Vancomycin HCl (Vanco Per Pharmacy) 1 each PRN DAILY PRN MC SEE COMMENTS Last administered on 05/21/17 13:20; Start 05/19/17 at 13:00; Stop 05/22/17 at 08:43 ; Status DC Piperacillin Sod/ Tazobactam Sod (Zosyn Per Pharmacy) 1 each PRN DAILY PRN MC SEE COMMENTS; Start 05/19/17 at 13:00; Stop 05/21/17 at 08:27; Status DC Piperacillin Sod/ Tazobactam Sod 3.375 gm/Sodium Chloride 50 ml @ 100 mls/hr 1X ONCE IV Last administered on 05/19/17 16:13; Start 05/19/17 at 13:00; Stop 05/19/17 at 13:29; Status DC Vancomycin HCl 1.75 gm/Sodium Chloride 500 ml @ 250 mls/hr 1X ONCE IV Last administered on 05/19/17 13:06; Start 05/19/17 at 13:00; Stop 05/19/17 at 14:59 ; Status DC Vancomycin HCl 1.25 gm/Sodium Chloride 250 ml @ 167 mls/hr Q24H IV Last administered on 05/20/17 13:48; Start 05/20/17 at 13:00; Stop 05/21/17 at 13:05 ; Status DC Vancomycin HCl 1 each 1X ONCE MC Last administered on 05/21/17 19:01; Start 05/21/17 at 12:30; Stop 05/21/17 at 12:31; Status DC Piperacillin Sod/ Tazobactam Sod 3.375 gm/Sodium Chloride 50 ml @ 100 mls/hr Q6HRS IV Last administered on 05/21/17 05:29; Start 05/19/17 at 23:00; Stop at 08:27; Status DC Acetaminophen (Tylenol) 650 mg PRN Q6HRS PRN PO fever/MILD pain Last administered on 05/27/17 12:59; Start 05/20/17 at 04:00 Levothyroxine Sodium (Synthroid) 125 mcg DAILY07 PO Last administered on 06:04; Start 05/20/17 at 07:30 Simvastatin (Zocor) 80 mg QHS PO Last administered on 05/27/17 21:06; Start at 21:00 Morphine Sulfate 2 mg PRN Q2HR PRN IV PAIN Last administered on 05/28/17 01:20 ; Start 05/20/17 at 14:15 Sodium Chloride 1,000 ml @ 75 mls/hr [id number] IV Last administered on 05:28; Start 05/20/17 at 15:00; Stop 05/21/17 at 10:54; Status DC Bisacodyl (Dulcolax Tab) 10 mg PRN DAILY PRN PO CONSTIPATION; Start 05/21/17 at 09:00 Bisacodyl (Dulcolax Supp) 10 mg PRN DAILY PRN [place] CONSTIPATION; Start 05/21/17 at 09:00 Senna/Docusate Sodium (Senna Plus) 1 tab PRN BID PRN PO CONSTIPATION Last administered on 05/21/17t 18:19; Start 05/21/17 at 09:00 Vancomycin HCl 1.5 gm/Sodium Chloride 500 ml @ 250 mls/hr Q18H IV Last administered on 05/22/17 07:57; Start 05/21/17 at 13:30; Stop 05/22/17 at 08:43 ; Status DC Vancomycin HCl 1 each 1X ONCE MC ; Start 05/23/17 at 01:00; Stop 05/23/17 at 01 :00; Status DC Ringer's Solution 1,000 ml @ 50 mls/hr Q20H IV ; Start 05/21/17 at 19:35; Stop 05/22/17 at 07:34; Status DC Fentanyl Citrate (Fentanyl 2ml Vial) 50 mcg PRN Q5MIN PRN IV Acute Pain; Start 05/21/17 at 19:45; Stop 05/22/17 at 19:44; Status DC Morphine Sulfate 4 mg PRN Q10MIN PRN IV Moderate Pain; Start 05/21/17 at 19:45 ; Stop 05/22/17 at 19:44; Status DC Hydromorphone HCl (Dilaudid) 0.4 mg PRN Q10MIN PRN IV Moderate to severe pain; Start 05/21/17 at 19:45; Stop 05/22/17 at 19:44; Status DC Meperidine HCl (Demerol) 12.5 mg PRN Q5MIN PRN IV SHIVERING; Start 05/21/17 at 19:45; Stop 05/22/17 at 19:44; Status DC Prochlorperazine Edisylate (Compazine) 5 mg PRN Q6HRS PRN IV Nausea/Vomiting, 1st Choice; Start 05/21/17 at 19:45; Stop 05/22/17 at 19:44; Status DC Diphenhydramine HCl (Benadryl) 12.5 mg PRN Q2HR PRN IV ITCHING; Start 05/21/17 at 19:45; Stop 05/22/17 at 19:44; Status DC Cefazolin Sodium 2 gm/Sodium Chloride 50 ml @ 100 mls/hr Q8HRS IV ; Start 05/22 at 09:00; Stop 05/22/17 at 09:08; Status DC Cefazolin Sodium/ Dextrose 50 ml @ 100 mls/hr Q8HRS IV ; Start 05/22/17 at 09: 15; Stop 05/22/17 at 10:20; Status DC Cefazolin Sodium/ Dextrose 50 ml @ 100 mls/hr Q8HRS IV Last administered on 06:05; Start 05/22/17 at 09:45 Propofol 50 ml @ As Directed STK-MED ONCE IV ; Start 05/22/17 at 12:14; Stop at 12:15; Status DC Propofol 20 ml @ As Directed STK-MED ONCE IV ; Start 05/22/17 at 12:14; Stop at 12:15; Status DC Lidocaine/Sodium Bicarbonate (Buffered Lidocaine 1%) 20 ml STK-MED ONCE IJ ; Start 05/22/17 at 13:09; Stop 05/22/17 at 13:10; Status DC Iohexol (Omnipaque 300 Mg/ml) 50 ml STK-MED ONCE .ROUTE ; Start 05/22/17 at 13: 09; Stop 05/22/17 at 13:10; Status DC Cefazolin Sodium 50 ml @ As Directed STK-MED ONCE IV ; Start 05/22/17 at 13:29; Stop 05/22/17 at 13:30; Status DC Ketorolac Tromethamine (Toradol) 30 mg 1X PRN PRN IV MODERATE PAIN Last administered on 05/22/17 14:54; Start 05/22/17 at 14:30; Stop 05/27/17 at 14:29 ; Status DC Lidocaine/Sodium Bicarbonate (Buffered Lidocaine 1%) 3 ml 1X ONCE IJ Last administered on 05/22/17 14:33; Start 05/22/17 at 14:45; Stop 05/22/17 at 14:46 ; Status DC Iohexol (Omnipaque 300 Mg/ml) 10 ml 1X ONCE INT CAT Last administered on 14:33; Start 05/22/17 at 14:45; Stop 05/22/17 at 14:46; Status DC Info (Do NOT chart on this entry -- for MONITORING) 1 each PRN DAILY PRN MC SEE COMMENTS; Start 05/22/17 at 14:45; Stop 05/24/17 at 14:45; Status DC Ephedrine Sulfate 50 mg STK-MED ONCE IV ; Start 05/22/17 at 12:00; Stop at 12:46; Status DC Potassium Chloride (Klor-Con) 20 meq 1X ONCE PO Last administered on 08:39; Start 05/25/17 at 08:00; Stop 05/25/17 at 08:01; Status DC Potassium Chloride (Klor-Con) 20 meq 1X ONCE PO Last administered on 17:51; Start 05/25/17 at 17:00; Stop 05/25/17 at 17:01; Status DC Polyethylene Glycol (miraLAX PACKET) 17 gm DAILY PO Last administered on 08:45; Start 05/25/17 at 09:00 Donepezil HCl (Aricept) 5 mg DAILY PO Last administered on 05/28/17 08:45; Start 05/27/17 at 13:00 Memantine (Namenda) 5 mg DAILY PO Last administered on 05/28/17 08:45; Start at 13:00 Active Scripts Active Reported Aspir 81 (Aspirin) 81 Mg Tablet. 81 Mg PO Simvastatin 80 Mg Tablet 80 Mg PO DAILY Levothyroxine Sodium 125 Mcg Tablet 125 Mcg PO DAILYAC Vitals/I & O Vital Sign - Last 24 Hours 05/27/17 05/27/17 05/27/17 05/27/17 11:00 15:00 19:47 20:00 Temp 98.0 98.0 98.2 98.0 98.0 98.2 Pulse 68 68 65 Resp 22 22 16 B/P (MAP) 130/72 (91) 114/76 (89) 102/56 (71) Pulse Ox 97 98 95 O2 Delivery Room Air Room Air Room Air 05/27/17 05/28/17 05/28/17 23:49 03:54 07:00 Temp 98.2 98.7 98.6 98.2 98.7 98.6 Pulse 64 65 66 Resp 16 16 18 B/P (MAP) 123/72 (89) 124/62 (82) 114/59 (77) Pulse Ox 95 95 96 O2 Delivery Room Air Room Air Room Air Intake and Output 05/27/17 05/27/17 05/28/17 14:59 22:59 06:59 Intake Total 480 ml 480 ml 150 ml Output Total 450 ml Balance 480 ml 480 ml -300 ml WILNER DUMONT MD May 28, 2017 09:21
--- NOTE | 2017-05-28 09:34 | PDOC ---
Infectious Disease Note Subjective Subjective Feeling good ROS ROS GEN: Denies fevers, chills, sweats HEENT: Denies blurred vision, sore throat CV: Denies chest pain RESP: Denies shortness of air, cough GI: Denies n/v/d NEURO: Denies confusion, dizziness MSK: Denies weakness, joint pain/swelling Vital Sign Vital Signs Vital Signs Date Time Temp Pulse Resp B/P (MAP) Pulse Ox O2 Delivery O2 Flow Rate FiO2 05/28/17 07:00 98.6 66 18 114/59 (77) 96 Room Air 98.6 Physical Exam PHYSICAL EXAM GENERAL: NAD, Alert HEENT: PERRL, OC/OP NECK: Supple, no JVD, no LN LUNGS: Clear HEART: S1S2, no gallop, no murmur ABD: Soft, NT, no organomegaly, no rebound EXT: No edema, no cyanosis [employer]: Alert, oriented x 3, no focal neurologic deficit SKIN: No rash IV: ok Objective Assessment MSSA Sepsis POA, 05/19. Repeat cults NGTD, 05/23 Left perinephritic fluid, ? pyelitis 05/19 + MSSA in urine. CT reviewed 05/23 and stable h/o bladder tumors s/p TURBT and J-J stent placement at [facility] a month ago. - 3 days of antibiotics post removal of Tineo about 2 weeks later. Acute encephalopathy - better already per [facility]LIE -better Transaminitis Acute compression fracture, L4 s/p Kyphoplasty 05/22 MS, 47 year history Plan Plan of Care Continue Cefazolin Repeat blood cults NGTD, 05/23 ECHO pending Will need PICC for long-term antibiotics Monitor labs Likely needs Left stent removed. D/w f/u with us in 2 wks wkly cbc, bun/cr fax to [phone] CELINA MIRZA MD May 28, 2017 09:34
[2017-05-28 11:00] VITALS: BP 93/59
--- NOTE | 2017-05-28 14:12 | PDOC ---
PROGRESS NOTES Assessment Problems Medical Problems: (1) Confusion Status: Acute (2) Lumbar compression fracture Status: Acute (3) Malaise and fatigue Status: Acute (4) Weakness generalized Status: Acute Metabolic encephalopathy. Prior dementia Acute L-4 compression fracture, S/P kyphoplasty. Bladder tumor and left ureteral stent Plan SNU F/U c neurology PRN, is satisfied with dementia care from Dr. Garcia Subjective No complaints Objective Vital Signs Date Time Temp Pulse Resp B/P (MAP) Pulse Ox O2 Delivery O2 Flow Rate FiO2 05/28/17 11:00 97.9 63 20 93/59 (70) 95 Room Air 97.9 Intake and Output 05/28/17 06:59 Intake Total 1110 ml Output Total 450 ml Balance 660 ml Intake Oral 1110 ml Output Urine Total 450 ml PHYSICAL EXAM Alert. Oriented to person, does not know location or date PERRL. EOMI. CN: no focal findings. Muscle tone: normal. Muscle strength: 4/5 DTR: 1+ Plantar reflex: Flexor Gait: not examined in bed. Sensory exam: no abnormal findings. No cerebellar signs elicited. Review of Relevant I have reviewed the following items betsy (where applicable) has been applied. Labs Microbiology 05/23/17 Blood Culture - Final, Complete NO GROWTH AFTER 5 DAYS 05/19/17 Urine Culture - Final, Complete 05/19/17 Urine Culture Result 1 (BIENVENIDO) - Final, Complete 05/19/17 Antimicrobic Susceptibility - Final, Complete Medications Current Medications Sodium Chloride 500 ml @ 500 mls/hr 1X ONCE IV Last administered on t 10:24; Start 05/19/17 at 10:30; Stop 05/19/17 at 11:29; Status DC Iohexol (Omnipaque 300 Mg/ml) 50 ml 1X ONCE IV ; Start 05/19/17 at 13:00; Stop 05/19/17 at 13:01; Status DC Info (Do NOT chart on this entry -- for MONITORING) 1 each PRN DAILY PRN MC SEE COMMENTS; Start 05/19/17 at 13:00; Stop 05/21/17 at 12:59; Status DC Ondansetron HCl (Zofran) 4 mg PRN Q8HRS PRN IV NAUSEA/VOMITING; Start 05/19/17 at 13:00; Stop 05/20/17 at 12:59; Status DC Morphine Sulfate 2 mg PRN Q2HR PRN IV PAIN Last administered on 05/20/17 08:18 ; Start 05/19/17 at 13:00; Stop 05/20/17 at 12:59; Status DC Sodium Chloride 1,000 ml @ 125 mls/hr Q8H IV Last administered on 05/20/17 06 :29; Start 05/19/17 at 12:49; Stop 05/20/17 at 12:48; Status DC Vancomycin HCl (Vanco Per Pharmacy) 1 each PRN DAILY PRN MC SEE COMMENTS Last administered on 05/21/17 13:20; Start 05/19/17 at 13:00; Stop 05/22/17 at 08:43 ; Status DC Piperacillin Sod/ Tazobactam Sod (Zosyn Per Pharmacy) 1 each PRN DAILY PRN MC SEE COMMENTS; Start 05/19/17 at 13:00; Stop 05/21/17 at 08:27; Status DC Piperacillin Sod/ Tazobactam Sod 3.375 gm/Sodium Chloride 50 ml @ 100 mls/hr 1X ONCE IV Last administered on 05/19/17 16:13; Start 05/19/17 at 13:00; Stop 05/19/17 at 13:29; Status DC Vancomycin HCl 1.75 gm/Sodium Chloride 500 ml @ 250 mls/hr 1X ONCE IV Last administered on 05/19/17 13:06; Start 05/19/17 at 13:00; Stop 05/19/17 at 14:59 ; Status DC Vancomycin HCl 1.25 gm/Sodium Chloride 250 ml @ 167 mls/hr Q24H IV Last administered on 05/20/17 13:48; Start 05/20/17 at 13:00; Stop 05/21/17 at 13:05 ; Status DC Vancomycin HCl 1 each 1X ONCE MC Last administered on 05/21/17 19:01; Start 05/21/17 at 12:30; Stop 05/21/17 at 12:31; Status DC Piperacillin Sod/ Tazobactam Sod 3.375 gm/Sodium Chloride 50 ml @ 100 mls/hr Q6HRS IV Last administered on 05/21/17 05:29; Start 05/19/17 at 23:00; Stop at 08:27; Status DC Acetaminophen (Tylenol) 650 mg PRN Q6HRS PRN PO fever/MILD pain Last administered on 05/27/17 12:59; Start 05/20/17 at 04:00 Levothyroxine Sodium (Synthroid) 125 mcg DAILY07 PO Last administered on 06:04; Start 05/20/17 at 07:30 Simvastatin (Zocor) 80 mg QHS PO Last administered on 05/27/17 21:06; Start at 21:00 Morphine Sulfate 2 mg PRN Q2HR PRN IV PAIN Last administered on 05/28/17 01:20 ; Start 05/20/17 at 14:15 Sodium Chloride 1,000 ml @ 75 mls/hr [id number] IV Last administered on 05:28; Start 05/20/17 at 15:00; Stop 05/21/17 at 10:54; Status DC Bisacodyl (Dulcolax Tab) 10 mg PRN DAILY PRN PO CONSTIPATION; Start 05/21/17 at 09:00 Bisacodyl (Dulcolax Supp) 10 mg PRN DAILY PRN [place] CONSTIPATION; Start 05/21/17 at 09:00 Senna/Docusate Sodium (Senna Plus) 1 tab PRN BID PRN PO CONSTIPATION Last administered on 05/21/17 18:19; Start 05/21/17 at 09:00 Vancomycin HCl 1.5 gm/Sodium Chloride 500 ml @ 250 mls/hr Q18H IV Last administered on 05/22/17 07:57; Start 05/21/17 at 13:30; Stop 05/22/17 at 08:43 ; Status DC Vancomycin HCl 1 each 1X ONCE MC ; Start 05/23/17 at 01:00; Stop 05/23/17 at 01 :00; Status DC Ringer's Solution 1,000 ml @ 50 mls/hr Q20H IV ; Start 05/21/17 at 19:35; Stop 05/22/17 at 07:34; Status DC Fentanyl Citrate (Fentanyl 2ml Vial) 50 mcg PRN Q5MIN PRN IV Acute Pain; Start 05/21/17 at 19:45; Stop 05/22/17 at 19:44; Status DC Morphine Sulfate 4 mg PRN Q10MIN PRN IV Moderate Pain; Start 05/21/17 at 19:45 ; Stop 05/22/17 at 19:44; Status DC Hydromorphone HCl (Dilaudid) 0.4 mg PRN Q10MIN PRN IV Moderate to severe pain; Start 05/21/17 at 19:45; Stop 05/22/17 at 19:44; Status DC Meperidine HCl (Demerol) 12.5 mg PRN Q5MIN PRN IV SHIVERING; Start 05/21/17 at 19:45; Stop 05/22/17 at 19:44; Status DC Prochlorperazine Edisylate (Compazine) 5 mg PRN Q6HRS PRN IV Nausea/Vomiting, 1st Choice; Start 05/21/17 at 19:45; Stop 05/22/17 at 19:44; Status DC Diphenhydramine HCl (Benadryl) 12.5 mg PRN Q2HR PRN IV ITCHING; Start 05/21/17 at 19:45; Stop 05/22/17 at 19:44; Status DC Cefazolin Sodium 2 gm/Sodium Chloride 50 ml @ 100 mls/hr Q8HRS IV ; Start 05/22 at 09:00; Stop 05/22/17 at 09:08; Status DC Cefazolin Sodium/ Dextrose 50 ml @ 100 mls/hr Q8HRS IV ; Start 05/22/17 at 09: 15; Stop 05/22/17 at 10:20; Status DC Cefazolin Sodium/ Dextrose 50 ml @ 100 mls/hr Q8HRS IV Last administered on t 06:05; Start 05/22/17 at 09:45 Propofol 50 ml @ As Directed STK-MED ONCE IV ; Start 05/22/17 at 12:14; Stop at 12:15; Status DC Propofol 20 ml @ As Directed STK-MED ONCE IV ; Start 05/22/17 at 12:14; Stop at 12:15; Status DC Lidocaine/Sodium Bicarbonate (Buffered Lidocaine 1%) 20 ml STK-MED ONCE IJ ; Start 05/22/17 at 13:09; Stop 05/22/17 at 13:10; Status DC Iohexol (Omnipaque 300 Mg/ml) 50 ml STK-MED ONCE .ROUTE ; Start 05/22/17 at 13: 09; Stop 05/22/17 at 13:10; Status DC Cefazolin Sodium 50 ml @ As Directed STK-MED ONCE IV ; Start 05/22/17 at 13:29; Stop 05/22/17 at 13:30; Status DC Ketorolac Tromethamine (Toradol) 30 mg 1X PRN PRN IV MODERATE PAIN Last administered on 05/22/17 14:54; Start 05/22/17 at 14:30; Stop 05/27/17 at 14:29 ; Status DC Lidocaine/Sodium Bicarbonate (Buffered Lidocaine 1%) 3 ml 1X ONCE IJ Last administered on 05/22/17 14:33; Start 05/22/17 at 14:45; Stop 05/22/17 at 14:46 ; Status DC Iohexol (Omnipaque 300 Mg/ml) 10 ml 1X ONCE INT CAT Last administered on 14:33; Start 05/22/17 at 14:45; Stop 05/22/17 at 14:46; Status DC Info (Do NOT chart on this entry -- for MONITORING) 1 each PRN DAILY PRN MC SEE COMMENTS; Start 05/22/17 at 14:45; Stop 05/24/17 at 14:45; Status DC Ephedrine Sulfate 50 mg STK-MED ONCE IV ; Start 05/22/17 at 12:00; Stop at 12:46; Status DC Potassium Chloride (Klor-Con) 20 meq 1X ONCE PO Last administered on 08:39; Start 05/25/17 at 08:00; Stop 05/25/17 at 08:01; Status DC Potassium Chloride (Klor-Con) 20 meq 1X ONCE PO Last administered on 17:51; Start 05/25/17 at 17:00; Stop 05/25/17 at 17:01; Status DC Polyethylene Glycol (miraLAX PACKET) 17 gm DAILY PO Last administered on 08:45; Start 05/25/17 at 09:00 Donepezil HCl (Aricept) 5 mg DAILY PO Last administered on 05/28/17 08:45; Start 05/27/17 at 13:00 Memantine (Namenda) 5 mg DAILY PO Last administered on 05/28/17t 08:45; Start at 13:00 Active Scripts Active Reported Aspir 81 (Aspirin) 81 Mg Tablet.dr 81 Mg PO Simvastatin 80 Mg Tablet 80 Mg PO DAILY Levothyroxine Sodium 125 Mcg Tablet 125 Mcg PO DAILYAC Vitals/I & O Vital Sign - Last 24 Hours 05/27/17 05/27/17 05/27/17 05/27/17 15:00 19:47 20:00 23:49 Temp 98.0 98.2 98.2 98.0 98.2 98.2 Pulse 68 65 64 Resp 22 16 16 B/P (MAP) 114/76 (89) 102/56 (71) 123/72 (89) Pulse Ox 98 95 95 O2 Delivery Room Air Room Air Room Air Room Air 05/28/17 05/28/17 05/28/17 05/28/17 03:54 07:00 08:00 11:00 Temp 98.7 98.6 97.9 98.7 98.6 97.9 Pulse 65 66 63 Resp 16 18 20 B/P (MAP) 124/62 (82) 114/59 (77) 93/59 (70) Pulse Ox 95 96 95 O2 Delivery Room Air Room Air Room Air Room Air Intake and Output 05/27/17 05/27/17 05/28/17 14:59 22:59 06:59 Intake Total 480 ml 480 ml 150 ml Output Total 450 ml Balance 480 ml 480 ml -300 ml JERARDO BUCKLEY MD May 28, 2017 14:12
== END 2017-05-28 13:40 | DRG 853 ==
LOC: ER 09:56 → 6 SOUTH 12:46 → OBSVTOIN 05-20 07:05
PROVIDERS: ADMIT Family Medicine; ATTEND Family Medicine
PROC: 0QU03JZ Supplement Lumbar Vertebra with Synthetic Substitute, Percutaneous Approach (ICD-10-PCS; 2017-05-22)
PROC: 0QS03ZZ Reposition Lumbar Vertebra, Percutaneous Approach (ICD-10-PCS; principal; 2017-05-22 13:00)
DX: A41.01 Sepsis due to Methicillin susceptible Staphylococcus aureus (principal); G93.41 Metabolic encephalopathy; E43 Unspecified severe protein-calorie malnutrition; N17.9 Acute kidney failure, unspecified; J98.11 Atelectasis; M48.56XA Collapsed vertebra, not elsewhere classified, lumbar region, initial encounter for fracture; N39.0 Urinary tract infection, site not specified; D64.9 Anemia, unspecified; E03.9 Hypothyroidism, unspecified; E78.00 Pure hypercholesterolemia, unspecified; E78.5 Hyperlipidemia, unspecified; E87.6 Hypokalemia; F02.80 Dementia in other diseases classified elsewhere, unspecified severity, without behavioral disturbance, psychotic disturbance, mood disturbance, and anxiety; F17.210 Nicotine dependence, cigarettes, uncomplicated; G30.9 Alzheimer's disease, unspecified; G35 Multiple sclerosis; H40.9 Unspecified glaucoma; I10 Essential (primary) hypertension; M47.896 Other spondylosis, lumbar region; M48.06 Spinal stenosis, lumbar region; W19.XXXA Unspecified fall, initial encounter; Y92.009 Unspecified place in unspecified non-institutional (private) residence as the place of occurrence of the external cause; Z16.11 Resistance to penicillins; Z79.82 Long term (current) use of aspirin; Z80.6 Family history of leukemia; Z85.51 Personal history of malignant neoplasm of bladder; Z87.442 Personal history of urinary calculi; Z79.899 Other long term (current) drug therapy
CPT/HCPCS: 22514; 36415; 70450; 70551; 71010; 71250; 72148; 74176; 80048; 80053; 80076; 80202; 81001; 82274; 82550; 82607; 82728; 82746; 83540; 83550; 83605; 83690; 83880; 84443; 84484; 85007; 85027; 85610; 87040; 87086; 87186; 87205; 93005; 93306; 93970; 96361; 96374; C1758; G0378; G0379; J0690; J1885; J2270; J2543; J2704; J3370; J7030; J7040; J7050; Q9967; 97110; 97116; 97530; 97535; 99285-25

== ENCOUNTER 2017-05-31 15:00 | Inpatient (IN) | payer BC ==
[~2017-05-31] VITALS: Ht 175.3 cm; Wt 67.3 kg
[2017-05-31] VITALS (26 sets, daily range): BP systolic 91–114; BP diastolic 52–68
--- NOTE | 2017-05-31 15:20 | EKG ---
[facility] [address] [place] [address] Test Date: 2017-05-31 Test Time: 15:09:22 Pat Name: EVAN AMES Department: Room: Gender: M [employer] Player: : [id number] Requested By: KIM FIELD Order Number: [id number] Reading MD: Measurements Intervals [place] Rate: 77 P: 19 IN: 144 QRS: -37 QRSD: 108 T: 78 QT: 378 QTc: 430 Interpretive Statements SINUS RHYTHM ABNORMAL LEFT AXIS DEVIATION QRS(T) CONTOUR ABNORMALITY CONSISTENT WITH ANTEROSEPTAL INFARCT AGE UNDETERMINED T ABNORMALITY IN ANTERIOR LEADS LATERAL LEADS RI6.01 Unconfirmed report No previous ECG available for comparison
--- NOTE | 2017-05-31 15:31 | RAD ---
Indication confusion. Suspect CVA. Protocol study. A single view of the chest was obtained. Comparison is made to an examination 05/19/2017. There are probable background changes of emphysema or fibrosis. There is no heart failure or focal infiltrate. Significant pleural fluid is not seen. There is no pneumothorax. Right PICC line extends to the SVC right atrial junction. IMPRESSION: No acute or focal process is seen in the chest
[2017-05-31 15:38] LABS: BASO # 0.1 x10^3/uL (0.0-0.2); BASO % 1 % (0-3); EOS % 1 % (0-3); LYMPH # 2.2 x10^3/uL (1.0-4.8); LYMPH % 15 % (24-48); MEAN CORPUSCULAR HEMOGLOBIN 31 pg (25-35); MEAN CORPUSCULAR HGB CONC 33 g/dL (31-37); MEAN CORPUSCULAR VOLUME 93 fL (79-100); MONO % 6 % (0-9); NEUT % 76 % (31-73); PLATELET COUNT 396 x10^3/uL (140-400); RED BLOOD COUNT 1.63 x10^6/uL (4.30-5.70); RED CELL DISTRIBUTION WIDTH 16.8 % (11.5-14.5); WHITE BLOOD COUNT 14.2 x10^3/uL (4.0-11.0)
[2017-05-31 15:45] LABS: HEMATOCRIT 15.2 % (39.0-53.0)
--- NOTE | 2017-05-31 15:46 | PHYS DOC ---
Past Medical History Past Medical History: Cancer, Dementia, Glaucoma, Hypothyroid, Other Additional Past Medical Histor: MS,L4 FX,TBI,BLADDER CA Past Surgical History: Cancer Surgery, Other Additional Past Surgical Histo: tumors removed from bladder,BACK SURG,BLADDER STENT Alcohol Use: None Drug Use: None Adult General Chief Complaint Chief Complaint: ALTERED MENTAL STATUS HPI HPI 76-year-old male presenting to the emergency department today from a local [facility]. He was noted to have a hemoglobin around 5 and elevated white blood cells and sent here by ambulance for further evaluation. The patient reports generalized weakness. He reports intermittent confusion. He denies nausea vomiting abdominal pain or chest pain. Onset today. Location generalized. Duration intermittent. No alleviating factors present. Review of systems is negative for chest pain shortness of breath nausea vomiting fevers chills abdominal pain. All other review of systems is negative unless otherwise noted in history of present illness. ED course: 76-year-old gentleman presenting to the emergency department with significant anemia. Vital signs afebrile with a normal heart rate. Otherwise unremarkable. Pertinent physical exam findings showed the patient to be oriented to person and place. Patient is moving all extremities. Abdomen is soft and nontender. Lungs are clear to auscultation. Blood work obtained. Significantly low hemoglobin identified. Transfusion ordered. The patient was then admitted to our hospital for further evaluation workup and care. I discussed the case with Dr. Johnson our instrument room technician. The patient will be placed in the ICU given the level of hemoglobin. Review of Systems Review of Systems SEE ABOVE. Allergies Allergies Allergies Coded Allergies Type Severity Reaction Last Updated Verified No Known Drug Allergies 03/09/17 No Physical Exam Physical Exam SEE ABOVE Constitutional: Well developed, well nourished, no acute distress, non-toxic appearance. [] HENT: Normocephalic, atraumatic, bilateral external ears normal, oropharynx moist, no oral exudates, nose normal. [] Eyes: PERRLA, EOMI, conjunctiva normal, no discharge. [] Neck: Normal range of motion, no tenderness, supple, no stridor. [] Cardiovascular:Heart rate regular rhythm, no murmur [] Lungs & Thorax: Bilateral breath sounds clear to auscultation [] Abdomen: Bowel sounds normal, soft, no tenderness, no masses, no pulsatile masses. [] Skin: Warm, dry, no erythema, no rash. [] Back: No tenderness, no CVA tenderness. [] Extremities: No tenderness, no cyanosis, no clubbing, ROM intact, no edema. [] Neurologic: Alert, normal motor function, normal sensory function, no focal deficits noted. [] Psychologic: Affect normal, judgement normal, mood normal. [] Current Patient Data Vital Signs Vital Signs Date Time Temp Pulse Resp B/P (MAP) Pulse Ox O2 Delivery O2 Flow Rate FiO2 05/31/17 15:00 98.3 77 17 110/61 (77) 98 Room Air 98.3 Lab Values Laboratory Tests Test 05/31/17 15:11 05/31/17 15:21 05/31/17 15:39 05/31/17 15:55 Urine Collection Type Unknown Urine Color Straw Urine Clarity Clear Urine pH 5.5 Urine Specific [place] 1.010 Urine Protein Negative mg/dL (NEG-TRACE) Urine Glucose (UA) Negative mg/dL (NEG) Urine Ketones (Stick) Negative mg/dL (NEG) Urine Blood Moderate (NEG) Urine Nitrite Negative (NEG) Urine Bilirubin Negative (NEG) Urine Urobilinogen Dipstick 0.2 mg/dL (0.2 mg/dL) Urine Leukocyte Esterase Moderate (NEG) Urine RBC 3-5 /HPF (0-2) Urine WBC 5-10 /HPF (0-4) Urine Squamous Epithelial Cells Occ /LPF Urine Amorphous Sediment Present /HPF Urine Bacteria Few /HPF (0-FEW) White Blood Count 14.2 x10^3/uL (4.0-11.0) H Red Blood Count 1.63 x10^6/uL (4.30-5.70) L Hemoglobin 5.0 g/dL (13.0-17.5) Hematocrit 15.2 % (39.0-53.0) Mean Corpuscular Volume 93 fL (79-100) Mean Corpuscular Hemoglobin 31 pg (25-35) Mean Corpuscular Hemoglobin Concent 33 g/dL (31-37) Red Cell Distribution Width 16.8 % (11.5-14.5) H Platelet Count 396 x10^3/uL (140-400) Neutrophils (%) (Auto) 76 % (31-73) H Lymphocytes (%) (Auto) 15 % (24-48) L Monocytes (%) (Auto) 6 % (0-9) Eosinophils (%) (Auto) 1 % (0-3) Basophils (%) (Auto) 1 % (0-3) Neutrophils # (Auto) 10.9 x10^3uL (1.8-7.7) H Lymphocytes # (Auto) 2.2 x10^3/uL (1.0-4.8) Monocytes # (Auto) 0.9 x10^3/uL (0.0-1.1) Eosinophils # (Auto) 0.1 x10^3/uL (0.0-0.7) Basophils # (Auto) 0.1 x10^3/uL (0.0-0.2) Prothrombin Time 15.9 SEC (11.7-14.0) H Prothrombin Time INR 1.4 (0.8-1.1) H PTT 31 SEC (24-38) Sodium Level 144 mmol/L (136-145) Potassium Level 4.1 mmol/L (3.5-5.1) Chloride Level 109 mmol/L (98-107) H Carbon Dioxide Level 30 mmol/L (21-32) Anion Gap 5 (6-14) L Blood Urea Nitrogen 34 mg/dL (8-26) H Creatinine 1.0 mg/dL (0.7-1.3) Estimated GFR (Cockcroft-Gault) 72.8 Glucose Level 144 mg/dL (70-99) H Calcium Level 7.3 mg/dL (8.5-10.1) L Total Bilirubin 0.1 mg/dL (0.2-1.0) L Direct Bilirubin 0.1 mg/dL (0.0-0.2) Aspartate Amino Transferase (AST) 19 U/L (15-37) Alanine Aminotransferase (ALT) 11 U/L (16-63) L Alkaline Phosphatase 98 U/L (46-116) Troponin I Quantitative 0.028 ng/mL (0.000-0.055) Total Protein 5.2 g/dL (6.4-8.2) L Albumin 1.8 g/dL (3.4-5.0) L Lipase 183 U/L (73-393) Glucose (Fingerstick) 135 mg/dL (70-99) H Stool Occult Blood Positive (NEG) Laboratory Tests 05/31/17 15:21 Laboratory Tests 05/31/17 15:21 EKG EKG [] Radiology/Procedures Radiology/Procedures [] Course & Med Decision Making Course & Med Decision Making Pertinent Labs and Imaging studies reviewed. (See chart for details) [] Dragon Disclaimer Dragon Disclaimer This electronic medical record was generated, in whole or in part, using a voice recognition dictation system. Departure Departure Impression: Primary Impression: Anemia Additional Impressions: GI bleed Encephalopathy, metabolic Disposition: ADMITTED INPATIENT Admitting Physician: Rosibel Kerr Condition: STABLE Referrals: BELLA KERR MD (PCP) Critical Care Time Critical care time was [40] minutes exclusive of procedures. Time was spent evaluating the patient, ordering the administration of blood products, reevaluating the patient, discussing with the admitting provider and consulting providers, and documenting. Problem Qualifiers KIM FIELD MD May 31, 2017 15:46
[2017-05-31 15:49] LABS: INR 1.4 (0.8-1.1); PROTHROMBIN TIME PATIENT 15.9 SEC (11.7-14.0)
[2017-05-31 15:54] LABS: ALBUMIN 1.8 g/dL (3.4-5.0); CALCIUM 7.3 mg/dL (8.5-10.1); DIRECT BILIRUBIN 0.1 mg/dL (0.0-0.2); GFR 72.8; POTASSIUM 4.1 mmol/L (3.5-5.1); TOTAL BILIRUBIN 0.1 mg/dL (0.2-1.0); TOTAL PROTEIN 5.2 g/dL (6.4-8.2)
--- NOTE | 2017-05-31 15:59 | RAD ---
Indication change in mental status. Noncontrast images of the head were obtained. Comparison is made to an examination 2 weeks earlier. No acute or significant calvarial finding is seen. The visualized paranasal sinuses appear normal. There is no subdural or epidural hematoma. There is underlying atrophy. No hemorrhage mass or midline shift is seen. Acute finding is not seen. IMPRESSION: Chronic changes. No acute finding is seen PQRS Compliance Statement: One or more of the following individualized dose reduction techniques were utilized for this examination: 1. Automated exposure control 2. Adjustment of the mA and/or kV according to patient size 3. Use of iterative reconstruction technique
[2017-05-31 16:04] LABS: BILIRUBIN,URINE NEGATIVE (NEG); GLUCOSE,URINE NEGATIVE (NEG); NITRITE,URINE NEGATIVE (NEG); PH,URINE 5.5; PROTEIN,URINE NEGATIVE (NEG-TRACE); UROBILINOGEN,URINE 0.2 mg/dL (0.2 mg/dL)
[2017-05-31 16:05] LABS: BACTERIA,URINE FEW /HPF (0-FEW); SQUAMOUS EPITHELIAL CELL,UR OCC /LPF
[2017-05-31] MEDS ORDERED: IV NORMAL SALINE 500ML BAG 500 ML IV ONE (16:15)
[2017-05-31] MEDS ORDERED: FAMOTIDINE 20 MG/2 ML VIAL IVP ONE (16:15)
[2017-05-31 16:37] LABS: NEG OBC FOB NEG; POS OBC FOB POS
[2017-05-31] MEDS ORDERED: PHYTONADIONE (VIT K1) IV 10 MG in IV NORMAL SALINE 50ML 50 ML IV ONE (23:00)
[2017-06-01] VITALS (24 sets, daily range): BP systolic 84–121; BP diastolic 40–71
--- NOTE | 2017-06-01 02:27 | ACF ---
Admission Forms Criteria I am unable to edit this form. This patient was placed as observation status. This is the only avenue in our electronic medical record for me to document this. All of the above information is not my professional medical opinion. Admission Criteria Met?: Pending CHERRI SÁNCHEZ Jun 01, 2017 02:27 KIM FIELD MD Jun 05, 2017 03:56
[2017-06-01 06:32] LABS: CREATININE 0.9 mg/dL (0.7-1.3); GFR 82.3; POTASSIUM 4.1 mmol/L (3.5-5.1)
[2017-06-01 06:33] LABS: BASO # 0.2 x10^3/uL (0.0-0.2); BASO % 2 % (0-3); EOS % 3 % (0-3); HEMATOCRIT 29.8 % (39.0-53.0); HEMOGLOBIN 10.4 g/dL (13.0-17.5); LYMPH % 15 % (24-48); MEAN CORPUSCULAR HEMOGLOBIN 31 pg (25-35); MEAN CORPUSCULAR HGB CONC 35 g/dL (31-37); MEAN CORPUSCULAR VOLUME 88 fL (79-100); MONO % 8 % (0-9); NEUT % 73 % (31-73); PLATELET COUNT 301 x10^3/uL (140-400); RED BLOOD COUNT 3.38 x10^6/uL (4.30-5.70); RED CELL DISTRIBUTION WIDTH 15.5 % (11.5-14.5)
[2017-06-01] MEDS ORDERED: IV RINGERS,LACTATED 1000ML 1,000 ML IV SCH ×2 (06:54→07:44)
[2017-06-01] MEDS ORDERED: fentaNYL PF VIAL 100 MCG/2 ML VIAL IV PRN ×4 (07:00→07:45)
[2017-06-01] MEDS ORDERED: MIDAZOLAM HCL/PF 2 MG/2 ML VIAL. IV PRN (07:00)
[2017-06-01] MEDS ORDERED: LIDOCAINE 1% 1 ML SYRINGE. ID PRN ×2 (07:00→07:45)
[2017-06-01] MEDS ORDERED: PROPOFOL 20 ML IV ONE (07:13)
[2017-06-01 07:16] LABS: INR 1.3 (0.8-1.1); PROTHROMBIN TIME PATIENT 15.2 SEC (11.7-14.0)
[2017-06-01] MEDS ORDERED: HYDROmorphone 2 MG/ML VIAL IV PRN (07:45)
[2017-06-01] MEDS ORDERED: ONDANSETRON PF 4 MG/2 ML VIAL. IV PRN (07:45)
[2017-06-01] MEDS ORDERED: MORPHINE SULFATE 2 MG/ML DISP.SYRIN. IV PRN (07:45)
[2017-06-01] MEDS ORDERED: PROCHLORPERAZINE 10 MG/2 ML VIAL. IV PRN (07:45)
--- NOTE | 2017-06-01 07:47 | PDOC4 ---
Operative Note Operative Note EGD with bx Meds propofol per anesthesia Pre-op dx acute blood loss anemia/melena Post-op dx non-erosive gastritis s/p bx r/o h pylori duodenal ulcer posterior wall 1 st portion duodenum with clean base 1.5 cm diameter Plan acid suppressive therapy for 2 months clear liquids in am if Hg stable serial cbcs/transfusional support to maintain Hg > 8 FERNANDO RESENDIZ MD Jun 01, 2017 07:46
--- NOTE | 2017-06-01 08:58 | PDOC1 ---
History and Physical Date of Admission Date of Admission DATE: 06/01/17 TIME: 08:54 Identification/Chief Complaint Chief Complaint ANEMIA Problems: Source Source: Caregiver, Chart review, Patient History of Present Illness History of Present Illness [facility] after mental status changes brom UTI, bacteremia but had a mild progressive decline in his Hgb last admission but no abdominal pain but had black tarry stool and found to have Hgb of 5. Admitted to ICU and transfused and has now been to GI lab wher duodenal ulacer was found , currently NPO, he has been on ASA but again not having any epigastric pain Past Medical History Cardiovascular: No pertinent hx Pulmonary: No pertinent hx CENTRAL NERVOUS SYSTEM: Carpal Tunnel Syndrome, Other (MS diagnosed in 1970s) GI: No pertinent hx Heme/Onc: Anemia NOS Hepatobiliary: No pertinent hx Psych: Other (recent altered mental status likely from infection) Musculoskeletal: Weakness Rheumatologic: No pertinent hx Infectious disease: No pertinent hx ENT: No pertinent hx Renal/: UTI, Bladder Ca. Endocrine: Hypothyroidism Dermatology: No pertinent hx Past Surgical History Past Surgical History: No pertinent history Social History Smoke: 1 pack per day ALCOHOL: rare Drugs: None Current Problem List Problem List Problems Medical Problems: (1) Anemia Status: Acute Problems: Current Medications Current Medications Current Medications Sodium Chloride 500 ml @ 500 mls/hr 1X ONCE IV Last administered on 05/31/17 16:38; Start 05/31/17 at 16:15; Stop 05/31/17 at 17:14; Status DC Famotidine (Pepcid) 20 mg 1X ONCE IVP Last administered on 05/31/17 16:38; Start 05/31/17 at 16:15; Stop 05/31/17 at 16:16; Status DC Famotidine (Pepcid) 20 mg BID IVP ; Start 06/01/17 at 09:00 Levothyroxine Sodium 100 mcg/ Sodium Chloride 5 ml @ 100 mls/hr DAILY IVP ; Start 06/01/17 at 09:00 Phytonadione 10 mg/Sodium Chloride 51 ml @ 102 mls/hr 1X ONCE IV Last administered on 05/31/17 23:00; Start 05/31/17 at 23:00; Stop 05/31/17 at 23:29; Status DC Midazolam HCl (Versed) 2 mg PRN 1X PRN IV PRIOR TO PROCEDURE; Start 06/01/17 at 07:00; Stop 06/02/17 at 06:59 Fentanyl Citrate (Fentanyl 2ml Vial) 25 mcg PRN Q5MIN PRN IV X 2 DOSES FOR PAIN ; Start 06/01/17 at 07:00; Stop 06/02/17 at 06:59 Fentanyl Citrate (Fentanyl 2ml Vial) 50 mcg PRN Q5MIN PRN IV X 2 DOSES FOR PAIN ; Start 06/01/17 at 07:00; Stop 06/02/17 at 06:59 Ringer's Solution 1,000 ml @ 125 mls/hr Q8H IV Last administered on 06/01/17t 06:55; Start 06/01/17 at 06:54; Stop 06/01/17 at 18:53 Lidocaine HCl 2 ml 1X PRN PRN ID IV START; Start 06/01/17 at 07:00; Stop at 06:59 Propofol 20 ml @ As Directed STK-MED ONCE IV ; Start 06/01/17 at 07:13; Stop 06/01 at 07:14; Status DC Ondansetron HCl (Zofran) 4 mg PRN Q6HRS PRN IV NAUSEA/VOMITING; Start 06/01/17 at 07:45; Stop 06/02/17 at 07:44 Fentanyl Citrate (Fentanyl 2ml Vial) 25 mcg PRN Q5MIN PRN IV MILD PAIN; Start 06/01/17 at 07:45; Stop 06/02/17 at 07:44 Fentanyl Citrate (Fentanyl 2ml Vial) 50 mcg PRN Q5MIN PRN IV MODERATE PAIN; Start 06/01/17 at 07:45; Stop 06/02/17 at 07:44 Morphine Sulfate 1 mg PRN Q10MIN PRN IV SEVERE PAIN; Start 06/01/17 at 07:45; Stop 06/02/17 at 07:44 Ringer's Solution 1,000 ml @ 30 mls/hr Q24H IV ; Start 06/01/17 at 07:44; Stop 06/01/17 at 19:43 Lidocaine HCl 2 ml PRN 1X PRN ID PRIOR TO IV START; Start 06/01/17 at 07:45; Stop 06/02/17 at 07:44 Hydromorphone HCl (Dilaudid) 0.5 mg PRN Q10MIN PRN IV SEV PAIN, Second choice; Start 06/01/17 at 07:45; Stop 06/02/17 at 07:44 Prochlorperazine Edisylate (Compazine) 5 mg PACU PRN PRN IV NAUSEA, MRX1; Start 06/01/17 at 07:45; Stop 06/02/17 at 07:44 Active Scripts Active Reported Aspir 81 (Aspirin) 81 Mg Tablet.dr 81 Mg PO Simvastatin 80 Mg Tablet 80 Mg PO DAILY Levothyroxine Sodium 125 Mcg Tablet 125 Mcg PO DAILYAC Allergies Allergies: Coded Allergies: No Known Drug Allergies (Unverified , 06/01/17) UNKNOWN ROS General: YES: Fatigue, Malaise, Appetite PSYCHOLOGICAL ROS: No: Anxiety, Behavioral Disorder, Concentration difficultie , Decreased libido, Depression, Disorientation, Hallucinations, Hostility, Irritablity, Memory difficulties, Mood Swings, Obsessive thoughts, Physical abuse, Sexual abuse, Sleep disturbances, Suicidal ideation Eyes: No Blurry vision, No Decreased vision, No Double vision, No Dry eyes, No Excessive tearing, No Eye Pain, No Itchy Eyes, No Loss of vision, No Photophobia , No Scotomata, No Uses contacts, No Uses glasses HEENT: No: Heacaches, Visual Changes, Hearing change, Nasal congestion, Nasal discharge, Oral lesions, Sinus pain, Sore Throat, Epistaxis, Sneezing, Snoring, Tinnitus, Vertigo, Vocal changes ALLERGY AND IMMUNOLOGY: No: Hives, Insect Bite Sensitivity, Itchy/Watery Eyes, Nasal Congestion, Post Nasal Drip, Seasonal Allergies Hematological and Lymphatic: No: Bleeding Problems, Blood Clots, Blood Transfusions, Brusing, Night Sweats, Pallor, Swollen Lymph Nodes ENDOCRINE: No: Breast Changes, Galactorrhea, Hair Pattern Changes, Hot Flashes , Malaise/lethargy, Mood Swings, Palpitations, Polydipsia/polyuria, Skin Changes , Temperature Intolerance, Unexpected Weight Changes Respiratory: No: Cough, Hemoptysis, Orthopnea, Pleuritic Pain, Shortness of breath, SOB with excertion, Sputum Changes, Stridor, Tachypnea, Wheezing Cardiovascular: No Chest Pain, No Palpitations, No Orthopnea, No Paroxysmal Noc. Dyspnea, No Edema, No Lt Headedness Gastrointestinal: Yes Melena Genitourinary: YES Frequency Musculoskeletal: Yes Gait Disturbance, Yes Joint Pain, Yes Joint Stiffness, Yes Muscular Weakness Neurological: Yes Behavorial Changes, Yes Confusion, Yes Impaired Coord/balance , Yes Weakness Skin: Yes Dry Skin Physical Exam General: Alert, Oriented X3, Cooperative HEENT: Atraumatic Lungs: Clear to auscultation Heart: RRR, no murmurs Abdomen: Normal bowel sounds, Soft, No tenderness, No hepatosplenomegaly, No masses Male Genitals Exam: normal genitalia Rectal Exam: not examined Extremities: No clubbing, No cyanosis Skin: No breakdown Psych/Mental Status: Mood NL Vitals Vitals Vital Signs Date Time Temp Pulse Resp B/P (MAP) Pulse Ox O2 Delivery O2 Flow Rate FiO2 06/01/17 08:18 59 20 113/64 98 Room Air 06/01/17 07:47 98.0 98.0 Labs Labs Laboratory Tests Test 05/31/17 15:11 05/31/17 15:21 05/31/17 15:39 05/31/17 15:55 Urine Collection Type Unknown Urine Color Straw Urine Clarity Clear Urine pH 5.5 Urine Specific [place] 1.010 Urine Protein Negative mg/dL (NEG-TRACE) Urine Glucose (UA) Negative mg/dL (NEG) Urine Ketones (Stick) Negative mg/dL (NEG) Urine Blood Moderate (NEG) Urine Nitrite Negative (NEG) Urine Bilirubin Negative (NEG) Urine Urobilinogen Dipstick 0.2 mg/dL (0.2 mg/dL) Urine Leukocyte Esterase Moderate (NEG) Urine RBC 3-5 /HPF (0-2) Urine WBC 5-10 /HPF (0-4) Urine Squamous Epithelial Cells Occ /LPF Urine Amorphous Sediment Present /HPF Urine Bacteria Few /HPF (0-FEW) White Blood Count 14.2 x10^3/uL (4.0-11.0) Red Blood Count 1.63 x10^6/uL (4.30-5.70) Hemoglobin 5.0 g/dL (13.0-17.5) Hematocrit 15.2 % (39.0-53.0) Mean Corpuscular Volume 93 fL (79-100) Mean Corpuscular Hemoglobin 31 pg (25-35) Mean Corpuscular Hemoglobin Concent 33 g/dL (31-37) Red Cell Distribution Width 16.8 % (11.5-14.5) Platelet Count 396 x10^3/uL (140-400) Neutrophils (%) (Auto) 76 % (31-73) Lymphocytes (%) (Auto) 15 % (24-48) Monocytes (%) (Auto) 6 % (0-9) Eosinophils (%) (Auto) 1 % (0-3) Basophils (%) (Auto) 1 % (0-3) Neutrophils # (Auto) 10.9 x10^3uL (1.8-7.7) Lymphocytes # (Auto) 2.2 x10^3/uL (1.0-4.8) Monocytes # (Auto) 0.9 x10^3/uL (0.0-1.1) Eosinophils # (Auto) 0.1 x10^3/uL (0.0-0.7) Basophils # (Auto) 0.1 x10^3/uL (0.0-0.2) Prothrombin Time 15.9 SEC (11.7-14.0) Prothromb Time International Ratio 1.4 (0.8-1.1) Activated Partial Thromboplast Time 31 SEC (24-38) Sodium Level 144 mmol/L (136-145) Potassium Level 4.1 mmol/L (3.5-5.1) Chloride Level 109 mmol/L (98-107) Carbon Dioxide Level 30 mmol/L (21-32) Anion Gap 5 (6-14) Blood Urea Nitrogen 34 mg/dL (8-26) Creatinine 1.0 mg/dL (0.7-1.3) Estimated GFR (Cockcroft-Gault) 72.8 Glucose Level 144 mg/dL (70-99) Calcium Level 7.3 mg/dL (8.5-10.1) Total Bilirubin 0.1 mg/dL (0.2-1.0) Direct Bilirubin 0.1 mg/dL (0.0-0.2) Aspartate Amino Transf (AST/SGOT) 19 U/L (15-37) Alanine Aminotransferase (ALT/SGPT) 11 U/L (16-63) Alkaline Phosphatase 98 U/L (46-116) Troponin I Quantitative 0.028 ng/mL (0.000-0.055) Total Protein 5.2 g/dL (6.4-8.2) Albumin 1.8 g/dL (3.4-5.0) Lipase 183 U/L (73-393) Glucose (Fingerstick) 135 mg/dL (70-99) Stool Occult Blood Positive (NEG) Test 06/01/17 01:30 06/01/17 05:51 Hemoglobin 10.0 g/dL (13.0-17.5) 10.4 g/dL (13.0-17.5) White Blood Count 13.0 x10^3/uL (4.0-11.0) Red Blood Count 3.38 x10^6/uL (4.30-5.70) Hematocrit 29.8 % (39.0-53.0) Mean Corpuscular Volume 88 fL (79-100) Mean Corpuscular Hemoglobin 31 pg (25-35) Mean Corpuscular Hemoglobin Concent 35 g/dL (31-37) Red Cell Distribution Width 15.5 % (11.5-14.5) Platelet Count 301 x10^3/uL (140-400) Neutrophils (%) (Auto) 73 % (31-73) Lymphocytes (%) (Auto) 15 % (24-48) Monocytes (%) (Auto) 8 % (0-9) Eosinophils (%) (Auto) 3 % (0-3) Basophils (%) (Auto) 2 % (0-3) Neutrophils # (Auto) 9.4 x10^3uL (1.8-7.7) Lymphocytes # (Auto) 2.0 x10^3/uL (1.0-4.8) Monocytes # (Auto) 1.0 x10^3/uL (0.0-1.1) Eosinophils # (Auto) 0.4 x10^3/uL (0.0-0.7) Basophils # (Auto) 0.2 x10^3/uL (0.0-0.2) Prothrombin Time 15.2 SEC (11.7-14.0) Prothromb Time International Ratio 1.3 (0.8-1.1) Sodium Level 142 mmol/L (136-145) Potassium Level 4.1 mmol/L (3.5-5.1) Chloride Level 109 mmol/L (98-107) Carbon Dioxide Level 27 mmol/L (21-32) Anion Gap 6 (6-14) Blood Urea Nitrogen 23 mg/dL (8-26) Creatinine 0.9 mg/dL (0.7-1.3) Estimated GFR (Cockcroft-Gault) 82.3 Glucose Level 85 mg/dL (70-99) Calcium Level 8.0 mg/dL (8.5-10.1) Laboratory Tests Test 05/31/17 15:11 05/31/17 15:21 05/31/17 15:39 05/31/17 15:55 Urine Collection Type Unknown Urine Color Straw Urine Clarity Clear Urine pH 5.5 Urine Specific [place] 1.010 Urine Protein Negative mg/dL (NEG-TRACE) Urine Glucose (UA) Negative mg/dL (NEG) Urine Ketones (Stick) Negative mg/dL (NEG) Urine Blood Moderate (NEG) Urine Nitrite Negative (NEG) Urine Bilirubin Negative (NEG) Urine Urobilinogen Dipstick 0.2 mg/dL (0.2 mg/dL) Urine Leukocyte Esterase Moderate (NEG) Urine RBC 3-5 /HPF (0-2) Urine WBC 5-10 /HPF (0-4) Urine Squamous Epithelial Cells Occ /LPF Urine Amorphous Sediment Present /HPF Urine Bacteria Few /HPF (0-FEW) White Blood Count 14.2 x10^3/uL (4.0-11.0) Red Blood Count 1.63 x10^6/uL (4.30-5.70) Hemoglobin 5.0 g/dL (13.0-17.5) Hematocrit 15.2 % (39.0-53.0) Mean Corpuscular Volume 93 fL (79-100) Mean Corpuscular Hemoglobin 31 pg (25-35) Mean Corpuscular Hemoglobin Concent 33 g/dL (31-37) Red Cell Distribution Width 16.8 % (11.5-14.5) Platelet Count 396 x10^3/uL (140-400) Neutrophils (%) (Auto) 76 % (31-73) Lymphocytes (%) (Auto) 15 % (24-48) Monocytes (%) (Auto) 6 % (0-9) Eosinophils (%) (Auto) 1 % (0-3) Basophils (%) (Auto) 1 % (0-3) Neutrophils # (Auto) 10.9 x10^3uL (1.8-7.7) Lymphocytes # (Auto) 2.2 x10^3/uL (1.0-4.8) Monocytes # (Auto) 0.9 x10^3/uL (0.0-1.1) Eosinophils # (Auto) 0.1 x10^3/uL (0.0-0.7) Basophils # (Auto) 0.1 x10^3/uL (0.0-0.2) Prothrombin Time 15.9 SEC (11.7-14.0) Prothromb Time International Ratio 1.4 (0.8-1.1) Activated Partial Thromboplast Time 31 SEC (24-38) Sodium Level 144 mmol/L (136-145) Potassium Level 4.1 mmol/L (3.5-5.1) Chloride Level 109 mmol/L (98-107) Carbon Dioxide Level 30 mmol/L (21-32) Anion Gap 5 (6-14) Blood Urea Nitrogen 34 mg/dL (8-26) Creatinine 1.0 mg/dL (0.7-1.3) Estimated GFR (Cockcroft-Gault) 72.8 Glucose Level 144 mg/dL (70-99) Calcium Level 7.3 mg/dL (8.5-10.1) Total Bilirubin 0.1 mg/dL (0.2-1.0) Direct Bilirubin 0.1 mg/dL (0.0-0.2) Aspartate Amino Transf (AST/SGOT) 19 U/L (15-37) Alanine Aminotransferase (ALT/SGPT) 11 U/L (16-63) Alkaline Phosphatase 98 U/L (46-116) Troponin I Quantitative 0.028 ng/mL (0.000-0.055) Total Protein 5.2 g/dL (6.4-8.2) Albumin 1.8 g/dL (3.4-5.0) Lipase 183 U/L (73-393) Glucose (Fingerstick) 135 mg/dL (70-99) Stool Occult Blood Positive (NEG) Test 06/01/17 01:30 06/01/17 05:51 Hemoglobin 10.0 g/dL (13.0-17.5) 10.4 g/dL (13.0-17.5) White Blood Count 13.0 x10^3/uL (4.0-11.0) Red Blood Count 3.38 x10^6/uL (4.30-5.70) Hematocrit 29.8 % (39.0-53.0) Mean Corpuscular Volume 88 fL (79-100) Mean Corpuscular Hemoglobin 31 pg (25-35) Mean Corpuscular Hemoglobin Concent 35 g/dL (31-37) Red Cell Distribution Width 15.5 % (11.5-14.5) Platelet Count 301 x10^3/uL (140-400) Neutrophils (%) (Auto) 73 % (31-73) Lymphocytes (%) (Auto) 15 % (24-48) Monocytes (%) (Auto) 8 % (0-9) Eosinophils (%) (Auto) 3 % (0-3) Basophils (%) (Auto) 2 % (0-3) Neutrophils # (Auto) 9.4 x10^3uL (1.8-7.7) Lymphocytes # (Auto) 2.0 x10^3/uL (1.0-4.8) Monocytes # (Auto) 1.0 x10^3/uL (0.0-1.1) Eosinophils # (Auto) 0.4 x10^3/uL (0.0-0.7) Basophils # (Auto) 0.2 x10^3/uL (0.0-0.2) Prothrombin Time 15.2 SEC (11.7-14.0) Prothromb Time International Ratio 1.3 (0.8-1.1) Sodium Level 142 mmol/L (136-145) Potassium Level 4.1 mmol/L (3.5-5.1) Chloride Level 109 mmol/L (98-107) Carbon Dioxide Level 27 mmol/L (21-32) Anion Gap 6 (6-14) Blood Urea Nitrogen 23 mg/dL (8-26) Creatinine 0.9 mg/dL (0.7-1.3) Estimated GFR (Cockcroft-Gault) 82.3 Glucose Level 85 mg/dL (70-99) Calcium Level 8.0 mg/dL (8.5-10.1) VTE Prophylaxis Ordered VTE Prophylaxis Devices: Yes VTE Pharmacological Prophylaxi: Contraindicated Assessment/Plan Assessment/Plan upper GI bleed - duodenal ulcer with acute blood loss anemia, s/p transfusion and 2 units pRBC, GI has seen and EGD done, no active bleeding, will continue to be NPO and monitor in ICU, on IV Pepcid as IV pantoprazole not available, IV levothyroxine until can resume po dose, hold aspirin, hold statin BELLA KERR MD Jun 01, 2017 08:58
--- NOTE | 2017-06-01 09:02 | PDOC2 ---
GI CONSULT Reason For Consult: Melena, anemia HPI: HPI: 76 y/o male brought to ER from [facility] for anemia and dark stools. Discussed yesterday w/ ER physician and Dr. Velazquez. Dr. Mascorro saw him for anemia w/ low iron studies and hemoccult positive stool last weekend; he was due to transfer to rehab/[facility] that day and EGD/colonoscopy were recommended as outpatient. At discharge, Hgb was 8.7 compared to 5 in ER yesterday (now 10 s/ p transfusion). He and his are unsure re: black stools but he did describe some explosive diarrhea. Recent h/o confusion, falls, and weakness/ dizziness, recent kyphoplasty, and recent diagnosis of bladder cancer w/ tumor removal and urinary stent placement, developed infection and has PICC for atbx. Was on low-dose ASA, denies other NSAIDs. No h/o GERD. Last colonoscopy by Dr. Rahul Lindsey in 05/2005 w/ internal hemorrhoids. Per RN, no recurrent melena since admission. PMH: PMH: bladder cancer s/p tumor removal and urinary stent placement, MS, HLD, hypothyroidism, dementia, keratosis, kyphoplasty, cataract extraction FH: Family History: No pertinent hx Social History: Smoke: Quit ALCOHOL: none Drugs: None ROS: GEN: Denies fevers, chills, sweats HEENT: Denies blurred vision, sore throat CV: Denies chest pain RESP: Denies shortness of air, cough GI: Per HPI : Denies hematuria, dysuria ENDO: Denies weight changes NEURO: +confusion, dizziness MSK: +weakness +back pain SKIN: Denies jaundice, pruritus Vitals: Vitals: Vital Signs Date Time Temp Pulse Resp B/P (MAP) Pulse Ox O2 Delivery O2 Flow Rate FiO2 06/01/17 08:18 59 20 113/64 98 Room Air 06/01/17 07:47 98.0 98.0 Labs: Labs: Laboratory Tests Test 05/31/17 15:11 05/31/17 15:21 05/31/17 15:39 05/31/17 15:55 Urine Collection Type Unknown Urine Color Straw Urine Clarity Clear Urine pH 5.5 Urine Specific [place] 1.010 Urine Protein Negative mg/dL (NEG-TRACE) Urine Glucose (UA) Negative mg/dL (NEG) Urine Ketones (Stick) Negative mg/dL (NEG) Urine Blood Moderate (NEG) Urine Nitrite Negative (NEG) Urine Bilirubin Negative (NEG) Urine Urobilinogen Dipstick 0.2 mg/dL (0.2 mg/dL) Urine Leukocyte Esterase Moderate (NEG) Urine RBC 3-5 /HPF (0-2) Urine WBC 5-10 /HPF (0-4) Urine Squamous Epithelial Cells Occ /LPF Urine Amorphous Sediment Present /HPF Urine Bacteria Few /HPF (0-FEW) White Blood Count 14.2 x10^3/uL (4.0-11.0) Red Blood Count 1.63 x10^6/uL (4.30-5.70) Hemoglobin 5.0 g/dL (13.0-17.5) Hematocrit 15.2 % (39.0-53.0) Mean Corpuscular Volume 93 fL (79-100) Mean Corpuscular Hemoglobin 31 pg (25-35) Mean Corpuscular Hemoglobin Concent 33 g/dL (31-37) Red Cell Distribution Width 16.8 % (11.5-14.5) Platelet Count 396 x10^3/uL (140-400) Neutrophils (%) (Auto) 76 % (31-73) Lymphocytes (%) (Auto) 15 % (24-48) Monocytes (%) (Auto) 6 % (0-9) Eosinophils (%) (Auto) 1 % (0-3) Basophils (%) (Auto) 1 % (0-3) Neutrophils # (Auto) 10.9 x10^3uL (1.8-7.7) Lymphocytes # (Auto) 2.2 x10^3/uL (1.0-4.8) Monocytes # (Auto) 0.9 x10^3/uL (0.0-1.1) Eosinophils # (Auto) 0.1 x10^3/uL (0.0-0.7) Basophils # (Auto) 0.1 x10^3/uL (0.0-0.2) Prothrombin Time 15.9 SEC (11.7-14.0) Prothromb Time International Ratio 1.4 (0.8-1.1) Activated Partial Thromboplast Time 31 SEC (24-38) Sodium Level 144 mmol/L (136-145) Potassium Level 4.1 mmol/L (3.5-5.1) Chloride Level 109 mmol/L (98-107) Carbon Dioxide Level 30 mmol/L (21-32) Anion Gap 5 (6-14) Blood Urea Nitrogen 34 mg/dL (8-26) Creatinine 1.0 mg/dL (0.7-1.3) Estimated GFR (Cockcroft-Gault) 72.8 Glucose Level 144 mg/dL (70-99) Calcium Level 7.3 mg/dL (8.5-10.1) Total Bilirubin 0.1 mg/dL (0.2-1.0) Direct Bilirubin 0.1 mg/dL (0.0-0.2) Aspartate Amino Transf (AST/SGOT) 19 U/L (15-37) Alanine Aminotransferase (ALT/SGPT) 11 U/L (16-63) Alkaline Phosphatase 98 U/L (46-116) Troponin I Quantitative 0.028 ng/mL (0.000-0.055) Total Protein 5.2 g/dL (6.4-8.2) Albumin 1.8 g/dL (3.4-5.0) Lipase 183 U/L (73-393) Glucose (Fingerstick) 135 mg/dL (70-99) Stool Occult Blood Positive (NEG) Test 06/01/17 01:30 06/01/17 05:51 Hemoglobin 10.0 g/dL (13.0-17.5) 10.4 g/dL (13.0-17.5) White Blood Count 13.0 x10^3/uL (4.0-11.0) Red Blood Count 3.38 x10^6/uL (4.30-5.70) Hematocrit 29.8 % (39.0-53.0) Mean Corpuscular Volume 88 fL (79-100) Mean Corpuscular Hemoglobin 31 pg (25-35) Mean Corpuscular Hemoglobin Concent 35 g/dL (31-37) Red Cell Distribution Width 15.5 % (11.5-14.5) Platelet Count 301 x10^3/uL (140-400) Neutrophils (%) (Auto) 73 % (31-73) Lymphocytes (%) (Auto) 15 % (24-48) Monocytes (%) (Auto) 8 % (0-9) Eosinophils (%) (Auto) 3 % (0-3) Basophils (%) (Auto) 2 % (0-3) Neutrophils # (Auto) 9.4 x10^3uL (1.8-7.7) Lymphocytes # (Auto) 2.0 x10^3/uL (1.0-4.8) Monocytes # (Auto) 1.0 x10^3/uL (0.0-1.1) Eosinophils # (Auto) 0.4 x10^3/uL (0.0-0.7) Basophils # (Auto) 0.2 x10^3/uL (0.0-0.2) Prothrombin Time 15.2 SEC (11.7-14.0) Prothromb Time International Ratio 1.3 (0.8-1.1) Sodium Level 142 mmol/L (136-145) Potassium Level 4.1 mmol/L (3.5-5.1) Chloride Level 109 mmol/L (98-107) Carbon Dioxide Level 27 mmol/L (21-32) Anion Gap 6 (6-14) Blood Urea Nitrogen 23 mg/dL (8-26) Creatinine 0.9 mg/dL (0.7-1.3) Estimated GFR (Cockcroft-Gault) 82.3 Glucose Level 85 mg/dL (70-99) Calcium Level 8.0 mg/dL (8.5-10.1) Allergies: Coded Allergies: No Known Drug Allergies (Unverified , 06/01/17) UNKNOWN Medications: Current Medications Medications (Trade) Dose Ordered Sig/Josi Route PRN Reason Start Time Stop Time Status Last Admin Dose Admin Sodium Chloride 500 ml @ 500 mls/hr 1X ONCE IV 05/31/17 16:15 05/31/17 17:14 DC 05/31/17 16:38 Famotidine (Pepcid) 20 mg 1X ONCE IVP 05/31/17 16:15 05/31/17 16:16 DC 05/31/17 16:38 Phytonadione 10 mg/Sodium Chloride 51 ml @ 102 mls/hr 1X ONCE IV 05/31/17 23:00 05/31/17 23:29 DC 05/31/17 23:00 Ringer's Solution 1,000 ml @ 125 mls/hr Q8H IV 06/01/17 06:54 06/01/17 18:53 7/7/17 06:55 Imaging: Imaging: Head CT IMPRESSION: Chronic changes. No acute finding is seen. CXR IMPRESSION: No acute or focal process is seen in the chest. EGD: non-erosive gastritis s/p bx r/o h pylori, duodenal ulcer posterior wall 1 st portion duodenum with clean base 1.5 cm diameter. PE: GEN: NAD HEENT: Atraumatic, PERRL LUNGS: CTAB anteriorly HEART: bradycardic ABD: NABS, S/ND/NT EXTREMITY: No edema NEURO/PSYCH: confused A/P: A/P: Anemia, melena Duodenal ulcer CRC screen -last colonoscopy normal in 2004 (except hemorrhoids) -- Continue NPO today, recheck labs in a.m. - if stable, okay for clears. Has IV H2 mira (no IV PPI available). Can change to PO PPI when tolerating PO. Consider outpt colonosocpy. MANUELA CHEW Jun 01, 2017 09:02
[2017-06-01] MEDS: FAMOTIDINE 20 MG/2 ML VIAL IVP SCH ×2 (09:06→20:44)
[2017-06-01] MEDS: LEVOTHYROXINE SODIUM 100 MCG in IV NORMAL SALINE 50ML 5 ML IVP SCH (09:06)
[2017-06-01] MEDS: IV NORMAL SALINE 1000ML BAG 1,000 ML IV SCH ×2 (12:09→22:41)
[2017-06-02] VITALS (13 sets, daily range): BP systolic 92–132; BP diastolic 53–78
[2017-06-02 05:26] LABS: BASO % 0 % (0-3); EOS % 2 % (0-3); HEMATOCRIT 29.3 % (39.0-53.0); HEMOGLOBIN 10.2 g/dL (13.0-17.5); LYMPH # 1.8 x10^3/uL (1.0-4.8); LYMPH % 14 % (24-48); MEAN CORPUSCULAR HEMOGLOBIN 31 pg (25-35); MEAN CORPUSCULAR HGB CONC 35 g/dL (31-37); MEAN CORPUSCULAR VOLUME 89 fL (79-100); MONO % 6 % (0-9); NEUT % 78 % (31-73); PLATELET COUNT 292 x10^3/uL (140-400); RED BLOOD COUNT 3.29 x10^6/uL (4.30-5.70); RED CELL DISTRIBUTION WIDTH 15.6 % (11.5-14.5)
[2017-06-02 05:40] LABS: CALCIUM 8.2 mg/dL (8.5-10.1); CREATININE 0.9 mg/dL (0.7-1.3); GFR 82.3; POTASSIUM 3.7 mmol/L (3.5-5.1)
[2017-06-02] MEDS: LEVOTHYROXINE SODIUM 100 MCG in IV NORMAL SALINE 50ML 5 ML IVP SCH (08:32)
[2017-06-02] MEDS: FAMOTIDINE 20 MG/2 ML VIAL IVP SCH ×2 (08:32→21:26)
--- NOTE | 2017-06-02 10:39 | PDOC ---
PROGRESS NOTES Subjective Subjective Patient without complaint, denies abdominal pain. Took a small amount of clear liquids for breakfast today without difficulty. Objective Objective Vital Signs Date Time Temp Pulse Resp B/P (MAP) Pulse Ox O2 Delivery O2 Flow Rate FiO2 06/02/17 09:10 58 111/55 (73) Room Air 06/02/17 07:00 98.5 12 98 98.5 Intake and Output 06/02/17 06:59 Intake Total 1641.2 ml Output Total 3610 ml Balance -1968.8 ml IV Total 1641.2 ml Output Urine Total 3610 ml Physical Exam Abdomen: Normal bowel sounds, Soft, No tenderness Heart: Regular rate Extremities: No edema General: Alert, No acute distress Lungs: Clear to auscultation Assessment Assessment Problems Medical Problems: (1) Anemia Status: Acute Plan Plan of Care 1. Acute GI bleed from duodenal ulcer - Hgb stable after transfusions yesterday. Advanced to clear liquids per GI. Continue to follow lab. On Pepcid now and ASA has been discontinued. 2. hx MSSA sepsis and possible pyelonephritis - patient was discharged from [facility] earlier this week after tx for this. He transferred to correction and was to be on Ancef for 4 weeks per ID recommendations. Will resume Ancef now at his previous dose. 3. hypothyroidism - according to his office chart his dose of Levothyroxine was increased in January after lab in our office showed mildly elevated TSH over 5. reports he has been taking this daily. TSH was increased over 6 on last admission, will increase dose again. Resume po tomorrow. 4. MS with deconditioning - patient also had recent compression fracture tx with kyphoplasty. Resume PT and OT. 5. dementia - patient was diagnosed with this and started on Aricept and Namenda during last hospitalization. Will resume these tomorrow. Continue supportive care, patient did have some sundowning last night. Comment Review of Relevant I have reviewed the following items betsy (where applicable) has been applied. Labs Laboratory Tests Test 05/31/17 15:11 05/31/17 15:21 05/31/17 15:39 05/31/17 15:55 Urine Collection Type Unknown Urine Color Straw Urine Clarity Clear Urine pH 5.5 Urine Specific [place] 1.010 Urine Protein Negative mg/dL (NEG-TRACE) Urine Glucose (UA) Negative mg/dL (NEG) Urine Ketones (Stick) Negative mg/dL (NEG) Urine Blood Moderate (NEG) Urine Nitrite Negative (NEG) Urine Bilirubin Negative (NEG) Urine Urobilinogen Dipstick 0.2 mg/dL (0.2 mg/dL) Urine Leukocyte Esterase Moderate (NEG) Urine RBC 3-5 /HPF (0-2) Urine WBC 5-10 /HPF (0-4) Urine Squamous Epithelial Cells Occ /LPF Urine Amorphous Sediment Present /HPF Urine Bacteria Few /HPF (0-FEW) White Blood Count 14.2 x10^3/uL (4.0-11.0) Red Blood Count 1.63 x10^6/uL (4.30-5.70) Hemoglobin 5.0 g/dL (13.0-17.5) Hematocrit 15.2 % (39.0-53.0) Mean Corpuscular Volume 93 fL (79-100) Mean Corpuscular Hemoglobin 31 pg (25-35) Mean Corpuscular Hemoglobin Concent 33 g/dL (31-37) Red Cell Distribution Width 16.8 % (11.5-14.5) Platelet Count 396 x10^3/uL (140-400) Neutrophils (%) (Auto) 76 % (31-73) Lymphocytes (%) (Auto) 15 % (24-48) Monocytes (%) (Auto) 6 % (0-9) Eosinophils (%) (Auto) 1 % (0-3) Basophils (%) (Auto) 1 % (0-3) Neutrophils # (Auto) 10.9 x10^3uL (1.8-7.7) Lymphocytes # (Auto) 2.2 x10^3/uL (1.0-4.8) Monocytes # (Auto) 0.9 x10^3/uL (0.0-1.1) Eosinophils # (Auto) 0.1 x10^3/uL (0.0-0.7) Basophils # (Auto) 0.1 x10^3/uL (0.0-0.2) Prothrombin Time 15.9 SEC (11.7-14.0) Prothromb Time International Ratio 1.4 (0.8-1.1) Activated Partial Thromboplast Time 31 SEC (24-38) Sodium Level 144 mmol/L (136-145) Potassium Level 4.1 mmol/L (3.5-5.1) Chloride Level 109 mmol/L (98-107) Carbon Dioxide Level 30 mmol/L (21-32) Anion Gap 5 (6-14) Blood Urea Nitrogen 34 mg/dL (8-26) Creatinine 1.0 mg/dL (0.7-1.3) Estimated GFR (Cockcroft-Gault) 72.8 Glucose Level 144 mg/dL (70-99) Calcium Level 7.3 mg/dL (8.5-10.1) Total Bilirubin 0.1 mg/dL (0.2-1.0) Direct Bilirubin 0.1 mg/dL (0.0-0.2) Aspartate Amino Transf (AST/SGOT) 19 U/L (15-37) Alanine Aminotransferase (ALT/SGPT) 11 U/L (16-63) Alkaline Phosphatase 98 U/L (46-116) Troponin I Quantitative 0.028 ng/mL (0.000-0.055) Total Protein 5.2 g/dL (6.4-8.2) Albumin 1.8 g/dL (3.4-5.0) Lipase 183 U/L (73-393) Glucose (Fingerstick) 135 mg/dL (70-99) Stool Occult Blood Positive (NEG) Test 05/31/17 19:00 06/01/17 01:30 06/01/17 05:51 06/02/17 05:00 Nasal Screen MRSA (PCR) Negative (Negative) Hemoglobin 10.0 g/dL (13.0-17.5) 10.4 g/dL (13.0-17.5) 10.2 g/dL (13.0-17.5) White Blood Count 13.0 x10^3/uL (4.0-11.0) 13.0 x10^3/uL (4.0-11.0) Red Blood Count 3.38 x10^6/uL (4.30-5.70) 3.29 x10^6/uL (4.30-5.70) Hematocrit 29.8 % (39.0-53.0) 29.3 % (39.0-53.0) Mean Corpuscular Volume 88 fL (79-100) 89 fL (79-100) Mean Corpuscular Hemoglobin 31 pg (25-35) 31 pg (25-35) Mean Corpuscular Hemoglobin Concent 35 g/dL (31-37) 35 g/dL (31-37) Red Cell Distribution Width 15.5 % (11.5-14.5) 15.6 % (11.5-14.5) Platelet Count 301 x10^3/uL (140-400) 292 x10^3/uL (140-400) Neutrophils (%) (Auto) 73 % (31-73) 78 % (31-73) Lymphocytes (%) (Auto) 15 % (24-48) 14 % (24-48) Monocytes (%) (Auto) 8 % (0-9) 6 % (0-9) Eosinophils (%) (Auto) 3 % (0-3) 2 % (0-3) Basophils (%) (Auto) 2 % (0-3) 0 % (0-3) Neutrophils # (Auto) 9.4 x10^3uL (1.8-7.7) 10.2 x10^3uL (1.8-7.7) Lymphocytes # (Auto) 2.0 x10^3/uL (1.0-4.8) 1.8 x10^3/uL (1.0-4.8) Monocytes # (Auto) 1.0 x10^3/uL (0.0-1.1) 0.8 x10^3/uL (0.0-1.1) Eosinophils # (Auto) 0.4 x10^3/uL (0.0-0.7) 0.2 x10^3/uL (0.0-0.7) Basophils # (Auto) 0.2 x10^3/uL (0.0-0.2) 0.0 x10^3/uL (0.0-0.2) Prothrombin Time 15.2 SEC (11.7-14.0) Prothromb Time International Ratio 1.3 (0.8-1.1) Sodium Level 142 mmol/L (136-145) 142 mmol/L (136-145) Potassium Level 4.1 mmol/L (3.5-5.1) 3.7 mmol/L (3.5-5.1) Chloride Level 109 mmol/L (98-107) 107 mmol/L (98-107) Carbon Dioxide Level 27 mmol/L (21-32) 28 mmol/L (21-32) Anion Gap 6 (6-14) 7 (6-14) Blood Urea Nitrogen 23 mg/dL (8-26) 18 mg/dL (8-26) Creatinine 0.9 mg/dL (0.7-1.3) 0.9 mg/dL (0.7-1.3) Estimated GFR (Cockcroft-Gault) 82.3 82.3 Glucose Level 85 mg/dL (70-99) 90 mg/dL (70-99) Calcium Level 8.0 mg/dL (8.5-10.1) 8.2 mg/dL (8.5-10.1) Laboratory Tests Test 06/02/17 05:00 White Blood Count 13.0 x10^3/uL (4.0-11.0) Red Blood Count 3.29 x10^6/uL (4.30-5.70) Hemoglobin 10.2 g/dL (13.0-17.5) Hematocrit 29.3 % (39.0-53.0) Mean Corpuscular Volume 89 fL (79-100) Mean Corpuscular Hemoglobin 31 pg (25-35) Mean Corpuscular Hemoglobin Concent 35 g/dL (31-37) Red Cell Distribution Width 15.6 % (11.5-14.5) Platelet Count 292 x10^3/uL (140-400) Neutrophils (%) (Auto) 78 % (31-73) Lymphocytes (%) (Auto) 14 % (24-48) Monocytes (%) (Auto) 6 % (0-9) Eosinophils (%) (Auto) 2 % (0-3) Basophils (%) (Auto) 0 % (0-3) Neutrophils # (Auto) 10.2 x10^3uL (1.8-7.7) Lymphocytes # (Auto) 1.8 x10^3/uL (1.0-4.8) Monocytes # (Auto) 0.8 x10^3/uL (0.0-1.1) Eosinophils # (Auto) 0.2 x10^3/uL (0.0-0.7) Basophils # (Auto) 0.0 x10^3/uL (0.0-0.2) Sodium Level 142 mmol/L (136-145) Potassium Level 3.7 mmol/L (3.5-5.1) Chloride Level 107 mmol/L (98-107) Carbon Dioxide Level 28 mmol/L (21-32) Anion Gap 7 (6-14) Blood Urea Nitrogen 18 mg/dL (8-26) Creatinine 0.9 mg/dL (0.7-1.3) Estimated GFR (Cockcroft-Gault) 82.3 Glucose Level 90 mg/dL (70-99) Calcium Level 8.2 mg/dL (8.5-10.1) Medications Current Medications Sodium Chloride 500 ml @ 500 mls/hr 1X ONCE IV Last administered on 05/31/17 16:38; Start 05/31/17 at 16:15; Stop 05/31/17 at 17:14; Status DC Famotidine (Pepcid) 20 mg 1X ONCE IVP Last administered on 05/31/17 16:38; Start 05/31/17 at 16:15; Stop 05/31/17 at 16:16; Status DC Famotidine (Pepcid) 20 mg BID IVP Last administered on 06/02/17 08:32; Start at 09:00 Levothyroxine Sodium 100 mcg/ Sodium Chloride 5 ml @ 100 mls/hr DAILY IVP Last administered on 06/02/17 08:32; Start 06/01/17 at 09:00 Phytonadione 10 mg/Sodium Chloride 51 ml @ 102 mls/hr 1X ONCE IV Last administered on 05/31/17 23:00; Start 05/31/17 at 23:00; Stop 05/31/17 at 23:29; Status DC Midazolam HCl (Versed) 2 mg PRN 1X PRN IV PRIOR TO PROCEDURE; Start 06/01/17 at 07:00; Stop 06/02/17 at 06:59; Status DC Fentanyl Citrate (Fentanyl 2ml Vial) 25 mcg PRN Q5MIN PRN IV X 2 DOSES FOR PAIN ; Start 06/01/17 at 07:00; Stop 06/02/17 at 06:59; Status DC Fentanyl Citrate (Fentanyl 2ml Vial) 50 mcg PRN Q5MIN PRN IV X 2 DOSES FOR PAIN ; Start 06/01/17 at 07:00; Stop 06/02/17 at 06:59; Status DC Ringer's Solution 1,000 ml @ 125 mls/hr Q8H IV Last administered on 06/01/17t 06:55; Start 06/01/17 at 06:54; Stop 06/01/17 at 09:25; Status DC Lidocaine HCl 2 ml 1X PRN PRN ID IV START; Start 06/01/17 at 07:00; Stop at 06:59; Status DC Propofol 20 ml @ As Directed STK-MED ONCE IV ; Start 06/01/17 at 07:13; Stop 06/01 at 07:14; Status DC Ondansetron HCl (Zofran) 4 mg PRN Q6HRS PRN IV NAUSEA/VOMITING; Start 06/01/17 at 07:45; Stop 06/02/17 at 07:44; Status DC Fentanyl Citrate (Fentanyl 2ml Vial) 25 mcg PRN Q5MIN PRN IV MILD PAIN; Start 06/01/17 at 07:45; Stop 06/02/17 at 07:44; Status DC Fentanyl Citrate (Fentanyl 2ml Vial) 50 mcg PRN Q5MIN PRN IV MODERATE PAIN; Start 06/01/17 at 07:45; Stop 06/02/17 at 07:44; Status DC Morphine Sulfate 1 mg PRN Q10MIN PRN IV SEVERE PAIN; Start 06/01/17 at 07:45; Stop 06/02/17 at 07:44; Status DC Ringer's Solution 1,000 ml @ 30 mls/hr Q24H IV ; Start 06/01/17 at 07:44; Stop 06/01/17 at 09:25; Status DC Lidocaine HCl 2 ml PRN 1X PRN ID PRIOR TO IV START; Start 06/01/17 at 07:45; Stop 06/02/17 at 07:44; Status DC Hydromorphone HCl (Dilaudid) 0.5 mg PRN Q10MIN PRN IV SEV PAIN, Second choice; Start 06/01/17 at 07:45; Stop 06/02/17 at 07:44; Status DC Prochlorperazine Edisylate (Compazine) 5 mg PACU PRN PRN IV NAUSEA, MRX1; Start 06/01/17 at 07:45; Stop 06/02/17 at 07:44; Status DC Sodium Chloride 1,000 ml @ 75 mls/hr [id number] IV Last administered on 06/01/17t 22:41; Start 06/01/17 at 09:30 Active Scripts Active Reported Aspir 81 (Aspirin) 81 Mg Tablet.dr 81 Mg PO Simvastatin 80 Mg Tablet 80 Mg PO DAILY Levothyroxine Sodium 125 Mcg Tablet 125 Mcg PO DAILYAC Vitals/I & O Vital Sign - Last 24 Hours 06/01/17 06/01/17 06/01/17 06/01/17 11:00 12:00 12:00 13:00 Temp 98.4 98.4 Pulse 54 54 58 Resp 16 14 20 B/P (MAP) 84/54 (64) 97/57 (70) 121/71 (88) Pulse Ox 97 97 96 O2 Delivery Room Air Room Air Room Air Room Air 06/01/17 06/01/17 06/01/17 06/01/17 14:00 15:00 16:00 16:00 Temp 98.4 98.4 98.4 98.4 Pulse 58 54 52 Resp 21 16 13 B/P (MAP) 120/71 (87) 120/71 (87) 117/62 (80) Pulse Ox 97 95 96 O2 Delivery Room Air Room Air Room Air Room Air 06/01/17 06/01/17 06/01/17 06/01/17 17:00 18:00 19:00 20:00 Temp 98.3 98.3 Pulse 54 57 56 60 Resp 21 16 16 16 B/P (MAP) 104/62 (76) 116/60 (78) 99/59 (72) 109/64 (79) Pulse Ox 97 97 95 96 O2 Delivery Room Air Room Air Room Air Room Air 06/01/17 06/01/17 06/01/17 06/02/17 21:00 22:00 23:00 00:00 Temp 98.6 98.6 Pulse 68 59 64 61 Resp 15 17 17 B/P (MAP) 118/64 (82) 100/48 (65) 111/69 (83) 101/70 (80) Pulse Ox 100 97 97 98 O2 Delivery Room Air Room Air Room Air Room Air 06/02/17 06/02/17 06/02/17 06/02/17 01:00 02:00 04:00 05:00 Temp 98.2 98.2 Pulse 57 63 58 55 Resp 16 22 15 11 B/P (MAP) 103/64 (77) 109/61 (77) 119/66 (83) 132/72 (92) Pulse Ox 99 100 98 97 O2 Delivery Room Air Room Air Room Air Room Air 06/02/17 06/02/17 06/02/17 06/02/17 06:00 07:00 08:08 08:10 Temp 98.5 98.5 Pulse 89 50 47 Resp 18 12 B/P (MAP) 122/67 (85) 92/53 (66) 119/71 (87) Pulse Ox 99 98 O2 Delivery Room Air Room Air Room Air Room Air 06/02/17 09:10 Pulse 58 B/P (MAP) 111/55 (73) O2 Delivery Room Air Intake and Output 06/01/17 06/01/17 06/02/17 14:59 22:59 06:59 Intake Total 200 ml 616.2 ml 825 ml Output Total 1140 ml 780 ml 1690 ml Balance -940 ml -163.8 ml -865 ml LUCAS PAGE MD Jun 02, 2017 10:39
--- NOTE | 2017-06-02 10:45 | PDOC ---
G I PROGRESS NOTE Reason for Follow-up Acute blood loss anemia/melena Subjective Feeling better Physical Exam Lungs clear CV S1 S2 ABD +BS, soft, nontender Review of Relevant I have reviewed the following items betsy (where applicable) has been applied. Labs Laboratory Tests Test 05/31/17 15:11 05/31/17 15:21 05/31/17 15:39 05/31/17 15:55 Urine Collection Type Unknown Urine Color Straw Urine Clarity Clear Urine pH 5.5 Urine Specific [place] 1.010 Urine Protein Negative mg/dL (NEG-TRACE) Urine Glucose (UA) Negative mg/dL (NEG) Urine Ketones (Stick) Negative mg/dL (NEG) Urine Blood Moderate (NEG) Urine Nitrite Negative (NEG) Urine Bilirubin Negative (NEG) Urine Urobilinogen Dipstick 0.2 mg/dL (0.2 mg/dL) Urine Leukocyte Esterase Moderate (NEG) Urine RBC 3-5 /HPF (0-2) Urine WBC 5-10 /HPF (0-4) Urine Squamous Epithelial Cells Occ /LPF Urine Amorphous Sediment Present /HPF Urine Bacteria Few /HPF (0-FEW) White Blood Count 14.2 x10^3/uL (4.0-11.0) Red Blood Count 1.63 x10^6/uL (4.30-5.70) Hemoglobin 5.0 g/dL (13.0-17.5) Hematocrit 15.2 % (39.0-53.0) Mean Corpuscular Volume 93 fL (79-100) Mean Corpuscular Hemoglobin 31 pg (25-35) Mean Corpuscular Hemoglobin Concent 33 g/dL (31-37) Red Cell Distribution Width 16.8 % (11.5-14.5) Platelet Count 396 x10^3/uL (140-400) Neutrophils (%) (Auto) 76 % (31-73) Lymphocytes (%) (Auto) 15 % (24-48) Monocytes (%) (Auto) 6 % (0-9) Eosinophils (%) (Auto) 1 % (0-3) Basophils (%) (Auto) 1 % (0-3) Neutrophils # (Auto) 10.9 x10^3uL (1.8-7.7) Lymphocytes # (Auto) 2.2 x10^3/uL (1.0-4.8) Monocytes # (Auto) 0.9 x10^3/uL (0.0-1.1) Eosinophils # (Auto) 0.1 x10^3/uL (0.0-0.7) Basophils # (Auto) 0.1 x10^3/uL (0.0-0.2) Prothrombin Time 15.9 SEC (11.7-14.0) Prothromb Time International Ratio 1.4 (0.8-1.1) Activated Partial Thromboplast Time 31 SEC (24-38) Sodium Level 144 mmol/L (136-145) Potassium Level 4.1 mmol/L (3.5-5.1) Chloride Level 109 mmol/L (98-107) Carbon Dioxide Level 30 mmol/L (21-32) Anion Gap 5 (6-14) Blood Urea Nitrogen 34 mg/dL (8-26) Creatinine 1.0 mg/dL (0.7-1.3) Estimated GFR (Cockcroft-Gault) 72.8 Glucose Level 144 mg/dL (70-99) Calcium Level 7.3 mg/dL (8.5-10.1) Total Bilirubin 0.1 mg/dL (0.2-1.0) Direct Bilirubin 0.1 mg/dL (0.0-0.2) Aspartate Amino Transf (AST/SGOT) 19 U/L (15-37) Alanine Aminotransferase (ALT/SGPT) 11 U/L (16-63) Alkaline Phosphatase 98 U/L (46-116) Troponin I Quantitative 0.028 ng/mL (0.000-0.055) Total Protein 5.2 g/dL (6.4-8.2) Albumin 1.8 g/dL (3.4-5.0) Lipase 183 U/L (73-393) Glucose (Fingerstick) 135 mg/dL (70-99) Stool Occult Blood Positive (NEG) Test 05/31/17 19:00 06/01/17 01:30 06/01/17 05:51 06/02/17 05:00 Nasal Screen MRSA (PCR) Negative (Negative) Hemoglobin 10.0 g/dL (13.0-17.5) 10.4 g/dL (13.0-17.5) 10.2 g/dL (13.0-17.5) White Blood Count 13.0 x10^3/uL (4.0-11.0) 13.0 x10^3/uL (4.0-11.0) Red Blood Count 3.38 x10^6/uL (4.30-5.70) 3.29 x10^6/uL (4.30-5.70) Hematocrit 29.8 % (39.0-53.0) 29.3 % (39.0-53.0) Mean Corpuscular Volume 88 fL (79-100) 89 fL (79-100) Mean Corpuscular Hemoglobin 31 pg (25-35) 31 pg (25-35) Mean Corpuscular Hemoglobin Concent 35 g/dL (31-37) 35 g/dL (31-37) Red Cell Distribution Width 15.5 % (11.5-14.5) 15.6 % (11.5-14.5) Platelet Count 301 x10^3/uL (140-400) 292 x10^3/uL (140-400) Neutrophils (%) (Auto) 73 % (31-73) 78 % (31-73) Lymphocytes (%) (Auto) 15 % (24-48) 14 % (24-48) Monocytes (%) (Auto) 8 % (0-9) 6 % (0-9) Eosinophils (%) (Auto) 3 % (0-3) 2 % (0-3) Basophils (%) (Auto) 2 % (0-3) 0 % (0-3) Neutrophils # (Auto) 9.4 x10^3uL (1.8-7.7) 10.2 x10^3uL (1.8-7.7) Lymphocytes # (Auto) 2.0 x10^3/uL (1.0-4.8) 1.8 x10^3/uL (1.0-4.8) Monocytes # (Auto) 1.0 x10^3/uL (0.0-1.1) 0.8 x10^3/uL (0.0-1.1) Eosinophils # (Auto) 0.4 x10^3/uL (0.0-0.7) 0.2 x10^3/uL (0.0-0.7) Basophils # (Auto) 0.2 x10^3/uL (0.0-0.2) 0.0 x10^3/uL (0.0-0.2) Prothrombin Time 15.2 SEC (11.7-14.0) Prothromb Time International Ratio 1.3 (0.8-1.1) Sodium Level 142 mmol/L (136-145) 142 mmol/L (136-145) Potassium Level 4.1 mmol/L (3.5-5.1) 3.7 mmol/L (3.5-5.1) Chloride Level 109 mmol/L (98-107) 107 mmol/L (98-107) Carbon Dioxide Level 27 mmol/L (21-32) 28 mmol/L (21-32) Anion Gap 6 (6-14) 7 (6-14) Blood Urea Nitrogen 23 mg/dL (8-26) 18 mg/dL (8-26) Creatinine 0.9 mg/dL (0.7-1.3) 0.9 mg/dL (0.7-1.3) Estimated GFR (Cockcroft-Gault) 82.3 82.3 Glucose Level 85 mg/dL (70-99) 90 mg/dL (70-99) Calcium Level 8.0 mg/dL (8.5-10.1) 8.2 mg/dL (8.5-10.1) Laboratory Tests Test 06/02/17 05:00 White Blood Count 13.0 x10^3/uL (4.0-11.0) Red Blood Count 3.29 x10^6/uL (4.30-5.70) Hemoglobin 10.2 g/dL (13.0-17.5) Hematocrit 29.3 % (39.0-53.0) Mean Corpuscular Volume 89 fL (79-100) Mean Corpuscular Hemoglobin 31 pg (25-35) Mean Corpuscular Hemoglobin Concent 35 g/dL (31-37) Red Cell Distribution Width 15.6 % (11.5-14.5) Platelet Count 292 x10^3/uL (140-400) Neutrophils (%) (Auto) 78 % (31-73) Lymphocytes (%) (Auto) 14 % (24-48) Monocytes (%) (Auto) 6 % (0-9) Eosinophils (%) (Auto) 2 % (0-3) Basophils (%) (Auto) 0 % (0-3) Neutrophils # (Auto) 10.2 x10^3uL (1.8-7.7) Lymphocytes # (Auto) 1.8 x10^3/uL (1.0-4.8) Monocytes # (Auto) 0.8 x10^3/uL (0.0-1.1) Eosinophils # (Auto) 0.2 x10^3/uL (0.0-0.7) Basophils # (Auto) 0.0 x10^3/uL (0.0-0.2) Sodium Level 142 mmol/L (136-145) Potassium Level 3.7 mmol/L (3.5-5.1) Chloride Level 107 mmol/L (98-107) Carbon Dioxide Level 28 mmol/L (21-32) Anion Gap 7 (6-14) Blood Urea Nitrogen 18 mg/dL (8-26) Creatinine 0.9 mg/dL (0.7-1.3) Estimated GFR (Cockcroft-Gault) 82.3 Glucose Level 90 mg/dL (70-99) Calcium Level 8.2 mg/dL (8.5-10.1) Medications Current Medications Sodium Chloride 500 ml @ 500 mls/hr 1X ONCE IV Last administered on 05/31/17 16:38; Start 05/31/17 at 16:15; Stop 05/31/17 at 17:14; Status DC Famotidine (Pepcid) 20 mg 1X ONCE IVP Last administered on 05/31/17 16:38; Start 05/31/17 at 16:15; Stop 05/31/17 at 16:16; Status DC Famotidine (Pepcid) 20 mg BID IVP Last administered on 06/02/17 08:32; Start at 09:00 Levothyroxine Sodium 100 mcg/ Sodium Chloride 5 ml @ 100 mls/hr DAILY IVP Last administered on 06/02/17 08:32; Start 06/01/17 at 09:00; Stop 06/02/17 at 10:32; Status DC Phytonadione 10 mg/Sodium Chloride 51 ml @ 102 mls/hr 1X ONCE IV Last administered on 05/31/17 23:00; Start 05/31/17 at 23:00; Stop 05/31/17 at 23:29; Status DC Midazolam HCl (Versed) 2 mg PRN 1X PRN IV PRIOR TO PROCEDURE; Start 06/01/17 at 07:00; Stop 06/02/17 at 06:59; Status DC Fentanyl Citrate (Fentanyl 2ml Vial) 25 mcg PRN Q5MIN PRN IV X 2 DOSES FOR PAIN ; Start 06/01/17 at 07:00; Stop 06/02/17 at 06:59; Status DC Fentanyl Citrate (Fentanyl 2ml Vial) 50 mcg PRN Q5MIN PRN IV X 2 DOSES FOR PAIN ; Start 06/01/17 at 07:00; Stop 06/02/17 at 06:59; Status DC Ringer's Solution 1,000 ml @ 125 mls/hr Q8H IV Last administered on 06/01/17t 06:55; Start 06/01/17 at 06:54; Stop 06/01/17 at 09:25; Status DC Lidocaine HCl 2 ml 1X PRN PRN ID IV START; Start 06/01/17 at 07:00; Stop at 06:59; Status DC Propofol 20 ml @ As Directed STK-MED ONCE IV ; Start 06/01/17 at 07:13; Stop 06/01 at 07:14; Status DC Ondansetron HCl (Zofran) 4 mg PRN Q6HRS PRN IV NAUSEA/VOMITING; Start 06/01/17 at 07:45; Stop 06/02/17 at 07:44; Status DC Fentanyl Citrate (Fentanyl 2ml Vial) 25 mcg PRN Q5MIN PRN IV MILD PAIN; Start 06/01/17 at 07:45; Stop 06/02/17 at 07:44; Status DC Fentanyl Citrate (Fentanyl 2ml Vial) 50 mcg PRN Q5MIN PRN IV MODERATE PAIN; Start 06/01/17 at 07:45; Stop 06/02/17 at 07:44; Status DC Morphine Sulfate 1 mg PRN Q10MIN PRN IV SEVERE PAIN; Start 06/01/17 at 07:45; Stop 06/02/17 at 07:44; Status DC Ringer's Solution 1,000 ml @ 30 mls/hr Q24H IV ; Start 06/01/17 at 07:44; Stop 06/01/17 at 09:25; Status DC Lidocaine HCl 2 ml PRN 1X PRN ID PRIOR TO IV START; Start 06/01/17 at 07:45; Stop 06/02/17 at 07:44; Status DC Hydromorphone HCl (Dilaudid) 0.5 mg PRN Q10MIN PRN IV SEV PAIN, Second choice; Start 06/01/17 at 07:45; Stop 06/02/17 at 07:44; Status DC Prochlorperazine Edisylate (Compazine) 5 mg PACU PRN PRN IV NAUSEA, MRX1; Start 06/01/17 at 07:45; Stop 06/02/17 at 07:44; Status DC Sodium Chloride 1,000 ml @ 75 mls/hr [id number] IV Last administered on 06/01/17t 22:41; Start 06/01/17 at 09:30; Stop 06/02/17 at 10:32; Status DC Cefazolin Sodium 50 ml @ 100 mls/hr Q8HRS IV ; Start 06/02/17 at 10:30; Stop 06/02/17 at 10:37; Status DC Levothyroxine Sodium (Synthroid) 137 mcg DAILY07 PO ; Start 06/03/17 at 07:00 Cefazolin Sodium 1 gm/Sodium Chloride 50 ml @ 100 mls/hr Q8HRS IV ; Start at 10:37; Stop 06/03/17 at 18:00 Donepezil HCl (Aricept) 5 mg DAILY PO ; Start 06/03/17 at 09:00; Status UNV Memantine (Namenda) 5 mg DAILY PO ; Start 06/03/17 at 09:00; Status UNV Active Scripts Active Reported Aspir 81 (Aspirin) 81 Mg Tablet. 81 Mg PO Simvastatin 80 Mg Tablet 80 Mg PO DAILY Levothyroxine Sodium 125 Mcg Tablet 125 Mcg PO DAILYAC Vitals/I & O Vital Sign - Last 24 Hours 06/01/17 06/01/17 06/01/17 06/01/17 11:00 12:00 12:00 13:00 Temp 98.4 98.4 Pulse 54 54 58 Resp 16 14 20 B/P (MAP) 84/54 (64) 97/57 (70) 121/71 (88) Pulse Ox 97 97 96 O2 Delivery Room Air Room Air Room Air Room Air 06/01/17 06/01/17 06/01/17 06/01/17 14:00 15:00 16:00 16:00 Temp 98.4 98.4 98.4 98.4 Pulse 58 54 52 Resp 21 16 13 B/P (MAP) 120/71 (87) 120/71 (87) 117/62 (80) Pulse Ox 97 95 96 O2 Delivery Room Air Room Air Room Air Room Air 06/01/17 06/01/17 06/01/17 06/01/17 17:00 18:00 19:00 20:00 Temp 98.3 98.3 Pulse 54 57 56 60 Resp 21 16 16 16 B/P (MAP) 104/62 (76) 116/60 (78) 99/59 (72) 109/64 (79) Pulse Ox 97 97 95 96 O2 Delivery Room Air Room Air Room Air Room Air 06/01/17 06/01/17 06/01/17 06/02/17 21:00 22:00 23:00 00:00 Temp 98.6 98.6 Pulse 68 59 64 61 Resp 21 15 17 17 B/P (MAP) 118/64 (82) 100/48 (65) 111/69 (83) 101/70 (80) Pulse Ox 100 97 97 98 O2 Delivery Room Air Room Air Room Air Room Air 06/02/17 06/02/17 06/02/17 06/02/17 01:00 02:00 04:00 05:00 Temp 98.2 98.2 Pulse 57 63 58 55 Resp 16 22 15 11 B/P (MAP) 103/64 (77) 109/61 (77) 119/66 (83) 132/72 (92) Pulse Ox 99 100 98 97 O2 Delivery Room Air Room Air Room Air Room Air 06/02/17 06/02/17 06/02/17 06/02/17 06:00 07:00 08:08 08:10 Temp 98.5 98.5 Pulse 89 50 47 Resp 18 12 B/P (MAP) 122/67 (85) 92/53 (66) 119/71 (87) Pulse Ox 99 98 O2 Delivery Room Air Room Air Room Air Room Air 06/02/17 09:10 Pulse 58 B/P (MAP) 111/55 (73) O2 Delivery Room Air Intake and Output 06/01/17 06/01/17 06/02/17 15:00 23:00 07:00 Intake Total 200 ml 616.2 ml 825 ml Output Total 1175 ml 820 ml 1615 ml Balance -975 ml -203.8 ml -790 ml Problem List Problems Medical Problems: (1) Anemia Status: Acute Assessment Acute blood loss anemia- with DU, continue with acid suppressive therapy, Hg stable, advance diet and transfer from unit FERNANDO RESENDIZ MD Jun 02, 2017 10:45
[2017-06-03 03:30] VITALS: BP 125/68
[2017-06-03] MEDS: LEVOTHYROXINE 137 MCG TABLET PO SCH (06:01)
[2017-06-03 06:33] LABS: HEMATOCRIT 29.8 % (39.0-53.0); HEMOGLOBIN 10.1 g/dL (13.0-17.5); RED BLOOD COUNT 3.3 x10^6/uL (4.30-5.70); RED CELL DISTRIBUTION WIDTH 15.9 % (11.5-14.5); WHITE BLOOD COUNT 13.2 x10^3/uL (4.0-11.0)
[2017-06-03 07:00] VITALS: BP 110/69
[2017-06-03] MEDS: FAMOTIDINE 20 MG/2 ML VIAL IVP SCH ×2 (08:43→20:44)
[2017-06-03] MEDS: DONEPEZIL HCL 5 MG TABLET. PO SCH (08:43)
[2017-06-03] MEDS: MEMANTINE 5 MG TABLET. PO SCH (08:43)
--- NOTE | 2017-06-03 09:58 | PDOC ---
PROGRESS NOTES Subjective Subjective Patient without complaint, denies pain. Objective Objective Vital Signs Date Time Temp Pulse Resp B/P (MAP) Pulse Ox O2 Delivery O2 Flow Rate FiO2 06/03/17 07:00 98.2 57 20 110/69 (83) 95 Room Air 98.2 Intake and Output 06/03/17 07:00 Intake Total 310 ml Output Total 1650 ml Balance -1340 ml Intake Oral 260 ml IV Total 50 ml Output Urine Total 1650 ml # Voids 4 Physical Exam Abdomen: Normal bowel sounds, Soft, No tenderness Heart: Regular rate Extremities: No edema General: Alert, No acute distress (some expressive aphasia at times) Lungs: Clear to auscultation Assessment Assessment Problems Medical Problems: (1) Anemia Status: Acute Plan Plan of Care 1. GI bleed with duodenal ulcer - Hgb remains stable after transfusion. Continue to observe. On Pepcid. Tolerating regular diet now. 2. hx MSSA sepsis - afebrile, urine culture without growth to date, continue Ancef. 3. Dementia - patient continues to have some sundowning and becomes agitated at night. Continue Aricept and Namenda, can give low dose of po Ativan if needed at night. No problems with cooperation during the day. 4. MS with debility - continue therapies, hope to transfer back to detention tomorrow. 5. hypothyroidism - continue po replacement at increased dose. Comment Review of Relevant I have reviewed the following items betsy (where applicable) has been applied. Labs Laboratory Tests Test 06/02/17 05:00 06/03/17 05:45 White Blood Count 13.0 x10^3/uL (4.0-11.0) 13.2 x10^3/uL (4.0-11.0) Red Blood Count 3.29 x10^6/uL (4.30-5.70) 3.30 x10^6/uL (4.30-5.70) Hemoglobin 10.2 g/dL (13.0-17.5) 10.1 g/dL (13.0-17.5) Hematocrit 29.3 % (39.0-53.0) 29.8 % (39.0-53.0) Mean Corpuscular Volume 89 fL (79-100) 90 fL (79-100) Mean Corpuscular Hemoglobin 31 pg (25-35) 31 pg (25-35) Mean Corpuscular Hemoglobin Concent 35 g/dL (31-37) 34 g/dL (31-37) Red Cell Distribution Width 15.6 % (11.5-14.5) 15.9 % (11.5-14.5) Platelet Count 292 x10^3/uL (140-400) 286 x10^3/uL (140-400) Neutrophils (%) (Auto) 78 % (31-73) Lymphocytes (%) (Auto) 14 % (24-48) Monocytes (%) (Auto) 6 % (0-9) Eosinophils (%) (Auto) 2 % (0-3) Basophils (%) (Auto) 0 % (0-3) Neutrophils # (Auto) 10.2 x10^3uL (1.8-7.7) Lymphocytes # (Auto) 1.8 x10^3/uL (1.0-4.8) Monocytes # (Auto) 0.8 x10^3/uL (0.0-1.1) Eosinophils # (Auto) 0.2 x10^3/uL (0.0-0.7) Basophils # (Auto) 0.0 x10^3/uL (0.0-0.2) Sodium Level 142 mmol/L (136-145) Potassium Level 3.7 mmol/L (3.5-5.1) Chloride Level 107 mmol/L (98-107) Carbon Dioxide Level 28 mmol/L (21-32) Anion Gap 7 (6-14) Blood Urea Nitrogen 18 mg/dL (8-26) Creatinine 0.9 mg/dL (0.7-1.3) Estimated GFR (Cockcroft-Gault) 82.3 Glucose Level 90 mg/dL (70-99) Calcium Level 8.2 mg/dL (8.5-10.1) Laboratory Tests Test 06/03/17 05:45 White Blood Count 13.2 x10^3/uL (4.0-11.0) Red Blood Count 3.30 x10^6/uL (4.30-5.70) Hemoglobin 10.1 g/dL (13.0-17.5) Hematocrit 29.8 % (39.0-53.0) Mean Corpuscular Volume 90 fL (79-100) Mean Corpuscular Hemoglobin 31 pg (25-35) Mean Corpuscular Hemoglobin Concent 34 g/dL (31-37) Red Cell Distribution Width 15.9 % (11.5-14.5) Platelet Count 286 x10^3/uL (140-400) Microbiology 06/01/17 Urine Culture - Preliminary, Resulted 06/01/17 Urine Culture Result 1 (BIENVENIDO) - Preliminary, Resulted Medications Current Medications Sodium Chloride 500 ml @ 500 mls/hr 1X ONCE IV Last administered on 05/31/17 16:38; Start 05/31/17 at 16:15; Stop 05/31/17 at 17:14; Status DC Famotidine (Pepcid) 20 mg 1X ONCE IVP Last administered on 05/31/17 16:38; Start 05/31/17 at 16:15; Stop 05/31/17 at 16:16; Status DC Famotidine (Pepcid) 20 mg BID IVP Last administered on 06/03/17 08:43; Start at 09:00 Levothyroxine Sodium 100 mcg/ Sodium Chloride 5 ml @ 100 mls/hr DAILY IVP Last administered on 06/02/17 08:32; Start 06/01/17 at 09:00; Stop 06/02/17 at 10:32; Status DC Phytonadione 10 mg/Sodium Chloride 51 ml @ 102 mls/hr 1X ONCE IV Last administered on 05/31/17 23:00; Start 05/31/17 at 23:00; Stop 05/31/17 at 23:29; Status DC Midazolam HCl (Versed) 2 mg PRN 1X PRN IV PRIOR TO PROCEDURE; Start 06/01/17 at 07:00; Stop 06/02/17 at 06:59; Status DC Fentanyl Citrate (Fentanyl 2ml Vial) 25 mcg PRN Q5MIN PRN IV X 2 DOSES FOR PAIN ; Start 06/01/17 at 07:00; Stop 06/02/17 at 06:59; Status DC Fentanyl Citrate (Fentanyl 2ml Vial) 50 mcg PRN Q5MIN PRN IV X 2 DOSES FOR PAIN ; Start 06/01/17 at 07:00; Stop 06/02/17 at 06:59; Status DC Ringer's Solution 1,000 ml @ 125 mls/hr Q8H IV Last administered on 06/01/17t 06:55; Start 06/01/17 at 06:54; Stop 06/01/17 at 09:25; Status DC Lidocaine HCl 2 ml 1X PRN PRN ID IV START; Start 06/01/17 at 07:00; Stop at 06:59; Status DC Propofol 20 ml @ As Directed STK-MED ONCE IV ; Start 06/01/17 at 07:13; Stop 06/01 at 07:14; Status DC Ondansetron HCl (Zofran) 4 mg PRN Q6HRS PRN IV NAUSEA/VOMITING; Start 06/01/17 at 07:45; Stop 06/02/17 at 07:44; Status DC Fentanyl Citrate (Fentanyl 2ml Vial) 25 mcg PRN Q5MIN PRN IV MILD PAIN; Start 06/01/17 at 07:45; Stop 06/02/17 at 07:44; Status DC Fentanyl Citrate (Fentanyl 2ml Vial) 50 mcg PRN Q5MIN PRN IV MODERATE PAIN; Start 06/01/17 at 07:45; Stop 06/02/17 at 07:44; Status DC Morphine Sulfate 1 mg PRN Q10MIN PRN IV SEVERE PAIN; Start 06/01/17 at 07:45; Stop 06/02/17 at 07:44; Status DC Ringer's Solution 1,000 ml @ 30 mls/hr Q24H IV ; Start 06/01/17 at 07:44; Stop 06/01/17 at 09:25; Status DC Lidocaine HCl 2 ml PRN 1X PRN ID PRIOR TO IV START; Start 06/01/17 at 07:45; Stop 06/02/17 at 07:44; Status DC Hydromorphone HCl (Dilaudid) 0.5 mg PRN Q10MIN PRN IV SEV PAIN, Second choice; Start 06/01/17 at 07:45; Stop 06/02/17 at 07:44; Status DC Prochlorperazine Edisylate (Compazine) 5 mg PACU PRN PRN IV NAUSEA, MRX1; Start 06/01/17 at 07:45; Stop 06/02/17 at 07:44; Status DC Sodium Chloride 1,000 ml @ 75 mls/hr [id number] IV Last administered on 06/01/17 22:41; Start 06/01/17 at 09:30; Stop 06/02/17 at 10:32; Status DC Cefazolin Sodium 50 ml @ 100 mls/hr Q8HRS IV ; Start 06/02/17 at 10:30; Stop 06/02/17 at 10:37; Status DC Levothyroxine Sodium (Synthroid) 137 mcg DAILY07 PO Last administered on 06:01; Start 06/03/17 at 07:00 Cefazolin Sodium 1 gm/Sodium Chloride 50 ml @ 100 mls/hr Q8HRS IV Last administered on 06/03/17 05:59; Start 06/02/17 at 10:37; Stop 06/03/17 at 18:00 Donepezil HCl (Aricept) 5 mg DAILY PO Last administered on 06/03/17 08:43; Start 06/03/17 at 09:00 Memantine (Namenda) 5 mg DAILY PO Last administered on 06/03/17 08:43; Start at 09:00 Active Scripts Active Reported Aspir 81 (Aspirin) 81 Mg Tablet.dr 81 Mg PO Simvastatin 80 Mg Tablet 80 Mg PO DAILY Levothyroxine Sodium 125 Mcg Tablet 125 Mcg PO DAILYAC Vitals/I & O Vital Sign - Last 24 Hours 06/02/17 06/02/17 06/02/17 06/02/17 11:00 15:00 19:20 20:10 Temp 98.1 98.2 98.2 98.1 98.2 98.2 Pulse 65 61 63 Resp 18 16 16 B/P (MAP) 122/65 (84) 104/62 (76) 131/78 (95) Pulse Ox 99 97 96 O2 Delivery Room Air Room Air Room Air Room Air 06/02/17 06/03/17 06/03/17 23:32 03:30 07:00 Temp 98.0 98.9 98.2 98.0 98.9 98.2 Pulse 65 69 57 Resp 17 16 20 B/P (MAP) 131/63 (85) 125/68 (87) 110/69 (83) Pulse Ox 96 97 95 O2 Delivery Room Air Room Air Room Air Intake and Output 06/02/17 06/02/17 06/03/17 15:00 23:00 07:00 Intake Total 200 ml 50 ml 60 ml Output Total 1650 ml Balance -1450 ml 50 ml 60 ml LUCAS PAGE MD Jun 03, 2017 09:58
[2017-06-03] MEDS ORDERED: LORazepam 0.5 MG TABLET PO PRN (10:00)
[2017-06-03 11:00] VITALS: BP 98/62
--- NOTE | 2017-06-03 12:31 | PDOC ---
G I PROGRESS NOTE Reason for Follow-up Acute blood loss anemia/melena Subjective Tolerating PO Physical Exam Lungs clear CV S1 S2 ABD +BS, soft, nontender Review of Relevant I have reviewed the following items betsy (where applicable) has been applied. Labs Laboratory Tests Test 06/02/17 05:00 06/03/17 05:45 White Blood Count 13.0 x10^3/uL (4.0-11.0) 13.2 x10^3/uL (4.0-11.0) Red Blood Count 3.29 x10^6/uL (4.30-5.70) 3.30 x10^6/uL (4.30-5.70) Hemoglobin 10.2 g/dL (13.0-17.5) 10.1 g/dL (13.0-17.5) Hematocrit 29.3 % (39.0-53.0) 29.8 % (39.0-53.0) Mean Corpuscular Volume 89 fL (79-100) 90 fL (79-100) Mean Corpuscular Hemoglobin 31 pg (25-35) 31 pg (25-35) Mean Corpuscular Hemoglobin Concent 35 g/dL (31-37) 34 g/dL (31-37) Red Cell Distribution Width 15.6 % (11.5-14.5) 15.9 % (11.5-14.5) Platelet Count 292 x10^3/uL (140-400) 286 x10^3/uL (140-400) Neutrophils (%) (Auto) 78 % (31-73) Lymphocytes (%) (Auto) 14 % (24-48) Monocytes (%) (Auto) 6 % (0-9) Eosinophils (%) (Auto) 2 % (0-3) Basophils (%) (Auto) 0 % (0-3) Neutrophils # (Auto) 10.2 x10^3uL (1.8-7.7) Lymphocytes # (Auto) 1.8 x10^3/uL (1.0-4.8) Monocytes # (Auto) 0.8 x10^3/uL (0.0-1.1) Eosinophils # (Auto) 0.2 x10^3/uL (0.0-0.7) Basophils # (Auto) 0.0 x10^3/uL (0.0-0.2) Sodium Level 142 mmol/L (136-145) Potassium Level 3.7 mmol/L (3.5-5.1) Chloride Level 107 mmol/L (98-107) Carbon Dioxide Level 28 mmol/L (21-32) Anion Gap 7 (6-14) Blood Urea Nitrogen 18 mg/dL (8-26) Creatinine 0.9 mg/dL (0.7-1.3) Estimated GFR (Cockcroft-Gault) 82.3 Glucose Level 90 mg/dL (70-99) Calcium Level 8.2 mg/dL (8.5-10.1) Laboratory Tests Test 06/03/17 05:45 White Blood Count 13.2 x10^3/uL (4.0-11.0) Red Blood Count 3.30 x10^6/uL (4.30-5.70) Hemoglobin 10.1 g/dL (13.0-17.5) Hematocrit 29.8 % (39.0-53.0) Mean Corpuscular Volume 90 fL (79-100) Mean Corpuscular Hemoglobin 31 pg (25-35) Mean Corpuscular Hemoglobin Concent 34 g/dL (31-37) Red Cell Distribution Width 15.9 % (11.5-14.5) Platelet Count 286 x10^3/uL (140-400) Microbiology 06/01/17 Urine Culture - Preliminary, Resulted 06/01/17 Urine Culture Result 1 (BIENVENIDO) - Preliminary, Resulted Medications Current Medications Sodium Chloride 500 ml @ 500 mls/hr 1X ONCE IV Last administered on 05/31/17 16:38; Start 05/31/17 at 16:15; Stop 05/31/17 at 17:14; Status DC Famotidine (Pepcid) 20 mg 1X ONCE IVP Last administered on 05/31/17 16:38; Start 05/31/17 at 16:15; Stop 05/31/17 at 16:16; Status DC Famotidine (Pepcid) 20 mg BID IVP Last administered on 06/03/17 08:43; Start at 09:00 Levothyroxine Sodium 100 mcg/ Sodium Chloride 5 ml @ 100 mls/hr DAILY IVP Last administered on 06/02/17 08:32; Start 06/01/17 at 09:00; Stop 06/02/17 at 10:32; Status DC Phytonadione 10 mg/Sodium Chloride 51 ml @ 102 mls/hr 1X ONCE IV Last administered on 05/31/17t 23:00; Start 05/31/17 at 23:00; Stop 05/31/17 at 23:29; Status DC Midazolam HCl (Versed) 2 mg PRN 1X PRN IV PRIOR TO PROCEDURE; Start 06/01/17 at 07:00; Stop 06/02/17 at 06:59; Status DC Fentanyl Citrate (Fentanyl 2ml Vial) 25 mcg PRN Q5MIN PRN IV X 2 DOSES FOR PAIN ; Start 06/01/17 at 07:00; Stop 06/02/17 at 06:59; Status DC Fentanyl Citrate (Fentanyl 2ml Vial) 50 mcg PRN Q5MIN PRN IV X 2 DOSES FOR PAIN ; Start 06/01/17 at 07:00; Stop 06/02/17 at 06:59; Status DC Ringer's Solution 1,000 ml @ 125 mls/hr Q8H IV Last administered on 06/01/17 06:55; Start 06/01/17 at 06:54; Stop 06/01/17 at 09:25; Status DC Lidocaine HCl 2 ml 1X PRN PRN ID IV START; Start 06/01/17 at 07:00; Stop at 06:59; Status DC Propofol 20 ml @ As Directed STK-MED ONCE IV ; Start 06/01/17 at 07:13; Stop 06/01 at 07:14; Status DC Ondansetron HCl (Zofran) 4 mg PRN Q6HRS PRN IV NAUSEA/VOMITING; Start 06/01/17 at 07:45; Stop 06/02/17 at 07:44; Status DC Fentanyl Citrate (Fentanyl 2ml Vial) 25 mcg PRN Q5MIN PRN IV MILD PAIN; Start 06/01/17 at 07:45; Stop 06/02/17 at 07:44; Status DC Fentanyl Citrate (Fentanyl 2ml Vial) 50 mcg PRN Q5MIN PRN IV MODERATE PAIN; Start 06/01/17 at 07:45; Stop 06/02/17 at 07:44; Status DC Morphine Sulfate 1 mg PRN Q10MIN PRN IV SEVERE PAIN; Start 06/01/17 at 07:45; Stop 06/02/17 at 07:44; Status DC Ringer's Solution 1,000 ml @ 30 mls/hr Q24H IV ; Start 06/01/17 at 07:44; Stop 06/01/17 at 09:25; Status DC Lidocaine HCl 2 ml PRN 1X PRN ID PRIOR TO IV START; Start 06/01/17 at 07:45; Stop 06/02/17 at 07:44; Status DC Hydromorphone HCl (Dilaudid) 0.5 mg PRN Q10MIN PRN IV SEV PAIN, Second choice; Start 06/01/17 at 07:45; Stop 06/02/17 at 07:44; Status DC Prochlorperazine Edisylate (Compazine) 5 mg PACU PRN PRN IV NAUSEA, MRX1; Start 06/01/17 at 07:45; Stop 06/02/17 at 07:44; Status DC Sodium Chloride 1,000 ml @ 75 mls/hr [id number] IV Last administered on 06/01/17 22:41; Start 06/01/17 at 09:30; Stop 06/02/17 at 10:32; Status DC Cefazolin Sodium 50 ml @ 100 mls/hr Q8HRS IV ; Start 06/02/17 at 10:30; Stop 06/02/17 at 10:37; Status DC Levothyroxine Sodium (Synthroid) 137 mcg DAILY07 PO Last administered on 06:01; Start 06/03/17 at 07:00 Cefazolin Sodium 1 gm/Sodium Chloride 50 ml @ 100 mls/hr Q8HRS IV Last administered on 06/03/17 05:59; Start 06/02/17 at 10:37; Stop 06/03/17 at 18:00 Donepezil HCl (Aricept) 5 mg DAILY PO Last administered on 06/03/17 08:43; Start 06/03/17 at 09:00 Memantine (Namenda) 5 mg DAILY PO Last administered on 06/03/17 08:43; Start at 09:00 Lorazepam (Ativan) 0.5 mg PRN Q8HRS PRN PO ANXIETY / AGITATION; Start 06/03/17 at 10:00 Active Scripts Active Reported Aspir 81 (Aspirin) 81 Mg Tablet.dr 81 Mg PO Simvastatin 80 Mg Tablet 80 Mg PO DAILY Levothyroxine Sodium 125 Mcg Tablet 125 Mcg PO DAILYAC Vitals/I & O Vital Sign - Last 24 Hours 06/02/17 06/02/17 06/02/17 06/02/17 15:00 19:20 20:10 23:32 Temp 98.2 98.2 98.0 98.2 98.2 98.0 Pulse 61 63 65 Resp 16 16 17 B/P (MAP) 104/62 (76) 131/78 (95) 131/63 (85) Pulse Ox 97 96 96 O2 Delivery Room Air Room Air Room Air Room Air 06/03/17 06/03/17 06/03/17 06/03/17 03:30 07:00 07:55 11:00 Temp 98.9 98.2 98.0 98.9 98.2 98.0 Pulse 69 57 62 Resp 16 20 20 B/P (MAP) 125/68 (87) 110/69 (83) 98/62 (74) Pulse Ox 97 95 97 O2 Delivery Room Air Room Air Room Air Room Air Intake and Output 06/02/17 06/02/17 06/03/17 15:00 23:00 07:00 Intake Total 200 ml 50 ml 60 ml Output Total 1650 ml Balance -1450 ml 50 ml 60 ml Problem List Problems Medical Problems: (1) Anemia Status: Acute Assessment Acute blood loss anemia- with DU, Hg stable, on acid suppressive therapy, tolerating po, would continue with acid suppression 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
[2017-06-03 15:00] VITALS: BP 102/63
[2017-06-03 19:35] VITALS: BP 98/68
[2017-06-03 22:42] VITALS: BP 91/68
[2017-06-04 02:10] VITALS: BP 101/67
[2017-06-04] MEDS: LEVOTHYROXINE 137 MCG TABLET PO SCH (06:44)
[2017-06-04 07:00] VITALS: BP 101/61
[2017-06-04] MEDS ORDERED: DONE5TAB56 PO (09:16)
[2017-06-04] MEDS ORDERED: LEVO137T2 PO (09:16)
[2017-06-04] MEDS ORDERED: LORA0.5T96 PO (09:16)
[2017-06-04] MEDS ORDERED: CEFA1PIG IV (09:16)
[2017-06-04] MEDS ORDERED: MEMA5TAB14 PO (09:16)
--- NOTE | 2017-06-04 10:15 | PDOC ---
Subjective: Subjective: Denies pain, says eating some. Denies bleeding. Objective: Objective: Per RN - DC to [facility] today. Vital Signs: Vital Signs Date Time Temp Pulse Resp B/P (MAP) Pulse Ox O2 Delivery O2 Flow Rate FiO2 06/04/17 07:00 98.0 65 16 101/61 (74) 97 Room Air 98.0 PE: GEN: NAD, up to chair LUNGS: clear HEART: RRR ABD: S/ND/NT NEURO/PSYCH: awake/alert, speaks slowly A/P: Anemia - labs improved/stable Melena - resolved Duodenal ulcer -has been on IV H2 mira here -- Note DC plans, okay per GI. Would use PO PPI as outpt - d/w , pt, RN. Consider colonoscopy for screening. MANUELA CHEW Jun 04, 2017 10:15
[2017-06-04 11:00] VITALS: BP 94/63
[2017-06-04] MEDS: MEMANTINE 5 MG TABLET. PO SCH (11:01)
[2017-06-04] MEDS: PANTOPRAZOLE 40 MG TABLET.DR. PO SCH (11:01)
[2017-06-04] MEDS: DONEPEZIL HCL 5 MG TABLET. PO SCH (11:01)
--- NOTE | 2017-06-04 13:54 | PATHOLOGY ---
PATHOLOGY REPORT * * * * * * * * FINAL DIAGNOSIS: Gastric biopsies, antrum: - Mild superficial chronic inflammation. COMMENT: Sections of the gastric biopsy reveal segments of gastric body mucosa showing congestion and mild superficial chronic inflammation. An immunoperoxidase stain for Helicobacter is obtained. No Helicobacter organisms are identified. There is no evidence of malignancy. (JPM:mgr; 06/04/2017) Special Stain Performed: Immunoperoxidase stain for Helicobacter (A1) REPORT ELECTRONICALLY SIGNED BY: Caleb Mcbride M.D. DATE/TIME: 06/04/2017 13:53 * * * * * * * * GROSS PATHOLOGY: Received in formalin labeled "Evan [place]es, antrum, biopsy," are multiple segments of frazier soft tissue measuring 0.5 cm in aggregate dimensions and ranging from 0.1 to 0.2 cm in maximum dimension. The specimen is submitted entirely in cassette A1. ([facility]; 06/01/2017) INITIAL CPT CODE(S): A; 77639, 17913 Professional services performed by [facility] [place] [address] Technical services performed by [facility] at [address] [place] [address]. SPECIMEN(S) RECEIVED: A.Antrum biopsy CLINICAL HISTORY: GI bleed, rule out H. pylori PATIENT: EVAN AMES /AGE: 9 1940 (Age: 76) PATIENT #: [id number] ALT CASE #: SPECIMEN COLLECTION DATE: 06/01/2017 SPECIMEN RECEIVED DATE: 06/01/2017 [facility] - [address] [place] [address] - PHONE: [phone] * * * END OF REPORT * * *
[2017-06-04 15:00] VITALS: BP 96/63
--- NOTE | 2017-06-04 18:31 | PN ---
PROGRESS NOTES Subjective Subjective Up in chair, no new complaints, wants to go home, tolerating diet, nor further bleeding, no abdominal pain. Ancef has been stopped and call to pharmacy reveals it was entered by them as 3 dose preop but was to be continuous, he remains on IV pepcid Objective Objective Vital Signs Date Time Temp Pulse Resp B/P (MAP) Pulse Ox O2 Delivery O2 Flow Rate FiO2 06/04/17 15:00 98.3 88 16 96/63 (74) 95 Room Air 98.3 Intake and Output 06/04/17 07:00 Intake Total 500 ml Output Total 250 ml Balance 250 ml Intake Oral 500 ml Output Urine Total 250 ml # Voids 7 Physical Exam Physical Exam GEN, alert HEENT: wearing glasses, disheveled appearing, no congestion, conjunctiva clear HEART: RRR LUNGS: CTA ABD: soft non tender, no epigastric pain, normal bowel sounds EXT: no cyanosis , no edema, PICC line in place Diagnosis DIAGNOSIS GI bleed from DU, Hgb remains stable, transition IV pepcid to po pantoprazole MSSA bacteremia - resume IV ancef q 8 hrs for 3 more weeks Dementia - Namenda does increased to BIB, continue Aricept hypothyroidism - TSH was elevated and dose increased to 137 mcg PROBLEM LIST Assessment Assessment Plan Plan of Care transfer back to [facility] Comment Review of Relevant I have reviewed the following items betsy (where applicable) has been applied. Labs Laboratory Tests Test 06/03/17 05:45 White Blood Count 13.2 x10^3/uL (4.0-11.0) Red Blood Count 3.30 x10^6/uL (4.30-5.70) Hemoglobin 10.1 g/dL (13.0-17.5) Hematocrit 29.8 % (39.0-53.0) Mean Corpuscular Volume 90 fL (79-100) Mean Corpuscular Hemoglobin 31 pg (25-35) Mean Corpuscular Hemoglobin Concent 34 g/dL (31-37) Red Cell Distribution Width 15.9 % (11.5-14.5) Platelet Count 286 x10^3/uL (140-400) Microbiology 06/01/17 Urine Culture - Final, Complete 06/01/17 Urine Culture Result 1 (BIENVENIDO) - Final, Complete Medications Current Medications Sodium Chloride 500 ml @ 500 mls/hr 1X ONCE IV Last administered on 05/31/17 16:38; Start 05/31/17 at 16:15; Stop 05/31/17 at 17:14; Status DC Famotidine (Pepcid) 20 mg 1X ONCE IVP Last administered on 05/31/17 16:38; Start 05/31/17 at 16:15; Stop 05/31/17 at 16:16; Status DC Famotidine (Pepcid) 20 mg BID IVP Last administered on 06/03/17 20:44; Start at 09:00; Stop 06/04/17 at 10:16; Status DC Levothyroxine Sodium 100 mcg/ Sodium Chloride 5 ml @ 100 mls/hr DAILY IVP Last administered on 06/02/17 08:32; Start 06/01/17 at 09:00; Stop 06/02/17 at 10:32; Status DC Phytonadione 10 mg/Sodium Chloride 51 ml @ 102 mls/hr 1X ONCE IV Last administered on 05/31/17 23:00; Start 05/31/17 at 23:00; Stop 05/31/17 at 23:29; Status DC Midazolam HCl (Versed) 2 mg PRN 1X PRN IV PRIOR TO PROCEDURE; Start 06/01/17 at 07:00; Stop 06/02/17 at 06:59; Status DC Fentanyl Citrate (Fentanyl 2ml Vial) 25 mcg PRN Q5MIN PRN IV X 2 DOSES FOR PAIN ; Start 06/01/17 at 07:00; Stop 06/02/17 at 06:59; Status DC Fentanyl Citrate (Fentanyl 2ml Vial) 50 mcg PRN Q5MIN PRN IV X 2 DOSES FOR PAIN ; Start 06/01/17 at 07:00; Stop 06/02/17 at 06:59; Status DC Ringer's Solution 1,000 ml @ 125 mls/hr Q8H IV Last administered on 06/01/17 06:55; Start 06/01/17 at 06:54; Stop 06/01/17 at 09:25; Status DC Lidocaine HCl 2 ml 1X PRN PRN ID IV START; Start 06/01/17 at 07:00; Stop at 06:59; Status DC Propofol 20 ml @ As Directed STK-MED ONCE IV ; Start 06/01/17 at 07:13; Stop 06/01 at 07:14; Status DC Ondansetron HCl (Zofran) 4 mg PRN Q6HRS PRN IV NAUSEA/VOMITING; Start 06/01/17 at 07:45; Stop 06/02/17 at 07:44; Status DC Fentanyl Citrate (Fentanyl 2ml Vial) 25 mcg PRN Q5MIN PRN IV MILD PAIN; Start 06/01/17 at 07:45; Stop 06/02/17 at 07:44; Status DC Fentanyl Citrate (Fentanyl 2ml Vial) 50 mcg PRN Q5MIN PRN IV MODERATE PAIN; Start 06/01/17 at 07:45; Stop 06/02/17 at 07:44; Status DC Morphine Sulfate 1 mg PRN Q10MIN PRN IV SEVERE PAIN; Start 06/01/17 at 07:45; Stop 06/02/17 at 07:44; Status DC Ringer's Solution 1,000 ml @ 30 mls/hr Q24H IV ; Start 06/01/17 at 07:44; Stop 06/01/17 at 09:25; Status DC Lidocaine HCl 2 ml PRN 1X PRN ID PRIOR TO IV START; Start 06/01/17 at 07:45; Stop 06/02/17 at 07:44; Status DC Hydromorphone HCl (Dilaudid) 0.5 mg PRN Q10MIN PRN IV SEV PAIN, Second choice; Start 06/01/17 at 07:45; Stop 06/02/17 at 07:44; Status DC Prochlorperazine Edisylate (Compazine) 5 mg PACU PRN PRN IV NAUSEA, MRX1; Start 06/01/17 at 07:45; Stop 06/02/17 at 07:44; Status DC Sodium Chloride 1,000 ml @ 75 mls/hr [id number] IV Last administered on 06/01/17t 22:41; Start 06/01/17 at 09:30; Stop 06/02/17 at 10:32; Status DC Cefazolin Sodium 50 ml @ 100 mls/hr Q8HRS IV ; Start 06/02/17 at 10:30; Stop 06/02/17 at 10:37; Status DC Levothyroxine Sodium (Synthroid) 137 mcg DAILY07 PO Last administered on 06:44; Start 06/03/17 at 07:00 Cefazolin Sodium 1 gm/Sodium Chloride 50 ml @ 100 mls/hr Q8HRS IV Last administered on 06/03/17 14:07; Start 06/02/17 at 10:37; Stop 06/03/17 at 18:00; Status DC Donepezil HCl (Aricept) 5 mg DAILY PO Last administered on 06/04/17 11:01; Start 06/03/17 at 09:00 Memantine (Namenda) 5 mg DAILY PO Last administered on 06/04/17 11:01; Start 06/03/17 at 09:00 Lorazepam (Ativan) 0.5 mg PRN Q8HRS PRN PO ANXIETY / AGITATION; Start 06/03/17 at 10:00 Cefazolin Sodium 1 gm/Sodium Chloride 50 ml @ 100 mls/hr Q8HRS IV Last administered on 06/04/17 14:00; Start 06/04/17 at 09:00 Pantoprazole Sodium (Protonix) 40 mg DAILYAC PO Last administered on 06/04/17 11:01; Start 06/04/17 at 11:30 Active Scripts Active Reported Aspir 81 (Aspirin) 81 Mg Tablet.dr 81 Mg PO Simvastatin 80 Mg Tablet 80 Mg PO DAILY Levothyroxine Sodium 125 Mcg Tablet 125 Mcg PO DAILYAC Vitals/I & O Vital Sign - Last 24 Hours 06/03/17 06/03/17 06/03/17 06/04/17 19:35 19:45 22:42 02:10 Temp 98.4 98.1 98.0 98.4 98.1 98.0 Pulse 75 86 89 Resp 16 16 16 B/P (MAP) 98/68 (78) 91/68 (76) 101/67 (78) Pulse Ox 95 96 96 O2 Delivery Room Air Room Air Room Air Room Air 06/04/17 06/04/17 06/04/17 06/04/17 07:00 08:00 11:00 15:00 Temp 98.0 97.8 98.3 98.0 97.8 98.3 Pulse 65 81 88 Resp 16 16 16 B/P (MAP) 101/61 (74) 94/63 (73) 96/63 (74) Pulse Ox 97 98 95 O2 Delivery Room Air Room Air Room Air Room Air Intake and Output 06/03/17 06/03/17 06/04/17 15:00 23:00 07:00 Intake Total 200 ml 300 ml Output Total 250 ml Balance 200 ml 50 ml BELLA KERR MD Jun 04, 2017 18:31
[2017-06-04 19:59] VITALS: BP 96/62
[2017-06-04 22:48] VITALS: BP 93/60
[2017-06-05 03:07] VITALS: BP 112/69
[2017-06-05] MEDS: LEVOTHYROXINE 137 MCG TABLET PO SCH (06:15)
[2017-06-05 07:00] VITALS: BP 104/57
[2017-06-05] MEDS: MEMANTINE 5 MG TABLET. PO SCH (08:57)
[2017-06-05] MEDS: PANTOPRAZOLE 40 MG TABLET.DR. PO SCH (08:57)
[2017-06-05] MEDS: DONEPEZIL HCL 5 MG TABLET. PO SCH (08:57)
--- NOTE | 2017-06-05 09:28 | PDOC3 ---
Discharge Summary IPC Date of Admission: May 31, 2017 Discharge Date: Jun 05, 2017 Admitting Diagnosis upper GI bleed, acute blood loss anemia Problems: Final Diagnosis Problems Medical Problems: (1) Anemia Status: Acute CONSULTS [place] Procedures EGD, blood transfusion Brief Hospital Course Mr. Parker is a 76 old who presented with melena and found to have a duodenal ulcer, he required transfusion of 2 units of pRBC after being admitted into the ICU. He stabilized and was transferred to a telemetry bed and has done well, he remains weak and deconditioned and still needs SNU for PT/OT. He continued on his IV Ancef for MSSA bacteremia found during recent prior hospitalization. He has transitioned from IV Pepcid to po pantoprazole. His thyroid does was increased to 137 mcg. His Namenda was increased to 5 mg bid with anticipation of increasing to 10 mg bid soon. Ativan was added for . He has been taken off aspirin Problems: Disposition to [facility] CONDITION AT DISCHARGE: Improved, Stable Scheduled Levothyroxine Sodium (Levothyroxine Sodium), 125 MCG PO DAILYAC, (Reported) Simvastatin (Simvastatin), 80 MG PO DAILY, (Reported) Miscellaneous Medications Aspirin (Aspir 81), 81 MG PO, (Reported) Follow Up within 2 weeks of SNU discharge Patient Instructions see reconciled med rec BELLA KERR MD Jun 05, 2017 09:28
== END 2017-06-05 10:30 | DRG 377 ==
LOC: ER 15:02 → ED HOLD 16:09 → 1 WEST ICU 18:47 → 2 NORTH 06-02 11:30
PROVIDERS: ADMIT Family Medicine; ATTEND Family Medicine
PROC: 30233N1 Transfusion of Nonautologous Red Blood Cells into Peripheral Vein, Percutaneous Approach (ICD-10-PCS; 2017-05-31)
PROC: 0DB68ZX Excision of Stomach, Via Natural or Artificial Opening Endoscopic, Diagnostic (ICD-10-PCS; principal; 2017-06-01 07:00)
DX: K26.0 Acute duodenal ulcer with hemorrhage (principal); E43 Unspecified severe protein-calorie malnutrition; D62 Acute posthemorrhagic anemia; B95.61 Methicillin susceptible Staphylococcus aureus infection as the cause of diseases classified elsewhere; E03.9 Hypothyroidism, unspecified; E78.5 Hyperlipidemia, unspecified; F03.90 Unspecified dementia, unspecified severity, without behavioral disturbance, psychotic disturbance, mood disturbance, and anxiety; F17.210 Nicotine dependence, cigarettes, uncomplicated; H40.9 Unspecified glaucoma; K29.70 Gastritis, unspecified, without bleeding; K64.8 Other hemorrhoids; Z85.51 Personal history of malignant neoplasm of bladder; Z87.440 Personal history of urinary (tract) infections; Z79.899 Other long term (current) drug therapy; Z68.21 Body mass index [BMI] 21.0-21.9, adult
CPT/HCPCS: 36415; 70450; 71010; 80048; 80076; 81001; 82274; 82962; 83690; 84484; 85018; 85027; 85610; 85730; 86850; 86900; 86901; 86920; 87086; 87641; 88305; 88342; 93005; 96361; 96374; A6539; J0690; J2704; J3430; J7030; J7040; J7120; P9016; S0028; 97116; 97530; 99291-25